=== PATIENT | female | born 1945 | race Caucasian/White ===

== ENCOUNTER → 2018-06-30 12:06 | Outpatient (CLI) | payer MEDICARE, SELFPAY ==
--- NOTE | 2018-06-30 | DI.RAD.S_ITS ---
PROCEDURE: XR ANKLE LT MIN 3V INDICATIONS: PAIN IN LEFT ANKLE AND JOINTS OF LEFT FOOT TECHNIQUE: 3 views of the ankle were acquired. COMPARISON: [facility], , ANKLE 3 VIEWS LEFT, 09/16/2016, 9:32. FINDINGS: Bones: No fractures or dislocations. Ankle mortise is normally aligned. No suspicious bony lesions. Minimal tibiotalar spurring. Soft tissues: No tibiotalar joint effusion. Achilles tendon appears normal. IMPRESSION: No fracture. Mild degenerative spurring. Dictated by: Bryan العلي M.D. on 06/30/2018 at 13:54 Approved by: Bryan العلي M.D. on 06/30/2018 at 13:56
--- NOTE | 2018-06-30 | DI.RAD.S_ITS ---
PROCEDURE: XR RIBS RT MIN 3V W CXR 1V INDICATIONS: OTHER CHEST PAIN,PAIN IN LT ANKLE JOINTS OF FOOT TECHNIQUE: 2 views of the right ribs were acquired, along with a single view chest. COMPARISON: None. FINDINGS: Surgical changes and devices: None. Bones and chest wall: No fractures or dislocations. No suspicious bony lesions. Overlying soft tissues appear unremarkable. Some 4 mm presumed calcified granulomas projecting in the right upper lobe. Lungs and pleura: No pleural effusions or pneumothorax. Lungs appear clear. Mediastinum: Mediastinal contours appear normal. Heart size is normal. IMPRESSION: No acute disease. No fracture. Dictated by: Bryan العلي M.D. on 06/30/2018 at 13:46 Approved by: Bryan العلي M.D. on 06/30/2018 at 13:48
== END ==
PROVIDERS: Family Provider Internal Medicine; PCP Internal Medicine; Visit Provider Internal Medicine
DX: M25.572 Pain in left ankle and joints of left foot (principal); R07.89 Other chest pain
CPT/HCPCS: 71101; 73610

== ENCOUNTER → 2018-09-11 10:44 | Outpatient (CLI) | payer MEDICARE, SELFPAY ==
--- NOTE | 2018-09-11 | DI.CT.S_ITS ---
PROCEDURE: CT SINUS SCREEN WO CON INDICATIONS: CHRONIC SINITIS TECHNIQUE: Noncontrast 3.0 mm axial images acquired from the frontal sinuses to the mid-sella, with coronal and sagittal reformats. For radiation dose reduction, the following was used: automated exposure control, adjustment of mA and/or kV according to patient size. COMPARISON: [facility], CT, SINUS SCREEN WO CONTRAST, 01/07/2017, 14:35. FINDINGS: Image quality: Excellent. Maxillary Sinuses: There has been partial removal of the medial wall of the right maxillary sinus. Mild mucosal thickening can be seen within the left maxillary sinus. Ethmoid Air Cells: No bony remodeling or destruction. Mild to moderate mucosal thickening in the seen on the left side. Sphenoid Sinuses: No bony remodeling or destruction. Sinuses are clear. Frontal Sinuses: No bony remodeling or destruction. Sinuses are clear. Ostiomeatal Complexes: Ostiomeatal complexes are patent, yet they are constitutionally narrowed. Miscellaneous: Visualized intra-orbital contents are normal. There is a left-sided yolanda bullosa seen. Moderate rightward nasal septal deviation is seen. IMPRESSION: Left-sided paranasal sinus disease. Prior postoperative change of the medial wall of the right maxillary sinus. Moderate rightward nasal septal deviation. Dictated by: Lewis Yang M.D. on 09/11/2018 at 11:12 Approved by: Lewis Yang M.D. on 09/11/2018 at 11:14
[2018-09-11 13:01] LABS: BUN Creatinine Ratio 24.4 (6-22); Blood Urea Nitrogen 22 mg/dL (7-17); Calcium 9.6 mg/dL (8.4-10.2); Carbon Dioxide 32 mmol/L (22-32); Chloride 104 mmol/L (98-107); Estimated Glomerular Filt Rate > 60.0 mL/min (>60); Glucose 79 mg/dL (80-110); HEMOLYSIS < 15 (0-50); Potassium 4.2 mmol/L (3.4-5.1); Sodium 143 mmol/L (137-145)
== END ==
PROVIDERS: PCP Internal Medicine; Visit Provider Physician Assistant Medical
DX: J32.9 Chronic sinusitis, unspecified (principal); J34.2 Deviated nasal septum; I10 Essential (primary) hypertension
CPT/HCPCS: 36415; 70486; 80048

== ENCOUNTER → 2018-09-12 13:21 | Outpatient (CLI) | payer MEDICARE, SELFPAY ==
--- NOTE | 2018-09-12 | DI.NM.S_ITS ---
PROCEDURE: NM ETHAN PERF SPECT REST & STR Rest and exercise myocardial perfusion SPECT with gated imaging and ejection fraction RADIOPHARMACEUTICAL: 24.5 mCi Tc-99m sestamibi IV at rest and 25.4 mCi Tc-99m sestamibi IV at peak exercise. A two day-protocol was performed. INDICATIONS: ABNORMAL EKG TECHNIQUE: Radiopharmaceutical was injected at peak stress test, and also at rest. SPECT images were obtained. SPECT myocardial perfusion images were displayed in short axis, horizontal long axis, and vertical long axis views. Gated images were reviewed using [employer] software. COMPARISON: None. CARDIAC STRESS: A standard Alexei treadmill exercise tolerance test was performed by the patient under the supervision of an attending staff. The patient exercised for 6 minutes and 10 seconds reaching 7.0 METs; functional aerobic impairment (TODD) is -5%. Hemodynamic data: There is normal blood pressure and heart rate response to exercise stress. Patient achieved 97% of maximum predicted heart rate at peak exercise. Symptoms: Patient denied chest pain during exercise. EKG: No diagnostic EKG changes of ischemia; no ectopy. FINDINGS: Raw data: There is good myocardial labeling by radiotracer. No significant motion artifacts. Hznm-hk-[id number] ratio is 0.31 (normal is less than 0.38 for sestamibi tracer, and less than 0.50 for thallium tracer). Left ventricle function: Gated images demonstrate normal left ventricle wall thickening. No segmental wall motion abnormality. No transient ischemic dilation. The left ventricle resting end-diastolic volume is 97 mL. Left ventricle stress ejection fraction is 74%; normal values are above 45%. Myocardial perfusion: There is normal distribution of activity in the left and right ventricular myocardium. No fixed or reversible perfusion defects. IMPRESSION: Low risk, normal treadmill nuclear stress test. Hypertension at rest. 1) No perfusion evidence of ischemia or infarction. 2) Normal left ventricular size, wall motion, and systolic function (post stress EF 74%). 3) No ECG evidence of ischemia. 4) No angina during the stress test. 5) Above average exercise tolerance ( 7.0 METs, TODD -5%). Target heart rate reached. Hypertensive at rest (BP 150/92mmHg). Normal blood pressure response to exercise. 6) No prior nuclear stress test available for comparison. Dictated by: Michael Conklin MD on 09/14/2018 at 18:52 Approved by: Michael Conklin MD on 09/14/2018 at 18:56
--- NOTE | 2018-09-12 15:07 | P.PCN_ITS ---
Cardiac Stress Test Report Referral & Results Date Patient Seen: 09/12/18 Time Patient Seen: 15:04 Requesting provider: Emily Peralta Indication: Subtle EKG changes, T-wave flattening in far lateral leads Rest ECG: Unremarkable Procedure Note: Today following both written and verbal informed consent the patient was exercised according to a standard Alexei protocol patient went for a total of 6 min 10 sec achieving a maximum heart rate of 140 for maximum systolic blood pressure of 190 to. This is approximately 7.0 METS. Exercise was terminated at this point because of targets having been met and inability the patient to go any faster. Patient was also given Cardiolite through a previously started Hep-Lock IV by the nuclear medicine pet ct technologist approximately 1 minute prior to the cessation of exercise. Patient was minimally hypertensive to start but overall her blood pressure response was not excessive. Normal heart rate response to exercise No ST-T segment changes identified No dysrhythmias Functional aerobic impairment rated-5% on the active scale or-20% on the sedentary scale, better than average in either case Impression: Better than average exercise capacity No evidence of ischemia Mild hypertension Perfusion imaging will be reported separately This appears to be a normal test and depending on clinical situation consideration for echocardiogram could be made. This was discussed briefly with the patient. Patient also tells me she is planning to take the 3 or 4 week trip in the very near future I suggested to her that if her perfusion imaging is indeed normal that her risk in doing so would be really quite small although she might require additional cardiac evaluation such as echocardiography her biggest risk relates to coronary artery disease which would appear to not be present based on today's study. However I suggested patient contact her primary care physician for final decision making, as her PCP clearly knows her history and story far better than I. Please note: Actual ECG tracings can be found in the PACS system.
== END ==
PROVIDERS: Family Provider Internal Medicine Cardiovascular Disease; PCP Internal Medicine; Visit Provider Internal Medicine
DX: R94.31 Abnormal electrocardiogram [ECG] [EKG] (principal); I10 Essential (primary) hypertension
CPT/HCPCS: 78452; 93016; 93017; 93018; A9502

== ENCOUNTER → 2018-10-25 12:01 | Outpatient (CLI) | payer MEDICARE, SELFPAY ==
--- NOTE | 2018-10-25 | DI.CT.S_ITS ---
PROCEDURE: CT SINUS SCREEN WO CON INDICATIONS: CHRONIC SINUSITIS, HEARING LOSS TECHNIQUE: Noncontrast 3.0 mm axial images acquired from the frontal sinuses to the mid-sella, with coronal and sagittal reformats. For radiation dose reduction, the following was used: automated exposure control, adjustment of mA and/or kV according to patient size. COMPARISON: [facility], CT, CT SINUS SCREEN WO CON, 09/11/2018, 10:54. FINDINGS: Image quality: Excellent. Maxillary Sinuses: No bony remodeling or destruction. Mild left maxillary sinus mucosal thickening is present. Bilateral maxillary sinus windows are present. Ethmoid Air Cells: No bony remodeling or destruction. Sinuses are clear. Sphenoid Sinuses: No bony remodeling or destruction. Sinuses are clear. Frontal Sinuses: No bony remodeling or destruction. Sinuses are clear. Ostiomeatal Complexes: Ostiomeatal complexes are patent. No Nabil cells. Miscellaneous: Visualized intra-orbital contents are normal. Left middle turbinate yolanda bullosa. Moderate rightward nasal septal deviation. IMPRESSION: 1. Mild left maxillary sinus mucosal thickening. 2. Rightward nasal septum deviation. Dictated by: Denise Bedolla M.D. on 10/25/2018 at 13:49 Approved by: Denise Bedolla M.D. on 10/25/2018 at 13:50
--- NOTE | 2018-10-25 | DI.CT.S_ITS ---
PROCEDURE: CT HEAD/BRAIN WO CON INDICATIONS: CHRONIC SINUSITIS, HEADACHES TECHNIQUE: Noncontrast 4.5 mm thick angled axial sections acquired from the foramen magnum to the vertex, with coronal and sagittal reformats. For radiation dose reduction, the following was used: automated exposure control, adjustment of mA and/or kV according to patient size. COMPARISON: None. FINDINGS: Image quality: Excellent. CSF spaces: Basal cisterns are patent. No extra-axial fluid collections. The ventricles are symmetric in size and shape. Brain: No intracranial bleeds or masses. There is mild cerebral volume loss for age, with resultant ventricular and sulcal prominence. There are mild periventricular and deep white matter chronic small vessel ischemic changes. There is intracranial internal carotid artery atherosclerosis. Skull and face: Calvarium and visualized facial bones appear intact, without suspicious lesions. Sinuses: Visualized sinuses and mastoids are clear. IMPRESSION: No acute intracranial disease process. Dictated by: Daniela Barr MD, PhD on 10/25/2018 at 16:41 Approved by: Daniela Barr MD, PhD on 10/25/2018 at 16:43
== END ==
PROVIDERS: Family Provider Internal Medicine Cardiovascular Disease; PCP Internal Medicine; Visit Provider Allergy & Immunology
DX: J32.0 Chronic maxillary sinusitis (principal); I65.29 Occlusion and stenosis of unspecified carotid artery; H91.90 Unspecified hearing loss, unspecified ear; J34.2 Deviated nasal septum; R51 Headache
CPT/HCPCS: 70450; 70486

== ENCOUNTER → 2019-01-18 11:07 | Outpatient (CLI) | payer MEDICARE, SELFPAY | PROVIDERS: PCP Internal Medicine; Visit Provider Internal Medicine | DX: Z01.83 Encounter for blood typing (principal) | CPT/HCPCS: 36415; 86850; 86900; 86901 ==

== ENCOUNTER → 2019-01-18 14:09 | Outpatient (CLI) | payer MEDICARE, SELFPAY ==
[2019-01-18 15:19] LABS: Erythrocyte Sedimentation Rate 9 MM/HR (0-20)
== END ==
PROVIDERS: PCP Internal Medicine; Visit Provider Family Medicine
DX: R51 Headache (principal); Z01.83 Encounter for blood typing
CPT/HCPCS: 36415; 85651; 86850; 86900; 86901

== ENCOUNTER → 2019-05-16 14:04 | Outpatient (CLI) | payer MEDICARE, SELFPAY ==
--- NOTE | 2019-05-16 | DI.MRI.S_ITS ---
PROCEDURE: MR HEAD/BRAIN WO/W CON INDICATIONS: Other abnormalities of gait and mobility TECHNIQUE: Noncontrast axial T1 spin echo, axial T2 fast spin echo, sagittal and axial FLAIR, coronal T2 fast spin echo, axial gradient echo, axial diffusion and ADC through the brain. After the administration of contrast, axial and coronal T1 spin echo with fat saturation through the brain. COMPARISON: [facility], CT, CT HEAD/BRAIN WO CON, 10/25/2018, 12:55. FINDINGS: Image quality: Excellent. CSF spaces: Basal cisterns are patent. No extra-axial fluid collections. Ventricles are normal in size and shape. Brain: No midline shift. No intracranial bleeds or masses. No abnormal intracranial enhancement. There is cerebral volume loss for age. There is periventricular white matter chronic small vessel ischemic change. The brainstem appears normal. Diffusion-weighted images demonstrate no acute ischemic insults. No chronic ischemic insults. Normal intravascular flow voids are present. Skull and face: Calvarial marrow is normal in signal. Orbits appear normal. Sinuses: Sinuses and mastoids appear clear. IMPRESSION: Diffuse small white matter signal changes, probably represent chronic microvascular ischemic disease, versus statistically less likely demyelination or other infectious, inflammatory, neurodegenerative etiology, technically nonspecific. No abnormal enhancement. No evidence of acute ischemia. Dictated by: Bryan العلي M.D. on 05/16/2019 at 16:03 Approved by: Bryan العلي M.D. on 05/16/2019 at 16:07
== END ==
PROVIDERS: PCP Internal Medicine; Visit Provider Internal Medicine
DX: R26.89 Other abnormalities of gait and mobility (principal); R42 Dizziness and giddiness
CPT/HCPCS: 70553; A9579

== ENCOUNTER → 2019-05-22 08:25 | Outpatient (CLI) | payer MEDICARE, SELFPAY ==
[2019-05-22 09:46] LABS: Alanine Aminotransferase 24 IU/L (9-52); Aspartate Aminotransferase 25 IU/L (14-36); BUN Creatinine Ratio 25.7 (6-22); Blood Urea Nitrogen 18 mg/dL (7-17); Calcium 9.4 mg/dL (8.4-10.2); Carbon Dioxide 26 mmol/L (22-32); Chloride 108 mmol/L (98-107); Cholesterol 164 mg/dL (140-199); Estimated Glomerular Filt Rate > 60.0 mL/min (>60); Glucose 90 mg/dL (80-110); HDL Cholesterol 54 mg/dL (40-60); HEMOLYSIS < 15 (0-50); LDL Cholesterol Calculated 88 mg/dL (<100); Potassium 3.9 mmol/L (3.4-5.1); Sodium 143 mmol/L (137-145); Triglycerides 109 mg/dL (35-150)
== END ==
PROVIDERS: PCP Internal Medicine; Visit Provider Internal Medicine
DX: I10 Essential (primary) hypertension (principal); E78.5 Hyperlipidemia, unspecified
CPT/HCPCS: 36415; 80048; 80061; 84450; 84460

== ENCOUNTER → 2019-08-29 17:58 | Outpatient (CLI) | payer MEDICARE, SELFPAY ==
--- NOTE | 2019-08-29 | DI.MRI.S_ITS ---
PROCEDURE: MR KNEE RT WO CON INDICATIONS: Pain in right knee TECHNIQUE: Noncontrast sagittal PD fast spin echo and T2 fast spin echo with fat saturation, sagittal 3-D FLASH with fat saturation; coronal T1 spin echo and PD fast spin echo with fat saturation, and axial PD fast spin echo with fat saturation through the knee. COMPARISON: None. FINDINGS: Image quality: Excellent. Menisci: Amorphous high signal intensity within the free edge of the medial meniscal body is present, demonstrating superior and inferior articular surface extension, indicating degenerative tearing. Lateral meniscus is intact. Cruciate ligaments: The anterior and posterior cruciate ligaments appear intact. Medial structures: The medial collateral ligament appears intact. Visualized portions of the pes anserinus tendons appear normal. Small amount of medial bursal fluid. Lateral structures: The lateral collateral ligament, long and short heads of the biceps femoris tendon appear intact. The popliteus tendon appears normal. Iliotibial band appears normal. Anterior structures: The quadriceps and patellar tendons appear intact. Patellar alignment is normal. No femoral trochlear dysplasia or ventral trochlear prominence. No edema in the infrapatellar fat pad. Bones and cartilage: No bone marrow contusions or fractures. There is mild tricompartmental periarticular osteophyte formation. There is moderate diffuse circular cartilage loss overlying the weightbearing aspects of the medial femoral condyle and medial tibial plateau. Superimposed high grade articular cartilage loss overlies the posterior weightbearing aspect of the medial femoral condyle. There is mild underlying degenerative marrow edema within the medial femoral condyle posteriorly. Severe articular cartilage loss overlies the medial patellar facet superiorly. Mild degenerative marrow edema within the patellar apex. Joint space: There is a small knee joint effusion. No Sharma's cyst. Normal appearing synovial plicae are incidentally noted. IMPRESSION: 1. Tricompartmental osteoarthritis with associated articular cartilage loss. 2. Medial meniscal tear. 3. Small knee joint effusion. 4. Mild medial bursitis. Dictated by: Denise Bedolla M.D. on 08/30/2019 at 10:35 Approved by: Denise Bedolla M.D. on 08/30/2019 at 10:38
== END ==
PROVIDERS: Family Provider Internal Medicine; PCP Internal Medicine; Visit Provider Student in an Organized Health Care Education/Training Program
DX: M25.561 Pain in right knee (principal); M17.11 Unilateral primary osteoarthritis, right knee; S83.241A Other tear of medial meniscus, current injury, right knee, initial encounter; M25.461 Effusion, right knee; M71.561 Other bursitis, not elsewhere classified, right knee
CPT/HCPCS: 73721

== ENCOUNTER → 2019-10-25 14:56 | Outpatient (CLI) | payer MEDICARE, SELFPAY | PROVIDERS: PCP Internal Medicine; Visit Provider Internal Medicine | DX: M85.852 Other specified disorders of bone density and structure, left thigh (principal); Z78.0 Asymptomatic menopausal state; Z82.62 Family history of osteoporosis | CPT/HCPCS: 77080; 77081 ==

== ENCOUNTER → 2019-10-26 11:42 | Outpatient (CLI) | payer MEDICARE, SELFPAY ==
--- NOTE | 2019-10-26 | DI.MG.S_ITS ---
BILATERAL DIGITAL SCREENING MAMMOGRAM 3D/2D WITH CAD: 10/26/2019 CLINICAL: Routine screening. Comparison is made to exams dated: 03/11/2017 mammogram - [facility], 12/12/2014 mammogram, and 11/08/2013 mammogram - [facility]. The tissue of both breasts is heterogeneously dense. This may lower the sensitivity of mammography. Current study was also evaluated with a Computer Aided Detection (CAD) system. No significant masses, calcifications, or other findings are seen in either breast. There has been no significant interval change. IMPRESSION: NEGATIVE There is no mammographic evidence of malignancy. A 1 year screening mammogram is recommended. This exam was interpreted at Station ID: [id number]. NOTE: For mammograms, a report in lay terms will be sent to the patient. Approximately 15% of breast malignancies will not be visualized mammographically. In the management of a palpable breast mass, a negative mammogram must not discourage biopsy of a clinically suspicious lesion. Electronically Signed By: Julio Cesar montanez/lisbeth:10/26/2019 14:49:20 letter sent: Normal Exam ACR BI-RADS Category 1: Negative [id number]
== END ==
PROVIDERS: PCP Internal Medicine; Visit Provider Internal Medicine
DX: Z12.31 Encounter for screening mammogram for malignant neoplasm of breast (principal)
CPT/HCPCS: 77063; 77067

== ENCOUNTER 2019-10-31 11:15 | Outpatient (RCR) | payer MEDICARE, SELFPAY ==
--- NOTE | 2019-09-05 16:45 | PT.OPPOC ---
Current Diagnoses Pain in right knee (09/05/19) Stiffness of right knee, not elsewhere classified (09/05/19) Other abnormalities of gait and mobility (09/05/19) Weakness (09/05/19) Other tear of medial meniscus, current injury, right knee, initial encounter (09/05/19) Visit Care Team Role Provider Type Emily Peralta MD Family Provider Physician Primary Care Provider Specialty: Internal Medicine Address: [address] [place] [address], [facility] Email: [email or web address] Cuca Fontenot PA-C Attending Provider Physician Specialty: Internal Medicine Address: [address] [place] [address], [id number] Email: [email or web address] Plan Of Care PT-OP-T Assessment and Plan Start: 09/06/19 09:34 Freq: Status: Active Protocol: Document 09/05/19 16:00 DCW (Rec: 09/06/19 10:20 DCW [id number]) Physical Therapy Assessment Rehab Potential Rehabilitation Potential Good Evaluation Complexity Number of Personal Factors/Comorbidities 1-2 Number of Body Systems Impaired 1-2 Clinical Presentation at Evaluation Stable Impairments Impairments Activity Tolerance,Functional Mobility,Gait,Pain,ROM, Strength Goals Four Impairment Pt descends stairs by side- stepping Long-Term Goal (LTG) Pt to ascend and descend stairs [id number] with no increased pain to increased level of safety LTG Duration 11/05/19 Three Impairment Pt only able to walk <1 mile per day Music Copyist Goal (LTG) Pt to ambulate 5 miles daily without increased knee pain to return to [facility] for her springtime motor-home road trips LTG Duration 11/05/19 Two Impairment Pt pain wakes her up at night Short Term Goal (STG) Pt to report pain at night at worst /10 to improve sleep STG Duration 10/06/19 One Impairment Pt does not have an appropriate home exercise program Short Term Goal (STG) Pt to be independent and compliant with an appropriate HEP STG Duration 10/06/19 Assessment Summary Assessment Pt is a 74 year old female presenting with a right medial meniscus tear. Pt displays right-sided weakness, pain with pivoting on her right knee, decreased tolerance to walking, VMO atrophy, limited right knee flexion, decreased quality of gait, and increased tone and tenderness of her right calf. Patient should benefit from skilled therapy focusing on LE strengthening, gait training, pain-control, ROM/flexibility training. Physical Therapy Plan Frequency and Duration Frequency of Treatment 2x/Week Duration of Treatment 12 weeks Plan of Care Start Date 09/05/19 Plan of Care End Date 11/28/19 Therapeutic Interventions Therapeutic Interventions Gait Training,Joint Mobilizations,Manual Therapy, Patient/Caregiver Education, Self-Care/Home Management,Soft Tissue Mobilization, Therapeutic Activities, Therapeutic Exercises Modalities Cold Pack/Ice Massage,Electric Stimulation,Hot Packs, Ultrasound Next Visit Focus/Plan Next Note Type Treatment Note Next Visit Plan LE strengthening, gait training, edema control, ROM exercises, pain-control Plan of Care Dates Plan of Care Start Date 09/05/19 Plan of Care End Date 11/28/19
--- NOTE | 2019-09-05 16:45 | PT.OIE ---
Current Diagnoses Pain in right knee (09/05/19) Stiffness of right knee, not elsewhere classified (09/05/19) Other abnormalities of gait and mobility (09/05/19) Weakness (09/05/19) Other tear of medial meniscus, current injury, right knee, initial encounter (09/05/19) Visit Care Team Role Provider Type Emily Peralta MD Family Provider Physician Primary Care Provider Specialty: Internal Medicine Address: [address] [place] [address], [facility] Email: [email or web address]-C Attending Provider Physician Specialty: Internal Medicine Address: [address] [place] [address], [id number] Email: [email or web address] Physical Therapy Initial Evaluation PT-OP-A Visit Information Start: 09/06/19 09:34 Freq: Status: Active Protocol: Document 09/05/19 16:00 DCW (Rec: 09/06/19 10:20 [facility] [id number]) Out-Patient Physical Therapy Visit Information Visit Information Visit Type Initial Evaluation Visit Start Time 16:00 Visit Stop Time 16:45 Total Visit Minutes 45 Visit Number 1 Number of DIRECTOR HEMATOLOGY Visits 0 Evaluation Information Evaluation Date 09/05/19 PT-OP-B Current Condition Start: 09/06/19 09:34 Freq: Status: Active Protocol: Document 09/05/19 16:00 DCW (Rec: 09/06/19 10:20 [facility] [id number]) Current Condition History of Current Condition Onset Date 6 week history Current Complaints Right medial meniscus tear History of Current Condition Pt is a 74 year old female presenting with a six week history of right knee pain. Pt reports that she and her were driving [place], and two months into their trip, they were doing a lot of walking, and she woke up one day with substantial pain and edema in her right knee. Pt reports that for the remainder of the trip, she continued to walk, but just did less, cutting back from seven miles a day to about two. Pt reports she tried to keep her knee elevated when not walking, and it took ten days for her swelling to go down a a bit, but then the pain worsened. 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 Pt was told to try Physical Therapy, and then they'll go from there. Pt notes that she will frequently feel like the knee is going to collapse, although it hasn't yet, so pt has been wearing a neoprene brace for support and compression. Pain has been interfering with her life, waking her up at night, and limiting her to walking less than one mile a day. Prior Treatments and Tests Right knee MRI: 1. Tricompartmental osteoarthritis with associated articular cartilage loss. 2. Medial meniscal tear. 3. Small knee joint effusion. 4. Mild medial bursitis. Per Denise Bedolla M.D. on 08/2019 Treatment Goals Patient/Caregiver Goals Pt wants to decrease pain so she can sleep through the night, and improve her walking back to 5+ miles a day, as she has more upcoming road trips, during which she likes to hike and explore with her . PT-OP-C Subjective Start: 09/06/19 09:34 Freq: Status: Active Protocol: Document 09/05/19 16:00 DCW (Rec: 09/06/19 10:20 [facility] [id number]) OP-PT Subjective Patient Comments Patient Comments Everything I go aggravates it . Patient Reported Progress Same Patient Questionnaires Lower Extremity Functional Scale LEFS Score 46/80 = 57.5% LEFS Impairment 40 to 59% Impaired (Score 32- 47) OP-PT Pain Assessment Pain Assessment Grid Paper Pain Assessment Grid Completed Yes Location Right Medial Knee Intensity 6 Scale Used Numeric (1 - 10) Description Aching,Chronic,Pressure Frequency Frequent PT-OP-F Manual Assessment Start: 09/06/19 10:22 Freq: Status: Active Protocol: Document 09/05/19 16:00 DCW (Rec: 09/06/19 10:23 [facility] [id number]) Manual Assessments Soft Tissue Assessment Soft Tissue Mobility Assessment Noticeable right VMO atrophy during quad sets vs left VMO PT-OP-G Mobility & Gait Start: 09/06/19 09:34 Freq: Status: Active Protocol: Document 09/05/19 16:00 DCW (Rec: 09/06/19 10:20 [facility] [id number]) OP Gait Assessment Gait Gait Assistance Required: Independent Able to Maintain Weight Bearing Status Yes During Gait Assistive Devices Assistive Device None Gait Deviations General Gait Pattern Antalgic,Decreased Stride Length,Lateral Trunk Lean Factors Limiting Gait Function Factors Limiting Gait Function Decreased Activity Tolerance, Decreased Strength,Limited Range of Motion,Pain Comments Gait Comments Pt ambulates with antalgic gait, a lateral weight shift over right leg during R stance , exhibits a decreased stance time on her right. Stair Climbing Evaluation Evaluation Level of Assist On Stairs Independent Devices Stair Climbing Assistive Devices Left Railing,Right Railing Technique/Endurance Stair Climbing Direction Ascend and Descend Stair Climbing Technique Step to Step Comments Stair Climbing Comments prefers step-to, but is able to use step-through on stairs with mild increased pain PT-OP-K Range of Motion Start: 09/06/19 09:34 Freq: Status: Active Protocol: Document 09/05/19 16:00 DCW (Rec: 09/06/19 10:20 [facility] [id number]) Knee Goniometric Range of Motion Knee Right Knee ROM WFL No Patient Position Sitting Flexion Active (degrees) 92 Extension Active (degrees) 0 Left Knee ROM WFL Yes Knee ROM Limitations Knee ROM Limitations Pain,Swelling PT-OP-L Special Tests Start: 09/06/19 09:34 Freq: Status: Active Protocol: Document 09/05/19 16:00 DCW (Rec: 09/06/19 10:20 [facility] [id number]) Special Tests Knee Special Tests Varus- 25 Degrees Test Results Negative Valgus- 25 Degrees Test Results Negative Posterior Draw Test Results Negative Anthony's Test Results Negative Anterior Draw Test Results Negative PT-OP-M Strength Start: 09/06/19 09:34 Freq: Status: Active Protocol: Document 09/05/19 16:00 DCW (Rec: 09/06/19 10:20 [facility] [id number]) Hip Strength Hip Manual Muscle Testing Right Flexion (L2) 4- Good- Abduction 4- Good- Adduction 4- Good- Left Flexion (L2) 4+ Good+ Abduction 4+ Good+ Adduction 4+ Good+ Knee Strength Knee Manual Muscle Testing Right Flexion (S2) 3 Fair Extension (L3) 4 Good Left Flexion (S2) 4+ Good+ Extension (L3) 4+ Good+ PT-OP-Q Treatments Start: 09/06/19 09:34 Freq: Status: Active Protocol: Document 09/05/19 16:00 DCW (Rec: 09/06/19 10:20 [facility] [id number]) Therapeutic Exercises Supine Exercises Bridging Supine Exercise Name Bridging /c Add Ball Squeeze SLR /c ER Supine Exercise Name SLR /c ER Side right Sitting Exercises Quad Sets Sitting Exercise Name Seated QS Side right PT-OP-T Assessment and Plan Start: 09/06/19 09:34 Freq: Status: Active Protocol: Document 09/05/19 16:00 DCW (Rec: 09/06/19 10:20 [facility] [id number]) Physical Therapy Assessment Rehab Potential Rehabilitation Potential Good Evaluation Complexity Number of Personal Factors/Comorbidities 1-2 Number of Body Systems Impaired 1-2 Clinical Presentation at Evaluation Stable Impairments Impairments Activity Tolerance,Functional Mobility,Gait,Pain,ROM, Strength Goals Four Impairment Pt descends stairs by side- stepping Senior Care Goal (LTG) Pt to ascend and descend stairs [id number] with no increased pain to increased level of safety LTG Duration 11/05/19 Three Impairment Pt only able to walk <1 mile per day [employer]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 Goal (LTG) Pt to ambulate 5 miles daily without increased knee pain to return to [facility] for her springtime motor-home road trips LTG Duration 11/05/19 Two Impairment Pt pain wakes her up at night Short Term Goal (STG) Pt to report pain at night at worst /10 to improve sleep STG Duration 10/06/19 One Impairment Pt does not have an appropriate home exercise program Short Term Goal (STG) Pt to be independent and compliant with an appropriate HEP STG Duration 10/06/19 Assessment Summary Assessment Pt is a 74 year old female presenting with a right medial meniscus tear. Pt displays right-sided weakness, pain with pivoting on her right knee, decreased tolerance to walking, VMO atrophy, limited right knee flexion, decreased quality of gait, and increased tone and tenderness of her right calf. Patient should benefit from skilled therapy focusing on LE strengthening, gait training, pain-control, ROM/flexibility training. Physical Therapy Plan Frequency and Duration Frequency of Treatment 2x/Week Duration of Treatment 12 weeks Plan of Care Start Date 09/05/19 Plan of Care End Date 11/28/19 Therapeutic Interventions Therapeutic Interventions Gait Training,Joint Mobilizations,Manual Therapy, Patient/Caregiver Education, Self-Care/Home Management,Soft Tissue Mobilization, Therapeutic Activities, Therapeutic Exercises Modalities Cold Pack/Ice Massage,Electric Stimulation,Hot Packs, Ultrasound Next Visit Focus/Plan Next Note Type Treatment Note Next Visit Plan LE strengthening, gait training, edema control, ROM exercises, pain-control
--- NOTE | 2019-09-06 10:23 | PT.OIE ---
Current Diagnoses Pain in right knee (09/05/19) Stiffness of right knee, not elsewhere classified (09/05/19) Other abnormalities of gait and mobility (09/05/19) Weakness (09/05/19) Other tear of medial meniscus, current injury, right knee, initial encounter (09/05/19) Visit Care Team Role Provider Type Emily Peralta MD Family Provider Physician Primary Care Provider Specialty: Internal Medicine Address: [address] [place] [address], [facility] Email: [email or web address] Attending Provider Physician Specialty: Internal Medicine Address: [address] [place] [address], [id number] Email: [email or web address] Physical Therapy Initial Evaluation PT-OP-A Visit Information Start: 09/06/19 09:34 Freq: Status: Active Protocol: Document 09/05/19 16:00 DCW (Rec: 09/06/19 10:20 [facility] [id number]) Out-Patient Physical Therapy Visit Information Visit Information Visit Type Initial Evaluation Visit Start Time 16:00 Visit Stop Time 16:45 Total Visit Minutes 45 Visit Number 1 Number of UNIVERSAL BANKER Visits 0 Evaluation Information Evaluation Date 09/05/19 PT-OP-B Current Condition Start: 09/06/19 09:34 Freq: Status: Active Protocol: Document 09/05/19 16:00 DCW (Rec: 09/06/19 10:20 [facility] [id number]) Current Condition History of Current Condition Onset Date 6 week history Current Complaints Right medial meniscus tear History of Current Condition Pt is a 74 year old female presenting with a six week history of right knee pain. Pt reports that she and her were driving their motor-home [place] the continent [place], and two months into their trip, they were doing a lot of walking, and she woke up one day with substantial pain and edema in her right knee. Pt reports that for the remainder of the trip, she continued to walk, but just did less, cutting back from seven miles a day to about two. Pt reports she tried to keep her knee elevated when not walking, and it took ten days for her swelling to go down a a bit, but then the pain worsened. 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 Pt was told to try Physical Therapy, and then they'll go from there. Pt notes that she will frequently feel like the knee is going to collapse, although it hasn't yet, so pt has been wearing a neoprene brace for support and compression. Pain has been interfering with her life, waking her up at night, and limiting her to walking less than one mile a day. Prior Treatments and Tests Right knee MRI: 1. Tricompartmental osteoarthritis with associated articular cartilage loss. 2. Medial meniscal tear. 3. Small knee joint effusion. 4. Mild medial bursitis. Per Denise Bedolla M.D. on 08/2019 Treatment Goals Patient/Caregiver Goals Pt wants to decrease pain so she can sleep through the night, and improve her walking back to 5+ miles a day, as she has more upcoming road trips, during which she likes to hike and explore with her . PT-OP-C Subjective Start: 09/06/19 09:34 Freq: Status: Active Protocol: Document 09/05/19 16:00 DCW (Rec: 09/06/19 10:20 [facility] [id number]) OP-PT Subjective Patient Comments Patient Comments Everything I go aggravates it . Patient Reported Progress Same Patient Questionnaires Lower Extremity Functional Scale LEFS Score 46/80 = 57.5% LEFS Impairment 40 to 59% Impaired (Score 32- 47) OP-PT Pain Assessment Pain Assessment Grid Paper Pain Assessment Grid Completed Yes Location Right Medial Knee Intensity 6 Scale Used Numeric (1 - 10) Description Aching,Chronic,Pressure Frequency Frequent PT-OP-F Manual Assessment Start: 09/06/19 10:22 Freq: Status: Active Protocol: Document 09/05/19 16:00 DCW (Rec: 09/06/19 10:23 [facility] [id number]) Manual Assessments Soft Tissue Assessment Soft Tissue Mobility Assessment Noticeable right VMO atrophy during quad sets vs left VMO PT-OP-G Mobility & Gait Start: 09/06/19 09:34 Freq: Status: Active Protocol: Document 09/05/19 16:00 DCW (Rec: 09/06/19 10:20 [facility] [id number]) OP Gait Assessment Gait Gait Assistance Required: Independent Able to Maintain Weight Bearing Status Yes During Gait Assistive Devices Assistive Device None Gait Deviations General Gait Pattern Antalgic,Decreased Stride Length,Lateral Trunk Lean Factors Limiting Gait Function Factors Limiting Gait Function Decreased Activity Tolerance, Decreased Strength,Limited Range of Motion,Pain Comments Gait Comments Pt ambulates with antalgic gait, a lateral weight shift over right leg during R stance , exhibits a decreased stance time on her right. Stair Climbing Evaluation Evaluation Level of Assist On Stairs Independent Devices Stair Climbing Assistive Devices Left Railing,Right Railing Technique/Endurance Stair Climbing Direction Ascend and Descend Stair Climbing Technique Step to Step Comments Stair Climbing Comments prefers step-to, but is able to use step-through on stairs with mild increased pain PT-OP-K Range of Motion Start: 09/06/19 09:34 Freq: Status: Active Protocol: Document 09/05/19 16:00 DCW (Rec: 09/06/19 10:20 [facility] [id number]) Knee Goniometric Range of Motion Knee Right Knee ROM WFL No Patient Position Sitting Flexion Active (degrees) 92 Extension Active (degrees) 0 Left Knee ROM WFL Yes Knee ROM Limitations Knee ROM Limitations Pain,Swelling PT-OP-L Special Tests Start: 09/06/19 09:34 Freq: Status: Active Protocol: Document 09/05/19 16:00 DCW (Rec: 09/06/19 10:20 [facility] [id number]) Special Tests Knee Special Tests Varus- 25 Degrees Test Results Negative Valgus- 25 Degrees Test Results Negative Posterior Draw Test Results Negative Anthony's Test Results Negative Anterior Draw Test Results Negative PT-OP-M Strength Start: 09/06/19 09:34 Freq: Status: Active Protocol: Document 09/05/19 16:00 DCW (Rec: 09/06/19 10:20 [facility] [id number]) Hip Strength Hip Manual Muscle Testing Right Flexion (L2) 4- Good- Abduction 4- Good- Adduction 4- Good- Left Flexion (L2) 4+ Good+ Abduction 4+ Good+ Adduction 4+ Good+ Knee Strength Knee Manual Muscle Testing Right Flexion (S2) 3 Fair Extension (L3) 4 Good Left Flexion (S2) 4+ Good+ Extension (L3) 4+ Good+ PT-OP-Q Treatments Start: 09/06/19 09:34 Freq: Status: Active Protocol: Document 09/05/19 16:00 DCW (Rec: 09/06/19 10:20 [facility] [id number]) Therapeutic Exercises Supine Exercises Bridging Supine Exercise Name Bridging /c Add Ball Squeeze SLR /c ER Supine Exercise Name SLR /c ER Side right Sitting Exercises Quad Sets Sitting Exercise Name Seated QS Side right PT-OP-T Assessment and Plan Start: 09/06/19 09:34 Freq: Status: Active Protocol: Document 09/05/19 16:00 DCW (Rec: 09/06/19 10:20 [facility] [id number]) Physical Therapy Assessment Rehab Potential Rehabilitation Potential Good Evaluation Complexity Number of Personal Factors/Comorbidities 1-2 Number of Body Systems Impaired 1-2 Clinical Presentation at Evaluation Stable Impairments Impairments Activity Tolerance,Functional Mobility,Gait,Pain,ROM, Strength Goals Four Impairment Pt descends stairs by side- stepping Skilled Nursing Goal (LTG) Pt to ascend and descend stairs [id number] with no increased pain to increased level of safety LTG Duration 11/05/19 Three Impairment Pt only able to walk <1 mile per day Corporate Executive Goal (LTG) Pt to ambulate 5 miles daily without increased knee pain to return to [facility] for her springtime motor home road trips LTG Duration 11/05/19 Two Impairment Pt pain wakes her up at night Short Term Goal (STG) Pt to report pain at night at worst /10 to improve sleep STG Duration 10/06/19 One Impairment Pt does not have an appropriate home exercise program Short Term Goal (STG) Pt to be independent and compliant with an appropriate HEP STG Duration 10/06/19 Assessment Summary Assessment Pt is a 74 year old female presenting with a right medial meniscus tear. Pt displays right-sided weakness, pain with pivoting on her right knee, decreased tolerance to walking, VMO atrophy, limited right knee flexion, decreased quality of gait, and increased tone and tenderness of her right calf. Patient should benefit from skilled therapy focusing on LE strengthening, gait training, pain-control, ROM/flexibility training. Physical Therapy Plan Frequency and Duration Frequency of Treatment 2x/Week Duration of Treatment 12 weeks Plan of Care Start Date 09/05/19 Plan of Care End Date 11/28/19 Therapeutic Interventions Therapeutic Interventions Gait Training,Joint Mobilizations,Manual Therapy, Patient/Caregiver Education, Self-Care/Home Management,Soft Tissue Mobilization, Therapeutic Activities, Therapeutic Exercises Modalities Cold Pack/Ice Massage,Electric Stimulation,Hot Packs, Ultrasound Next Visit Focus/Plan Next Note Type Treatment Note Next Visit Plan LE strengthening, gait training, edema control, ROM exercises, pain-control
--- NOTE | 2019-09-07 14:35 | PT.OTN ---
Current Diagnoses Pain in right knee (09/07/19) Stiffness of right knee, not elsewhere classified (09/07/19) Other abnormalities of gait and mobility (09/07/19) Weakness (09/07/19) Other tear of medial meniscus, current injury, right knee, initial encounter (09/07/19) Physical Therapy Treatment Note PT-OP-A Visit Information Start: 09/06/19 09:34 Freq: Status: Active Protocol: Document 09/07/19 13:45 DCW (Rec: 09/07/19 14:35 DCW [id number]) Out-Patient Physical Therapy Visit Information Visit Information Visit Type Treatment Note Visit Start Time 13:45 Visit Stop Time 14:30 Total Visit Minutes 45 Visit Number 2 Number of OFFAL SEPARATOR Visits 0 Evaluation Information Evaluation Date 09/05/19 PT-OP-B Current Condition Start: 09/06/19 09:34 Freq: Status: Active Protocol: Document 09/05/19 16:00 DCW (Rec: 09/06/19 10:20 DCW [id number]) Current Condition History of Current Condition Onset Date 6 week history Current Complaints Right medial meniscus tear History of Current Condition Pt is a 74 year old female presenting with a six week history of right knee pain. Pt reports that she and her were driving [place], and two months into their trip, they were doing a lot of walking, and she woke up one day with substantial pain and edema in her right knee. Pt reports that for the remainder of the trip, she continued to walk, but just did less, cutting back from seven miles a day to about two. Pt reports she tried to keep her knee elevated when not walking, and it took ten days for her swelling to go down a a bit, but then the pain worsened. 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 Pt was told to try Physical Therapy, and then they'll go from there. Pt notes that she will frequently feel like the knee is going to collapse, although it hasn't yet, so pt has been wearing a neoprene brace for support and compression. Pain has been interferring with her life, waking her up at night, and limiting her to walking less than one mile a day. Prior Treatments and Tests Right knee MRI: 1. Tricompartmental osteoarthritis with associated articular cartilage loss. 2. Medial meniscal tear. 3. Small knee joint effusion. 4. Mild medial bursitis. Per Denise Bedolla M.D. on 08/2019 Treatment Goals Patient/Caregiver Goals Pt wants to decrease pain so she can sleep through the night, and improve her walking back to 5+ miles a day, as she has more upcoming road trips, during which she likes to hike and explore with her . PT-OP-C Subjective Start: 09/06/19 09:34 Freq: Status: Active Protocol: Document 09/07/19 13:45 DCW (Rec: 09/07/19 14:35 DCW [id number]) OP-PT Subjective Patient Comments Patient Comments Pt arrived today with multiple questions about how much she should be working vs how much she should try to rest her leg . PT-OP-F Manual Assessment Start: 09/06/19 10:22 Freq: Status: Active Protocol: Document 09/05/19 16:00 DCW (Rec: 09/06/19 10:23 DCW [id number]) Manual Assessments Soft Tissue Assessment Soft Tissue Mobility Assessment Noticeable right VMO atrophy during quad sets vs left VMO PT-OP-G Mobility & Gait Start: 09/06/19 09:34 Freq: Status: Active Protocol: Document 09/05/19 16:00 DCW (Rec: 09/06/19 10:20 DCW [id number]) OP Gait Assessment Gait Gait Assistance Required: Independent Able to Maintain Weight Bearing Status Yes During Gait Assistive Devices Assistive Device None Gait Deviations General Gait Pattern Antalgic,Decreased Stride Length,Lateral Trunk Lean Factors Limiting Gait Function Factors Limiting Gait Function Decreased Activity Tolerance, Decreased Strength,Limited Range of Motion,Pain Comments Gait Comments Pt ambulates with antalgic gait, a lateral weight shift over right leg during R stance , exhibits a decreased stance time on her right. Stair Climbing Evaluation Evaluation Level of Assist On Stairs Independent Devices Stair Climbing Assistive Devices Left Railing,Right Railing Technique/Endurance Stair Climbing Direction Ascend and Descend Stair Climbing Technique Step to Step Comments Stair Climbing Comments prefers step-to, but is able to use step-through on stairs with mild increased pain PT-OP-K Range of Motion Start: 09/06/19 09:34 Freq: Status: Active Protocol: Document 09/05/19 16:00 DCW (Rec: 09/06/19 10:20 DCW [id number]) Knee Goniometric Range of Motion Knee Right Knee ROM WFL No Patient Position Sitting Flexion Active (degrees) 92 Extension Active (degrees) 0 Left Knee ROM WFL Yes Knee ROM Limitations Knee ROM Limitations Pain,Swelling PT-OP-L Special Tests Start: 09/06/19 09:34 Freq: Status: Active Protocol: Document 09/05/19 16:00 DCW (Rec: 09/06/19 10:20 DCW [id number]) Special Tests Knee Special Tests Varus- 25 Degrees Test Results Negative Valgus- 25 Degrees Test Results Negative Posterior Draw Test Results Negative Anthony's Test Results Negative Anterior Draw Test Results Negative PT-OP-M Strength Start: 09/06/19 09:34 Freq: Status: Active Protocol: Document 09/05/19 16:00 DCW (Rec: 09/06/19 10:20 DCW [id number]) Hip Strength Hip Manual Muscle Testing Right Flexion (L2) 4- Good- Abduction 4- Good- Adduction 4- Good- Left Flexion (L2) 4+ Good+ Abduction 4+ Good+ Adduction 4+ Good+ Knee Strength Knee Manual Muscle Testing Right Flexion (S2) 3 Fair Extension (L3) 4 Good Left Flexion (S2) 4+ Good+ Extension (L3) 4+ Good+ PT-OP-Q Treatments Start: 09/06/19 09:34 Freq: Status: Active Protocol: Document 09/07/19 13:45 DCW (Rec: 09/07/19 14:35 DCW [id number]) Cardio Equipment Recumbent Bicycle Duration (Minutes) 5 Resistance 0 Seat Position 6 Gym Equipment Shuttle Recovery Unilateral Squats Details Right Resistance 25# Shuttle Recovery Platform Stable Bilateral Squats Resistance 50# Shuttle Recovery Platform Stable Therapeutic Exercises Sitting Exercises LAQ Sitting Exercise Name LAQ Side right Resistance 2# Standing Exercises Hip Extension Standing Exercise Name Extension Side bilateral Resistance Yellow Equipment Used T-band TKE Standing Exercise Name TKE Side right Resistance Lv 1 Equipment Used T-band Other Exercises Resisted Ambulation Other Exercise Name Side-stepping Resistance Yellow Equipment Used T-band Self-Care/Home Management Treatment Education Patient Education Body Mechanics,Joint Protection,Pain Management, Safety PT-OP-T Assessment and Plan Start: 09/06/19 09:34 Freq: Status: Active Protocol: Document 09/07/19 13:45 DCW (Rec: 09/07/19 14:35 DCW [id number]) Physical Therapy Assessment Impairments Impairments Activity Tolerance,Functional Mobility,Gait,Pain,ROM, Strength Goals Four Impairment Pt descends stairs by side- stepping Longterm Goal (LTG) Pt to ascend and descend stairs [id number] with no increased pain to increased level of safety LTG Duration 11/05/19 Three Impairment Pt only able to walk <1 mile per day Fitting Room Operator Goal (LTG) Pt to ambulate 5 miles daily without increased knee pain to return to [facility] for her springtime [employer] road trips LTG Duration 11/05/19 Two Impairment Pt pain wakes her up at night Short Term Goal (STG) Pt to report pain at night at worst 12/31 to improve sleep STG Duration 10/06/19 One Impairment Pt does not have an appropriate home exercise program Short Term Goal (STG) Pt to be independent and compliant with an appropriate HEP STG Duration 10/06/19 Assessment Summary Assessment A fair amount of time today was spent answering questions and reviewing anatomy and recommending activities pt can perform at home. When performing TherEx, pt did well pacing herself, able to work past some generalized soreness without causing any actual pain in her joint. Physical Therapy Plan Frequency and Duration Frequency of Treatment 2x/Week Duration of Treatment 12 weeks Plan of Care Start Date 09/05/19 Plan of Care End Date 11/28/19 Therapeutic Interventions Therapeutic Interventions Gait Training,Joint Mobilizations,Manual Therapy, Patient/Caregiver Education, Self-Care/Home Management,Soft Tissue Mobilization, Therapeutic Activities, Therapeutic Exercises Modalities Cold Pack/Ice Massage,Electric Stimulation,Hot Packs, Ultrasound Next Visit Focus/Plan Next Note Type Treatment Note Next Visit Plan LE strengthening, gait training, edema control, ROM exercises, pain-control
--- NOTE | 2019-09-11 15:01 | PT.OTN ---
Current Diagnoses Pain in right knee (09/11/19) Stiffness of right knee, not elsewhere classified (09/11/19) Other abnormalities of gait and mobility (09/11/19) Weakness (09/11/19) Other tear of medial meniscus, current injury, right knee, initial encounter (09/11/19) Physical Therapy Treatment Note PT-OP-A Visit Information Start: 09/06/19 09:34 Freq: Status: Active Protocol: Document 09/11/19 12:40 GGD (Rec: 09/11/19 15:00 GGD [id number]) Out-Patient Physical Therapy Visit Information Visit Information Visit Type Treatment Note Visit Start Time 12:00 Visit Stop Time 12:50 Total Visit Minutes 50 Visit Number 3 Number of SKIP TENDER Visits 1 Evaluation Information Evaluation Date 09/05/19 PT-OP-B Current Condition Start: 09/06/19 09:34 Freq: Status: Active Protocol: Document 09/05/19 16:00 DCW (Rec: 09/06/19 10:20 DCW [id number]) Current Condition History of Current Condition Onset Date 6 week history Current Complaints Right medial meniscus tear History of Current Condition Pt is a 74 year old female presenting with a six week history of right knee pain. Pt reports that she and her were driving their motorhome [place] the [place], and two months into their trip, they were doing a lot of walking, and she woke up one day with substantial pain and edema in her right knee. Pt reports that for the remainder of the trip, she continued to walk, but just did less, cutting back from seven miles a day to about two. Pt reports she tried to keep her knee elevated when not walking, and it took ten days for her swelling to go down a a bit, but then the pain worsened. 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 Pt was told to try Physical Therapy, and then they'll go from there. Pt notes that she will frequently feel like the knee is going to collapse, although it hasn't yet, so pt has been wearing a neoprene brace for support and compression. Pain has been interferring with her life, waking her up at night, and limiting her to walking less than one mile a day. Prior Treatments and Tests Right knee MRI: 1. Tricompartmental osteoarthritis with associated articular cartilage loss. 2. Medial meniscal tear. 3. Small knee joint effusion. 4. Mild medial bursitis. Per Denise Bedolla M.D. on 08/2019 Treatment Goals Patient/Caregiver Goals Pt wants to decrease pain so she can sleep through the night, and improve her walking back to 5+ miles a day, as she has more upcoming road trips, during which she likes to hike and explore with her . PT-OP-C Subjective Start: 09/06/19 09:34 Freq: Status: Active Protocol: Document 09/11/19 12:40 GGD (Rec: 09/11/19 15:00 GGD [id number]) OP-PT Subjective Patient Comments Patient Comments Pt states she doing her HEP 2x day. Pt feels improve in knee motion and walking better. PT-OP-F Manual Assessment Start: 09/06/19 10:22 Freq: Status: Active Protocol: Document 09/05/19 16:00 DCW (Rec: 09/06/19 10:23 DCW [id number]) Manual Assessments Soft Tissue Assessment Soft Tissue Mobility Assessment Noticeable right VMO atrophy during quad sets vs left VMO PT-OP-G Mobility & Gait Start: 09/06/19 09:34 Freq: Status: Active Protocol: Document 09/05/19 16:00 DCW (Rec: 09/06/19 10:20 DCW [id number]) OP Gait Assessment Gait Gait Assistance Required: Independent Able to Maintain Weight Bearing Status Yes During Gait Assistive Devices Assistive Device None Gait Deviations General Gait Pattern Antalgic,Decreased Stride Length,Lateral Trunk Lean Factors Limiting Gait Function Factors Limiting Gait Function Decreased Activity Tolerance, Decreased Strength,Limited Range of Motion,Pain Comments Gait Comments Pt ambulates with antalgic gait, a lateral weight shift over right leg during R stance , exhibits a decreased stance time on her right. Stair Climbing Evaluation Evaluation Level of Assist On Stairs Independent Devices Stair Climbing Assistive Devices Left Railing,Right Railing Technique/Endurance Stair Climbing Direction Ascend and Descend Stair Climbing Technique Step to Step Comments Stair Climbing Comments prefers step-to, but is able to use step-through on stairs with mild increased pain PT-OP-K Range of Motion Start: 10/17/19 09:34 Freq: Status: Active Protocol: Document 09/05/19 16:00 DCW (Rec: 09/06/19 10:20 DCW [id number]) Knee Goniometric Range of Motion Knee Right Knee ROM WFL No Patient Position Sitting Flexion Active (degrees) 92 Extension Active (degrees) 0 Left Knee ROM WFL Yes Knee ROM Limitations Knee ROM Limitations Pain,Swelling PT-OP-L Special Tests Start: 09/06/19 09:34 Freq: Status: Active Protocol: Document 09/05/19 16:00 DCW (Rec: 09/06/19 10:20 DCW [id number]) Special Tests Knee Special Tests Varus- 25 Degrees Test Results Negative Valgus- 25 Degrees Test Results Negative Posterior Draw Test Results Negative Anthony's Test Results Negative Anterior Draw Test Results Negative PT-OP-M Strength Start: 09/06/19 09:34 Freq: Status: Active Protocol: Document 09/05/19 16:00 DCW (Rec: 09/06/19 10:20 DCW [id number]) Hip Strength Hip Manual Muscle Testing Right Flexion (L2) 4- Good- Abduction 4- Good- Adduction 4- Good- Left Flexion (L2) 4+ Good+ Abduction 4+ Good+ Adduction 4+ Good+ Knee Strength Knee Manual Muscle Testing Right Flexion (S2) 3 Fair Extension (L3) 4 Good Left Flexion (S2) 4+ Good+ Extension (L3) 4+ Good+ PT-OP-Q Treatments Start: 09/06/19 09:34 Freq: Status: Active Protocol: Document 09/11/19 12:40 GGD (Rec: 09/11/19 15:00 GGD [id number]) Cardio Equipment Recumbent Bicycle Duration (Minutes) 7 Resistance 0 Seat Position 6 Gym Equipment Shuttle Recovery Unilateral Squats Details Right Resistance 25# Shuttle Recovery Platform Stable Bilateral Squats Resistance 67# Shuttle Recovery Platform Stable Therapeutic Exercises Supine Exercises heel slides Supine Exercise Name heel slides Side right Reps/Minutes 10 Bridging Supine Exercise Name Bridging /c Add Ball Squeeze SLR /c ER Supine Exercise Name SLR /c ER Side right Manual Therapy Treatment Soft Tissue Mobilization hamstring Body Location medial hamstring Mobilization Type Myofascial Release,Other Intensity/Depth Moderate Body Position Supine Joint Mobilizations PF joint Joint PF Grade III Body Position Supine PT-OP-R Modalities Start: 09/06/19 09:34 Freq: Status: Active Protocol: Document 09/11/19 12:40 GGD (Rec: 09/11/19 15:01 GGD [id number]) Hot Pack/Cold Pack Treatment Cold Pack Location right knee Patient Position Hooklying Patient Tolerance Good PT-OP-T Assessment and Plan Start: 09/06/19 09:34 Freq: Status: Active Protocol: Document 09/11/19 12:40 GGD (Rec: 09/11/19 15:00 GGD [id number]) Physical Therapy Assessment Goals Four Impairment Pt descends stairs by side- stepping Civil Litigation Attorney Goal (LTG) Pt to ascend and descend stairs [id number] with no increased pain to increased level of safety LTG Duration 11/05/19 Three Impairment Pt only able to walk <1 mile per day Skilled Nursing Goal (LTG) Pt to ambulate 5 miles daily without increased knee pain to return to [facility] for her springtime [employer] road trips LTG Duration 11/05/19 Two Impairment Pt pain wakes her up at night Short Term Goal (STG) Pt to report pain at night at worst 12/31 to improve sleep STG Duration 10/06/19 One Impairment Pt does not have an appropriate home exercise program Short Term Goal (STG) Pt to be independent and compliant with an appropriate HEP STG Duration 10/06/19 Assessment Summary Assessment Pt improving with ROM. Reviewed HEp and advancing walking distance. Pt tender to medial hamstring. Physical Therapy Plan Frequency and Duration Frequency of Treatment 2x/Week Duration of Treatment 12 weeks Plan of Care Start Date 09/05/19 Plan of Care End Date 11/28/19 Next Visit Focus/Plan Next Note Type Treatment Note Next Visit Plan LE strengthening, gait training, edema control, ROM exercises, pain-control
--- NOTE | 2019-09-13 16:02 | PT.OTN ---
Current Diagnoses Pain in right knee (09/13/19) Stiffness of right knee, not elsewhere classified (09/13/19) Other abnormalities of gait and mobility (09/13/19) Weakness (09/13/19) Other tear of medial meniscus, current injury, right knee, initial encounter (09/13/19) Physical Therapy Treatment Note PT-OP-A Visit Information Start: 09/06/19 09:34 Freq: Status: Active Protocol: Document 09/13/19 15:20 DCW (Rec: 09/13/19 16:02 DCW [id number]) Out-Patient Physical Therapy Visit Information Visit Information Visit Type Treatment Note Visit Start Time 15:20 Visit Stop Time 16:00 Total Visit Minutes 40 Visit Number 4 Number of CONE WINDER Visits 0 Evaluation Information Evaluation Date 09/05/19 PT-OP-B Current Condition Start: 09/06/19 09:34 Freq: Status: Active Protocol: Document 09/05/19 16:00 DCW (Rec: 09/06/19 10:20 DCW [id number]) Current Condition History of Current Condition Onset Date 6 week history Current Complaints Right medial meniscus tear History of Current Condition Pt is a 74 year old female presenting with a six week history of right knee pain. Pt reports that she and her were driving their [place], and two months into their trip, they were doing a lot of walking, and she woke up one day with substantial pain and edema in her right knee. Pt reports that for the remainder of the trip, she continued to walk, but just did less, cutting back from seven miles a day to about two. Pt reports she tried to keep her knee elevated when not walking, and it took ten days for her swelling to go down a a bit, but then the pain worsened. 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 Pt was told to try Physical Therapy, and then they'll go from there. Pt notes that she will frequently feel like the knee is going to collapse, although it hasn't yet, so pt has been wearing a neoprene brace for support and compression. Pain has been interferring with her life, waking her up at night, and limiting her to walking less than one mile a day. Prior Treatments and Tests Right knee MRI: 1. Tricompartmental osteoarthritis with associated articular cartilage loss. 2. Medial meniscal tear. 3. Small knee joint effusion. 4. Mild medial bursitis. Per Denise Bedolla M.D. on 08/2019 Treatment Goals Patient/Caregiver Goals Pt wants to decrease pain so she can sleep through the night, and improve her walking back to 5+ miles a day, as she has more upcoming road trips, during which she likes to hike and explore with her . PT-OP-C Subjective Start: 09/06/19 09:34 Freq: Status: Active Protocol: Document 09/13/19 15:20 DCW (Rec: 09/13/19 16:02 DCW [id number]) OP-PT Subjective Patient Comments Patient Comments Pt has been very faithful to her HEP. Pt notes that she had some increased posterior knee pain following her last session. Pt is very concerned that her recovery is not moving quickly enough, and that if she needs to have surgery eventually, she would rather do it now to get on with her recovery. PT-OP-F Manual Assessment Start: 09/06/19 10:22 Freq: Status: Active Protocol: Document 09/05/19 16:00 DCW (Rec: 09/06/19 10:23 DCW [id number]) Manual Assessments Soft Tissue Assessment Soft Tissue Mobility Assessment Noticeable right VMO atrophy during quad sets vs left VMO PT-OP-G Mobility & Gait Start: 09/06/19 09:34 Freq: Status: Active Protocol: Document 09/05/19 16:00 DCW (Rec: 09/06/19 10:20 DCW [id number]) OP Gait Assessment Gait Gait Assistance Required: Independent Able to Maintain Weight Bearing Status Yes During Gait Assistive Devices Assistive Device None Gait Deviations General Gait Pattern Antalgic,Decreased Stride Length,Lateral Trunk Lean Factors Limiting Gait Function Factors Limiting Gait Function Decreased Activity Tolerance, Decreased Strength,Limited Range of Motion,Pain Comments Gait Comments Pt ambulates with antalgic gait, a lateral weight shift over right leg during R stance , exhibits a decreased stance time on her right. Stair Climbing Evaluation Evaluation Level of Assist On Stairs Independent Devices Stair Climbing Assistive Devices Left Railing,Right Railing Technique/Endurance Stair Climbing Direction Ascend and Descend Stair Climbing Technique Step to Step Comments Stair Climbing Comments prefers step-to, but is able to use step-through on stairs with mild increased pain PT-OP-K Range of Motion Start: 09/06/19 09:34 Freq: Status: Active Protocol: Document 09/05/19 16:00 DCW (Rec: 09/06/19 10:20 DCW [id number]) Knee Goniometric Range of Motion Knee Right Knee ROM WFL No Patient Position Sitting Flexion Active (degrees) 92 Extension Active (degrees) 0 Left Knee ROM WFL Yes Knee ROM Limitations Knee ROM Limitations Pain,Swelling PT-OP-L Special Tests Start: 09/06/19 09:34 Freq: Status: Active Protocol: Document 09/05/19 16:00 DCW (Rec: 09/06/19 10:20 DCW [id number]) Special Tests Knee Special Tests Varus- 25 Degrees Test Results Negative Valgus- 25 Degrees Test Results Negative Posterior Draw Test Results Negative Anthony's Test Results Negative Anterior Draw Test Results Negative PT-OP-M Strength Start: 09/06/19 09:34 Freq: Status: Active Protocol: Document 09/05/19 16:00 DCW (Rec: 09/06/19 10:20 DCW [id number]) Hip Strength Hip Manual Muscle Testing Right Flexion (L2) 4- Good- Abduction 4- Good- Adduction 4- Good- Left Flexion (L2) 4+ Good+ Abduction 4+ Good+ Adduction 4+ Good+ Knee Strength Knee Manual Muscle Testing Right Flexion (S2) 3 Fair Extension (L3) 4 Good Left Flexion (S2) 4+ Good+ Extension (L3) 4+ Good+ PT-OP-Q Treatments Start: 09/06/19 09:34 Freq: Status: Active Protocol: Document 09/13/19 15:20 DCW (Rec: 09/13/19 16:02 DCW [id number]) Cardio Equipment Recumbent Bicycle Duration (Minutes) 5 Resistance 3 Seat Position 6 Gym Equipment Shuttle Recovery Unilateral Squats Details Right Resistance 25# Shuttle Recovery Platform Stable Bilateral Squats Details Adductor ball squeeze Resistance 50# Shuttle Recovery Platform Stable Therapeutic Exercises Sitting Exercises Hamstring Curl Sitting Exercise Name HS Curl Side bilateral Resistance Lv 2 Equipment Used T-band Manual Therapy Treatment Joint Mobilizations PF joint Joint PF Grade III Body Position Supine Self-Care/Home Management Treatment Education Patient Education Body Mechanics,Joint Protection,Pain Management, Safety PT-OP-R Modalities Start: 09/06/19 09:34 Freq: Status: Active Protocol: Document 09/11/19 12:40 GGD (Rec: 09/11/19 15:01 GGD [id number]) Hot Pack/Cold Pack Treatment Cold Pack Location right knee Patient Position Hooklying Patient Tolerance Good PT-OP-T Assessment and Plan Start: 09/06/19 09:34 Freq: Status: Active Protocol: Document 09/13/19 15:20 DCW (Rec: 09/13/19 16:02 DCW [id number]) Physical Therapy Assessment Impairments Impairments Activity Tolerance,Functional Mobility,Gait,Pain,ROM, Strength Goals Four Impairment Pt descends stairs by side- stepping Senior Audit Manager Goal (LTG) Pt to ascend and descend stairs [id number] with no increased pain to increased level of safety LTG Duration 11/05/19 Three Impairment Pt only able to walk <1 mile per day Longterm Goal (LTG) Pt to ambulate 5 miles daily without increased knee pain to return to [facility] [address] for her springtime [employer] road trips LTG Duration 11/05/19 Two Impairment Pt pain wakes her up at night Short Term Goal (STG) Pt to report pain at night at worst 2/10 to improve sleep STG Duration 10/06/19 One Impairment Pt does not have an appropriate home exercise program Short Term Goal (STG) Pt to be independent and compliant with an appropriate HEP STG Duration 10/06/19 Assessment Summary Assessment Once again, pt questions took up an extended period of her treatment session. Pt more understanding now about taking time to heal and she is hopeful it will make her a little less impatient. Physical Therapy Plan Frequency and Duration Frequency of Treatment 2x/Week Duration of Treatment 12 weeks Plan of Care Start Date 09/05/19 Plan of Care End Date 11/28/19 Therapeutic Interventions Therapeutic Interventions Gait Training,Joint Mobilizations,Manual Therapy, Patient/Caregiver Education, Self-Care/Home Management,Soft Tissue Mobilization, Therapeutic Activities, Therapeutic Exercises Modalities Cold Pack/Ice Massage,Electric Stimulation,Hot Packs, Ultrasound Next Visit Focus/Plan Next Note Type Treatment Note Next Visit Plan LE strengthening, gait training, edema control, ROM exercises, pain-control
--- NOTE | 2019-09-18 15:17 | PT.OTN ---
Current Diagnoses Pain in right knee (09/18/19) Stiffness of right knee, not elsewhere classified (09/18/19) Other abnormalities of gait and mobility (09/18/19) Weakness (09/18/19) Other tear of medial meniscus, current injury, right knee, initial encounter (09/18/19) Physical Therapy Treatment Note PT-OP-A Visit Information Start: 09/06/19 09:34 Freq: Status: Active Protocol: Document 09/18/19 15:10 GGD (Rec: 09/18/19 15:16 GGD [id number]) Out-Patient Physical Therapy Visit Information Visit Information Visit Type Treatment Note Visit Start Time 12:00 Visit Stop Time 12:40 Total Visit Minutes 40 Visit Number 5 Number of LOAD TEST MECHANIC Visits 1 Evaluation Information Evaluation Date 09/05/19 PT-OP-B Current Condition Start: 09/06/19 09:34 Freq: Status: Active Protocol: Document 09/05/19 16:00 DCW (Rec: 09/06/19 10:20 DCW [id number]) Current Condition History of Current Condition Onset Date 6 week history Current Complaints Right medial meniscus tear History of Current Condition Pt is a 74 year old female presenting with a six week history of right knee pain. Pt reports that she and her were driving their motorhome [place] the [place], and two months into their trip, they were doing a lot of walking, and she woke up one day with substantial pain and edema in her right knee. Pt reports that for the remainder of the trip, she continued to walk, but just did less, cutting back from seven miles a day to about two. Pt reports she tried to keep her knee elevated when not walking, and it took ten days for her swelling to go down a a bit, but then the pain worsened. 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 Pt was told to try Physical Therapy, and then they'll go from there. Pt notes that she will frequently feel like the knee is going to collapse, although it hasn't yet, so pt has been wearing a neoprene brace for support and compression. Pain has been interferring with her life, waking her up at night, and limiting her to walking less than one mile a day. Prior Treatments and Tests Right knee MRI: 1. Tricompartmental osteoarthritis with associated articular cartilage loss. 2. Medial meniscal tear. 3. Small knee joint effusion. 4. Mild medial bursitis. Per Denise Bedolla M.D. on 08/2019 Treatment Goals Patient/Caregiver Goals Pt wants to decrease pain so she can sleep through the night, and improve her walking back to 5+ miles a day, as she has more upcoming road trips, during which she likes to hike and explore with her . PT-OP-C Subjective Start: 09/06/19 09:34 Freq: Status: Active Protocol: Document 09/18/19 15:10 GGD (Rec: 09/18/19 15:16 GGD [id number]) OP-PT Subjective Patient Comments Patient Comments Pt states she been walking 2.5 miles a day. She increase her HEP to 2 sets of each. She been ok without brace for one day. PT-OP-F Manual Assessment Start: 09/06/19 10:22 Freq: Status: Active Protocol: Document 09/05/19 16:00 DCW (Rec: 09/06/19 10:23 DCW [id number]) Manual Assessments Soft Tissue Assessment Soft Tissue Mobility Assessment Noticeable right VMO atrophy during quad sets vs left VMO PT-OP-G Mobility & Gait Start: 09/06/19 09:34 Freq: Status: Active Protocol: Document 09/05/19 16:00 DCW (Rec: 09/06/19 10:20 DCW [id number]) OP Gait Assessment Gait Gait Assistance Required: Independent Able to Maintain Weight Bearing Status Yes During Gait Assistive Devices Assistive Device None Gait Deviations General Gait Pattern Antalgic,Decreased Stride Length,Lateral Trunk Lean Factors Limiting Gait Function Factors Limiting Gait Function Decreased Activity Tolerance, Decreased Strength,Limited Range of Motion,Pain Comments Gait Comments Pt ambulates with antalgic gait, a lateral weight shift over right leg during R stance , exhibits a decreased stance time on her right. Stair Climbing Evaluation Evaluation Level of Assist On Stairs Independent Devices Stair Climbing Assistive Devices Left Railing,Right Railing Technique/Endurance Stair Climbing Direction Ascend and Descend Stair Climbing Technique Step to Step Comments Stair Climbing Comments prefers step-to, but is able to use step-through on stairs with mild increased pain PT-OP-K Range of Motion Start: 09/06/19 09:34 Freq: Status: Active Protocol: Document 09/05/19 16:00 DCW (Rec: 09/06/19 10:20 DCW [id number]) Knee Goniometric Range of Motion Knee Right Knee ROM WFL No Patient Position Sitting Flexion Active (degrees) 92 Extension Active (degrees) 0 Left Knee ROM WFL Yes Knee ROM Limitations Knee ROM Limitations Pain,Swelling PT-OP-L Special Tests Start: 09/06/19 09:34 Freq: Status: Active Protocol: Document 09/05/19 16:00 DCW (Rec: 09/06/19 10:20 DCW [id number]) Special Tests Knee Special Tests Varus- 25 Degrees Test Results Negative Valgus- 25 Degrees Test Results Negative Posterior Draw Test Results Negative Anthony's Test Results Negative Anterior Draw Test Results Negative PT-OP-M Strength Start: 09/06/19 09:34 Freq: Status: Active Protocol: Document 09/05/19 16:00 DCW (Rec: 09/06/19 10:20 DCW [id number]) Hip Strength Hip Manual Muscle Testing Right Flexion (L2) 4- Good- Abduction 4- Good- Adduction 4- Good- Left Flexion (L2) 4+ Good+ Abduction 4+ Good+ Adduction 4+ Good+ Knee Strength Knee Manual Muscle Testing Right Flexion (S2) 3 Fair Extension (L3) 4 Good Left Flexion (S2) 4+ Good+ Extension (L3) 4+ Good+ PT-OP-Q Treatments Start: 09/06/19 09:34 Freq: Status: Active Protocol: Document 09/18/19 15:10 GGD (Rec: 09/18/19 15:16 GGD [id number]) Cardio Equipment Recumbent Bicycle Duration (Minutes) 5 Resistance 3 Seat Position 6 Gym Equipment Shuttle Recovery Unilateral Squats Details Right Resistance 25# Shuttle Recovery Platform Stable Bilateral Squats Details Adductor ball squeeze Resistance 62# Shuttle Recovery Platform Stable Therapeutic Exercises Sidelying Exercises clamshell Sidelying Exercise Name clamshell Side right Resistance 20 Sitting Exercises Hamstring Curl Sitting Exercise Name HS Curl Side bilateral Resistance Lv 2 Equipment Used T-band Manual Therapy Treatment Joint Mobilizations PF joint Joint PF Grade III Body Position Supine PT-OP-R Modalities Start: 09/06/19 09:34 Freq: Status: Active Protocol: Document 09/11/19 12:40 GGD (Rec: 09/11/19 15:01 GGD [id number]) Hot Pack/Cold Pack Treatment Cold Pack Location right knee Patient Position Hooklying Patient Tolerance Good PT-OP-T Assessment and Plan Start: 09/06/19 09:34 Freq: Status: Active Protocol: Document 09/18/19 15:10 GGD (Rec: 09/18/19 15:16 GGD [id number]) Physical Therapy Assessment Goals Four Impairment Pt descends stairs by side- stepping Director Manufacturing Engineering Goal (LTG) Pt to ascend and descend stairs [id number] with no increased pain to increased level of safety LTG Duration 11/05/19 Three Impairment Pt only able to walk <1 mile per day Director Manufacturing Engineering Goal (LTG) Pt to ambulate 5 miles daily without increased knee pain to return to [facility] for her springtime [employer] road trips LTG Duration 11/05/19 Two Impairment Pt pain wakes her up at night Short Term Goal (STG) Pt to report pain at night at worst 2/10 to improve sleep STG Duration 10/06/19 One Impairment Pt does not have an appropriate home exercise program Short Term Goal (STG) Pt to be independent and compliant with an appropriate HEP STG Duration 10/06/19 Assessment Summary Assessment Pt improving in ROM. Pt tender with palpation to ITB. Pt restricted in PF joint. Physical Therapy Plan Frequency and Duration Frequency of Treatment 2x/Week Duration of Treatment 12 weeks Plan of Care Start Date 09/05/19 Plan of Care End Date 11/28/19 Next Visit Focus/Plan Next Note Type Treatment Note Next Visit Plan LE strengthening, gait training, edema control, ROM exercises, pain-control
--- NOTE | 2019-09-20 14:37 | PT.OTN ---
Current Diagnoses Pain in right knee (09/20/19) Stiffness of right knee, not elsewhere classified (09/20/19) Other abnormalities of gait and mobility (09/20/19) Weakness (09/20/19) Other tear of medial meniscus, current injury, right knee, initial encounter (09/20/19) Physical Therapy Treatment Note PT-OP-A Visit Information Start: 09/06/19 09:34 Freq: Status: Active Protocol: Document 09/20/19 13:45 DCW (Rec: 09/20/19 14:37 DCW [id number]) Out-Patient Physical Therapy Visit Information Visit Information Visit Type Treatment Note Visit Start Time 13:45 Visit Stop Time 14:30 Total Visit Minutes 45 Visit Number 6 Number of CUSTOMER TRAINING SPECIALIST Visits 0 Evaluation Information Evaluation Date 09/05/19 PT-OP-B Current Condition Start: 09/06/19 09:34 Freq: Status: Active Protocol: Document 09/05/19 16:00 DCW (Rec: 09/06/19 10:20 DCW [id number]) Current Condition History of Current Condition Onset Date 6 week history Current Complaints Right medial meniscus tear History of Current Condition Pt is a 74 year old female presenting with a six week history of right knee pain. Pt reports that she and her were driving [place], and two months into their trip, they were doing a lot of walking, and she woke up one day with substantial pain and edema in her right knee. Pt reports that for the remainder of the trip, she continued to walk, but just did less, cutting back from seven miles a day to about two. Pt reports she tried to keep her knee elevated when not walking, and it took ten days for her swelling to go down a a bit, but then the pain worsened. 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 Pt was told to try Physical Therapy, and then they'll go from there. Pt notes that she will frequently feel like the knee is going to collapse, although it hasn't yet, so pt has been wearing a neoprene brace for support and compression. Pain has been interferring with her life, waking her up at night, and limiting her to walking less than one mile a day. Prior Treatments and Tests Right knee MRI: 1. Tricompartmental osteoarthritis with associated articular cartilage loss. 2. Medial meniscal tear. 3. Small knee joint effusion. 4. Mild medial bursitis. Per Denise Bedolla M.D. on 08/2019 Treatment Goals Patient/Caregiver Goals Pt wants to decrease pain so she can sleep through the night, and improve her walking back to 5+ miles a day, as she has more upcoming road trips, during which she likes to hike and explore with her . PT-OP-C Subjective Start: 09/06/19 09:34 Freq: Status: Active Protocol: Document 09/20/19 13:45 DCW (Rec: 09/20/19 14:37 DCW [id number]) OP-PT Subjective Patient Comments Patient Comments Pt notes she has continued to walk 2.5 miles on her treatmill, able to tolerate increased speed up to 3 mph for the last half mile. Pt admits she overdid it yesterday, because she skipped her HEP in the morning, did her walk, and then felt guilty about missing her morning exercse, and did all her reps at once. PT-OP-F Manual Assessment Start: 09/06/19 10:22 Freq: Status: Active Protocol: Document 09/05/19 16:00 DCW (Rec: 09/06/19 10:23 DCW [id number]) Manual Assessments Soft Tissue Assessment Soft Tissue Mobility Assessment Noticeable right VMO atrophy during quad sets vs left VMO PT-OP-G Mobility & Gait Start: 09/06/19 09:34 Freq: Status: Active Protocol: Document 09/05/19 16:00 DCW (Rec: 09/06/19 10:20 DCW [id number]) OP Gait Assessment Gait Gait Assistance Required: Independent Able to Maintain Weight Bearing Status Yes During Gait Assistive Devices Assistive Device None Gait Deviations General Gait Pattern Antalgic,Decreased Stride Length,Lateral Trunk Lean Factors Limiting Gait Function Factors Limiting Gait Function Decreased Activity Tolerance, Decreased Strength,Limited Range of Motion,Pain Comments Gait Comments Pt ambulates with antalgic gait, a lateral weight shift over right leg during R stance , exhibits a decreased stance time on her right. Stair Climbing Evaluation Evaluation Level of Assist On Stairs Independent Devices Stair Climbing Assistive Devices Left Railing,Right Railing Technique/Endurance Stair Climbing Direction Ascend and Descend Stair Climbing Technique Step to Step Comments Stair Climbing Comments prefers step-to, but is able to use step-through on stairs with mild increased pain PT-OP-K Range of Motion Start: 09/06/19 09:34 Freq: Status: Active Protocol: Document 09/05/19 16:00 DCW (Rec: 09/06/19 10:20 DCW [id number]) Knee Goniometric Range of Motion Knee Right Knee ROM WFL No Patient Position Sitting Flexion Active (degrees) 92 Extension Active (degrees) 0 Left Knee ROM WFL Yes Knee ROM Limitations Knee ROM Limitations Pain,Swelling PT-OP-L Special Tests Start: 09/06/19 09:34 Freq: Status: Active Protocol: Document 09/05/19 16:00 DCW (Rec: 09/06/19 10:20 DCW [id number]) Special Tests Knee Special Tests Varus- 25 Degrees Test Results Negative Valgus- 25 Degrees Test Results Negative Posterior Draw Test Results Negative Anthony's Test Results Negative Anterior Draw Test Results Negative PT-OP-M Strength Start: 09/06/19 09:34 Freq: Status: Active Protocol: Document 09/05/19 16:00 DCW (Rec: 09/06/19 10:20 DCW [id number]) Hip Strength Hip Manual Muscle Testing Right Flexion (L2) 4- Good- Abduction 4- Good- Adduction 4- Good- Left Flexion (L2) 4+ Good+ Abduction 4+ Good+ Adduction 4+ Good+ Knee Strength Knee Manual Muscle Testing Right Flexion (S2) 3 Fair Extension (L3) 4 Good Left Flexion (S2) 4+ Good+ Extension (L3) 4+ Good+ PT-OP-Q Treatments Start: 09/06/19 09:34 Freq: Status: Active Protocol: Document 09/20/19 13:45 DCW (Rec: 09/20/19 14:37 DCW [id number]) Cardio Equipment Recumbent Bicycle Duration (Minutes) 5 Resistance 3 Seat Position 6 Gym Equipment Shuttle Recovery Unilateral Squats Details Right Resistance 37# Shuttle Recovery Platform Stable Bilateral Squats Details Adductor ball squeeze Resistance 62# Shuttle Recovery Platform Stable Shuttle Balance Red Details Lateral weight shift Comments UE support Therapeutic Exercises Other Exercises Step-down Other Exercise Name Step-downs Side right Equipment Used 4 step Manual Therapy Treatment Joint Mobilizations PF joint Joint PF Grade III Body Position Supine PT-OP-R Modalities Start: 09/06/19 09:34 Freq: Status: Active Protocol: Document 09/20/19 13:45 DCW (Rec: 09/20/19 14:37 DCW [id number]) Electric Stimulation Electric Stimulation Interferential Current (IFC) Body Location R knee Duration (Minutes) 15 Patient Position Hooklying PT-OP-T Assessment and Plan Start: 09/06/19 09:34 Freq: Status: Active Protocol: Document 09/20/19 13:45 DCW (Rec: 09/20/19 14:37 DCW [id number]) Physical Therapy Assessment Impairments Impairments Activity Tolerance,Functional Mobility,Gait,Pain,ROM, Strength Goals Four Impairment Pt descends stairs by side- stepping Plc Engineer Goal (LTG) Pt to ascend and descend stairs [id number] with no increased pain to increased level of safety LTG Duration 11/05/19 Three Impairment Pt only able to walk <1 mile per day Plc Engineer Goal (LTG) Pt to ambulate 5 miles daily without increased knee pain to return to [facility] for her springtime [employer] road trips LTG Duration 11/05/19 Two Impairment Pt pain wakes her up at night Short Term Goal (STG) Pt to report pain at night at worst 2/10 to improve sleep STG Duration 10/06/19 One Impairment Pt does not have an appropriate home exercise program Short Term Goal (STG) Pt to be independent and compliant with an appropriate HEP STG Duration 10/06/19 Assessment Summary Assessment Trial of e-stim to help with post-treatment pain. Pt overall doing better, however still anxious about her recovery time and how it will affect her travel plans. Physical Therapy Plan Frequency and Duration Frequency of Treatment 2x/Week Duration of Treatment 12 weeks Plan of Care Start Date 09/05/19 Plan of Care End Date 11/28/19 Therapeutic Interventions Therapeutic Interventions Gait Training,Joint Mobilizations,Manual Therapy, Patient/Caregiver Education, Self-Care/Home Management,Soft Tissue Mobilization, Therapeutic Activities, Therapeutic Exercises Modalities Cold Pack/Ice Massage,Electric Stimulation,Hot Packs, Ultrasound Next Visit Focus/Plan Next Note Type Treatment Note Next Visit Plan LE strengthening, gait training, edema control, ROM exercises, pain-control
--- NOTE | 2019-09-25 15:07 | PT.OTN ---
Current Diagnoses Pain in right knee (09/25/19) Stiffness of right knee, not elsewhere classified (09/25/19) Other abnormalities of gait and mobility (09/25/19) Weakness (09/25/19) Other tear of medial meniscus, current injury, right knee, initial encounter (09/25/19) Physical Therapy Treatment Note PT-OP-A Visit Information Start: 09/06/19 09:34 Freq: Status: Active Protocol: Document 09/25/19 14:54 GGD (Rec: 09/25/19 15:07 GGD [id number]) Out-Patient Physical Therapy Visit Information Visit Information Visit Type Treatment Note Visit Start Time 09:45 Visit Stop Time 10:40 Total Visit Minutes 55 Visit Number 7 Number of COAL CAGER Visits 1 PT-OP-B Current Condition Start: 09/06/19 09:34 Freq: Status: Active Protocol: Document 09/05/19 16:00 DCW (Rec: 09/06/19 10:20 DCW [id number]) Current Condition History of Current Condition Onset Date 6 week history Current Complaints Right medial meniscus tear History of Current Condition Pt is a 74 year old female presenting with a six week history of right knee pain. Pt reports that she and her were driving their motorhome [place] the [place], and two months into their trip, they were doing a lot of walking, and she woke up one day with substantial pain and edema in her right knee. Pt reports that for the remainder of the trip, she continued to walk, but just did less, cutting back from seven miles a day to about two. Pt reports she tried to keep her knee elevated when not walking, and it took ten days for her swelling to go down a a bit, but then the pain worsened. 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 Pt was told to try Physical Therapy, and then they'll go from there. Pt notes that she will frequently feel like the knee is going to collapse, although it hasn't yet, so pt has been wearing a neoprene brace for support and compression. Pain has been interferring with her life, waking her up at night, and limiting her to walking less than one mile a day. Prior Treatments and Tests Right knee MRI: 1. Tricompartmental osteoarthritis with associated articular cartilage loss. 2. Medial meniscal tear. 3. Small knee joint effusion. 4. Mild medial bursitis. Per Denise Bedolla M.D. on 08/2019 Treatment Goals Patient/Caregiver Goals Pt wants to decrease pain so she can sleep through the night, and improve her walking back to 5+ miles a day, as she has more upcoming road trips, during which she likes to hike and explore with her . PT-OP-C Subjective Start: 09/06/19 09:34 Freq: Status: Active Protocol: Document 09/25/19 14:54 GGD (Rec: 09/25/19 15:07 GGD [id number]) OP-PT Subjective Patient Comments Patient Comments Pt states that the estim was helpful. She would like to do bike and leg press at the gym. PT-OP-F Manual Assessment Start: 09/06/19 10:22 Freq: Status: Active Protocol: Document 09/05/19 16:00 DCW (Rec: 09/06/19 10:23 DCW [id number]) Manual Assessments Soft Tissue Assessment Soft Tissue Mobility Assessment Noticeable right VMO atrophy during quad sets vs left VMO PT-OP-G Mobility & Gait Start: 09/06/19 09:34 Freq: Status: Active Protocol: Document 09/05/19 16:00 DCW (Rec: 09/06/19 10:20 DCW [id number]) OP Gait Assessment Gait Gait Assistance Required: Independent Able to Maintain Weight Bearing Status Yes During Gait Assistive Devices Assistive Device None Gait Deviations General Gait Pattern Antalgic,Decreased Stride Length,Lateral Trunk Lean Factors Limiting Gait Function Factors Limiting Gait Function Decreased Activity Tolerance, Decreased Strength,Limited Range of Motion,Pain Comments Gait Comments Pt ambulates with antalgic gait, a lateral weight shift over right leg during R stance , exhibits a decreased stance time on her right. Stair Climbing Evaluation Evaluation Level of Assist On Stairs Independent Devices Stair Climbing Assistive Devices Left Railing,Right Railing Technique/Endurance Stair Climbing Direction Ascend and Descend Stair Climbing Technique Step to Step Comments Stair Climbing Comments prefers step-to, but is able to use step-through on stairs with mild increased pain PT-OP-K Range of Motion Start: 09/06/19 09:34 Freq: Status: Active Protocol: Document 09/05/19 16:00 DCW (Rec: 09/06/19 10:20 DCW [id number]) Knee Goniometric Range of Motion Knee Right Knee ROM WFL No Patient Position Sitting Flexion Active (degrees) 92 Extension Active (degrees) 0 Left Knee ROM WFL Yes Knee ROM Limitations Knee ROM Limitations Pain,Swelling PT-OP-L Special Tests Start: 09/06/19 09:34 Freq: Status: Active Protocol: Document 09/05/19 16:00 DCW (Rec: 09/06/19 10:20 DCW [id number]) Special Tests Knee Special Tests Varus- 25 Degrees Test Results Negative Valgus- 25 Degrees Test Results Negative Posterior Draw Test Results Negative Anthony's Test Results Negative Anterior Draw Test Results Negative PT-OP-M Strength Start: 09/06/19 09:34 Freq: Status: Active Protocol: Document 09/05/19 16:00 DCW (Rec: 09/06/19 10:20 DCW [id number]) Hip Strength Hip Manual Muscle Testing Right Flexion (L2) 4- Good- Abduction 4- Good- Adduction 4- Good- Left Flexion (L2) 4+ Good+ Abduction 4+ Good+ Adduction 4+ Good+ Knee Strength Knee Manual Muscle Testing Right Flexion (S2) 3 Fair Extension (L3) 4 Good Left Flexion (S2) 4+ Good+ Extension (L3) 4+ Good+ PT-OP-Q Treatments Start: 09/06/19 09:34 Freq: Status: Active Protocol: Document 09/25/19 14:54 GGD (Rec: 09/25/19 15:07 GGD [id number]) Cardio Equipment Recumbent Bicycle Duration (Minutes) 5 Resistance 3 Seat Position 6 Gym Equipment Shuttle Recovery Unilateral Squats Details Right Resistance 37# Shuttle Recovery Platform Stable Bilateral Squats Details Adductor ball squeeze Resistance 75# Shuttle Recovery Platform Stable Shuttle Balance Red Details Lateral weight shift Comments UE support Therapeutic Exercises Other Exercises Step-down Other Exercise Name Step-downs Side right Equipment Used 4 step Comments pain with 6 step Manual Therapy Treatment Joint Mobilizations PF joint Joint PF Grade III Body Position Supine PT-OP-R Modalities Start: 09/06/19 09:34 Freq: Status: Active Protocol: Document 09/25/19 14:54 GGD (Rec: 09/25/19 15:07 GGD [id number]) Electric Stimulation Electric Stimulation Interferential Current (IFC) Body Location R knee Duration (Minutes) 15 Patient Position Hooklying Combined With Heat/Cold Cold Pack PT-OP-T Assessment and Plan Start: 09/06/19 09:34 Freq: Status: Active Protocol: Document 09/25/19 14:54 GGD (Rec: 09/25/19 15:07 GGD [id number]) Physical Therapy Assessment Goals Four Impairment Pt descends stairs by side- stepping Halfway Goal (LTG) Pt to ascend and descend stairs [id number] with no increased pain to increased level of safety LTG Duration 11/05/19 Three Impairment Pt only able to walk <1 mile per day Military Pay Technician Goal (LTG) Pt to ambulate 5 miles daily without increased knee pain to return to [facility] for her springtime [place] road trips LTG Duration 11/05/19 Two Impairment Pt pain wakes her up at night Short Term Goal (STG) Pt to report pain at night at worst /10 to improve sleep STG Duration 10/06/19 One Impairment Pt does not have an appropriate home exercise program Short Term Goal (STG) Pt to be independent and compliant with an appropriate HEP STG Duration 10/06/19 Assessment Summary Assessment Pt able to progress strengthening with increase in resistance in shuttle. Pt had no C.O pain with increase in shuttle. Pt did have increase in pain with 6 step down. Physical Therapy Plan Frequency and Duration Frequency of Treatment 2x/Week Duration of Treatment 12 weeks Plan of Care Start Date 09/05/19 Plan of Care End Date 11/28/19 Next Visit Focus/Plan Next Note Type Treatment Note Next Visit Plan LE strengthening, gait training, edema control, ROM exercises, pain-control
--- NOTE | 2019-09-27 16:02 | PT.OTN ---
Current Diagnoses Pain in right knee (09/27/19) Stiffness of right knee, not elsewhere classified (09/27/19) Other abnormalities of gait and mobility (09/27/19) Weakness (09/27/19) Other tear of medial meniscus, current injury, right knee, initial encounter (09/27/19) Physical Therapy Treatment Note PT-OP-A Visit Information Start: 09/06/19 09:34 Freq: Status: Active Protocol: Document 09/27/19 15:53 GGD (Rec: 09/27/19 16:02 GGD [id number]) Out-Patient Physical Therapy Visit Information Visit Information Visit Type Treatment Note Visit Start Time 12:00 Visit Stop Time 12:55 Total Visit Minutes 55 Visit Number 8 Number of IAP DISPLAYS ANALYST Visits 2 PT-OP-B Current Condition Start: 09/06/19 09:34 Freq: Status: Active Protocol: Document 09/05/19 16:00 DCW (Rec: 09/06/19 10:20 DCW [id number]) Current Condition History of Current Condition Onset Date 6 week history Current Complaints Right medial meniscus tear History of Current Condition Pt is a 74 year old female presenting with a six week history of right knee pain. Pt reports that she and her were driving [place], and two months into their trip, they were doing a lot of walking, and she woke up one day with substantial pain and edema in her right knee. Pt reports that for the remainder of the trip, she continued to walk, but just did less, cutting back from seven miles a day to about two. Pt reports she tried to keep her knee elevated when not walking, and it took ten days for her swelling to go down a a bit, but then the pain worsened. 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 Pt was told to try Physical Therapy, and then they'll go from there. Pt notes that she will frequently feel like the knee is going to collapse, although it hasn't yet, so pt has been wearing a neoprene brace for support and compression. Pain has been interferring with her life, waking her up at night, and limiting her to walking less than one mile a day. Prior Treatments and Tests Right knee MRI: 1. Tricompartmental osteoarthritis with associated articular cartilage loss. 2. Medial meniscal tear. 3. Small knee joint effusion. 4. Mild medial bursitis. Per Denise Bedolla M.D. on 08/2019 Treatment Goals Patient/Caregiver Goals Pt wants to decrease pain so she can sleep through the night, and improve her walking back to 5+ miles a day, as she has more upcoming road trips, during which she likes to hike and explore with her . PT-OP-C Subjective Start: 09/06/19 09:34 Freq: Status: Active Protocol: Document 09/27/19 15:53 GGD (Rec: 09/27/19 16:02 GGD [email or web address]) OP-PT Subjective Patient Comments Patient Comments Pt states her MD is sending her to ortho MD. PT-OP-F Manual Assessment Start: 09/06/19 10:22 Freq: Status: Active Protocol: Document 09/05/19 16:00 DCW (Rec: 09/06/19 10:23 DCW [id number]) Manual Assessments Soft Tissue Assessment Soft Tissue Mobility Assessment Noticeable right VMO atrophy during quad sets vs left VMO PT-OP-G Mobility & Gait Start: 09/06/19 09:34 Freq: Status: Active Protocol: Document 09/05/19 16:00 DCW (Rec: 09/06/19 10:20 DCW [id number]) OP Gait Assessment Gait Gait Assistance Required: Independent Able to Maintain Weight Bearing Status Yes During Gait Assistive Devices Assistive Device None Gait Deviations General Gait Pattern Antalgic,Decreased Stride Length,Lateral Trunk Lean Factors Limiting Gait Function Factors Limiting Gait Function Decreased Activity Tolerance, Decreased Strength,Limited Range of Motion,Pain Comments Gait Comments Pt ambulates with antalgic gait, a lateral weight shift over right leg during R stance , exhibits a decreased stance time on her right. Stair Climbing Evaluation Evaluation Level of Assist On Stairs Independent Devices Stair Climbing Assistive Devices Left Railing,Right Railing Technique/Endurance Stair Climbing Direction Ascend and Descend Stair Climbing Technique Step to Step Comments Stair Climbing Comments prefers step-to, but is able to use step-through on stairs with mild increased pain PT-OP-K Range of Motion Start: 09/06/19 09:34 Freq: Status: Active Protocol: Document 09/05/19 16:00 DCW (Rec: 09/06/19 10:20 DCW [id number]) Knee Goniometric Range of Motion Knee Right Knee ROM WFL No Patient Position Sitting Flexion Active (degrees) 92 Extension Active (degrees) 0 Left Knee ROM WFL Yes Knee ROM Limitations Knee ROM Limitations Pain,Swelling PT-OP-L Special Tests Start: 09/06/19 09:34 Freq: Status: Active Protocol: Document 09/05/19 16:00 DCW (Rec: 09/06/19 10:20 DCW [id number]) Special Tests Knee Special Tests Varus- 25 Degrees Test Results Negative Valgus- 25 Degrees Test Results Negative Posterior Draw Test Results Negative Anthony's Test Results Negative Anterior Draw Test Results Negative PT-OP-M Strength Start: 09/06/19 09:34 Freq: Status: Active Protocol: Document 09/05/19 16:00 DCW (Rec: 09/06/19 10:20 DCW [id number]) Hip Strength Hip Manual Muscle Testing Right Flexion (L2) 4- Good- Abduction 4- Good- Adduction 4- Good- Left Flexion (L2) 4+ Good+ Abduction 4+ Good+ Adduction 4+ Good+ Knee Strength Knee Manual Muscle Testing Right Flexion (S2) 3 Fair Extension (L3) 4 Good Left Flexion (S2) 4+ Good+ Extension (L3) 4+ Good+ PT-OP-Q Treatments Start: 09/06/19 09:34 Freq: Status: Active Protocol: Document 09/27/19 15:53 GGD (Rec: 09/27/19 16:02 GGD [email or web address]) Cardio Equipment Recumbent Bicycle Duration (Minutes) 5 Resistance 3 Seat Position 6 Gym Equipment Shuttle Recovery Unilateral Squats Details Right Resistance 37# Shuttle Recovery Platform Stable Bilateral Squats Details Adductor ball squeeze Resistance 75# Shuttle Recovery Platform Stable Shuttle Balance Red Details Lateral weight shift Comments UE support Gait Training Gait Activity 1 Description gait training with mirror Level of Assistance cues Surface level Distance/Duration 10' Manual Therapy Treatment Joint Mobilizations PF joint Joint PF Grade III Body Position Supine PT-OP-R Modalities Start: 09/06/19 09:34 Freq: Status: Active Protocol: Document 09/27/19 15:53 GGD (Rec: 09/27/19 16:02 GGD [email or web address]) Electric Stimulation Electric Stimulation Interferential Current (IFC) Body Location R knee Duration (Minutes) 15 Patient Position Hooklying Combined With Heat/Cold Cold Pack PT-OP-T Assessment and Plan Start: 09/06/19 09:34 Freq: Status: Active Protocol: Document 09/27/19 15:53 GGD (Rec: 09/27/19 16:02 GGD [email or web address]) Physical Therapy Assessment Goals Four Impairment Pt descends stairs by side- stepping Retirement Goal (LTG) Pt to ascend and descend stairs [id number] with no increased pain to increased level of safety LTG Duration 11/05/19 Three Impairment Pt only able to walk <1 mile per day Carpet Installation Specialist Goal (LTG) Pt to ambulate 5 miles daily without increased knee pain to return to [facility] for her springtime [place] road trips LTG Duration 11/05/19 Two Impairment Pt pain wakes her up at night Short Term Goal (STG) Pt to report pain at night at worst 2/10 to improve sleep STG Duration 10/06/19 One Impairment Pt does not have an appropriate home exercise program Short Term Goal (STG) Pt to be independent and compliant with an appropriate HEP STG Duration 10/06/19 Assessment Summary Assessment Pt improved with gait with decrease limp after cues and use of mirror. Pt tender with PF joint mobs. Physical Therapy Plan Next Visit Focus/Plan Next Note Type Treatment Note Next Visit Plan LE strengthening, gait training, edema control, ROM exercises, pain-control
--- NOTE | 2019-10-10 15:03 | PT.OTN ---
Current Diagnoses Pain in right knee (10/10/19) Stiffness of right knee, not elsewhere classified (10/10/19) Other abnormalities of gait and mobility (10/10/19) Weakness (10/10/19) Other tear of medial meniscus, current injury, right knee, initial encounter (10/10/19) Physical Therapy Treatment Note PT-OP-A Visit Information Start: 09/06/19 09:34 Freq: Status: Active Protocol: Document 10/10/19 13:50 HH (Rec: 10/10/19 15:02 HH [id number]) Out-Patient Physical Therapy Visit Information Visit Information Visit Type Progress Note Visit Start Time 13:50 Visit Stop Time 14:33 Total Visit Minutes 43 Visit Number 9 Number of ENVIRONMENTAL PROGRAMS MANAGER Visits 0 PT-OP-B Current Condition Start: 09/06/19 09:34 Freq: Status: Active Protocol: Document 09/05/19 16:00 DCW (Rec: 09/06/19 10:20 DCW [id number]) Current Condition History of Current Condition Onset Date 6 week history Current Complaints Right medial meniscus tear History of Current Condition Pt is a 74 year old female presenting with a six week history of right knee pain. Pt reports that she and her were driving their motorhome [place] the [place], and two months into their trip, they were doing a lot of walking, and she woke up one day with substantial pain and edema in her right knee. Pt reports that for the remainder of the trip, she continued to walk, but just did less, cutting back from seven miles a day to about two. Pt reports she tried to keep her knee elevated when not walking, and it took ten days for her swelling to go down a a bit, but then the pain worsened. 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 Pt was told to try Physical Therapy, and then they'll go from there. Pt notes that she will frequently feel like the knee is going to collapse, although it hasn't yet, so pt has been wearing a neoprene brace for support and compression. Pain has been interferring with her life, waking her up at night, and limiting her to walking less than one mile a day. Prior Treatments and Tests Right knee MRI: 1. Tricompartmental osteoarthritis with associated articular cartilage loss. 2. Medial meniscal tear. 3. Small knee joint effusion. 4. Mild medial bursitis. Per Denise Bedolla M.D. on 08/2019 Treatment Goals Patient/Caregiver Goals Pt wants to decrease pain so she can sleep through the night, and improve her walking back to 5+ miles a day, as she has more upcoming road trips, during which she likes to hike and explore with her . PT-OP-C Subjective Start: 09/06/19 09:34 Freq: Status: Active Protocol: Document 10/10/19 13:50 HH (Rec: 10/10/19 15:02 HH [id number]) OP-PT Subjective Patient Comments Patient Comments Pt reports stable knee pain and function since last visit. Notes she has been doing 2 sets of exercises per day in addition to walking 3 miles a day since last visit. Pt received a cortisone shot last week but has not felt much relief from that. Patient Reported Progress Stable PT-OP-F Manual Assessment Start: 09/06/19 10:22 Freq: Status: Active Protocol: Document 09/05/19 16:00 DCW (Rec: 09/06/19 10:23 DCW [id number]) Manual Assessments Soft Tissue Assessment Soft Tissue Mobility Assessment Noticeable right VMO atrophy during quad sets vs left VMO PT-OP-G Mobility & Gait Start: 09/06/19 09:34 Freq: Status: Active Protocol: Document 09/05/19 16:00 DCW (Rec: 09/06/19 10:20 DCW [id number]) OP Gait Assessment Gait Gait Assistance Required: Independent Able to Maintain Weight Bearing Status Yes During Gait Assistive Devices Assistive Device None Gait Deviations General Gait Pattern Antalgic,Decreased Stride Length,Lateral Trunk Lean Factors Limiting Gait Function Factors Limiting Gait Function Decreased Activity Tolerance, Decreased Strength,Limited Range of Motion,Pain Comments Gait Comments Pt ambulates with antalgic gait, a lateral weight shift over right leg during R stance , exhibits a decreased stance time on her right. Stair Climbing Evaluation Evaluation Level of Assist On Stairs Independent Devices Stair Climbing Assistive Devices Left Railing,Right Railing Technique/Endurance Stair Climbing Direction Ascend and Descend Stair Climbing Technique Step to Step Comments Stair Climbing Comments prefers step-to, but is able to use step-through on stairs with mild increased pain PT-OP-K Range of Motion Start: 09/06/19 09:34 Freq: Status: Active Protocol: Document 09/05/19 16:00 DCW (Rec: 09/06/19 10:20 DCW [id number]) Knee Goniometric Range of Motion Knee Right Knee ROM WFL No Patient Position Sitting Flexion Active (degrees) 92 Extension Active (degrees) 0 Left Knee ROM WFL Yes Knee ROM Limitations Knee ROM Limitations Pain,Swelling PT-OP-L Special Tests Start: 09/06/19 09:34 Freq: Status: Active Protocol: Document 09/05/19 16:00 DCW (Rec: 09/06/19 10:20 DCW [id number]) Special Tests Knee Special Tests Varus- 25 Degrees Test Results Negative Valgus- 25 Degrees Test Results Negative Posterior Draw Test Results Negative Anthony's Test Results Negative Anterior Draw Test Results Negative PT-OP-M Strength Start: 09/06/19 09:34 Freq: Status: Active Protocol: Document 09/05/19 16:00 DCW (Rec: 09/06/19 10:20 DCW [id number]) Hip Strength Hip Manual Muscle Testing Right Flexion (L2) 4- Good- Abduction 4- Good- Adduction 4- Good- Left Flexion (L2) 4+ Good+ Abduction 4+ Good+ Adduction 4+ Good+ Knee Strength Knee Manual Muscle Testing Right Flexion (S2) 3 Fair Extension (L3) 4 Good Left Flexion (S2) 4+ Good+ Extension (L3) 4+ Good+ PT-OP-Q Treatments Start: 09/06/19 09:34 Freq: Status: Active Protocol: Document 10/10/19 13:50 HH (Rec: 10/10/19 15:02 HH [id number]) Therapeutic Exercises Supine Exercises heel slides Side right Reps/Minutes x10 Comments after manual therapy Standing Exercises Mini squats Side bilateral Equipment Used use grab bar for support Reps/Minutes 6 x 2 Single leg balance Side bilateral Comments R side 7-9 sec, L side 15 sec TKE Side right Equipment Used level 2 band Comments heel on the ground Manual Therapy Treatment Soft Tissue Mobilization hamstring Mobilization Type Cross-Friction,Rolling, Sustained Pressure Intensity/Depth Superficial Body Position Supine Manual Techniques Swelling management Body Location R posteromedial knee Body Position Supine Comments MT with milking toward heart to manage swelling PT-OP-R Modalities Start: 09/06/19 09:34 Freq: Status: Active Protocol: Document 09/27/19 15:53 GGD (Rec: 09/27/19 16:02 GGD [email or web address]) Electric Stimulation Electric Stimulation Interferential Current (IFC) Body Location R knee Duration (Minutes) 15 Patient Position Hooklying Combined With Heat/Cold Cold Pack PT-OP-T Assessment and Plan Start: 09/06/19 09:34 Freq: Status: Active Protocol: Document 10/10/19 13:50 HH (Rec: 10/10/19 15:02 HH [id number]) Physical Therapy Assessment Goals Four Impairment Pt descends stairs by side- stepping Prison Goal (LTG) Pt to ascend and descend stairs [id number] with no increased pain to increased level of safety LTG Duration 11/05/19 Three Impairment Pt only able to walk <1 mile per day Acupressure Therapist Goal (LTG) Pt to ambulate 5 miles daily without increased knee pain to return to [facility] for her springtime [employer] trips LTG Duration 11/05/19 Two Impairment Pt pain wakes her up at night Short Term Goal (STG) Progressing-pt notes she still has to change position mult times during night d/t disomfort: Pt to report pain at night at worst 2/10 to improve sleep STG Duration 10/06/19 One Impairment Pt does not have an appropriate home exercise program Short Term Goal (STG) Progressing-met for supportive HEP, pt still does not have independent management HEP: Pt to be independent and compliant with an appropriate HEP STG Duration 10/06/19 Assessment Summary Assessment Knee extension R 0dg, L 2dg hyperextension; flexion R 125dg P/AROM, L 140 dg. Knee girth measurements R16 L15.5 suprapatellar, R15 L14.5 mid patellar, R 13.5 L13.5 tib tuberosity. After MT pt achieved 130 dg flexion with less discomfort. Pt has questions about her activity progression. Educated her pain and soreness symptoms should recover within 2 days as her ex guideline. Added mini squat and R TKE for HEP. Physical Therapy Plan Next Visit Focus/Plan Next Note Type Treatment Note Next Visit Plan LE strengthening, gait training, edema control, ROM exercises, pain-control close chained LE strengthening / balance training as lorenzo
--- NOTE | 2019-10-12 16:09 | PT.OTN ---
Current Diagnoses Pain in right knee (10/12/19) Stiffness of right knee, not elsewhere classified (10/12/19) Other abnormalities of gait and mobility (10/12/19) Weakness (10/12/19) Other tear of medial meniscus, current injury, right knee, initial encounter (10/12/19) Physical Therapy Treatment Note PT-OP-A Visit Information Start: 09/06/19 09:34 Freq: Status: Active Protocol: Document 10/12/19 13:00 HH (Rec: 10/12/19 16:09 HH [email or web address]) Out-Patient Physical Therapy Visit Information Visit Information Visit Type Treatment Note Visit Start Time 13:00 Visit Stop Time 13:44 Total Visit Minutes 44 Visit Number 10 Number of HI LO DRIVER Visits 0 PT-OP-B Current Condition Start: 09/06/19 09:34 Freq: Status: Active Protocol: Document 09/05/19 16:00 DCW (Rec: 09/06/19 10:20 DCW [id number]) Current Condition History of Current Condition Onset Date 6 week history Current Complaints Right medial meniscus tear History of Current Condition Pt is a 74 year old female presenting with a six week history of right knee pain. Pt reports that she and her were driving [place], and two months into their trip, they were doing a lot of walking, and she woke up one day with substantial pain and edema in her right knee. Pt reports that for the remainder of the trip, she continued to walk, but just did less, cutting back from seven miles a day to about two. Pt reports she tried to keep her knee elevated when not walking, and it took ten days for her swelling to go down a a bit, but then the pain worsened. 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 Pt was told to try Physical Therapy, and then they'll go from there. Pt notes that she will frequently feel like the knee is going to collapse, although it hasn't yet, so pt has been wearing a neoprene brace for support and compression. Pain has been interferring with her life, waking her up at night, and limiting her to walking less than one mile a day. Prior Treatments and Tests Right knee MRI: 1. Tricompartmental osteoarthritis with associated articular cartilage loss. 2. Medial meniscal tear. 3. Small knee joint effusion. 4. Mild medial bursitis. Per Denise Bedolla M.D. on 08/2019 Treatment Goals Patient/Caregiver Goals Pt wants to decrease pain so she can sleep through the night, and improve her walking back to 5+ miles a day, as she has more upcoming road trips, during which she likes to hike and explore with her . PT-OP-C Subjective Start: 09/06/19 09:34 Freq: Status: Active Protocol: Document 10/12/19 13:00 HH (Rec: 10/12/19 16:09 HH [email or web address]) OP-PT Subjective Patient Comments Patient Comments my legs feel painful after manual therapy, especially yesterday. But i feel better today. Patient Reported Progress Stable PT-OP-F Manual Assessment Start: 09/06/19 10:22 Freq: Status: Active Protocol: Document 09/05/19 16:00 DCW (Rec: 09/06/19 10:23 DCW [id number]) Manual Assessments Soft Tissue Assessment Soft Tissue Mobility Assessment Noticeable right VMO atrophy during quad sets vs left VMO PT-OP-G Mobility & Gait Start: 09/06/19 09:34 Freq: Status: Active Protocol: Document 09/05/19 16:00 DCW (Rec: 09/06/19 10:20 DCW [id number]) OP Gait Assessment Gait Gait Assistance Required: Independent Able to Maintain Weight Bearing Status Yes During Gait Assistive Devices Assistive Device None Gait Deviations General Gait Pattern Antalgic,Decreased Stride Length,Lateral Trunk Lean Factors Limiting Gait Function Factors Limiting Gait Function Decreased Activity Tolerance, Decreased Strength,Limited Range of Motion,Pain Comments Gait Comments Pt ambulates with antalgic gait, a lateral weight shift over right leg during R stance , exhibits a decreased stance time on her right. Stair Climbing Evaluation Evaluation Level of Assist On Stairs Independent Devices Stair Climbing Assistive Devices Left Railing,Right Railing Technique/Endurance Stair Climbing Direction Ascend and Descend Stair Climbing Technique Step to Step Comments Stair Climbing Comments prefers step-to, but is able to use step-through on stairs with mild increased pain PT-OP-K Range of Motion Start: 09/06/19 09:34 Freq: Status: Active Protocol: Document 09/05/19 16:00 DCW (Rec: 09/06/19 10:20 DCW [id number]) Knee Goniometric Range of Motion Knee Right Knee ROM WFL No Patient Position Sitting Flexion Active (degrees) 92 Extension Active (degrees) 0 Left Knee ROM WFL Yes Knee ROM Limitations Knee ROM Limitations Pain,Swelling PT-OP-L Special Tests Start: 09/06/19 09:34 Freq: Status: Active Protocol: Document 09/05/19 16:00 DCW (Rec: 09/06/19 10:20 DCW [id number]) Special Tests Knee Special Tests Varus- 25 Degrees Test Results Negative Valgus- 25 Degrees Test Results Negative Posterior Draw Test Results Negative Anthony's Test Results Negative Anterior Draw Test Results Negative PT-OP-M Strength Start: 09/06/19 09:34 Freq: Status: Active Protocol: Document 09/05/19 16:00 DCW (Rec: 09/06/19 10:20 DCW [id number]) Hip Strength Hip Manual Muscle Testing Right Flexion (L2) 4- Good- Abduction 4- Good- Adduction 4- Good- Left Flexion (L2) 4+ Good+ Abduction 4+ Good+ Adduction 4+ Good+ Knee Strength Knee Manual Muscle Testing Right Flexion (S2) 3 Fair Extension (L3) 4 Good Left Flexion (S2) 4+ Good+ Extension (L3) 4+ Good+ PT-OP-Q Treatments Start: 09/06/19 09:34 Freq: Status: Active Protocol: Document 10/12/19 13:00 HH (Rec: 10/12/19 16:09 HH [email or web address]) Cardio Equipment Bicycle (Upright) Duration (Minutes) 6 Resistance 5 Gym Equipment Shuttle Recovery Unilateral Squats Details Right Resistance 62 Shuttle Recovery Platform Stable Reps/Time 12 x3 Bilateral Squats Resistance 87 Shuttle Recovery Platform Stable Reps/Time 12 x3 Shuttle Balance blue Details WBOS & staggered stance. Reps/Duration 12 mins Comments PT provided perturbation Therapeutic Exercises Standing Exercises Mini squats Standing Exercise Name chair touch Side bilateral Equipment Used use grab bar for support Reps/Minutes 10 x2 Neuro Re-Education Treatment Balance Activities single leg stance 2 Surface green foam Equipment next to grab bar Reps/Duration 15sec x 4 on each single leg stance Surface ground surface Equipment next to grab bar Reps/Duration 15 sec x 4 on each PT-OP-R Modalities Start: 09/06/19 09:34 Freq: Status: Active Protocol: Document 09/27/19 15:53 GGD (Rec: 09/27/19 16:02 GGD [id number]) Electric Stimulation Electric Stimulation Interferential Current (IFC) Body Location R knee Duration (Minutes) 15 Patient Position Hooklying Combined With Heat/Cold Cold Pack PT-OP-T Assessment and Plan Start: 09/06/19 09:34 Freq: Status: Active Protocol: Document 10/12/19 13:00 HH (Rec: 10/12/19 16:09 HH [email or web address]) Physical Therapy Assessment Goals Four Impairment Pt descends stairs by side- stepping Custodial Goal (LTG) Pt to ascend and descend stairs [id number] with no increased pain to increased level of safety LTG Duration 11/05/19 Three Impairment Pt only able to walk <1 mile per day Custodial Goal (LTG) Pt to ambulate 5 miles daily without increased knee pain to return to [facility] for her springtime [employer] trips LTG Duration 11/05/19 Two Impairment Pt pain wakes her up at night Short Term Goal (STG) Progressing-pt notes she still has to change position mult times during night d/t disomfort: Pt to report pain at night at worst 2/10 to improve sleep STG Duration 10/06/19 One Impairment Pt does not have an appropriate home exercise program Short Term Goal (STG) Progressing-met for supportive HEP, pt still does not have independent management HEP: Pt to be independent and compliant with an appropriate HEP STG Duration 10/06/19 Assessment Summary Assessment Educated pain science to pt regarding her sensitivity to touch at R knee. Focused on single leg balance and strengthening today. Pt stated she is always very concerned about her progress and symptoms. Reassured her current progress meeting our expectation. pt lorenzo tx very well today without increase pain. Physical Therapy Plan Next Visit Focus/Plan Next Note Type Treatment Note Next Visit Plan LE strengthening, gait training, edema control, ROM exercises, pain-control close chained LE strengthening / balance training as lorenzo
--- NOTE | 2019-10-23 12:03 | PT.OTN ---
Current Diagnoses Pain in right knee (10/23/19) Stiffness of right knee, not elsewhere classified (10/23/19) Other abnormalities of gait and mobility (10/23/19) Weakness (10/23/19) Other tear of medial meniscus, current injury, right knee, initial encounter (10/23/19) Physical Therapy Treatment Note PT-OP-A Visit Information Start: 09/06/19 09:34 Freq: Status: Active Protocol: Document 10/23/19 11:15 DCW (Rec: 10/23/19 12:02 DCW [id number]) Out-Patient Physical Therapy Visit Information Visit Information Visit Type Treatment Note Visit Start Time 11:15 Visit Stop Time 12:00 Total Visit Minutes 45 Visit Number 11 Number of FUNNEL SETTER Visits 0 PT-OP-B Current Condition Start: 09/06/19 09:34 Freq: Status: Active Protocol: Document 09/05/19 16:00 DCW (Rec: 09/06/19 10:20 DCW [id number]) Current Condition History of Current Condition Onset Date 6 week history Current Complaints Right medial meniscus tear History of Current Condition Pt is a 74 year old female presenting with a six week history of right knee pain. Pt reports that she and her were driving their motorhome [place] the [place], and two months into their trip, they were doing a lot of walking, and she woke up one day with substantial pain and edema in her right knee. Pt reports that for the remainder of the trip, she continued to walk, but just did less, cutting back from seven miles a day to about two. Pt reports she tried to keep her knee elevated when not walking, and it took ten days for her swelling to go down a a bit, but then the pain worsened. 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 Pt was told to try Physical Therapy, and then they'll go from there. Pt notes that she will frequently feel like the knee is going to collapse, although it hasn't yet, so pt has been wearing a neoprene brace for support and compression. Pain has been interferring with her life, waking her up at night, and limiting her to walking less than one mile a day. Prior Treatments and Tests Right knee MRI: 1. Tricompartmental osteoarthritis with associated articular cartilage loss. 2. Medial meniscal tear. 3. Small knee joint effusion. 4. Mild medial bursitis. Per Denise Bedolla M.D. on 08/2019 Treatment Goals Patient/Caregiver Goals Pt wants to decrease pain so she can sleep through the night, and improve her walking back to 5+ miles a day, as she has more upcoming road trips, during which she likes to hike and explore with her . PT-OP-C Subjective Start: 09/06/19 09:34 Freq: Status: Active Protocol: Document 10/23/19 11:15 DCW (Rec: 10/23/19 12:02 DCW [id number]) OP-PT Subjective Patient Comments Patient Comments Pt notes that since she began therapy, her knee is a thousand percent better. Pt reports that she had been doing her HEP regularly, but admits that she has fallen off the exercise wagon with the holidays. PT-OP-F Manual Assessment Start: 09/06/19 10:22 Freq: Status: Active Protocol: Document 09/05/19 16:00 DCW (Rec: 09/06/19 10:23 DCW [id number]) Manual Assessments Soft Tissue Assessment Soft Tissue Mobility Assessment Noticeable right VMO atrophy during quad sets vs left VMO PT-OP-G Mobility & Gait Start: 09/06/19 09:34 Freq: Status: Active Protocol: Document 09/05/19 16:00 DCW (Rec: 09/06/19 10:20 DCW [id number]) OP Gait Assessment Gait Gait Assistance Required: Independent Able to Maintain Weight Bearing Status Yes During Gait Assistive Devices Assistive Device None Gait Deviations General Gait Pattern Antalgic,Decreased Stride Length,Lateral Trunk Lean Factors Limiting Gait Function Factors Limiting Gait Function Decreased Activity Tolerance, Decreased Strength,Limited Range of Motion,Pain Comments Gait Comments Pt ambulates with antalgic gait, a lateral weight shift over right leg during R stance , exhibits a decreased stance time on her right. Stair Climbing Evaluation Evaluation Level of Assist On Stairs Independent Devices Stair Climbing Assistive Devices Left Railing,Right Railing Technique/Endurance Stair Climbing Direction Ascend and Descend Stair Climbing Technique Step to Step Comments Stair Climbing Comments prefers step-to, but is able to use step-through on stairs with mild increased pain PT-OP-K Range of Motion Start: 09/06/19 09:34 Freq: Status: Active Protocol: Document 09/05/19 16:00 DCW (Rec: 09/06/19 10:20 DCW [id number]) Knee Goniometric Range of Motion Knee Right Knee ROM WFL No Patient Position Sitting Flexion Active (degrees) 92 Extension Active (degrees) 0 Left Knee ROM WFL Yes Knee ROM Limitations Knee ROM Limitations Pain,Swelling PT-OP-L Special Tests Start: 09/06/19 09:34 Freq: Status: Active Protocol: Document 09/05/19 16:00 DCW (Rec: 09/06/19 10:20 DCW [id number]) Special Tests Knee Special Tests Varus- 25 Degrees Test Results Negative Valgus- 25 Degrees Test Results Negative Posterior Draw Test Results Negative Anthony's Test Results Negative Anterior Draw Test Results Negative PT-OP-M Strength Start: 09/06/19 09:34 Freq: Status: Active Protocol: Document 09/05/19 16:00 DCW (Rec: 09/06/19 10:20 DCW [id number]) Hip Strength Hip Manual Muscle Testing Right Flexion (L2) 4- Good- Abduction 4- Good- Adduction 4- Good- Left Flexion (L2) 4+ Good+ Abduction 4+ Good+ Adduction 4+ Good+ Knee Strength Knee Manual Muscle Testing Right Flexion (S2) 3 Fair Extension (L3) 4 Good Left Flexion (S2) 4+ Good+ Extension (L3) 4+ Good+ PT-OP-Q Treatments Start: 09/06/19 09:34 Freq: Status: Active Protocol: Document 10/23/19 11:15 DCW (Rec: 10/23/19 12:02 DCW [id number]) Cardio Equipment Bicycle (Upright) Duration (Minutes) 6 Resistance 5 Gym Equipment Shuttle Recovery Unilateral Squats Details Right Resistance 62# Shuttle Recovery Platform Stable Reps/Time 12 x3 Bilateral Squats Resistance 100# Shuttle Recovery Platform Stable Reps/Time 12 x3 Shuttle Balance blue Details WBOS & staggered stance. Comments PT provided perturbation Manual Therapy Treatment Soft Tissue Mobilization hamstring Mobilization Type Cross-Friction,Rolling, Sustained Pressure Intensity/Depth Superficial Body Position Supine Joint Mobilizations Tibiofemoral Joint R knee Direction Anterior Grade III Body Position Hooklying Comments Tenderness along PT asl interpreter area PF joint Joint PF Grade III Body Position Supine PT-OP-R Modalities Start: 09/06/19 09:34 Freq: Status: Active Protocol: Document 09/27/19 15:53 GGD (Rec: 09/27/19 16:02 GGD [id number]) Electric Stimulation Electric Stimulation Interferential Current (IFC) Body Location R knee Duration (Minutes) 15 Patient Position Hooklying Combined With Heat/Cold Cold Pack PT-OP-T Assessment and Plan Start: 09/06/19 09:34 Freq: Status: Active Protocol: Document 10/23/19 11:15 DCW (Rec: 10/23/19 12:02 DCW [id number]) Physical Therapy Assessment Goals Four Impairment Pt descends stairs by side- stepping Agency Trainer Goal (LTG) Pt to ascend and descend stairs [id number] with no increased pain to increased level of safety LTG Duration 11/05/19 Three Impairment Pt only able to walk <1 mile per day Agency Trainer Goal (LTG) Pt to ambulate 5 miles daily without increased knee pain to return to [facility] for her springtime [employer] road trips LTG Duration 11/05/19 Two Impairment Pt pain wakes her up at night Short Term Goal (STG) Progressing-pt notes she still has to change position mult times during night d/t disomfort: Pt to report pain at night at worst 2/10 to improve sleep STG Duration 10/06/19 One Impairment Pt does not have an appropriate home exercise program Short Term Goal (STG) Progressing-met for supportive HEP, pt still does not have independent management HEP: Pt to be independent and compliant with an appropriate HEP STG Duration 10/06/19 Assessment Summary Assessment Pt making excellent progress. Discussed ways of reducing the amount of time she spends on her HEP, which she reports is ~2 hours, plus one hour of walking. Recommended halving # of reps and splitting up exercises so she only does half each day. Physical Therapy Plan Frequency and Duration Frequency of Treatment 2x/Week Duration of Treatment 12 weeks Plan of Care Start Date 09/05/19 Plan of Care End Date 11/28/19 Therapeutic Interventions Therapeutic Interventions Gait Training,Joint Mobilizations,Manual Therapy, Patient/Caregiver Education, Self-Care/Home Management,Soft Tissue Mobilization, Therapeutic Activities, Therapeutic Exercises Modalities Cold Pack/Ice Massage,Electric Stimulation,Hot Packs, Ultrasound Next Visit Focus/Plan Next Note Type Treatment Note Next Visit Plan LE strengthening, gait training, edema control, ROM exercises, pain-control close chained LE strengthening / balance training as lorenzo
--- NOTE | 2019-10-25 12:01 | PT.OTN ---
Current Diagnoses Pain in right knee (10/25/19) Stiffness of right knee, not elsewhere classified (10/25/19) Other abnormalities of gait and mobility (10/25/19) Weakness (10/25/19) Other tear of medial meniscus, current injury, right knee, initial encounter (10/25/19) Physical Therapy Treatment Note PT-OP-A Visit Information Start: 09/06/19 09:34 Freq: Status: Active Protocol: Document 10/25/19 11:15 DCW (Rec: 10/25/19 12:01 DCW [id number]) Out-Patient Physical Therapy Visit Information Visit Information Visit Type Treatment Note Visit Start Time 11:15 Visit Stop Time 12:00 Total Visit Minutes 45 Visit Number 12 Number of TEST ENGINEER NUCLEAR EQUIPMENT Visits 0 Evaluation Information Evaluation Date 09/05/19 PT-OP-B Current Condition Start: 09/06/19 09:34 Freq: Status: Active Protocol: Document 09/05/19 16:00 DCW (Rec: 09/06/19 10:20 DCW [id number]) Current Condition History of Current Condition Onset Date 6 week history Current Complaints Right medial meniscus tear History of Current Condition Pt is a 74 year old female presenting with a six week history of right knee pain. Pt reports that she and her were driving their [place]home [place], and two months into their trip, they were doing a lot of walking, and she woke up one day with substantial pain and edema in her right knee. Pt reports that for the remainder of the trip, she continued to walk, but just did less, cutting back from seven miles a day to about two. Pt reports she tried to keep her knee elevated when not walking, and it took ten days for her swelling to go down a a bit, but then the pain worsened. 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 Pt was told to try Physical Therapy, and then they'll go from there. Pt notes that she will frequently feel like the knee is going to collapse, although it hasn't yet, so pt has been wearing a neoprene brace for support and compression. Pain has been interferring with her life, waking her up at night, and limiting her to walking less than one mile a day. Prior Treatments and Tests Right knee MRI: 1. Tricompartmental osteoarthritis with associated articular cartilage loss. 2. Medial meniscal tear. 3. Small knee joint effusion. 4. Mild medial bursitis. Per Denise Bedolla M.D. on 08/2019 Treatment Goals Patient/Caregiver Goals Pt wants to decrease pain so she can sleep through the night, and improve her walking back to 5+ miles a day, as she has more upcoming road trips, during which she likes to hike and explore with her . PT-OP-C Subjective Start: 09/06/19 09:34 Freq: Status: Active Protocol: Document 10/25/19 11:15 DCW (Rec: 10/25/19 12:01 DCW [id number]) OP-PT Subjective Patient Comments Patient Comments Pt reports she performed her HEP plus stairs x4, and walked 2.5 miles on her treadmill on a 2 degree incline. Pt notes that her knee felt a little sore afterward, but more of a fatigued muscle soreness than a meniscus pain. PT-OP-F Manual Assessment Start: 09/06/19 10:22 Freq: Status: Active Protocol: Document 09/05/19 16:00 DCW (Rec: 09/06/19 10:23 DCW [id number]) Manual Assessments Soft Tissue Assessment Soft Tissue Mobility Assessment Noticeable right VMO atrophy during quad sets vs left VMO PT-OP-G Mobility & Gait Start: 09/06/19 09:34 Freq: Status: Active Protocol: Document 09/05/19 16:00 DCW (Rec: 09/06/19 10:20 DCW [id number]) OP Gait Assessment Gait Gait Assistance Required: Independent Able to Maintain Weight Bearing Status Yes During Gait Assistive Devices Assistive Device None Gait Deviations General Gait Pattern Antalgic,Decreased Stride Length,Lateral Trunk Lean Factors Limiting Gait Function Factors Limiting Gait Function Decreased Activity Tolerance, Decreased Strength,Limited Range of Motion,Pain Comments Gait Comments Pt ambulates with antalgic gait, a lateral weight shift over right leg during R stance , exhibits a decreased stance time on her right. Stair Climbing Evaluation Evaluation Level of Assist On Stairs Independent Devices Stair Climbing Assistive Devices Left Railing,Right Railing Technique/Endurance Stair Climbing Direction Ascend and Descend Stair Climbing Technique Step to Step Comments Stair Climbing Comments prefers step-to, but is able to use step-through on stairs with mild increased pain PT-OP-K Range of Motion Start: 09/06/19 09:34 Freq: Status: Active Protocol: Document 09/05/19 16:00 DCW (Rec: 09/06/19 10:20 DCW [id number]) Knee Goniometric Range of Motion Knee Right Knee ROM WFL No Patient Position Sitting Flexion Active (degrees) 92 Extension Active (degrees) 0 Left Knee ROM WFL Yes Knee ROM Limitations Knee ROM Limitations Pain,Swelling PT-OP-L Special Tests Start: 09/06/19 09:34 Freq: Status: Active Protocol: Document 09/05/19 16:00 DCW (Rec: 09/06/19 10:20 DCW [id number]) Special Tests Knee Special Tests Varus- 25 Degrees Test Results Negative Valgus- 25 Degrees Test Results Negative Posterior Draw Test Results Negative Anthony's Test Results Negative Anterior Draw Test Results Negative PT-OP-M Strength Start: 09/06/19 09:34 Freq: Status: Active Protocol: Document 09/05/19 16:00 DCW (Rec: 09/06/19 10:20 DCW [id number]) Hip Strength Hip Manual Muscle Testing Right Flexion (L2) 4- Good- Abduction 4- Good- Adduction 4- Good- Left Flexion (L2) 4+ Good+ Abduction 4+ Good+ Adduction 4+ Good+ Knee Strength Knee Manual Muscle Testing Right Flexion (S2) 3 Fair Extension (L3) 4 Good Left Flexion (S2) 4+ Good+ Extension (L3) 4+ Good+ PT-OP-Q Treatments Start: 09/06/19 09:34 Freq: Status: Active Protocol: Document 10/25/19 11:15 DCW (Rec: 10/25/19 12:01 DCW [id number]) Cardio Equipment Bicycle (Upright) Duration (Minutes) 6 Resistance 5 Seat Position 5 Gym Equipment Shuttle Balance blue Details WBOS & staggered stance. Comments EO/EC, Head Turns Neuro Re-Education Treatment Balance Activities Tandem Ambulation Details Tandem Ambulation Narrow CAMI Details Narrow CAMI Comments Horizontal/Vertical Head Turns Tandem Stance Details Tandem Stance Surface Firm single leg stance 2 Surface green foam Equipment next to grab bar Reps/Duration 15sec x 4 on each single leg stance Surface ground surface Equipment next to grab bar Reps/Duration 15 sec x 4 on each PT-OP-R Modalities Start: 09/06/19 09:34 Freq: Status: Active Protocol: Document 09/27/19 15:53 GGD (Rec: 09/27/19 16:02 GGD [id number]) Electric Stimulation Electric Stimulation Interferential Current (IFC) Body Location R knee Duration (Minutes) 15 Patient Position Hooklying Combined With Heat/Cold Cold Pack PT-OP-T Assessment and Plan Start: 09/06/19 09:34 Freq: Status: Active Protocol: Document 10/25/19 11:15 DCW (Rec: 10/25/19 12:01 DCW [id number]) Physical Therapy Assessment Goals Four Impairment Pt descends stairs by side- stepping Correction Goal (LTG) Pt to ascend and descend stairs [id number] with no increased pain to increased level of safety LTG Duration 11/05/19 Three Impairment Pt only able to walk <1 mile per day Correction Goal (LTG) Pt to ambulate 5 miles daily without increased knee pain to return to [facility] for her springtime [employer] road trips LTG Duration 11/05/19 Two Impairment Pt pain wakes her up at night Short Term Goal (STG) Progressing-pt notes she still has to change position mult times during night d/t disomfort: Pt to report pain at night at worst 2/10 to improve sleep STG Duration 10/06/19 One Impairment Pt does not have an appropriate home exercise program Short Term Goal (STG) Progressing-met for supportive HEP, pt still does not have independent management HEP: Pt to be independent and compliant with an appropriate HEP STG Duration 10/06/19 Assessment Summary Assessment Pt's biggest remaining concern is that her knee has affected her balance, and would like to focus on balance training. Physical Therapy Plan Frequency and Duration Frequency of Treatment 2x/Week Duration of Treatment 12 weeks Plan of Care Start Date 09/05/19 Plan of Care End Date 11/28/19 Therapeutic Interventions Therapeutic Interventions Gait Training,Joint Mobilizations,Manual Therapy, Patient/Caregiver Education, Self-Care/Home Management,Soft Tissue Mobilization, Therapeutic Activities, Therapeutic Exercises Modalities Cold Pack/Ice Massage,Electric Stimulation,Hot Packs, Ultrasound Next Visit Focus/Plan Next Note Type Treatment Note Next Visit Plan LE strengthening, gait training, edema control, ROM exercises, pain-control close chained LE strengthening / balance training as lorenzo
--- NOTE | 2019-10-31 11:54 | PT.OTN ---
Current Diagnoses Pain in right knee (10/31/19) Stiffness of right knee, not elsewhere classified (10/31/19) Other abnormalities of gait and mobility (10/31/19) Weakness (10/31/19) Other tear of medial meniscus, current injury, right knee, initial encounter (10/31/19) Physical Therapy Treatment Note PT-OP-A Visit Information Start: 09/06/19 09:34 Freq: Status: Active Protocol: Document 10/31/19 11:15 DCW (Rec: 10/31/19 11:53 DCW [id number]) Out-Patient Physical Therapy Visit Information Visit Information Visit Type Treatment Note Visit Start Time 11:15 Visit Stop Time 12:00 Total Visit Minutes 45 Visit Number 13 Number of MAIL PROCESSOR Visits 0 Evaluation Information Evaluation Date 09/05/19 PT-OP-B Current Condition Start: 09/06/19 09:34 Freq: Status: Active Protocol: Document 09/05/19 16:00 DCW (Rec: 09/06/19 10:20 DCW [id number]) Current Condition History of Current Condition Onset Date 6 week history Current Complaints Right medial meniscus tear History of Current Condition Pt is a 74 year old female presenting with a six week history of right knee pain. Pt reports that she and her were driving their motorhome [place] the [place], and two months into their trip, they were doing a lot of walking, and she woke up one day with substantial pain and edema in her right knee. Pt reports that for the remainder of the trip, she continued to walk, but just did less, cutting back from seven miles a day to about two. Pt reports she tried to keep her knee elevated when not walking, and it took ten days for her swelling to go down a a bit, but then the pain worsened. 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 Pt was told to try Physical Therapy, and then they'll go from there. Pt notes that she will frequently feel like the knee is going to collapse, although it hasn't yet, so pt has been wearing a neoprene brace for support and compression. Pain has been interferring with her life, waking her up at night, and limiting her to walking less than one mile a day. Prior Treatments and Tests Right knee MRI: 1. Tricompartmental osteoarthritis with associated articular cartilage loss. 2. Medial meniscal tear. 3. Small knee joint effusion. 4. Mild medial bursitis. Per Denise Bedolla M.D. on 08/2019 Treatment Goals Patient/Caregiver Goals Pt wants to decrease pain so she can sleep through the night, and improve her walking back to 5+ miles a day, as she has more upcoming road trips, during which she likes to hike and explore with her . PT-OP-C Subjective Start: 09/06/19 09:34 Freq: Status: Active Protocol: Document 10/31/19 11:15 DCW (Rec: 10/31/19 11:53 DCW [id number]) OP-PT Subjective Patient Comments Patient Comments I'm not at my perkiest, I think I'm fighting with a cold . PT-OP-F Manual Assessment Start: 09/06/19 10:22 Freq: Status: Active Protocol: Document 09/05/19 16:00 DCW (Rec: 09/06/19 10:23 DCW [id number]) Manual Assessments Soft Tissue Assessment Soft Tissue Mobility Assessment Noticeable right VMO atrophy during quad sets vs left VMO PT-OP-G Mobility & Gait Start: 09/06/19 09:34 Freq: Status: Active Protocol: Document 09/05/19 16:00 DCW (Rec: 09/06/19 10:20 DCW [id number]) OP Gait Assessment Gait Gait Assistance Required: Independent Able to Maintain Weight Bearing Status Yes During Gait Assistive Devices Assistive Device None Gait Deviations General Gait Pattern Antalgic,Decreased Stride Length,Lateral Trunk Lean Factors Limiting Gait Function Factors Limiting Gait Function Decreased Activity Tolerance, Decreased Strength,Limited Range of Motion,Pain Comments Gait Comments Pt ambulates with antalgic gait, a lateral weight shift over right leg during R stance , exhibits a decreased stance time on her right. Stair Climbing Evaluation Evaluation Level of Assist On Stairs Independent Devices Stair Climbing Assistive Devices Left Railing,Right Railing Technique/Endurance Stair Climbing Direction Ascend and Descend Stair Climbing Technique Step to Step Comments Stair Climbing Comments prefers step-to, but is able to use step-through on stairs with mild increased pain PT-OP-K Range of Motion Start: 09/06/19 09:34 Freq: Status: Active Protocol: Document 09/05/19 16:00 DCW (Rec: 09/06/19 10:20 DCW [id number]) Knee Goniometric Range of Motion Knee Right Knee ROM WFL No Patient Position Sitting Flexion Active (degrees) 92 Extension Active (degrees) 0 Left Knee ROM WFL Yes Knee ROM Limitations Knee ROM Limitations Pain,Swelling PT-OP-L Special Tests Start: 09/06/19 09:34 Freq: Status: Active Protocol: Document 09/05/19 16:00 DCW (Rec: 09/06/19 10:20 DCW [id number]) Special Tests Knee Special Tests Varus- 25 Degrees Test Results Negative Valgus- 25 Degrees Test Results Negative Posterior Draw Test Results Negative Anthony's Test Results Negative Anterior Draw Test Results Negative PT-OP-M Strength Start: 09/06/19 09:34 Freq: Status: Active Protocol: Document 09/05/19 16:00 DCW (Rec: 09/06/19 10:20 DCW [id number]) Hip Strength Hip Manual Muscle Testing Right Flexion (L2) 4- Good- Abduction 4- Good- Adduction 4- Good- Left Flexion (L2) 4+ Good+ Abduction 4+ Good+ Adduction 4+ Good+ Knee Strength Knee Manual Muscle Testing Right Flexion (S2) 3 Fair Extension (L3) 4 Good Left Flexion (S2) 4+ Good+ Extension (L3) 4+ Good+ PT-OP-Q Treatments Start: 09/06/19 09:34 Freq: Status: Active Protocol: Document 10/31/19 11:15 DCW (Rec: 10/31/19 11:53 DCW [id number]) Cardio Equipment Bicycle (Upright) Duration (Minutes) 6 Resistance 6 Seat Position 5 Gym Equipment Shuttle Recovery Unilateral Squats Details Right Resistance 62# Shuttle Recovery Platform Stable Reps/Time 12 x3 Bilateral Squats Resistance 100# Shuttle Recovery Platform Stable Reps/Time 12 x3 Shuttle Balance blue Details WBOS & staggered stance. Comments EO/EC, Head Turns PT-OP-R Modalities Start: 09/06/19 09:34 Freq: Status: Active Protocol: Document 09/27/19 15:53 GGD (Rec: 09/27/19 16:02 GGD [id number]) Electric Stimulation Electric Stimulation Interferential Current (IFC) Body Location R knee Duration (Minutes) 15 Patient Position Hooklying Combined With Heat/Cold Cold Pack PT-OP-T Assessment and Plan Start: 09/06/19 09:34 Freq: Status: Active Protocol: Document 10/31/19 11:15 DCW (Rec: 10/31/19 11:53 DCW [id number]) Physical Therapy Assessment Goals Four Impairment Pt descends stairs by side- stepping Residential Goal (LTG) Pt to ascend and descend stairs [id number] with no increased pain to increased level of safety LTG Duration Met Three Impairment Pt only able to walk <1 mile per day [employer] Goal (LTG) Pt to ambulate 5 miles daily without increased knee pain to return to [facility] for her springtime [employer] road trips LTG Duration 11/05/19 - Improvin.5 miles Two Impairment Pt pain wakes her up at night Short Term Goal (STG) Progressing-pt notes she still has to change position mult times during night d/t disomfort: Pt to report pain at night at worst 2/10 to improve sleep STG Duration 10/06/19 - Improving One Impairment Pt does not have an appropriate home exercise program Short Term Goal (STG) Progressing-met for supportive HEP, pt still does not have independent management HEP: Pt to be independent and compliant with an appropriate HEP STG Duration Met Assessment Summary Assessment Pt left early due to her advancing cold, and chose to cancel her last remaining appointment, due to her assumption that she will still be sick, making today her final appointment. Pt making great progress, nearing completion of all goals. Pt feels comfortable performing her HEP independently, and believes she will be doing well enough in the spring to enjoy her upcoming road trips. Physical Therapy Plan Frequency and Duration Frequency of Treatment 2x/Week Duration of Treatment 12 weeks Plan of Care Start Date 09/05/19 Plan of Care End Date 11/28/19 Therapeutic Interventions Therapeutic Interventions Gait Training,Joint Mobilizations,Manual Therapy, Patient/Caregiver Education, Self-Care/Home Management,Soft Tissue Mobilization, Therapeutic Activities, Therapeutic Exercises Modalities Cold Pack/Ice Massage,Electric Stimulation,Hot Packs, Ultrasound Next Visit Focus/Plan Next Note Type Treatment Note Next Visit Plan LE strengthening, gait training, edema control, ROM exercises, pain-control close chained LE strengthening / balance training as lorenzo
== END 2019-11-16 11:55 | disposition home or self-care (01) ==
LOC: PHYS 11:15
PROVIDERS: Family Provider Internal Medicine; PCP Internal Medicine; Visit Provider Student in an Organized Health Care Education/Training Program
DX: S83.241A Other tear of medial meniscus, current injury, right knee, initial encounter (principal); M25.661 Stiffness of right knee, not elsewhere classified; R26.89 Other abnormalities of gait and mobility; M25.561 Pain in right knee; R53.1 Weakness
CPT/HCPCS: 97014; 97110; 97112; 97140; 97161; 97535; G0283

== ENCOUNTER → 2019-12-03 16:45 | Outpatient (CLI) | payer MEDICARE, SELFPAY ==
--- NOTE | 2019-12-03 | DI.RAD.S_ITS ---
PROCEDURE: XR CHEST 2V INDICATIONS: COUGH CONGESTION TECHNIQUE: 2 views of the chest were acquired. COMPARISON: None. FINDINGS: Surgical changes and devices: None. Lungs and pleura: Lungs are clear. No pleural effusions or pneumothorax. Mediastinum: Mediastinal contours are normal. Heart size is normal. Bones and chest wall: No suspicious bony abnormalities. Soft tissues appear unremarkable. IMPRESSION: Normal for age, source of current cough symptoms is not seen. Dictated by: Stephen Garcia M.D. on 12/04/2019 at 9:25 Approved by: Stephen Garcia M.D. on 12/04/2019 at 9:25
--- NOTE | 2019-12-03 | DI.RAD.S_ITS ---
PROCEDURE: XR SINUS <3V INDICATIONS: COUGH CONGESTION TECHNIQUE: 3 views of the sinuses were acquired. COMPARISON: None. FINDINGS: Sinuses: The visualized sinuses demonstrate no air-fluid levels or mucosal thickening. The visualized mastoids also appear clear. Bones: No suspicious bony lesions. Nasal septum is midline. Dental implants are noted. IMPRESSION: Clear paranasal sinuses. Dictated by: Bakari Zambrano M.D. on 12/04/2019 at 10:26 Approved by: Bakari Zambrano M.D. on 12/04/2019 at 10:26
== END ==
PROVIDERS: PCP Internal Medicine; Visit Provider Internal Medicine
DX: R05 Cough (principal); J32.9 Chronic sinusitis, unspecified
CPT/HCPCS: 70210; 71046

== ENCOUNTER → 2020-08-28 15:27 | Outpatient (ROUT) | payer MEDICARE, SELFPAY ==
[2020-08-28 16:22] LABS: Alanine Aminotransferase 20 IU/L (<35); Albumin 4.3 g/dL (3.5-5.0); Albumin Globulin Ratio 1.8 (1.0-2.8); Alkaline Phosphatase 70 U/L (38-126); Aspartate Aminotransferase 26 IU/L (14-36); BUN Creatinine Ratio 22.7 (6-22); Bilirubin Total 1.1 mg/dL (0.2-1.3); Blood Urea Nitrogen 17 mg/dL (7-17); Calcium 9.3 mg/dL (8.4-10.2); Carbon Dioxide 29 mmol/L (22-32); Chloride 106 mmol/L (98-107); Cholesterol 163 mg/dL (140-199); Estimated Glomerular Filt Rate > 60.0 mL/min (>60); Globulin 2.4 g/dL (1.7-4.1); Glucose 87 mg/dL (80-110); HDL Cholesterol 67 mg/dL (40-60); HEMOLYSIS < 15 (0-50); LDL Cholesterol Calculated 81 mg/dL (<100); Potassium 4.1 mmol/L (3.4-5.1); Sodium 141 mmol/L (137-145); Total Protein 6.7 g/dL (6.3-8.2); Triglycerides 76 mg/dL (35-150)
== END ==
PROVIDERS: PCP Internal Medicine; Visit Provider Internal Medicine
DX: I10 Essential (primary) hypertension (principal); E78.5 Hyperlipidemia, unspecified; R68.89 Other general symptoms and signs
CPT/HCPCS: 80053; 80061; 84443

== ENCOUNTER → 2020-12-16 07:53 | Outpatient (CLI) | payer MEDICARE, SELFPAY ==
[2020-12-16] MEDS: COVID-19 VACC #1, MRNA(MOD) 100 MCG/0.5 ML VIAL IM (07:57)
== END ==
PROVIDERS: PCP Internal Medicine; Visit Provider Internal Medicine
DX: Z23 Encounter for immunization (principal)
CPT/HCPCS: 0011A; 91301

== ENCOUNTER → 2021-01-13 07:47 | Outpatient (CLI) | payer MEDICARE, SELFPAY ==
[2021-01-13] MEDS: COVID-19 VACC #2, MRNA(MOD) 100 MCG/0.5 ML VIAL IM (08:04)
== END ==
PROVIDERS: PCP Internal Medicine; Visit Provider Internal Medicine
DX: Z23 Encounter for immunization (principal)
CPT/HCPCS: 0012A; 91301

== ENCOUNTER 2021-05-10 15:36 | Emergency (ER) | payer MEDICARE, SELFPAY ==
--- NOTE | 2021-05-10 15:43 | DI.RAD.S_ITS ---
PROCEDURE: XR FOOT RT MIN 3V INDICATIONS: fall TECHNIQUE: 3 views of the foot were acquired. COMPARISON: None FINDINGS: Bones: No fractures or dislocations. No suspicious bony lesions. Hallux valgus, bunion, 1st MTP degenerative change. Soft tissues: No tibiotalar joint effusion. Achilles tendon appears normal. IMPRESSION: Hallux valgus, bunion, 1st MTP degenerative change. No evidence acute bony abnormality of the right foot. If clinical suspicion and/or symptoms persist, further assessment with repeat plain films, or advanced imaging (e.g., CT, MRI, or bone scan) may be helpful for further assessment. Dictated by: Ezekiel Bridges M.D. on 05/10/2021 at 15:41 Approved by: Ezekiel Bridges M.D. on 05/10/2021 at 15:42
--- NOTE | 2021-05-10 15:44 | DI.RAD.S_ITS ---
PROCEDURE: XR ANKLE RT MIN 3V INDICATIONS: fall TECHNIQUE: 3 views of the ankle were acquired. COMPARISON: None FINDINGS: Bones: No fractures or dislocations. Ankle mortise is normally aligned. No suspicious bony lesions. Soft tissues: No tibiotalar joint effusion. Achilles tendon appears normal. IMPRESSION: No evidence acute bony abnormality of the right ankle. If clinical suspicion and/or symptoms persist, further assessment with repeat plain films, or advanced imaging (e.g., CT, MRI, or bone scan) may be helpful for further assessment. Dictated by: Ezekiel Bridges M.D. on 05/10/2021 at 15:42 Approved by: Ezekiel Bridges M.D. on 05/10/2021 at 15:43
[2021-05-10 15:45] VITALS: BP 169/82; PULSE 85; RESP 19; TEMP 36.9; O2SAT 97; BMI 27.4
--- NOTE | 2021-05-10 15:45 | DI.RAD.S_ITS ---
PROCEDURE: XR KNEE RT 3V INDICATIONS: fall TECHNIQUE: 3 views of the knee were acquired. COMPARISON: None. FINDINGS: Bones: No fractures or dislocations. No suspicious bony lesions. Soft tissues: No joint effusion. No suspicious soft tissue calcifications. IMPRESSION: No evidence acute bony abnormality of the right knee. If clinical suspicion and/or symptoms persist, further assessment with repeat plain films, or advanced imaging (e.g., CT, MRI, or bone scan) may be helpful for further assessment. Dictated by: Ezekiel Bridges M.D. on 05/10/2021 at 15:39 Approved by: Ezekiel Bridges M.D. on 05/10/2021 at 15:40
--- NOTE | 2021-05-10 18:18 | ED.LOWEXIN ---
HPI - Extremity Injury (Lower) General Chief Complaint: Extremity Injury, Lower Stated Complaint: Poss Broken Rt Foot Time Seen by Provider: 05/10/21 17:51 Source: patient and family Mode of arrival: Family Vehicle Limitations: no limitations History of Present Illness HPI Narrative: Patient is a 76-year-old female who presents with right foot pain started today. This afternoon she stood up and her foot fell in word she heard cracking and popping and was unable to stand. She took ibuprofen iced and was still unable to bear weight. She has a contusion on the lateral side of her mid foot. She says ankle hurts as well but denies any pain. She thought that her foot was asleep when she tried to stand up. MD complaint: foot injury Related Data Home Medications Medication Instructions Recorded Confirmed [LANTANOPROST] #0 12/21/17 02/20/19 alendronate 70 mg PO QWEEK #0 12/21/17 02/23/21 azelastine #0 12/21/17 02/23/21 budesonide [Uceris] 9 mg #0 12/21/17 02/23/21 budesonide-formoterol [Symbicort] 1 inh INH BID #0 12/21/17 02/23/21 cetirizine 10 mg PO QDAY #0 12/21/17 02/23/21 fluticasone propionate [Flovent 50 mcg INH BID #0 12/21/17 02/23/21 Diskus] levalbuterol HCl [Xopenex] 0.31 mg INH Q6HP PRN #0 12/21/17 02/23/21 oxymetazoline [Afrin 1 spray INTRANASAL Q12HP PRN #0 12/21/17 02/20/19 (oxymetazoline)] valacyclovir 500 mg PO #0 12/21/17 02/23/21 atorvastatin 10 mg tablet 25 mg PO HS #0 tab 02/23/21 02/23/21 calcium carbonate 600 mg calcium 1,200 mg PO DAILY 02/23/21 02/23/21 (1,500 mg) tablet losartan 25 mg tablet 25 mg PO DAILY 02/23/21 02/23/21 montelukast 10 mg tablet 10 mg PO DAILY 02/23/21 02/23/21 prednisone 20 mg tablet 20 mg PO BID 02/23/21 02/23/21 Allergies Allergy/AdvReac Type Severity Reaction Status Date / Time umeclidinium Allergy Severe THROAT Verified 05/10/21 15:49 [From INCRUSE ELLIPTA] SWELLING Penicillins [PENICILLINS] Allergy Intermediate RASH Verified 05/10/21 15:49 Review of Systems Review of Systems Narrative: GENERAL: Denies chills,fever HEENT: Denies throat pain RESPIRATORY: Denies dyspnea, cough, wheezing CARDIOVASCULAR: Denies chest pain, palpitations GASTROINTESTINAL: Denies nausea, vomiting MUSCULOSKELETAL: See HPI SKIN: No rash, no laceration, no pruritus NEUROLOGIC: Denies weakness, dizziness, headache, numbness 8 point review of systems is negative except for those stated above and HPI Patient History Medical History Asthma Family History Family/Other Loud snoring Heart disease Father Loud snoring Family/Other Sleep apnea Social History Smoking Status: Never smoker Smoking Status: Never smoker alcohol intake frequency: 0-2 drinks per day Alcohol type: beer and wine Substance Use Type: does not use Exam Initial Vital Signs Initial Vital Signs: Vital Signs Temperature 98.4 F 05/10/21 15:45 Pulse Rate 85 05/10/21 15:45 Respiratory Rate 19 05/10/21 15:45 Blood Pressure 169/82 H 05/10/21 15:45 Pulse Oximetry 97 05/10/21 15:45 GENERAL: Alert 76-year-old female appears well CARDIOVASCULAR: peripheral pulses in tact, cap refill <2 sec RESPIRATORY: No respiratory distress, speaks in full sentences without difficulty EXTREMITIES: Normal range of motion, no clubbing or edema. Neurovascularly intact Right foot, pain and swelling contusion on her lateral foot distal pedal pulse intact, Achilles tendon intact, ankle minimal swelling no is stable and within normal limits NEUROLOGICAL: Cranial nerves II through XII grossly intact. Normal gait and speech. SKIN: Warm, dry, no petechiae, no rashes or lesions. Course Orders Ordered: Discontinued Medications Hydrocodone Bitart/Acetaminophen (Hydrocodone/Acet 5/325 Prepack) 1 bottle MISC SEEINSTR ONE Stop: 05/10/21 18:32 Last Admin: 05/10/21 19:01 Dose: 1 bottle Documented by: [email or web address] Vital Signs Vital signs: Vital Signs - 8 hr 05/10/21 19:02 Pulse Rate 82 Respiratory Rate 18 Blood Pressure 178/78 H Pulse Oximetry 98 MDM - Extremity Injury (Lower) Imaging Data Extremity x-ray #1: Radiologist's Impression: PROCEDURE: XR FOOT RT MIN 3V INDICATIONS: fall TECHNIQUE: 3 views of the foot were acquired. COMPARISON: None FINDINGS: Bones: No fractures or dislocations. No suspicious bony lesions. Hallux valgus, bunion, 1st MTP degenerative change. Soft tissues: No tibiotalar joint effusion. Achilles tendon appears normal. IMPRESSION: Hallux valgus, bunion, 1st MTP degenerative change. No evidence acute bony abnormality of the right foot. If clinical suspicion and/or symptoms persist, further assessment with repeat plain films, or advanced imaging (e.g., CT, MRI, or bone scan) may be helpful for further assessment. Dictated by: Ezekiel Bridges M.D. on 05/10/2021 at 15:41 Extremity x-ray #2: Radiologist's Impression: PROCEDURE: XR ANKLE RT MIN 3V INDICATIONS: fall TECHNIQUE: 3 views of the ankle were acquired. COMPARISON: None FINDINGS: Bones: No fractures or dislocations. Ankle mortise is normally aligned. No suspicious bony lesions. Soft tissues: No tibiotalar joint effusion. Achilles tendon appears normal. IMPRESSION: No evidence acute bony abnormality of the right ankle. If clinical suspicion and/or symptoms persist, further assessment with repeat plain films, or advanced imaging (e.g., CT, MRI, or bone scan) may be helpful for further assessment. Dictated by: Ezekiel Bridges M.D. on 05/10/2021 at 15:42 Extremity x-ray #3: Radiologist's Impression: PROCEDURE: XR KNEE RT 3V INDICATIONS: fall TECHNIQUE: 3 views of the knee were acquired. COMPARISON: None. FINDINGS: Bones: No fractures or dislocations. No suspicious bony lesions. Soft tissues: No joint effusion. No suspicious soft tissue calcifications. IMPRESSION: No evidence acute bony abnormality of the right knee. If clinical suspicion and/or symptoms persist, further assessment with repeat plain films, or advanced imaging (e.g., CT, MRI, or bone scan) may be helpful for further assessment. Dictated by: Ezekiel Bridges M.D. on 05/10/2021 at 15:39 Approved by: Ezekiel Bridges M.D. on 05/10/2021 at 15:40 Discharge Plan Departure Patient Disposition: Home Clinical Impression: Right foot sprain Instructions: DI for Foot Sprain Activity Restrictions/Additional Instructions: *You have been diagnosed with right foot sprain *What to do: At this time for actually do not have any broken bones or fractures. You have swelling which is likely from bruising and a sprain. Use crutches as needed and increase weight-bearing as tolerated *Continue to take medications as directed Ibuprofen 600 mg every 6 hours if for [id number] pain Tylenol 650 mg every 4-6 hours if needed for [id number] pain Hydrocodone 0.5-1 full tablet every 6 hours if needed for severe pain *Follow up with your primary care provider in 2-3 days *Return to ER if you should have increasing pain swelling redness or any new, worsening or concerning symptoms CONTROLLED SUBSTANCE DISCHARGE (Narcotoic/benzodiazepine/Flexeril/Phenergan) 1. You have been prescribed narcotic medications, it does have acetaminophen/Tylenol/paracetamol in it, DO NOT TAKE MORE THAN 4,00mg in 24 hours of Tylenol. TRAMADOL DOES NOT CONTAIN TYLENOL 2. Please understand that we cannot provide further refills of narcotics, benzodiazepines or controlled substances through the ED and her pain management will need to be through your provider. 3. While on these medications you cannot drive or operate heavy machinery. 4. You cannot sign legal documents or perform any duties such as this. 5. As long as you're taking opiate pain medications he should also be taking a stool softener such as Colace, Dulcolax, MiraLAX or prune juice, to help avoid constipation. Prescriptions: No Action budesonide-formoterol [Symbicort] 160 MCG/4.5 MCG HFA aerosol inhaler 1 inh INH BID Qty: 0 RF: 0 fluticasone propionate [Flovent Diskus] 50 MCG blister with device 50 mcg INH BID Qty: 0 RF: 0 valacyclovir 500 MG tablet 500 mg PO Qty: 0 RF: 0 alendronate 70 MG tablet 70 mg PO QWEEK Qty: 0 RF: 0 [LANTANOPROST] Qty: 0 RF: 0 azelastine 137 MCG/0.137 ML aerosol,spray Qty: 0 RF: 0 cetirizine 10 MG tablet,chewable 10 mg PO QDAY Qty: 0 RF: 0 levalbuterol HCl [Xopenex] 0.31 MG/3 ML solution for nebulization 0.31 mg INH Q6HP PRNQty: 0 RF: 0 oxymetazoline [Afrin (oxymetazoline)] 0.05 % spray,non-aerosol 1 spray Intranasal Q12HP PRNQty: 0 RF: 0 budesonide [Uceris] 9 MG tablet,delayed and ext.release 9 mg Qty: 0 RF: 0 atorvastatin [Lipitor] 10 mg tablet 25 mg PO HS Qty: 0 RF: 0 montelukast 10 mg tablet 10 mg PO DAILY RF: 0 calcium carbonate [Calcium 600] 600 mg calcium (1,500 mg) tablet 1,200 mg PO DAILY RF: 0 losartan 25 mg tablet 25 mg PO DAILY RF: 0 prednisone 20 mg tablet 20 mg PO BID RF: 0 Referrals: Emily Peralta MD [Primary Care Provider] -
[2021-05-10] MEDS: HYDROCODONE/ACET 5/325 PREPACK 1 BOTTLE MISC (19:01)
[2021-05-10 19:02] VITALS: BP 178/78; PULSE 82; RESP 18; O2SAT 98
== END 2021-05-10 19:03 | disposition home or self-care (01) ==
PROVIDERS: Emergency Provider Emergency Medicine; PCP Internal Medicine
DX: S93.601A Unspecified sprain of right foot, initial encounter (principal); W19.XXXA Unspecified fall, initial encounter
CPT/HCPCS: 73562; 73610; 73630; 99282; 99283

== ENCOUNTER → 2021-06-11 18:56 | Outpatient (CLI) | payer MEDICARE, SELFPAY ==
--- NOTE | 2021-06-11 | DI.MRI.S_ITS ---
PROCEDURE: MR ANKLE RT WO CON INDICATIONS: sprain of unspecified ligament of rt ankle TECHNIQUE: Noncontrast sagittal T1 spin echo and T2 fast spin echo with fat saturation, axial proton density fast spin echo and T2 fast spin echo with fat saturation, coronal T1 spin echo and T2 fast spin echo with fat saturation through the ankle/hindfoot. COMPARISON: [facility], CR, XR ANKLE RT MIN 3V, 05/10/2021, 16:00. FINDINGS: Image quality: Excellent. Bones and joints: There is mild marrow edema involving tip of lateral malleolus without discrete fracture line. Marrow edema involving inferior aspect of anterior talus adjacent to anterior subtalar joint and proximal cuboid adjacent to calcaneocuboid joint are seen. No discrete fracture line is noted. Moderate osteoarthritic changes are noted throughout midfoot joints more prominent in 2nd and 3rd TMT joints and talonavicular joint. No hindfoot coalitions. No osteochondral injuries of the talar dome. No pathologic joint effusions. Medial structures: The posterior tibialis is mildly thickened with small to moderate amount of fluid distending tendon sheath suggestive of low-grade tenosynovitis. The flexor digitorum longus, and flexor hallucis longus tendons are intact. The posterior tibial neurovascular bundle appears normal within the tarsal tunnel, without extrinsic mass effect. The deep layer (anterior and posterior tibiotalar ligaments) and superficial layer (tibionavicular, tibiospring, and tibiocalcaneal ligaments) of the deltoid ligament appear normal. The spring ligament components (superomedial calcaneonavicular, medioplantar oblique calcaneonavicular, and inferoplantar longitudinal ligaments) are intact. Lateral structures: The anterior talofibular, calcaneofibular, and posterior talofibular ligaments appear mildly thickened suggestive of low-grade sprain/partial-thickness tear. More superiorly, the anterior and posterior tibiofibular ligaments appear intact, as is the intermalleolar ligament. The tibiofibular syndesmosis is normal in width at 2 mm or less. The peroneus longus and brevis tendons demonstrate normal location and morphology. Adjacent bony peroneal tubercle and retrotrochlear prominence are normal in size. The sinus tarsi demonstrates normal fatty signal, without edema, fibrosis, or cyst formation. Visualized sinus tarsi components (cervical ligament, interosseous talocalcaneal ligament, roots of the inferior extensor retinaculum) appear normal. The calcaneonavicular and calcaneocuboid components of the bifurcate ligament appear intact. The dorsal calcaneocuboid ligament appears intact. Anterior structures: The tibialis anterior, extensor hallucis longus, and extensor digitorum longus tendons appear intact. The dorsal talonavicular ligament appears intact. Posterior and plantar structures: Achilles tendon is intact. Slightly thickened medial band of plantar fascia is seen at its plantar calcaneal insertion suggestive of very low-grade plantar fasciitis. No abductor digiti quinti muscle atrophy to suggest Beckwith neuropathy. IMPRESSION: 1. Bony contusion involving tip of lateral malleolus, distal portion of talus and proximal portion of cuboid as described above. No discrete fracture line is seen. No osteochondral injury of talar dome. No significant joint effusion. Osteoarthritic changes are noted throughout midfoot joints more prominent at 2nd and 3rd TMT joints. 2. Low-grade tenosynovitis involving posterior tibialis tendon. 3. Low-grade sprain/partial-thickness tear involving anterior and posterior talofibular ligaments and calcaneofibular ligament. Medial ankle ligaments are intact. 4. Mildly thickened plantar fascia at its plantar calcaneal insertion concerning for low-grade plantar fasciitis. Dictated by: Gómez Harden M.D. on 06/12/2021 at 9:37 Approved by: Gómez Harden M.D. on 06/12/2021 at 9:54
== END ==
PROVIDERS: PCP Internal Medicine; Referring Provider Internal Medicine; Visit Provider Internal Medicine
DX: S93.411A Sprain of calcaneofibular ligament of right ankle, initial encounter (principal); S93.491A Sprain of other ligament of right ankle, initial encounter; S90.01XA Contusion of right ankle, initial encounter; M65.871 Other synovitis and tenosynovitis, right ankle and foot; X58.XXXA Exposure to other specified factors, initial encounter
CPT/HCPCS: 73721

== ENCOUNTER → 2021-08-28 14:53 | Outpatient (CLI) | payer MEDICARE, SELFPAY ==
--- NOTE | 2021-08-28 14:55 | DI.RAD.S_ITS ---
PROCEDURE: XR DEXA AXIAL SKELETON INDICATIONS: SCREENING COMPARISON: [facility], CR, XR DEXA AXIAL SKELETON, 10/25/2019, 15:29. FINDINGS: This blank DEXA report has been sent in error by the PACS system. The correct and complete report will be forthcoming in 1-2 days. Thank you for your patience and understanding. Dictated by: Daniela Barr MD, PhD on 08/29/2021 at 8:09 Approved by: Daniela Barr MD, PhD on 08/29/2021 at 8:09
--- NOTE | 2021-08-28 14:55 | DI.MG.S_ITS ---
BILATERAL DIGITAL SCREENING MAMMOGRAM 3D/2D WITH CAD: 08/28/2021 CLINICAL: Routine screening. Family history of breast cancer. Comparison is made to exams dated: 10/26/2019 mammogram and 03/11/2017 mammogram - [facility]. The tissue of both breasts is heterogeneously dense. This may lower the sensitivity of mammography. Current study was also evaluated with a Computer Aided Detection (CAD) system. No significant masses, calcifications, or other findings are seen in either breast. There has been no significant interval change. IMPRESSION: NEGATIVE There is no mammographic evidence of malignancy. A 1 year screening mammogram is recommended. This exam was interpreted at Station ID: [id number]. NOTE: For mammograms, a report in lay terms will be sent to the patient. Approximately 15% of breast malignancies will not be visualized mammographically. In the management of a palpable breast mass, a negative mammogram must not discourage biopsy of a clinically suspicious lesion. Electronically Signed By: Roly stern/lisbeth:08/28/2021 15:49:40 letter sent: Normal Exam ACR BI-RADS Category 1: Negative [id number]
== END ==
PROVIDERS: Family Provider Internal Medicine; PCP Internal Medicine; Referring Provider Internal Medicine; Visit Provider Internal Medicine
DX: Z80.3 Family history of malignant neoplasm of breast (principal); Z12.31 Encounter for screening mammogram for malignant neoplasm of breast; Z13.820 Encounter for screening for osteoporosis; M85.852 Other specified disorders of bone density and structure, left thigh; Z78.0 Asymptomatic menopausal state
CPT/HCPCS: 77063; 77067; 77080

== ENCOUNTER 2021-10-08 09:00 | Outpatient (RCR) | payer MEDICARE, SELFPAY ==
--- NOTE | 2021-08-10 11:09 | PT.OIE ---
Current Diagnoses Sprain of unspecified ligament of right ankle, subsequent encounter (08/10/21) Past Medical History (Last Reviewed 05/10/21 @ 18:25 by Jossie Paniagua DO) Asthma Visit Care Team Role Provider Type Emily Peralta MD Attending Provider Physician Family Provider Primary Care Provider Referring Provider Specialty: Internal Medicine Address: [address] [place] [address], [id number] Email: [email or web address] Physical Therapy Initial Evaluation PT-OP-A Visit Information Start: 08/07/21 15:37 Freq: Status: Active Protocol: Document 08/10/21 08:55 MB (Rec: 08/10/21 09:21 MB [id number]) Out-Patient Physical Therapy Visit Information Visit Information Visit Type Initial Evaluation Visit Note [employer] 12/09 before KX Visit Start Time 08:55 Visit Stop Time 09:40 Total Visit Minutes 45 Visit Number 1 Evaluation Information Evaluation Date 08/10/21 PT-OP-B Current Condition Start: 08/07/21 15:37 Freq: Status: Active Protocol: Document 08/10/21 08:55 MB (Rec: 08/10/21 09:21 MB [id number]) Current Condition History of Current Condition Onset Date 05/10/21 Current Complaints Pain and can't walk like she would like History of Current Condition Pt states that on 05/10/21, she stood up with her right foot asleep and she heard a crunching sound and had intense pain. She went to the ED and was told she did not have a fracture. She was given crutches and wore an old air brace. She did not use the crutches as she felt like a disaster ready to happen. She did not want to get a walker. She has hiking poles she uses sometimes. She went on a camper trip and didn't go on uneven trails. The pain got bad if she went too far or went up and down inclines. She saw an orthopedist in late May and she put pt in a boot . It was a great relief. She wore it about three weeks. She took the stiffer air brace and smaller ankle brace with her on her trip. Pt does not know how long she was supposed to wear the ankle boot. Pt reports a lump on the inside of her right rubio since all this started. Three years ago, she banged up her right rubio on a bike ride. She had another injury two years ago when she hurt her right knee an meniscus. The inside of the leg is aggravated again. Pt rates pain up to 4/10. PMH includes OP, suprventribular tachycardia. 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 Treatment Goals Patient/Caregiver Goals To get back to trail walking and dancing PT-OP-C Subjective Start: 08/07/21 15:37 Freq: Status: Active Protocol: Document 08/10/21 08:55 MB (Rec: 08/10/21 09:21 MB [id number]) OP-PT Subjective Patient Comments Patient Comments See history of current condition PT-OP-G Mobility & Gait Start: 08/07/21 15:37 Freq: Status: Active Protocol: Document 08/10/21 08:55 MB (Rec: 08/10/21 10:58 MB [id number]) OP Gait Assessment Comments Gait Comments I gait with shoes and socks off: pt favors the right foot and decreases WB on the right leg. Lateral shift of pelvis to the left with elevated left hip and curve up the spine with right shoulder higher with gait. Increased IR left LE and increased valgus left knee. Tends to WB through lateral feet and not push off through the toes. PT-OP-J Posture/Palpation/Skin Start: 08/07/21 15:37 Freq: Status: Active Protocol: Document 08/10/21 08:55 MB (Rec: 08/10/21 10:58 MB [id number]) Posture Evaluation Comments Posture Comments Standing posture bare feet. Hip and spinal position different with static standing with right iliac crest 3/4 higher than the left, rounded shoulders, Dowager's hump, increased lumbar lordosis, IR left hip and overpronation left foot. PT-OP-K Range of Motion Start: 08/07/21 15:37 Freq: Status: Active Protocol: Document 08/10/21 08:55 MB (Rec: 08/10/21 10:58 MB [id number]) Ankle and Foot Goniometric Range of Motion Ankle and Foot ROM Limitations Comments With legs straight: left DF to neutral and right lacks 2 deg . 5 deg less active inversion right ankle compared to left 2nd right toe rests lightly on great toe No heel raises today in standing d/t pain Bunions greater left foot PT-OP-M Strength Start: 08/07/21 15:37 Freq: Status: Active Protocol: Document 08/10/21 08:55 MB (Rec: 08/10/21 10:58 MB [id number]) Hip Strength Hip Manual Muscle Testing Left Flexion (L2) 3+ Fair+ Abduction 3+ Fair+ Adduction 5 Normal Right Flexion (L2) 4 Good Abduction 4 Good Adduction 5 Normal Knee Strength Knee Manual Muscle Testing Left Flexion (S2) 4 Good Extension (L3) 5 Normal Right Flexion (S2) 4 Good Extension (L3) 5 Normal Ankle/Foot Strength Ankle and Foot Manual Muscle Testing Left Dorsiflexion (L4) 4 Good Inversion 5 Normal Eversion (S1) 5 Normal Right Dorsiflexion (L4) 3+ Fair+ Inversion 4 Good Eversion (S1) 3+ Fair+ Comments Standing PF strengthening deferred d/t pain. All MMT in available range. Some discomfort dorsal ankle and lateral right foot with MMT Toe Strength Toe Manual Muscle Testing Left Great Toe Extension 4 Good Right Great Toe Extension 3+ Fair+ PT-OP-Q Treatments Start: 08/07/21 15:37 Freq: Status: Active Protocol: Document 08/10/21 08:55 MB (Rec: 08/10/21 10:51 MB [id number]) Therapeutic Exercises Supine Exercises Hamstring stretch and AP Side bilateral Comments Hands behind thigh, AP 20-30x Self-Care/Home Management Treatment Education Patient Education Home Exercise Program,Joint Protection,Pain Management, Safety Other Education Benefits and wear of thigh high compression hose, 15-20 mmHg, PT measures pt and provides handout, ed pt that she can try her foot cycle at home, to work on eversion ( foot out) with heel strike with gait, stair training with injured leg ascend second and descend first PT-OP-T Assessment and Plan Start: 08/07/21 15:37 Freq: Status: Active Protocol: Document 08/10/21 08:55 MB (Rec: 08/10/21 11:09 MB [id number]) Physical Therapy Assessment Rehab Potential Rehabilitation Potential Good Evaluation Complexity Number of Personal Factors/Comorbidities 1-2 Number of Body Systems Impaired 1-2 Clinical Presentation at Evaluation Evolving Impairments Impairments Activity Tolerance,Balance, Edema,Gait,Pain,Posture,ROM, Soft Tissue Mobility,Strength Other Impairments Personal factors include pt wearing air cast for hiking and stretchy brace otherwise. She has been guarding her ankle a lot and not using AD. Body systems affected include musculoskeletal and neuromuscular. Her clinical presentation is evolving in setting of OP. Other Concerns Fall Risk Yes Goals 4 Accounts Administrator Goal (LTG) Pt will perform progressive HEP with I including ROM, flexiblity, strengthening, balance and gait exercises to prepare for return to hiking by 10/10/21. LTG Duration 8 weeks 3 Accounts Administrator Goal (LTG) Pt will ascend and descend 4 steps with 1 rail and reciprocal gait with no pain to allow safe home ambulation by 10/10/21. LTG Duration 8 weeks 2 Accounts Administrator Goal (LTG) Pt will perform WNLs on a standardized balance test to decrease fall risk by 10/10/21 . LTG Duration 8 weeks 1 Accounts Administrator Goal (LTG) Pt will gait train at least 1400 feet in 6 minutes without AD to prepare for return to hiking by 10/10/21. LTG Duration 8 weeks Assessment Summary Assessment Pt is a 77 y/o female presenting 3 months out from a severe right ankle injury. PT reviewed MRI from May and recorded results in initial assessment today. She presents with decreased ROM, strength, balance, impaired gait and pain. She his mild edema in her right LE. She will benefit from PT to improve range, strength, balance, and gait. Ed pt on benefits of thigh high compression today and initiated exercise education. She will benefit from manual therapy as well during PT course. Her goal is to get back to hiking and to be able to dance at her daughter's wedding next year. Physical Therapy Plan Frequency and Duration Frequency of Treatment 2x/Week Duration of Treatment 8 weeks Plan of Care Start Date 08/10/21 Plan of Care End Date 10/12/21 Therapeutic Interventions Therapeutic Interventions Aquatic Therapy,Balance Training,Canalithic Repositioning,Gait Training, Home Exercise Program,Joint Mobilizations,Manual Therapy, Neuromuscular Re-education, Patient/Caregiver Education, Self-Care/Home Management,Soft Tissue Mobilization,Taping, Therapeutic Activities, Therapeutic Exercises Modalities Cold Pack/Ice Massage,Hot Packs Next Visit Focus/Plan Next Note Type Treatment Note Next Visit Plan Initiate recumbent stepper, ankle hammock exercise, calf and hip flexor stretches, consider tandem standing
--- NOTE | 2021-08-10 11:09 | PT.OPPOC ---
Physical, Occupational & Speech Therapy At [facility] Current Diagnoses Sprain of unspecified ligament of right ankle, subsequent encounter (08/10/21) Visit Care Team Role Provider Type Emily Peralta MD Attending Provider Physician Family Provider Primary Care Provider Referring Provider Specialty: Internal Medicine Address: [address] [place] [address], [facility] Email: [email or web address] Plan Of Care PT-OP-T Assessment and Plan Start: 08/07/21 15:37 Freq: Status: Active Protocol: Document 08/10/21 08:55 MB (Rec: 08/10/21 11:09 MB [id number]) Physical Therapy Assessment Rehab Potential Rehabilitation Potential Good Evaluation Complexity Number of Personal Factors/Comorbidities 1-2 Number of Body Systems Impaired 1-2 Clinical Presentation at Evaluation Evolving Impairments Impairments Activity Tolerance,Balance, Edema,Gait,Pain,Posture,ROM, Soft Tissue Mobility,Strength Other Impairments Personal factors include pt wearing air cast for hiking and stretchy brace otherwise. She has been guarding her ankle a lot and not using AD. Body systems affected include musculoskeletal and neuromuscular. Her clinical presentation is evolving in setting of OP. Other Concerns Fall Risk Yes Goals 4 Delivery Architect Goal (LTG) Pt will perform progressive HEP with I including ROM, flexiblity, strengthening, balance and gait exercises to prepare for return to hiking by 10/10/21. LTG Duration 8 weeks 3 Delivery Architect Goal (LTG) Pt will ascend and descend 4 steps with 1 rail and reciprocal gait with no pain to allow safe home ambulation by 10/10/21. LTG Duration 8 weeks 2 Prison Goal (LTG) Pt will perform WNLs on a standardized balance test to decrease fall risk by 10/10/21 . LTG Duration 8 weeks 1 Prison Goal (LTG) Pt will gait train at least 1400 feet in 6 minutes without AD to prepare for return to hiking by 10/10/21. LTG Duration 8 weeks Assessment Summary Assessment Pt is a 77 y/o female presenting 3 months out from a severe right ankle injury. PT reviewed MRI from May and recorded results in initial assessment today. She presents with decreased ROM, strength, balance, impaired gait and pain. She his mild edema in her right LE. She will benefit from PT to improve range, strength, balance, and gait. Ed pt on benefits of thigh high compression today and initiated exercise education. She will benefit from manual therapy as well during PT course. Her goal is to get back to hiking and to be able to dance at her daughter's wedding next year. Physical Therapy Plan Frequency and Duration Frequency of Treatment 2x/Week Duration of Treatment 8 weeks Plan of Care Start Date 08/10/21 Plan of Care End Date 10/12/21 Therapeutic Interventions Therapeutic Interventions Aquatic Therapy,Balance Training,Canalithic Repositioning,Gait Training, Home Exercise Program,Joint Mobilizations,Manual Therapy, Neuromuscular Re-education, Patient/Caregiver Education, Self-Care/Home Management,Soft Tissue Mobilization,Taping, Therapeutic Activities, Therapeutic Exercises Modalities Cold Pack/Ice Massage,Hot Packs Next Visit Focus/Plan Next Note Type Treatment Note Next Visit Plan Initiate recumbent stepper, ankle hammock exercise, calf and hip flexor stretches, consider tandem standing Plan of Care Dates Plan of Care Start Date 08/10/21 Plan of Care End Date 10/12/21 Electronically Signed by: Tami John, PT 08/10/21 [id number] Please Sign and Return: I have reviewed this Plan of Care and certify that the skilled therapy services above are required to meet the patient?s needs. Physician Signature Date Printed Name and Credentials Clinical Instructor Signature Printed Name and Credentials
--- NOTE | 2021-08-12 08:57 | PT.OTN ---
Current Diagnoses Sprain of unspecified ligament of right ankle, subsequent encounter (08/12/21) Physical Therapy Treatment Note PT-OP-A Visit Information Start: 08/07/21 15:37 Freq: Status: Active Protocol: Document 08/12/21 08:15 MB (Rec: 08/12/21 08:46 MB [id number]) Out-Patient Physical Therapy Visit Information Visit Information Visit Type Treatment Note Visit Note [employer] Medicare 01/09 before KX Visit Start Time 08:15 Visit Stop Time 08:55 Total Visit Minutes 40 Visit Number 2 Evaluation Information Evaluation Date 08/10/21 PT-OP-B Current Condition Start: 08/07/21 15:37 Freq: Status: Active Protocol: Document 08/10/21 08:55 MB (Rec: 08/10/21 09:21 MB [id number]) Current Condition History of Current Condition Onset Date 05/10/21 Current Complaints Pain and can't walk like she would like History of Current Condition Pt states that on 05/10/21, she stood up with her right foot asleep and she heard a crunching sound and had intense pain. She went to the ED and was told she did not have a fracture. She was given crutches and wore an old air brace. She did not use the crutches as she felt like a disaster ready to happen. She did not want to get a walker. She has hiking poles she uses sometimes. She went on a camper trip and didn't go on uneven trails. The pain got bad if she went too far or went up and down inclines. She saw an orthopedist in late May and she put pt in a boot . It was a great relief. She wore it about three weeks. She took the stiffer air brace and smaller ankle brace with her on her trip. Pt does not know how long she was supposed to wear the ankle boot. Pt reports a lump on the inside of her right rubio since all this started. Three years ago, she banged up her right rubio on a bike ride. She had another injury two years ago when she hurt her right knee an meniscus. The inside of the leg is aggravated again. Pt rates pain up to 4/10. PMH includes OP, suprventribular tachycardia. 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 Treatment Goals Patient/Caregiver Goals To get back to trail walking and dancing PT-OP-C Subjective Start: 08/07/21 15:37 Freq: Status: Active Protocol: Document 08/12/21 08:15 MB (Rec: 08/12/21 08:46 MB [id number]) OP-PT Subjective Patient Comments Patient Comments Pt reports that she hurt inside the right ankle after PT evaluation. She did try her small foot bike at home and that was okay and did cause her some discomfort. PT-OP-G Mobility & Gait Start: 08/07/21 15:37 Freq: Status: Active Protocol: Document 08/10/21 08:55 MB (Rec: 08/10/21 10:58 MB [id number]) OP Gait Assessment Comments Gait Comments I gait with shoes and socks off: pt favors the right foot and decreases WB on the right leg. Lateral shift of pelvis to the left with elevated left hip and curve up the spine with right shoulder higher with gait. Increased IR left LE and increased valgus left knee. Tends to WB through lateral feet and not push off through the toes. PT-OP-J Posture/Palpation/Skin Start: 08/07/21 15:37 Freq: Status: Active Protocol: Document 08/10/21 08:55 MB (Rec: 08/10/21 10:58 MB [id number]) Posture Evaluation Comments Posture Comments Standing posture bare feet. Hip and spinal position different with static standing with right iliac crest 3/4 higher than the left, rounded shoulders, Dowager's hump, increased lumbar lordosis, IR left hip and overpronation left foot. PT-OP-K Range of Motion Start: 08/07/21 15:37 Freq: Status: Active Protocol: Document 08/10/21 08:55 MB (Rec: 08/10/21 10:58 MB [id number]) Ankle and Foot Goniometric Range of Motion Ankle and Foot ROM Limitations Comments With legs straight: left DF to neutral and right lacks 2 deg . 5 deg less active inversion right ankle compared to left 2nd right toe rests lightly on great toe No heel raises today in standing d/t pain Bunions greater left foot PT-OP-M Strength Start: 08/07/21 15:37 Freq: Status: Active Protocol: Document 08/10/21 08:55 MB (Rec: 08/10/21 10:58 MB [id number]) Hip Strength Hip Manual Muscle Testing Left Flexion (L2) 3+ Fair+ Abduction 3+ Fair+ Adduction 5 Normal Right Flexion (L2) 4 Good Abduction 4 Good Adduction 5 Normal Knee Strength Knee Manual Muscle Testing Left Flexion (S2) 4 Good Extension (L3) 5 Normal Right Flexion (S2) 4 Good Extension (L3) 5 Normal Ankle/Foot Strength Ankle and Foot Manual Muscle Testing Left Dorsiflexion (L4) 4 Good Inversion 5 Normal Eversion (S1) 5 Normal Right Dorsiflexion (L4) 3+ Fair+ Inversion 4 Good Eversion (S1) 3+ Fair+ Comments Standing PF strengthening deferred d/t pain. All MMT in available range. Some discomfort dorsal ankle and lateral right foot with MMT Toe Strength Toe Manual Muscle Testing Left Great Toe Extension 4 Good Right Great Toe Extension 3+ Fair+ PT-OP-Q Treatments Start: 08/07/21 15:37 Freq: Status: Active Protocol: Document 08/12/21 08:15 MB (Rec: 08/12/21 08:46 MB [id number]) Cardio Equipment Recumbent Elliptical (BiodTictail) Duration (Minutes) 15 Resistance 1 Seat Position 10 Other Legs only Gait Training Gait Activity Gait training Comments In clinic without AD without KT: pt is very cautious and gait is slow, favoring the right foot and decreased push off and step through In clinic without AD with KT: improvements in right knee pain and pt con't with slow and cautious gait With B walking sticks outside on side walk: pt reports she feels silly, dropped to left walking stick and she likes this better, johnson is better with AD outside Ed to start 10 min walking with left walking stick at home on flat surface and then ice after Manual Therapy Treatment Taping KT Comments R knee: c strip under patella and B I strips for support medial and lateral knee I strip medial right heel up over lateral malleolus and figure 8 around ankle and one strip to cover open end PT-OP-T Assessment and Plan Start: 08/07/21 15:37 Freq: Status: Active Protocol: Document 08/12/21 08:15 MB (Rec: 08/12/21 08:46 MB [id number]) Physical Therapy Assessment Rehab Potential Rehabilitation Potential Good Evaluation Complexity Number of Personal Factors/Comorbidities 1-2 Number of Body Systems Impaired 1-2 Clinical Presentation at Evaluation Evolving Impairments Impairments Activity Tolerance,Balance, Edema,Gait,Pain,Posture,ROM, Soft Tissue Mobility,Strength Other Impairments Personal factors include pt wearing air cast for hiking and stretchy brace otherwise. She has been guarding her ankle a lot and not using AD. Body systems affected include musculoskeletal and neuromuscular. Her clinical presentation is evolving in setting of OP. Other Concerns Fall Risk Yes Goals 4 Mcfp Goal (LTG) Pt will perform progressive HEP with I including ROM, flexiblity, strengthening, balance and gait exercises to prepare for return to hiking by 10/10/21. LTG Duration 8 weeks 3 Case Worker Goal (LTG) Pt will ascend and descend 4 steps with 1 rail and reciprocal gait with no pain to allow safe home ambulation by 10/10/21. LTG Duration 8 weeks 2 Mcfp Goal (LTG) Pt will perform WNLs on a standardized balance test to decrease fall risk by 10/10/21 . LTG Duration 8 weeks 1 Mcfp Goal (LTG) Pt will gait train at least 1400 feet in 6 minutes without AD to prepare for return to hiking by 10/10/21. LTG Duration 8 weeks Assessment Summary Assessment Initiated recumbent stepper today, gait training and taping. Pt con't to be cautious and report right ankle joint pain. She will start compression today when she gets her hose. Physical Therapy Plan Frequency and Duration Frequency of Treatment 2x/Week Duration of Treatment 8 weeks Plan of Care Start Date 08/10/21 Plan of Care End Date 10/12/21 Therapeutic Interventions Therapeutic Interventions Aquatic Therapy,Balance Training,Canalithic Repositioning,Gait Training, Home Exercise Program,Joint Mobilizations,Manual Therapy, Neuromuscular Re-education, Patient/Caregiver Education, Self-Care/Home Management,Soft Tissue Mobilization,Taping, Therapeutic Activities, Therapeutic Exercises Modalities Cold Pack/Ice Massage,Hot Packs Next Visit Focus/Plan Next Note Type Treatment Note Next Visit Plan Con't recumbent stepper, ankle hammock exercise, calf and hip flexor stretches, consider tandem standing
--- NOTE | 2021-08-17 09:43 | PT.OTN ---
Current Diagnoses Sprain of unspecified ligament of right ankle, subsequent encounter (08/17/21) Physical Therapy Treatment Note PT-OP-A Visit Information Start: 08/07/21 15:37 Freq: Status: Active Protocol: Document 08/17/21 08:56 MB (Rec: 08/17/21 09:43 MB [id number]) Out-Patient Physical Therapy Visit Information Visit Information Visit Type Treatment Note Visit Note [employer] 02/06 before KX Visit Start Time 08:56 Visit Stop Time 09:41 Total Visit Minutes 45 Visit Number 3 Evaluation Information Evaluation Date 08/10/21 PT-OP-B Current Condition Start: 08/07/21 15:37 Freq: Status: Active Protocol: Document 08/10/21 08:55 MB (Rec: 08/10/21 09:21 MB [id number]) Current Condition History of Current Condition Onset Date 05/10/21 Current Complaints Pain and can't walk like she would like History of Current Condition Pt states that on 05/10/21, she stood up with her right foot asleep and she heard a crunching sound and had intense pain. She went to the ED and was told she did not have a fracture. She was given crutches and wore an old air brace. She did not use the crutches as she felt like a disaster ready to happen. She did not want to get a walker. She has hiking poles she uses sometimes. She went on a camper trip and didn't go on uneven trails. The pain got bad if she went too far or went up and down inclines. She saw an orthopedist in late May and she put pt in a boot . It was a great relief. She wore it about three weeks. She took the stiffer air brace and smaller ankle brace with her on her trip. Pt does not know how long she was supposed to wear the ankle boot. Pt reports a lump on the inside of her right rubio since all this started. Three years ago, she banged up her right rubio on a bike ride. She had another injury two years ago when she hurt her right knee an meniscus. The inside of the leg is aggravated again. Pt rates pain up to 4/10. PMH includes OP, suprventribular tachycardia. 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 Treatment Goals Patient/Caregiver Goals To get back to trail walking and dancing PT-OP-C Subjective Start: 08/07/21 15:37 Freq: Status: Active Protocol: Document 08/17/21 08:56 MB (Rec: 08/17/21 09:43 MB [id number]) OP-PT Subjective Patient Comments Patient Comments Pt has been doing her 10 minute walking everyday, using her small pedal bike, performing the hamstring stretch with ankle pump and wearing compression hose. She had some right great toe redness and irritation and took a break from the compression yesterday. She is wearing her orthotic with keen shoes today. PT-OP-G Mobility & Gait Start: 08/07/21 15:37 Freq: Status: Active Protocol: Document 08/10/21 08:55 MB (Rec: 08/10/21 10:58 MB [id number]) OP Gait Assessment Comments Gait Comments I gait with shoes and socks off: pt favors the right foot and decreases WB on the right leg. Lateral shift of pelvis to the left with elevated left hip and curve up the spine with right shoulder higher with gait. Increased IR left LE and increased valgus left knee. Tends to WB through lateral feet and not push off through the toes. PT-OP-J Posture/Palpation/Skin Start: 08/07/21 15:37 Freq: Status: Active Protocol: Document 08/10/21 08:55 MB (Rec: 08/10/21 10:58 MB [id number]) Posture Evaluation Comments Posture Comments Standing posture bare feet. Hip and spinal position different with static standing with right iliac crest 3/4 higher than the left, rounded shoulders, Dowager's hump, increased lumbar lordosis, IR left hip and overpronation left foot. PT-OP-K Range of Motion Start: 08/07/21 15:37 Freq: Status: Active Protocol: Document 08/10/21 08:55 MB (Rec: 08/10/21 10:58 MB [id number]) Ankle and Foot Goniometric Range of Motion Ankle and Foot ROM Limitations Comments With legs straight: left DF to neutral and right lacks 2 deg . 5 deg less active inversion right ankle compared to left 2nd right toe rests lightly on great toe No heel raises today in standing d/t pain Bunions greater left foot PT-OP-M Strength Start: 08/07/21 15:37 Freq: Status: Active Protocol: Document 08/10/21 08:55 MB (Rec: 08/10/21 10:58 MB [id number]) Hip Strength Hip Manual Muscle Testing Left Flexion (L2) 3+ Fair+ Abduction 3+ Fair+ Adduction 5 Normal Right Flexion (L2) 4 Good Abduction 4 Good Adduction 5 Normal Knee Strength Knee Manual Muscle Testing Left Flexion (S2) 4 Good Extension (L3) 5 Normal Right Flexion (S2) 4 Good Extension (L3) 5 Normal Ankle/Foot Strength Ankle and Foot Manual Muscle Testing Left Dorsiflexion (L4) 4 Good Inversion 5 Normal Eversion (S1) 5 Normal Right Dorsiflexion (L4) 3+ Fair+ Inversion 4 Good Eversion (S1) 3+ Fair+ Comments Standing PF strengthening deferred d/t pain. All MMT in available range. Some discomfort dorsal ankle and lateral right foot with MMT Toe Strength Toe Manual Muscle Testing Left Great Toe Extension 4 Good Right Great Toe Extension 3+ Fair+ PT-OP-Q Treatments Start: 08/07/21 15:37 Freq: Status: Active Protocol: Document 08/17/21 08:56 MB (Rec: 08/17/21 09:43 MB [id number]) Cardio Equipment Recumbent Elliptical (Tomorrowish) Duration (Minutes) 11 Resistance 3 Seat Position 10 Other Legs only Therapeutic Exercises Supine Exercises Ankle hammock Side bilateral Comments 20 reps with level 2 band, foot in band Manual Therapy Treatment Taping KT Comments R foot: mobs with pt supine, side lying and prone for tarsals, 2-4th phalanges, talocrural join--AP, PA, grade II-III, STM right plantar fascia attachment medial calcaneus, gastroc and soleus with pt in right side lying Self-Care/Home Management Treatment Education Other Education Reducing right great toe nail tension and pain by collapsing the Konrad Arch, vertically in the middle of the nail, rubbing with nail file PT-OP-T Assessment and Plan Start: 08/07/21 15:37 Freq: Status: Active Protocol: Document 08/17/21 08:56 MB (Rec: 08/17/21 09:43 MB [id number]) Physical Therapy Assessment Rehab Potential Rehabilitation Potential Good Evaluation Complexity Number of Personal Factors/Comorbidities 1-2 Number of Body Systems Impaired 1-2 Clinical Presentation at Evaluation Evolving Impairments Impairments Activity Tolerance,Balance, Edema,Gait,Pain,Posture,ROM, Soft Tissue Mobility,Strength Other Impairments Personal factors include pt wearing air cast for hiking and stretchy brace otherwise. She has been guarding her ankle a lot and not using AD. Body systems affected include musculoskeletal and neuromuscular. Her clinical presentation is evolving in setting of OP. Other Concerns Fall Risk Yes Goals 4 House Wirer Goal (LTG) Pt will perform progressive HEP with I including ROM, flexiblity, strengthening, balance and gait exercises to prepare for return to hiking by 10/10/21. LTG Duration 8 weeks 3 Detention Goal (LTG) Pt will ascend and descend 4 steps with 1 rail and reciprocal gait with no pain to allow safe home ambulation by 10/10/21. LTG Duration 8 weeks 2 Detention Goal (LTG) Pt will perform WNLs on a standardized balance test to decrease fall risk by 10/10/21 . LTG Duration 8 weeks 1 Detention Goal (LTG) Pt will gait train at least 1400 feet in 6 minutes without AD to prepare for return to hiking by 10/10/21. LTG Duration 8 weeks Assessment Summary Assessment Initiated gentle manual work on right ankle and calf today and overall, pt is very tender , even with gentle STM and grade II mobilizations. She is tight in forefoot at metatarsals and has discomfort at her right bunion. Will benefit from Counterstrain and progressive exercises. Physical Therapy Plan Frequency and Duration Frequency of Treatment 2x/Week Duration of Treatment 8 weeks Plan of Care Start Date 08/10/21 Plan of Care End Date 10/12/21 Therapeutic Interventions Therapeutic Interventions Aquatic Therapy,Balance Training,Canalithic Repositioning,Gait Training, Home Exercise Program,Joint Mobilizations,Manual Therapy, Neuromuscular Re-education, Patient/Caregiver Education, Self-Care/Home Management,Soft Tissue Mobilization,Taping, Therapeutic Activities, Therapeutic Exercises Modalities Cold Pack/Ice Massage,Hot Packs Next Visit Focus/Plan Next Note Type Treatment Note Next Visit Plan Con't recumbent stepper, calf and hip flexor stretches, tandem standing, Counterstrain to assess and treat fascial contributions to presentation including LV and periosteal
--- NOTE | 2021-08-21 09:47 | PT.OTN ---
Current Diagnoses Sprain of unspecified ligament of right ankle, subsequent encounter (08/21/21) Physical Therapy Treatment Note PT-OP-A Visit Information Start: 08/07/21 15:37 Freq: Status: Active Protocol: Document 08/21/21 09:01 MB (Rec: 08/21/21 09:45 MB [id number]) Out-Patient Physical Therapy Visit Information Visit Information Visit Type Treatment Note Visit Note [employer] 03/09 before KX Visit Start Time 09:01 Visit Stop Time 09:45 Total Visit Minutes 44 Visit Number 4 Evaluation Information Evaluation Date 08/10/21 PT-OP-B Current Condition Start: 08/07/21 15:37 Freq: Status: Active Protocol: Document 08/10/21 08:55 MB (Rec: 08/10/21 09:21 MB [id number]) Current Condition History of Current Condition Onset Date 05/10/21 Current Complaints Pain and can't walk like she would like History of Current Condition Pt states that on 05/10/21, she stood up with her right foot asleep and she heard a crunching sound and had intense pain. She went to the ED and was told she did not have a fracture. She was given crutches and wore an old air brace. She did not use the crutches as she felt like a disaster ready to happen. She did not want to get a walker. She has hiking poles she uses sometimes. She went on a camper trip and didn't go on uneven trails. The pain got bad if she went too far or went up and down inclines. She saw an orthopedist in late May and she put pt in a boot . It was a great relief. She wore it about three weeks. She took the stiffer air brace and smaller ankle brace with her on her trip. Pt does not know how long she was supposed to wear the ankle boot. Pt reports a lump on the inside of her right rubio since all this started. Three years ago, she banged up her right rubio on a bike ride. She had another injury two years ago when she hurt her right knee an meniscus. The inside of the leg is aggravated again. Pt rates pain up to 4/10. PMH includes OP, suprventribular tachycardia. 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 Treatment Goals Patient/Caregiver Goals To get back to trail walking and dancing PT-OP-C Subjective Start: 08/07/21 15:37 Freq: Status: Active Protocol: Document 08/21/21 09:01 MB (Rec: 08/21/21 09:45 MB [id number]) OP-PT Subjective Patient Comments Patient Comments Pt went on the [place] [employer] [place] trail without walking stick and she did about 15 minutes and it went well. PT-OP-G Mobility & Gait Start: 08/07/21 15:37 Freq: Status: Active Protocol: Document 08/10/21 08:55 MB (Rec: 08/10/21 10:58 MB [id number]) OP Gait Assessment Comments Gait Comments I gait with shoes and socks off: pt favors the right foot and decreases WB on the right leg. Lateral shift of pelvis to the left with elevated left hip and curve up the spine with right shoulder higher with gait. Increased IR left LE and increased valgus left knee. Tends to WB through lateral feet and not push off through the toes. PT-OP-J Posture/Palpation/Skin Start: 08/07/21 15:37 Freq: Status: Active Protocol: Document 08/10/21 08:55 MB (Rec: 08/10/21 10:58 MB [id number]) Posture Evaluation Comments Posture Comments Standing posture bare feet. Hip and spinal position different with static standing with right iliac crest 3/4 higher than the left, rounded shoulders, Dowager's hump, increased lumbar lordosis, IR left hip and overpronation left foot. PT-OP-K Range of Motion Start: 08/07/21 15:37 Freq: Status: Active Protocol: Document 08/10/21 08:55 MB (Rec: 08/10/21 10:58 MB [id number]) Ankle and Foot Goniometric Range of Motion Ankle and Foot ROM Limitations Comments With legs straight: left DF to neutral and right lacks 2 deg . 5 deg less active inversion right ankle compared to left 2nd right toe rests lightly on great toe No heel raises today in standing d/t pain Bunions greater left foot PT-OP-M Strength Start: 08/07/21 15:37 Freq: Status: Active Protocol: Document 08/10/21 08:55 MB (Rec: 08/10/21 10:58 MB [id number]) Hip Strength Hip Manual Muscle Testing Left Flexion (L2) 3+ Fair+ Abduction 3+ Fair+ Adduction 5 Normal Right Flexion (L2) 4 Good Abduction 4 Good Adduction 5 Normal Knee Strength Knee Manual Muscle Testing Left Flexion (S2) 4 Good Extension (L3) 5 Normal Right Flexion (S2) 4 Good Extension (L3) 5 Normal Ankle/Foot Strength Ankle and Foot Manual Muscle Testing Left Dorsiflexion (L4) 4 Good Inversion 5 Normal Eversion (S1) 5 Normal Right Dorsiflexion (L4) 3+ Fair+ Inversion 4 Good Eversion (S1) 3+ Fair+ Comments Standing PF strengthening deferred d/t pain. All MMT in available range. Some discomfort dorsal ankle and lateral right foot with MMT Toe Strength Toe Manual Muscle Testing Left Great Toe Extension 4 Good Right Great Toe Extension 3+ Fair+ PT-OP-Q Treatments Start: 08/07/21 15:37 Freq: Status: Active Protocol: Document 08/21/21 09:01 MB (Rec: 08/21/21 09:45 MB [id number]) Cardio Equipment Recumbent Elliptical ([employer]) Duration (Minutes) 11 Resistance 3 Seat Position 10 Other Legs only Therapeutic Exercises Supine Exercises Shaun stretch Side bilateral Comments Abdominal drawing in first, opposite leg bent, dangling leg Standing Exercises Calf stretches Side bilateral Comments Knee straight and bent to work gastroc and soleus Neuro Re-Education Treatment Balance Activities Corner balance Comments Shoes on, Romberg EO and EC no trouble Partial tandem fine, progressive tandem is difficult and more so with left foot behind Self-Care/Home Management Treatment Education Other Education Initial education about orthostasis, cardiac, vestibular, cervical dizziness . Orthostatics are negative today. See assessment comments today. PT con't to rule in cardiac, BP and cervical components to dizziness and this relates to imbalance issues. PT-OP-T Assessment and Plan Start: 08/07/21 15:37 Freq: Status: Active Protocol: Document 08/21/21 09:01 MB (Rec: 08/21/21 09:45 MB [id number]) Physical Therapy Assessment Rehab Potential Rehabilitation Potential Good Evaluation Complexity Number of Personal Factors/Comorbidities 1-2 Number of Body Systems Impaired 1-2 Clinical Presentation at Evaluation Evolving Impairments Impairments Activity Tolerance,Balance, Edema,Gait,Pain,Posture,ROM, Soft Tissue Mobility,Strength Other Impairments Personal factors include pt wearing air cast for hiking and stretchy brace otherwise. She has been guarding her ankle a lot and not using AD. Body systems affected include musculoskeletal and neuromuscular. Her clinical presentation is evolving in setting of OP. Other Concerns Fall Risk Yes Goals 4 Custodial Goal (LTG) Pt will perform progressive HEP with I including ROM, flexiblity, strengthening, balance and gait exercises to prepare for return to hiking by 10/10/21. LTG Duration 8 weeks 3 Custodial Goal (LTG) Pt will ascend and descend 4 steps with 1 rail and reciprocal gait with no pain to allow safe home ambulation by 10/10/21. LTG Duration 8 weeks 2 Custodial Goal (LTG) Pt will perform WNLs on a standardized balance test to decrease fall risk by 10/10/21 . LTG Duration 8 weeks 1 Custodial Goal (LTG) Pt will gait train at least 1400 feet in 6 minutes without AD to prepare for return to hiking by 10/10/21. LTG Duration 8 weeks Assessment Summary Assessment During balance testing and exercise today, pt reports dizziness that she thinks is worse in the morning. Given this, PT checks BP. Orthostatic assessment with BP and HR in LUE: supine 136/83, 79; standing 138/85, 92; standing 1': 152/87, 88; standing 2' 143/93, 92. She had mild dizziness upon standing up the first time. Pt reports dizziness when getting out of the shower. This alerts PT to possible cardiac condition. She does have some dizziness in the shower when turning and so will check FGA with head turns with balance testing in future PT sessions. She does state that resting head between knees helps. Physical Therapy Plan Frequency and Duration Frequency of Treatment 2x/Week Duration of Treatment 8 weeks Plan of Care Start Date 08/10/21 Plan of Care End Date 10/12/21 Therapeutic Interventions Therapeutic Interventions Aquatic Therapy,Balance Training,Canalithic Repositioning,Gait Training, Home Exercise Program,Joint Mobilizations,Manual Therapy, Neuromuscular Re-education, Patient/Caregiver Education, Self-Care/Home Management,Soft Tissue Mobilization,Taping, Therapeutic Activities, Therapeutic Exercises Modalities Cold Pack/Ice Massage,Hot Packs Next Visit Focus/Plan Next Note Type Treatment Note Next Visit Plan Con't recumbent stepper, Counterstrain to assess and treat fascial contributions to presentation including LV and periosteal. FGA.
--- NOTE | 2021-08-24 11:13 | PT.OTN ---
Current Diagnoses Sprain of unspecified ligament of right ankle, subsequent encounter (08/24/21) Physical Therapy Treatment Note PT-OP-A Visit Information Start: 08/07/21 15:37 Freq: Status: Active Protocol: Document 08/24/21 10:26 MB (Rec: 08/24/21 11:12 MB [id number]) Out-Patient Physical Therapy Visit Information Visit Information Visit Type Treatment Note Visit Note [employer] 04/08 before KX Visit Start Time 10:26 Visit Stop Time 11:08 Total Visit Minutes 42 Visit Number 5 Evaluation Information Evaluation Date 08/10/21 PT-OP-B Current Condition Start: 08/07/21 15:37 Freq: Status: Active Protocol: Document 08/10/21 08:55 MB (Rec: 08/10/21 09:21 MB [id number]) Current Condition History of Current Condition Onset Date 05/10/21 Current Complaints Pain and can't walk like she would like History of Current Condition Pt states that on 05/10/21, she stood up with her right foot asleep and she heard a crunching sound and had intense pain. She went to the ED and was told she did not have a fracture. She was given crutches and wore an old air brace. She did not use the crutches as she felt like a disaster ready to happen. She did not want to get a walker. She has hiking poles she uses sometimes. She went on a camper trip and didn't go on uneven trails. The pain got bad if she went too far or went up and down inclines. She saw an orthopedist in late May and she put pt in a boot . It was a great relief. She wore it about three weeks. She took the stiffer air brace and smaller ankle brace with her on her trip. Pt does not know how long she was supposed to wear the ankle boot. Pt reports a lump on the inside of her right rubio since all this started. Three years ago, she banged up her right rubio on a bike ride. She had another injury two years ago when she hurt her right knee an meniscus. The inside of the leg is aggravated again. Pt rates pain up to 4/10. PMH includes OP, suprventribular tachycardia. 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 Treatment Goals Patient/Caregiver Goals To get back to trail walking and dancing PT-OP-C Subjective Start: 08/07/21 15:37 Freq: Status: Active Protocol: Document 08/24/21 10:26 MB (Rec: 08/24/21 11:12 MB [id number]) OP-PT Subjective Patient Comments Patient Comments Pt is tired from the weekend. She went to get her visitors from the airport and had to go up and down the steps often to prepare for the visitors. She did a lot of walking outside. Her right knee got cranky with all the car riding . PT-OP-G Mobility & Gait Start: 08/07/21 15:37 Freq: Status: Active Protocol: Document 08/10/21 08:55 MB (Rec: 08/10/21 10:58 MB [id number]) OP Gait Assessment Comments Gait Comments I gait with shoes and socks off: pt favors the right foot and decreases WB on the right leg. Lateral shift of pelvis to the left with elevated left hip and curve up the spine with right shoulder higher with gait. Increased IR left LE and increased valgus left knee. Tends to WB through lateral feet and not push off through the toes. PT-OP-J Posture/Palpation/Skin Start: 08/07/21 15:37 Freq: Status: Active Protocol: Document 08/10/21 08:55 MB (Rec: 08/10/21 10:58 MB [id number]) Posture Evaluation Comments Posture Comments Standing posture bare feet. Hip and spinal position different with static standing with right iliac crest 3/4 higher than the left, rounded shoulders, Dowager's hump, increased lumbar lordosis, IR left hip and overpronation left foot. PT-OP-K Range of Motion Start: 08/07/21 15:37 Freq: Status: Active Protocol: Document 08/10/21 08:55 MB (Rec: 08/10/21 10:58 MB [id number]) Ankle and Foot Goniometric Range of Motion Ankle and Foot ROM Limitations Comments With legs straight: left DF to neutral and right lacks 2 deg . 5 deg less active inversion right ankle compared to left 2nd right toe rests lightly on great toe No heel raises today in standing d/t pain Bunions greater left foot PT-OP-M Strength Start: 08/07/21 15:37 Freq: Status: Active Protocol: Document 08/10/21 08:55 MB (Rec: 08/10/21 10:58 MB [id number]) Hip Strength Hip Manual Muscle Testing Left Flexion (L2) 3+ Fair+ Abduction 3+ Fair+ Adduction 5 Normal Right Flexion (L2) 4 Good Abduction 4 Good Adduction 5 Normal Knee Strength Knee Manual Muscle Testing Left Flexion (S2) 4 Good Extension (L3) 5 Normal Right Flexion (S2) 4 Good Extension (L3) 5 Normal Ankle/Foot Strength Ankle and Foot Manual Muscle Testing Left Dorsiflexion (L4) 4 Good Inversion 5 Normal Eversion (S1) 5 Normal Right Dorsiflexion (L4) 3+ Fair+ Inversion 4 Good Eversion (S1) 3+ Fair+ Comments Standing PF strengthening deferred d/t pain. All MMT in available range. Some discomfort dorsal ankle and lateral right foot with MMT Toe Strength Toe Manual Muscle Testing Left Great Toe Extension 4 Good Right Great Toe Extension 3+ Fair+ PT-OP-Q Treatments Start: 08/07/21 15:37 Freq: Status: Active Protocol: Document 08/24/21 10:26 MB (Rec: 08/24/21 11:12 MB [id number]) Cardio Equipment Recumbent Elliptical ([employer]) Duration (Minutes) 14 Resistance 3 Seat Position 9 Other Legs only Manual Therapy Treatment Other Other Manual Treatments Pt agrees to Counterstrain to assess and treat fascial tension. She presents with tension in the following fascial systems: ALL and LF. PT treats stacks in LF system and both scans clear. PT-OP-T Assessment and Plan Start: 08/07/21 15:37 Freq: Status: Active Protocol: Document 08/24/21 10:26 MB (Rec: 08/24/21 11:12 MB [id number]) Physical Therapy Assessment Rehab Potential Rehabilitation Potential Good Evaluation Complexity Number of Personal Factors/Comorbidities 1-2 Number of Body Systems Impaired 1-2 Clinical Presentation at Evaluation Evolving Impairments Impairments Activity Tolerance,Balance, Edema,Gait,Pain,Posture,ROM, Soft Tissue Mobility,Strength Other Impairments Personal factors include pt wearing air cast for hiking and stretchy brace otherwise. She has been guarding her ankle a lot and not using AD. Body systems affected include musculoskeletal and neuromuscular. Her clinical presentation is evolving in setting of OP. Other Concerns Fall Risk Yes Goals 4 En[employer]ment Services Dean Goal (LTG) Pt will perform progressive HEP with I including ROM, flexiblity, strengthening, balance and gait exercises to prepare for return to hiking by 10/10/21. LTG Duration 8 weeks 3 Longterm Goal (LTG) Pt will ascend and descend 4 steps with 1 rail and reciprocal gait with no pain to allow safe home ambulation by 10/10/21. LTG Duration 8 weeks 2 En[employer]ment Services Dean Goal (LTG) Pt will perform WNLs on a standardized balance test to decrease fall risk by 10/10/21 . LTG Duration 8 weeks 1 En[employer]ment Services Dean Goal (LTG) Pt will gait train at least 1400 feet in 6 minutes without AD to prepare for return to hiking by 10/10/21. LTG Duration 8 weeks Assessment Summary Assessment Counterstrain today to assess and treat fascial tension contributors to pain. Her cranial and LE scans are much better after treatment. Physical Therapy Plan Frequency and Duration Frequency of Treatment 2x/Week Duration of Treatment 8 weeks Plan of Care Start Date 08/10/21 Plan of Care End Date 10/12/21 Therapeutic Interventions Therapeutic Interventions Aquatic Therapy,Balance Training,Canalithic Repositioning,Gait Training, Home Exercise Program,Joint Mobilizations,Manual Therapy, Neuromuscular Re-education, Patient/Caregiver Education, Self-Care/Home Management,Soft Tissue Mobilization,Taping, Therapeutic Activities, Therapeutic Exercises Modalities Cold Pack/Ice Massage,Hot Packs Next Visit Focus/Plan Next Note Type Treatment Note Next Visit Plan If Counterstain was helpful, con't. FGA, progress exercises , manual work
--- NOTE | 2021-08-27 11:15 | PT.OTN ---
Current Diagnoses Sprain of unspecified ligament of right ankle, subsequent encounter (08/27/21) Physical Therapy Treatment Note PT-OP-A Visit Information Start: 08/07/21 15:37 Freq: Status: Active Protocol: Document 08/27/21 10:32 MB (Rec: 08/27/21 11:15 MB [id number]) Out-Patient Physical Therapy Visit Information Visit Information Visit Type Treatment Note Visit Note [employer] 05/09 before KX Visit Start Time 10:32 Visit Stop Time 11:15 Total Visit Minutes 43 Visit Number 6 Evaluation Information Evaluation Date 08/10/21 PT-OP-B Current Condition Start: 08/07/21 15:37 Freq: Status: Active Protocol: Document 08/10/21 08:55 MB (Rec: 08/10/21 09:21 MB [id number]) Current Condition History of Current Condition Onset Date 05/10/21 Current Complaints Pain and can't walk like she would like History of Current Condition Pt states that on 05/10/21, she stood up with her right foot asleep and she heard a crunching sound and had intense pain. She went to the ED and was told she did not have a fracture. She was given crutches and wore an old air brace. She did not use the crutches as she felt like a disaster ready to happen. She did not want to get a walker. She has hiking poles she uses sometimes. She went on a camper trip and didn't go on uneven trails. The pain got bad if she went too far or went up and down inclines. She saw an orthopedist in late May and she put pt in a boot . It was a great relief. She wore it about three weeks. She took the stiffer air brace and smaller ankle brace with her on her trip. Pt does not know how long she was supposed to wear the ankle boot. Pt reports a lump on the inside of her right rubio since all this started. Three years ago, she banged up her right rubio on a bike ride. She had another injury two years ago when she hurt her right knee an meniscus. The inside of the leg is aggravated again. Pt rates pain up to 4/10. PMH includes OP, suprventribular tachycardia. 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 Treatment Goals Patient/Caregiver Goals To get back to trail walking and dancing PT-OP-C Subjective Start: 08/07/21 15:37 Freq: Status: Active Protocol: Document 08/27/21 10:32 MB (Rec: 08/27/21 11:15 MB [id number]) OP-PT Subjective Patient Comments Patient Comments She felt a lot looser after last treatment's Counterstrain . She has been doing the exercises. She had a fight with her CPAP last night and it didn't stay on and so she took it off in her sleep and then woke up with a headache and is jittery. PT-OP-G Mobility & Gait Start: 08/07/21 15:37 Freq: Status: Active Protocol: Document 08/10/21 08:55 MB (Rec: 08/10/21 10:58 MB [id number]) OP Gait Assessment Comments Gait Comments I gait with shoes and socks off: pt favors the right foot and decreases WB on the right leg. Lateral shift of pelvis to the left with elevated left hip and curve up the spine with right shoulder higher with gait. Increased IR left LE and increased valgus left knee. Tends to WB through lateral feet and not push off through the toes. PT-OP-J Posture/Palpation/Skin Start: 08/07/21 15:37 Freq: Status: Active Protocol: Document 08/10/21 08:55 MB (Rec: 08/10/21 10:58 MB [id number]) Posture Evaluation Comments Posture Comments Standing posture bare feet. Hip and spinal position different with static standing with right iliac crest 3/4 higher than the left, rounded shoulders, Dowager's hump, increased lumbar lordosis, IR left hip and overpronation left foot. PT-OP-K Range of Motion Start: 08/07/21 15:37 Freq: Status: Active Protocol: Document 08/10/21 08:55 MB (Rec: 08/10/21 10:58 MB [id number]) Ankle and Foot Goniometric Range of Motion Ankle and Foot ROM Limitations Comments With legs straight: left DF to neutral and right lacks 2 deg . 5 deg less active inversion right ankle compared to left 2nd right toe rests lightly on great toe No heel raises today in standing d/t pain Bunions greater left foot PT-OP-M Strength Start: 08/07/21 15:37 Freq: Status: Active Protocol: Document 08/10/21 08:55 MB (Rec: 08/10/21 10:58 MB [id number]) Hip Strength Hip Manual Muscle Testing Left Flexion (L2) 3+ Fair+ Abduction 3+ Fair+ Adduction 5 Normal Right Flexion (L2) 4 Good Abduction 4 Good Adduction 5 Normal Knee Strength Knee Manual Muscle Testing Left Flexion (S2) 4 Good Extension (L3) 5 Normal Right Flexion (S2) 4 Good Extension (L3) 5 Normal Ankle/Foot Strength Ankle and Foot Manual Muscle Testing Left Dorsiflexion (L4) 4 Good Inversion 5 Normal Eversion (S1) 5 Normal Right Dorsiflexion (L4) 3+ Fair+ Inversion 4 Good Eversion (S1) 3+ Fair+ Comments Standing PF strengthening deferred d/t pain. All MMT in available range. Some discomfort dorsal ankle and lateral right foot with MMT Toe Strength Toe Manual Muscle Testing Left Great Toe Extension 4 Good Right Great Toe Extension 3+ Fair+ PT-OP-Q Treatments Start: 08/07/21 15:37 Freq: Status: Active Protocol: Document 08/27/21 10:32 MB (Rec: 08/27/21 11:15 MB [id number]) Cardio Equipment Bicycle (Upright) Duration (Minutes) 10 Resistance 9 Seat Position 5 Manual Therapy Treatment Other Other Manual Treatments Positional release right tarsal bones today, STM and MWM using therapy cream right plantar fascia, plantar fascia , medial hamstring. PT-OP-T Assessment and Plan Start: 08/07/21 15:37 Freq: Status: Active Protocol: Document 08/27/21 10:32 MB (Rec: 08/27/21 11:15 MB [id number]) Physical Therapy Assessment Rehab Potential Rehabilitation Potential Good Evaluation Complexity Number of Personal Factors/Comorbidities 1-2 Number of Body Systems Impaired 1-2 Clinical Presentation at Evaluation Evolving Impairments Impairments Activity Tolerance,Balance, Edema,Gait,Pain,Posture,ROM, Soft Tissue Mobility,Strength Other Impairments Personal factors include pt wearing air cast for hiking and stretchy brace otherwise. She has been guarding her ankle a lot and not using AD. Body systems affected include musculoskeletal and neuromuscular. Her clinical presentation is evolving in setting of OP. Other Concerns Fall Risk Yes Goals 4 Fishing Tackle Repairer Goal (LTG) Pt will perform progressive HEP with I including ROM, flexiblity, strengthening, balance and gait exercises to prepare for return to hiking by 10/10/21. LTG Duration 8 weeks 3 Fishing Tackle Repairer Goal (LTG) Pt will ascend and descend 4 steps with 1 rail and reciprocal gait with no pain to allow safe home ambulation by 10/10/21. LTG Duration 8 weeks 2 Residential Goal (LTG) Pt will perform WNLs on a standardized balance test to decrease fall risk by 10/10/21 . LTG Duration 8 weeks 1 Residential Goal (LTG) Pt will gait train at least 1400 feet in 6 minutes without AD to prepare for return to hiking by 10/10/21. LTG Duration 8 weeks Assessment Summary Assessment FGA deferred today d/t pt feels poorly after sleeping without her CPAP on last night . Manual work today and pt presents with a lot of tension in medial right hamstring and plantar fascia and she is sensitive to manual work and does ask PT to con't. Physical Therapy Plan Frequency and Duration Frequency of Treatment 2x/Week Duration of Treatment 8 weeks Plan of Care Start Date 08/10/21 Plan of Care End Date 10/12/21 Therapeutic Interventions Therapeutic Interventions Aquatic Therapy,Balance Training,Canalithic Repositioning,Gait Training, Home Exercise Program,Joint Mobilizations,Manual Therapy, Neuromuscular Re-education, Patient/Caregiver Education, Self-Care/Home Management,Soft Tissue Mobilization,Taping, Therapeutic Activities, Therapeutic Exercises Modalities Cold Pack/Ice Massage,Hot Packs Next Visit Focus/Plan Next Note Type Treatment Note Next Visit Plan Progress exercises, manual work and con't Counterstrain, FGA
--- NOTE | 2021-08-31 09:14 | PT-OP ANOTE ---
Pt no showed appointment. PT calls her and she thought that appointment was tomorrow. Reminded pt of her next appointment on at 9. Pt is very apologetic and is performing HEP.
--- NOTE | 2021-09-03 09:45 | PT.OTN ---
Current Diagnoses Sprain of unspecified ligament of right ankle, subsequent encounter (09/03/21) Physical Therapy Treatment Note PT-OP-A Visit Information Start: 08/07/21 15:37 Freq: Status: Active Protocol: Document 09/03/21 08:56 MB (Rec: 09/03/21 09:40 MB [id number]) Out-Patient Physical Therapy Visit Information Visit Information Visit Type Treatment Note Visit Note [employer] 05/09 before KX Visit Start Time 08:56 Visit Stop Time 09:41 Total Visit Minutes 45 Visit Number 7 Evaluation Information Evaluation Date 08/10/21 PT-OP-B Current Condition Start: 08/07/21 15:37 Freq: Status: Active Protocol: Document 08/10/21 08:55 MB (Rec: 08/10/21 09:21 MB [id number]) Current Condition History of Current Condition Onset Date 05/10/21 Current Complaints Pain and can't walk like she would like History of Current Condition Pt states that on 05/10/21, she stood up with her right foot asleep and she heard a crunching sound and had intense pain. She went to the ED and was told she did not have a fracture. She was given crutches and wore an old air brace. She did not use the crutches as she felt like a disaster ready to happen. She did not want to get a walker. She has hiking poles she uses sometimes. She went on a camper trip and didn't go on uneven trails. The pain got bad if she went too far or went up and down inclines. She saw an orthopedist in late May and she put pt in a boot . It was a great relief. She wore it about three weeks. She took the stiffer air brace and smaller ankle brace with her on her trip. Pt does not know how long she was supposed to wear the ankle boot. Pt reports a lump on the inside of her right rubio since all this started. Three years ago, she banged up her right rubio on a bike ride. She had another injury two years ago when she hurt her right knee an meniscus. The inside of the leg is aggravated again. Pt rates pain up to 4/10. PMH includes OP, suprventribular tachycardia. 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 Treatment Goals Patient/Caregiver Goals To get back to trail walking and dancing PT-OP-C Subjective Start: 08/07/21 15:37 Freq: Status: Active Protocol: Document 09/03/21 08:56 MB (Rec: 09/03/21 09:40 MB [id number]) OP-PT Subjective Patient Comments Patient Comments Pt is very apologetic about missing appointment on Tuesday. Pt states that she did a mile on [place] yesterday and it was better. Pt states that she got the results of her bone density test and was told that she has some spurs on her spine. She states that the Shaun stretch bothered her back. PT-OP-G Mobility & Gait Start: 08/07/21 15:37 Freq: Status: Active Protocol: Document 08/10/21 08:55 MB (Rec: 08/10/21 10:58 MB [id number]) OP Gait Assessment Comments Gait Comments I gait with shoes and socks off: pt favors the right foot and decreases WB on the right leg. Lateral shift of pelvis to the left with elevated left hip and curve up the spine with right shoulder higher with gait. Increased IR left LE and increased valgus left knee. Tends to WB through lateral feet and not push off through the toes. PT-OP-J Posture/Palpation/Skin Start: 08/07/21 15:37 Freq: Status: Active Protocol: Document 08/10/21 08:55 MB (Rec: 08/10/21 10:58 MB [id number]) Posture Evaluation Comments Posture Comments Standing posture bare feet. Hip and spinal position different with static standing with right iliac crest 3/4 higher than the left, rounded shoulders, Dowager's hump, increased lumbar lordosis, IR left hip and overpronation left foot. PT-OP-K Range of Motion Start: 08/07/21 15:37 Freq: Status: Active Protocol: Document 08/10/21 08:55 MB (Rec: 08/10/21 10:58 MB [id number]) Ankle and Foot Goniometric Range of Motion Ankle and Foot ROM Limitations Comments With legs straight: left DF to neutral and right lacks 2 deg . 5 deg less active inversion right ankle compared to left 2nd right toe rests lightly on great toe No heel raises today in standing d/t pain Bunions greater left foot PT-OP-M Strength Start: 08/07/21 15:37 Freq: Status: Active Protocol: Document 08/10/21 08:55 MB (Rec: 08/10/21 10:58 MB [id number]) Hip Strength Hip Manual Muscle Testing Left Flexion (L2) 3+ Fair+ Abduction 3+ Fair+ Adduction 5 Normal Right Flexion (L2) 4 Good Abduction 4 Good Adduction 5 Normal Knee Strength Knee Manual Muscle Testing Left Flexion (S2) 4 Good Extension (L3) 5 Normal Right Flexion (S2) 4 Good Extension (L3) 5 Normal Ankle/Foot Strength Ankle and Foot Manual Muscle Testing Left Dorsiflexion (L4) 4 Good Inversion 5 Normal Eversion (S1) 5 Normal Right Dorsiflexion (L4) 3+ Fair+ Inversion 4 Good Eversion (S1) 3+ Fair+ Comments Standing PF strengthening deferred d/t pain. All MMT in available range. Some discomfort dorsal ankle and lateral right foot with MMT Toe Strength Toe Manual Muscle Testing Left Great Toe Extension 4 Good Right Great Toe Extension 3+ Fair+ PT-OP-Q Treatments Start: 08/07/21 15:37 Freq: Status: Active Protocol: Document 09/03/21 08:56 MB (Rec: 09/03/21 09:40 MB [id number]) Cardio Equipment Recumbent Elliptical (Biodex) Duration (Minutes) 11 Resistance 4 Seat Position 10 Other Legs only Therapeutic Exercises Supine Exercises Shaun stretch Side bilateral Comments Re-ed today, pelvic tilt and knees bent, core tight, 20 sec hold Sitting Exercises Clam in sitting Side bilateral Resistance Level 1 band today around knees Comments 10 reps slowly, glute squeeze first LAQ with AP Side bilateral Resistance Level 1 band around ankles Comments 5 reps, LAQ and then AP x5 reps, alternating Ankle DF and eversion Side bilateral Resistance Level 1 band around feet Comments 10 reps, DF first, then eversion PT-OP-T Assessment and Plan Start: 08/07/21 15:37 Freq: Status: Active Protocol: Document 09/03/21 08:56 MB (Rec: 09/03/21 09:40 MB [id number]) Physical Therapy Assessment Rehab Potential Rehabilitation Potential Good Evaluation Complexity Number of Personal Factors/Comorbidities 1-2 Number of Body Systems Impaired 1-2 Clinical Presentation at Evaluation Evolving Impairments Impairments Activity Tolerance,Balance, Edema,Gait,Pain,Posture,ROM, Soft Tissue Mobility,Strength Other Impairments Personal factors include pt wearing air cast for hiking and stretchy brace otherwise. She has been guarding her ankle a lot and not using AD. Body systems affected include musculoskeletal and neuromuscular. Her clinical presentation is evolving in setting of OP. Other Concerns Fall Risk Yes Goals 4 Half-Way Goal (LTG) Pt will perform progressive HEP with I including ROM, flexiblity, strengthening, balance and gait exercises to prepare for return to hiking by 10/10/21. LTG Duration 8 weeks 3 Half-Way Goal (LTG) Pt will ascend and descend 4 steps with 1 rail and reciprocal gait with no pain to allow safe home ambulation by 10/10/21. LTG Duration 8 weeks 2 Half-Way Goal (LTG) Pt will perform WNLs on a standardized balance test to decrease fall risk by 10/10/21 . LTG Duration 8 weeks 1 Half-Way Goal (LTG) Pt will gait train at least 1400 feet in 6 minutes without AD to prepare for return to hiking by 10/10/21. LTG Duration 8 weeks Assessment Summary Assessment Pt reports that her back has been bothering her for a long while and reviewed her Shaun stretch with other exercises today. Physical Therapy Plan Frequency and Duration Frequency of Treatment 2x/Week Duration of Treatment 8 weeks Plan of Care Start Date 08/10/21 Plan of Care End Date 10/12/21 Therapeutic Interventions Therapeutic Interventions Aquatic Therapy,Balance Training,Canalithic Repositioning,Gait Training, Home Exercise Program,Joint Mobilizations,Manual Therapy, Neuromuscular Re-education, Patient/Caregiver Education, Self-Care/Home Management,Soft Tissue Mobilization,Taping, Therapeutic Activities, Therapeutic Exercises Modalities Cold Pack/Ice Massage,Hot Packs Next Visit Focus/Plan Next Note Type Treatment Note Next Visit Plan Progress exercises, manual work and con't Counterstrain, FGA
--- NOTE | 2021-09-07 09:44 | PT.OTN ---
Current Diagnoses Sprain of unspecified ligament of right ankle, subsequent encounter (09/07/21) Physical Therapy Treatment Note PT-OP-A Visit Information Start: 08/07/21 15:37 Freq: Status: Active Protocol: Document 09/07/21 09:00 MB (Rec: 09/07/21 09:44 MB [id number]) Out-Patient Physical Therapy Visit Information Visit Information Visit Type Treatment Note Visit Note [employer] 07/09 before KX Visit Start Time 09:00 Visit Stop Time 09:40 Total Visit Minutes 40 Visit Number 8 Evaluation Information Evaluation Date 08/10/21 PT-OP-B Current Condition Start: 08/07/21 15:37 Freq: Status: Active Protocol: Document 08/10/21 08:55 MB (Rec: 08/10/21 09:21 MB [id number]) Current Condition History of Current Condition Onset Date 05/10/21 Current Complaints Pain and can't walk like she would like History of Current Condition Pt states that on 05/10/21, she stood up with her right foot asleep and she heard a crunching sound and had intense pain. She went to the ED and was told she did not have a fracture. She was given crutches and wore an old air brace. She did not use the crutches as she felt like a disaster ready to happen. She did not want to get a walker. She has hiking poles she uses sometimes. She went on a camper trip and didn't go on uneven trails. The pain got bad if she went too far or went up and down inclines. She saw an orthopedist in late May and she put pt in a boot . It was a great relief. She wore it about three weeks. She took the stiffer air brace and smaller ankle brace with her on her trip. Pt does not know how long she was supposed to wear the ankle boot. Pt reports a lump on the inside of her right rubio since all this started. Three years ago, she banged up her right rubio on a bike ride. She had another injury two years ago when she hurt her right knee an meniscus. The inside of the leg is aggravated again. Pt rates pain up to 4/10. PMH includes OP, suprventribular tachycardia. 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 Treatment Goals Patient/Caregiver Goals To get back to trail walking and dancing PT-OP-C Subjective Start: 08/07/21 15:37 Freq: Status: Active Protocol: Document 09/07/21 09:00 MB (Rec: 09/07/21 09:44 MB [id number]) OP-PT Subjective Patient Comments Patient Comments Pt stopped wearing the new CPAP mask and went back to her nasal pillow and so she is sleeping better. Last night, her right foot started cramping up when watching TV. Pt reports she went for a walk for a mile and she started limping d/t pain. She did not use a walking stick. PT-OP-G Mobility & Gait Start: 08/07/21 15:37 Freq: Status: Active Protocol: Document 08/10/21 08:55 MB (Rec: 08/10/21 10:58 MB [id number]) OP Gait Assessment Comments Gait Comments I gait with shoes and socks off: pt favors the right foot and decreases WB on the right leg. Lateral shift of pelvis to the left with elevated left hip and curve up the spine with right shoulder higher with gait. Increased IR left LE and increased valgus left knee. Tends to WB through lateral feet and not push off through the toes. PT-OP-J Posture/Palpation/Skin Start: 08/07/21 15:37 Freq: Status: Active Protocol: Document 08/10/21 08:55 MB (Rec: 08/10/21 10:58 MB [id number]) Posture Evaluation Comments Posture Comments Standing posture bare feet. Hip and spinal position different with static standing with right iliac crest 3/4 higher than the left, rounded shoulders, Dowager's hump, increased lumbar lordosis, IR left hip and overpronation left foot. PT-OP-K Range of Motion Start: 08/07/21 15:37 Freq: Status: Active Protocol: Document 08/10/21 08:55 MB (Rec: 08/10/21 10:58 MB [id number]) Ankle and Foot Goniometric Range of Motion Ankle and Foot ROM Limitations Comments With legs straight: left DF to neutral and right lacks 2 deg . 5 deg less active inversion right ankle compared to left 2nd right toe rests lightly on great toe No heel raises today in standing d/t pain Bunions greater left foot PT-OP-M Strength Start: 08/07/21 15:37 Freq: Status: Active Protocol: Document 08/10/21 08:55 MB (Rec: 08/10/21 10:58 MB [id number]) Hip Strength Hip Manual Muscle Testing Left Flexion (L2) 3+ Fair+ Abduction 3+ Fair+ Adduction 5 Normal Right Flexion (L2) 4 Good Abduction 4 Good Adduction 5 Normal Knee Strength Knee Manual Muscle Testing Left Flexion (S2) 4 Good Extension (L3) 5 Normal Right Flexion (S2) 4 Good Extension (L3) 5 Normal Ankle/Foot Strength Ankle and Foot Manual Muscle Testing Left Dorsiflexion (L4) 4 Good Inversion 5 Normal Eversion (S1) 5 Normal Right Dorsiflexion (L4) 3+ Fair+ Inversion 4 Good Eversion (S1) 3+ Fair+ Comments Standing PF strengthening deferred d/t pain. All MMT in available range. Some discomfort dorsal ankle and lateral right foot with MMT Toe Strength Toe Manual Muscle Testing Left Great Toe Extension 4 Good Right Great Toe Extension 3+ Fair+ PT-OP-Q Treatments Start: 08/07/21 15:37 Freq: Status: Active Protocol: Document 09/07/21 09:00 MB (Rec: 09/07/21 09:44 MB [id number]) Cardio Equipment Recumbent Elliptical ([place]) Duration (Minutes) 10 Resistance 4 Seat Position 4 Other Legs only Therapeutic Exercises Supine Exercises Shaun stretch Side bilateral Comments Reviewed today and pt tries pulling opposite leg up to chest Manual Therapy Treatment Other Other Manual Treatments Gentle mobilizations grade II right tarsals, metatarsals and phalanges, STM right plantar fascia, MWM right plantar flexors with PT performing TrP pressure and pt performing AP , STM right medial hamstring Self-Care/Home Management Treatment Education Other Education Ed pt in benefits of staying up on her electrolytes d/t leg cramping Ed pt in benefits of [place] sock for plantar fascia pain and tightness in both feet PT-OP-T Assessment and Plan Start: 08/07/21 15:37 Freq: Status: Active Protocol: Document 09/07/21 09:00 MB (Rec: 09/07/21 09:44 MB [id number]) Physical Therapy Assessment Rehab Potential Rehabilitation Potential Good Evaluation Complexity Number of Personal Factors/Comorbidities 1-2 Number of Body Systems Impaired 1-2 Clinical Presentation at Evaluation Evolving Impairments Impairments Activity Tolerance,Balance, Edema,Gait,Pain,Posture,ROM, Soft Tissue Mobility,Strength Other Impairments Personal factors include pt wearing air cast for hiking and stretchy brace otherwise. She has been guarding her ankle a lot and not using AD. Body systems affected include musculoskeletal and neuromuscular. Her clinical presentation is evolving in setting of OP. Other Concerns Fall Risk Yes Goals 4 Air Box Tester Goal (LTG) Pt will perform progressive HEP with I including ROM, flexiblity, strengthening, balance and gait exercises to prepare for return to hiking by 10/10/21. LTG Duration 8 weeks 3 Mcc Goal (LTG) Pt will ascend and descend 4 steps with 1 rail and reciprocal gait with no pain to allow safe home ambulation by 10/10/21. LTG Duration 8 weeks 2 Air Box Tester Goal (LTG) Pt will perform WNLs on a standardized balance test to decrease fall risk by 10/10/21 . LTG Duration 8 weeks 1 Air Box Tester Goal (LTG) Pt will gait train at least 1400 feet in 6 minutes without AD to prepare for return to hiking by 10/10/21. LTG Duration 8 weeks Assessment Summary Assessment Ed pt in benefits of [place] sock for passive stretch of plantar fascia and pt to consider getting. Re-ed pt in benefits of electrolytes and using walking stick to help unweight the right foot with gait. Con't per plan. Physical Therapy Plan Frequency and Duration Frequency of Treatment 2x/Week Duration of Treatment 8 weeks Plan of Care Start Date 08/10/21 Plan of Care End Date 10/12/21 Therapeutic Interventions Therapeutic Interventions Aquatic Therapy,Balance Training,Canalithic Repositioning,Gait Training, Home Exercise Program,Joint Mobilizations,Manual Therapy, Neuromuscular Re-education, Patient/Caregiver Education, Self-Care/Home Management,Soft Tissue Mobilization,Taping, Therapeutic Activities, Therapeutic Exercises Modalities Cold Pack/Ice Massage,Hot Packs Next Visit Focus/Plan Next Note Type Treatment Note Next Visit Plan Similar: Progress exercises, manual work and con't Counterstrain, FGA
--- NOTE | 2021-09-10 09:52 | PT.OTN ---
Current Diagnoses Sprain of unspecified ligament of right ankle, subsequent encounter (09/10/21) Physical Therapy Treatment Note PT-OP-A Visit Information Start: 08/07/21 15:37 Freq: Status: Active Protocol: Document 09/10/21 09:00 MB (Rec: 09/10/21 09:52 MB [id number]) Out-Patient Physical Therapy Visit Information Visit Information Visit Type Treatment Note Visit Note [employer] 08/09 before KX Visit Start Time 09:00 Visit Stop Time 09:45 Total Visit Minutes 45 Visit Number 9 Evaluation Information Evaluation Date 08/10/21 PT-OP-B Current Condition Start: 08/07/21 15:37 Freq: Status: Active Protocol: Document 08/10/21 08:55 MB (Rec: 08/10/21 09:21 MB [id number]) Current Condition History of Current Condition Onset Date 05/10/21 Current Complaints Pain and can't walk like she would like History of Current Condition Pt states that on 05/10/21, she stood up with her right foot asleep and she heard a crunching sound and had intense pain. She went to the ED and was told she did not have a fracture. She was given crutches and wore an old air brace. She did not use the crutches as she felt like a disaster ready to happen. She did not want to get a walker. She has hiking poles she uses sometimes. She went on a camper trip and didn't go on uneven trails. The pain got bad if she went too far or went up and down inclines. She saw an orthopedist in late May and she put pt in a boot . It was a great relief. She wore it about three weeks. She took the stiffer air brace and smaller ankle brace with her on her trip. Pt does not know how long she was supposed to wear the ankle boot. Pt reports a lump on the inside of her right rubio since all this started. Three years ago, she banged up her right rubio on a bike ride. She had another injury two years ago when she hurt her right knee an meniscus. The inside of the leg is aggravated again. Pt rates pain up to 4/10. PMH includes OP, suprventribular tachycardia. 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 Treatment Goals Patient/Caregiver Goals To get back to trail walking and dancing PT-OP-C Subjective Start: 08/07/21 15:37 Freq: Status: Active Protocol: Document 09/10/21 09:00 MB (Rec: 09/10/21 09:52 MB [id number]) OP-PT Subjective Patient Comments Patient Comments Pt was sore after last treatment and requests break from manual work. PT-OP-G Mobility & Gait Start: 08/07/21 15:37 Freq: Status: Active Protocol: Document 08/10/21 08:55 MB (Rec: 08/10/21 10:58 MB [id number]) OP Gait Assessment Comments Gait Comments I gait with shoes and socks off: pt favors the right foot and decreases WB on the right leg. Lateral shift of pelvis to the left with elevated left hip and curve up the spine with right shoulder higher with gait. Increased IR left LE and increased valgus left knee. Tends to WB through lateral feet and not push off through the toes. PT-OP-J Posture/Palpation/Skin Start: 08/07/21 15:37 Freq: Status: Active Protocol: Document 08/10/21 08:55 MB (Rec: 08/10/21 10:58 MB [id number]) Posture Evaluation Comments Posture Comments Standing posture bare feet. Hip and spinal position different with static standing with right iliac crest 3/4 higher than the left, rounded shoulders, Dowager's hump, increased lumbar lordosis, IR left hip and overpronation left foot. PT-OP-K Range of Motion Start: 08/07/21 15:37 Freq: Status: Active Protocol: Document 08/10/21 08:55 MB (Rec: 08/10/21 10:58 MB [id number]) Ankle and Foot Goniometric Range of Motion Ankle and Foot ROM Limitations Comments With legs straight: left DF to neutral and right lacks 2 deg . 5 deg less active inversion right ankle compared to left 2nd right toe rests lightly on great toe No heel raises today in standing d/t pain Bunions greater left foot PT-OP-M Strength Start: 08/07/21 15:37 Freq: Status: Active Protocol: Document 08/10/21 08:55 MB (Rec: 08/10/21 10:58 MB [id number]) Hip Strength Hip Manual Muscle Testing Left Flexion (L2) 3+ Fair+ Abduction 3+ Fair+ Adduction 5 Normal Right Flexion (L2) 4 Good Abduction 4 Good Adduction 5 Normal Knee Strength Knee Manual Muscle Testing Left Flexion (S2) 4 Good Extension (L3) 5 Normal Right Flexion (S2) 4 Good Extension (L3) 5 Normal Ankle/Foot Strength Ankle and Foot Manual Muscle Testing Left Dorsiflexion (L4) 4 Good Inversion 5 Normal Eversion (S1) 5 Normal Right Dorsiflexion (L4) 3+ Fair+ Inversion 4 Good Eversion (S1) 3+ Fair+ Comments Standing PF strengthening deferred d/t pain. All MMT in available range. Some discomfort dorsal ankle and lateral right foot with MMT Toe Strength Toe Manual Muscle Testing Left Great Toe Extension 4 Good Right Great Toe Extension 3+ Fair+ PT-OP-Q Treatments Start: 08/07/21 15:37 Freq: Status: Active Protocol: Document 09/10/21 09:00 MB (Rec: 09/10/21 09:52 MB [id number]) Cardio Equipment Bicycle (Upright) Duration (Minutes) 10 Resistance 11 Seat Position 5 Neuro Re-Education Treatment Balance Activities Mini tramp exercises Comments Feet beside each other, feet staggered, weight shifting forward and back and side to side, pressing toes down and relaxed. Closer feet together, full Romberg. Pt requires SBA for exercises and is able to perform 28' with one rest break off the mini tramp. Good ankle strategy, intrinsic recruitment PT-OP-T Assessment and Plan Start: 08/07/21 15:37 Freq: Status: Active Protocol: Document 09/10/21 09:00 MB (Rec: 09/10/21 09:52 MB [id number]) Physical Therapy Assessment Rehab Potential Rehabilitation Potential Good Evaluation Complexity Number of Personal Factors/Comorbidities 1-2 Number of Body Systems Impaired 1-2 Clinical Presentation at Evaluation Evolving Impairments Impairments Activity Tolerance,Balance, Edema,Gait,Pain,Posture,ROM, Soft Tissue Mobility,Strength Other Impairments Personal factors include pt wearing air cast for hiking and stretchy brace otherwise. She has been guarding her ankle a lot and not using AD. Body systems affected include musculoskeletal and neuromuscular. Her clinical presentation is evolving in setting of OP. Other Concerns Fall Risk Yes Goals 4 [employer] Obiee Developer Goal (LTG) Pt will perform progressive HEP with I including ROM, flexiblity, strengthening, balance and gait exercises to prepare for return to hiking by 10/10/21. LTG Duration 8 weeks 3 [employer] Ob[employer]e Developer Goal (LTG) Pt will ascend and descend 4 steps with 1 rail and reciprocal gait with no pain to allow safe home ambulation by 10/10/21. LTG Duration 8 weeks 2 Custodial Goal (LTG) Pt will perform WNLs on a standardized balance test to decrease fall risk by 10/10/21 . LTG Duration 8 weeks 1 Custodial Goal (LTG) Pt will gait train at least 1400 feet in 6 minutes without AD to prepare for return to hiking by 10/10/21. LTG Duration 8 weeks Assessment Summary Assessment Initiated ankle, foot and toe work and balance on mini tramp today and pt performs fairly well. She has less confidence but is able to perform without UE support once positioned. Con't progressing balance exercises on unstable surface, trying to find one she might like to perform at home. Physical Therapy Plan Frequency and Duration Frequency of Treatment 2x/Week Duration of Treatment 8 weeks Plan of Care Start Date 08/10/21 Plan of Care End Date 10/12/21 Therapeutic Interventions Therapeutic Interventions Aquatic Therapy,Balance Training,Canalithic Repositioning,Gait Training, Home Exercise Program,Joint Mobilizations,Manual Therapy, Neuromuscular Re-education, Patient/Caregiver Education, Self-Care/Home Management,Soft Tissue Mobilization,Taping, Therapeutic Activities, Therapeutic Exercises Modalities Cold Pack/Ice Massage,Hot Packs Next Visit Focus/Plan Next Note Type Treatment Note Next Visit Plan Similar: Progress exercises, manual work and con't Counterstrain, FGA
--- NOTE | 2021-09-14 11:04 | PT.OTN ---
Current Diagnoses Sprain of unspecified ligament of right ankle, subsequent encounter (09/14/21) Physical Therapy Treatment Note PT-OP-A Visit Information Start: 08/07/21 15:37 Freq: Status: Active Protocol: Document 09/14/21 09:01 MB (Rec: 09/14/21 09:42 MB [id number]) Out-Patient Physical Therapy Visit Information Visit Information Visit Type Progress Note Visit Note [employer] 09/08 before KX Visit Start Time 09:01 Visit Stop Time 09:41 Total Visit Minutes 40 Visit Number 10 Evaluation Information Evaluation Date 08/10/21 PT-OP-B Current Condition Start: 08/07/21 15:37 Freq: Status: Active Protocol: Document 08/10/21 08:55 MB (Rec: 08/10/21 09:21 MB [id number]) Current Condition History of Current Condition Onset Date 05/10/21 Current Complaints Pain and can't walk like she would like History of Current Condition Pt states that on 05/10/21, she stood up with her right foot asleep and she heard a crunching sound and had intense pain. She went to the ED and was told she did not have a fracture. She was given crutches and wore an old air brace. She did not use the crutches as she felt like a disaster ready to happen. She did not want to get a walker. She has hiking poles she uses sometimes. She went on a camper trip and didn't go on uneven trails. The pain got bad if she went too far or went up and down inclines. She saw an orthopedist in late May and she put pt in a boot . It was a great relief. She wore it about three weeks. She took the stiffer air brace and smaller ankle brace with her on her trip. Pt does not know how long she was supposed to wear the ankle boot. Pt reports a lump on the inside of her right rubio since all this started. Three years ago, she banged up her right rubio on a bike ride. She had another injury two years ago when she hurt her right knee an meniscus. The inside of the leg is aggravated again. Pt rates pain up to 4/10. PMH includes OP, suprventribular tachycardia. 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 Treatment Goals Patient/Caregiver Goals To get back to trail walking and dancing PT-OP-C Subjective Start: 08/07/21 15:37 Freq: Status: Active Protocol: Document 09/14/21 09:01 MB (Rec: 09/14/21 09:42 MB [id number]) OP-PT Subjective Patient Comments Patient Comments Pt states that she is better than when she started therapy a month ago. The pain is better and the sense of instability is better. The flexibility is better. She ordered her [place] sock. PT-OP-G Mobility & Gait Start: 08/07/21 15:37 Freq: Status: Active Protocol: Document 08/10/21 08:55 MB (Rec: 08/10/21 10:58 MB [id number]) OP Gait Assessment Comments Gait Comments I gait with shoes and socks off: pt favors the right foot and decreases WB on the right leg. Lateral shift of pelvis to the left with elevated left hip and curve up the spine with right shoulder higher with gait. Increased IR left LE and increased valgus left knee. Tends to WB through lateral feet and not push off through the toes. PT-OP-J Posture/Palpation/Skin Start: 08/07/21 15:37 Freq: Status: Active Protocol: Document 08/10/21 08:55 MB (Rec: 08/10/21 10:58 MB [id number]) Posture Evaluation Comments Posture Comments Standing posture bare feet. Hip and spinal position different with static standing with right iliac crest 3/4 higher than the left, rounded shoulders, Dowager's hump, increased lumbar lordosis, IR left hip and overpronation left foot. PT-OP-K Range of Motion Start: 08/07/21 15:37 Freq: Status: Active Protocol: Document 08/10/21 08:55 MB (Rec: 08/10/21 10:58 MB [id number]) Ankle and Foot Goniometric Range of Motion Ankle and Foot ROM Limitations Comments With legs straight: left DF to neutral and right lacks 2 deg . 5 deg less active inversion right ankle compared to left 2nd right toe rests lightly on great toe No heel raises today in standing d/t pain Bunions greater left foot PT-OP-M Strength Start: 08/07/21 15:37 Freq: Status: Active Protocol: Document 08/10/21 08:55 MB (Rec: 08/10/21 10:58 MB [id number]) Hip Strength Hip Manual Muscle Testing Left Flexion (L2) 3+ Fair+ Abduction 3+ Fair+ Adduction 5 Normal Right Flexion (L2) 4 Good Abduction 4 Good Adduction 5 Normal Knee Strength Knee Manual Muscle Testing Left Flexion (S2) 4 Good Extension (L3) 5 Normal Right Flexion (S2) 4 Good Extension (L3) 5 Normal Ankle/Foot Strength Ankle and Foot Manual Muscle Testing Left Dorsiflexion (L4) 4 Good Inversion 5 Normal Eversion (S1) 5 Normal Right Dorsiflexion (L4) 3+ Fair+ Inversion 4 Good Eversion (S1) 3+ Fair+ Comments Standing PF strengthening deferred d/t pain. All MMT in available range. Some discomfort dorsal ankle and lateral right foot with MMT Toe Strength Toe Manual Muscle Testing Left Great Toe Extension 4 Good Right Great Toe Extension 3+ Fair+ PT-OP-Q Treatments Start: 08/07/21 15:37 Freq: Status: Active Protocol: Document 09/14/21 09:01 MB (Rec: 09/14/21 09:42 MB [id number]) Cardio Equipment Recumbent Elliptical (BiodCarlypso) Duration (Minutes) 16 Resistance 4 Seat Position 9 Other Legs only Gait Training Gait Activity Stair training Comments Mod I for reciprocal gait 4 steps x4 with one rail (used on both sides) and pt reports some soreness 6MWT Comments 09/14/21: Pt gait trains 1255 feet in 6 minutes without AD or pain today. She presents with spinal curvature changes with higher right hip and lower left shoulder Neuro Re-Education Treatment Balance Activities Corner balance Comments Pt hits left elbow into wall with starting left foot back tandem and then can hold for 15 sec before LOB to the right . Slight partial tandem with right foot behind and UE support to get into position and then she can hold at least 30 sec PT-OP-T Assessment and Plan Start: 08/07/21 15:37 Freq: Status: Active Protocol: Document 09/14/21 09:01 MB (Rec: 09/14/21 09:42 MB [id number]) Physical Therapy Assessment Rehab Potential Rehabilitation Potential Good Evaluation Complexity Number of Personal Factors/Comorbidities 1-2 Number of Body Systems Impaired 1-2 Clinical Presentation at Evaluation Evolving Impairments Impairments Activity Tolerance,Balance, Edema,Gait,Pain,Posture,ROM, Soft Tissue Mobility,Strength Other Impairments Personal factors include pt wearing air cast for hiking and stretchy brace otherwise. She has been guarding her ankle a lot and not using AD. Body systems affected include musculoskeletal and neuromuscular. Her clinical presentation is evolving in setting of OP. Other Concerns Fall Risk Yes Goals 4 Mcfp Goal (LTG) Pt will perform progressive HEP with I including ROM, flexiblity, strengthening, balance and gait exercises to prepare for return to hiking by 11/13/21. 09/14/21: Pt is performing progressive HEP well LTG Duration 8 weeks 3 Healthcare Administrator Goal (LTG) Pt will ascend and descend 4 steps with 1 rail and reciprocal gait with no pain to allow safe home ambulation by 10/10/21. 09/14/21: Pt gait trains reciprocal gait x4 reps, 4 steps with one rail and pt reports mild soreness inside right ankle LTG Duration Met 2 Healthcare Administrator Goal (LTG) Pt will perform WNLs on a standardized balance test to decrease fall risk by 11/13/21 . 09/14/21: Pt has progressed with tandem balance LTG Duration 8 weeks 1 Healthcare Administrator Goal (LTG) Pt will gait train at least 1400 feet in 6 minutes without AD to prepare for return to hiking by 11/13/21. 09/14/21: Pt gait trains 1255 feet in 6 minutes without AD or pain today. She presents with spinal curvature changes with higher right hip and lower left shoulder LTG Duration 8 weeks Assessment Summary Assessment Pt has progressed towards all PT goals since starting PT. Pt will be leaving for [place] the week before . She is unsure if she will then drive down to [place], which would shorten PT course. Will set PT through October currently to maximize gait, strengthening, balance and pool therapy. Physical Therapy Plan Frequency and Duration Frequency of Treatment 2x/Week Duration of Treatment 8 weeks Plan of Care Start Date 09/14/21 Plan of Care End Date 11/13/21 Therapeutic Interventions Therapeutic Interventions Aquatic Therapy,Balance Training,Canalithic Repositioning,Gait Training, Home Exercise Program,Joint Mobilizations,Manual Therapy, Neuromuscular Re-education, Patient/Caregiver Education, Self-Care/Home Management,Soft Tissue Mobilization,Taping, Therapeutic Activities, Therapeutic Exercises Modalities Cold Pack/Ice Massage,Hot Packs Next Visit Focus/Plan Next Note Type Treatment Note Next Visit Plan Similar: Progress exercises, manual work and con't Counterstrain, FGA
--- NOTE | 2021-09-14 11:04 | PT.OPPOC ---
Physical, Occupational & Speech Therapy At [facility] Current Diagnoses Sprain of unspecified ligament of right ankle, subsequent encounter (09/14/21) Visit Care Team Role Provider Type Emily Peralta MD Attending Provider Physician Family Provider Primary Care Provider Referring Provider Specialty: Internal Medicine Address: [address] [place] [address], [id number] Email: [email or web address] Plan Of Care PT-OP-T Assessment and Plan Start: 08/07/21 15:37 Freq: Status: Active Protocol: Document 09/14/21 09:01 MB (Rec: 09/14/21 09:42 MB [id number]) Physical Therapy Assessment Rehab Potential Rehabilitation Potential Good Evaluation Complexity Number of Personal Factors/Comorbidities 1-2 Number of Body Systems Impaired 1-2 Clinical Presentation at Evaluation Evolving Impairments Impairments Activity Tolerance,Balance, Edema,Gait,Pain,Posture,ROM, Soft Tissue Mobility,Strength Other Impairments Personal factors include pt wearing air cast for hiking and stretchy brace otherwise. She has been guarding her ankle a lot and not using AD. Body systems affected include musculoskeletal and neuromuscular. Her clinical presentation is evolving in setting of OP. Other Concerns Fall Risk Yes Goals 4 Custodial Goal (LTG) Pt will perform progressive HEP with I including ROM, flexiblity, strengthening, balance and gait exercises to prepare for return to hiking by 11/13/21. 09/14/21: Pt is performing progressive HEP well LTG Duration 8 weeks 3 Custodial Goal (LTG) Pt will ascend and descend 4 steps with 1 rail and reciprocal gait with no pain to allow safe home ambulation by 10/10/21. 09/14/21: Pt gait trains reciprocal gait x4 reps, 4 steps with one rail and pt reports mild soreness inside right ankle LTG Duration Met 2 Preliminary School Psychologist Goal (LTG) Pt will perform WNLs on a standardized balance test to decrease fall risk by 11/13/21 . 09/14/21: Pt has progressed with tandem balance LTG Duration 8 weeks 1 Custodial Goal (LTG) Pt will gait train at least 1400 feet in 6 minutes without AD to prepare for return to hiking by 11/13/21. 09/14/21: Pt gait trains 1255 feet in 6 minutes without AD or pain today. She presents with spinal curvature changes with higher right hip and lower left shoulder LTG Duration 8 weeks Assessment Summary Assessment Pt has progressed towards all PT goals since starting PT. Pt will be leaving for [place] the week before . She is unsure if she will then drive down to [place], which would shorten PT course. Will set PT through October currently to maximize gait, strengthening, balance and pool therapy. Physical Therapy Plan Frequency and Duration Frequency of Treatment 2x/Week Duration of Treatment 8 weeks Plan of Care Start Date 09/14/21 Plan of Care End Date 11/13/21 Therapeutic Interventions Therapeutic Interventions Aquatic Therapy,Balance Training,Canalithic Repositioning,Gait Training, Home Exercise Program,Joint Mobilizations,Manual Therapy, Neuromuscular Re-education, Patient/Caregiver Education, Self-Care/Home Management,Soft Tissue Mobilization,Taping, Therapeutic Activities, Therapeutic Exercises Modalities Cold Pack/Ice Massage,Hot Packs Next Visit Focus/Plan Next Note Type Treatment Note Next Visit Plan Similar: Progress exercises, manual work and con't Counterstrain, FGA Plan of Care Dates Plan of Care Start Date 09/14/21 Plan of Care End Date 11/13/21 Electronically Signed by: Tami John, PT 09/14/21 1104 Please Sign and Return: I have reviewed this Plan of Care and certify that the skilled therapy services above are required to meet the patient?s needs. Physician Signature Date Printed Name and Credentials Clinical Instructor Signature Printed Name and Credentials
--- NOTE | 2021-09-28 15:16 | PT.OTN ---
Current Diagnoses Sprain of unspecified ligament of right ankle, subsequent encounter (09/28/21) Physical Therapy Treatment Note PT-OP-A Visit Information Start: 08/07/21 15:37 Freq: Status: Active Protocol: Document 09/28/21 15:00 LJ (Rec: 09/28/21 15:16 LJ [id number]) Out-Patient Physical Therapy Visit Information Visit Information Visit Type Aquatic Treatment Note Visit Start Time 11:45 Visit Stop Time 12:30 Total Visit Minutes 45 Visit Number 11 Number of DRAW HAND Visits 1 Evaluation Information Evaluation Date 08/10/21 PT-OP-B Current Condition Start: 08/07/21 15:37 Freq: Status: Active Protocol: Document 08/10/21 08:55 MB (Rec: 08/10/21 09:21 MB [id number]) Current Condition History of Current Condition Onset Date 05/10/21 Current Complaints Pain and can't walk like she would like History of Current Condition Pt states that on 05/10/21, she stood up with her right foot asleep and she heard a crunching sound and had intense pain. She went to the ED and was told she did not have a fracture. She was given crutches and wore an old air brace. She did not use the crutches as she felt like a disaster ready to happen. She did not want to get a walker. She has hiking poles she uses sometimes. She went on a camper trip and didn't go on uneven trails. The pain got bad if she went too far or went up and down inclines. She saw an orthopedist in late May and she put pt in a boot . It was a great relief. She wore it about three weeks. She took the stiffer air brace and smaller ankle brace with her on her trip. Pt does not know how long she was supposed to wear the ankle boot. Pt reports a lump on the inside of her right rubio since all this started. Three years ago, she banged up her right rubio on a bike ride. She had another injury two years ago when she hurt her right knee an meniscus. The inside of the leg is aggravated again. Pt rates pain up to 4/10. PMH includes OP, suprventribular tachycardia. 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 Treatment Goals Patient/Caregiver Goals To get back to trail walking and dancing PT-OP-C Subjective Start: 08/07/21 15:37 Freq: Status: Active Protocol: Document 09/28/21 15:00 LJ (Rec: 09/28/21 15:16 LJ [id number]) OP-PT Subjective Patient Comments Patient Comments Pt states she was unable to do exercises last week bc got sick from booster shot. States her ankle is improving. PT-OP-G Mobility & Gait Start: 08/07/21 15:37 Freq: Status: Active Protocol: Document 08/10/21 08:55 MB (Rec: 08/10/21 10:58 MB [id number]) OP Gait Assessment Comments Gait Comments I gait with shoes and socks off: pt favors the right foot and decreases WB on the right leg. Lateral shift of pelvis to the left with elevated left hip and curve up the spine with right shoulder higher with gait. Increased IR left LE and increased valgus left knee. Tends to WB through lateral feet and not push off through the toes. PT-OP-J Posture/Palpation/Skin Start: 08/07/21 15:37 Freq: Status: Active Protocol: Document 08/10/21 08:55 MB (Rec: 08/10/21 10:58 MB [id number]) Posture Evaluation Comments Posture Comments Standing posture bare feet. Hip and spinal position different with static standing with right iliac crest 3/4 higher than the left, rounded shoulders, Dowager's hump, increased lumbar lordosis, IR left hip and overpronation left foot. PT-OP-K Range of Motion Start: 08/07/21 15:37 Freq: Status: Active Protocol: Document 08/10/21 08:55 MB (Rec: 08/10/21 10:58 MB [id number]) Ankle and Foot Goniometric Range of Motion Ankle and Foot ROM Limitations Comments With legs straight: left DF to neutral and right lacks 2 deg . 5 deg less active inversion right ankle compared to left 2nd right toe rests lightly on great toe No heel raises today in standing d/t pain Bunions greater left foot PT-OP-M Strength Start: 08/07/21 15:37 Freq: Status: Active Protocol: Document 08/10/21 08:55 MB (Rec: 08/10/21 10:58 MB [id number]) Hip Strength Hip Manual Muscle Testing Left Flexion (L2) 3+ Fair+ Abduction 3+ Fair+ Adduction 5 Normal Right Flexion (L2) 4 Good Abduction 4 Good Adduction 5 Normal Knee Strength Knee Manual Muscle Testing Left Flexion (S2) 4 Good Extension (L3) 5 Normal Right Flexion (S2) 4 Good Extension (L3) 5 Normal Ankle/Foot Strength Ankle and Foot Manual Muscle Testing Left Dorsiflexion (L4) 4 Good Inversion 5 Normal Eversion (S1) 5 Normal Right Dorsiflexion (L4) 3+ Fair+ Inversion 4 Good Eversion (S1) 3+ Fair+ Comments Standing PF strengthening deferred d/t pain. All MMT in available range. Some discomfort dorsal ankle and lateral right foot with MMT Toe Strength Toe Manual Muscle Testing Left Great Toe Extension 4 Good Right Great Toe Extension 3+ Fair+ PT-OP-Q Treatments Start: 08/07/21 15:37 Freq: Status: Active Protocol: Document 09/14/21 09:01 MB (Rec: 09/14/21 09:42 MB [id number]) Cardio Equipment Recumbent Elliptical (BiodVolo Broadband) Duration (Minutes) 16 Resistance 4 Seat Position 9 Other Legs only Gait Training Gait Activity Stair training Comments Mod I for reciprocal gait 4 steps x4 with one rail (used on both sides) and pt reports some soreness 6MWT Comments 09/14/21: Pt gait trains 1255 feet in 6 minutes without AD or pain today. She presents with spinal curvature changes with higher right hip and lower left shoulder Neuro Re-Education Treatment Balance Activities Corner balance Comments Pt hits left elbow into wall with starting left foot back tandem and then can hold for 15 sec before LOB to the right . Slight partial tandem with right foot behind and UE support to get into position and then she can hold at least 30 sec PT-OP-S Aquatic Treatment Start: 09/28/21 14:59 Freq: Status: Active Protocol: Document 09/28/21 15:00 LJ (Rec: 09/28/21 15:16 ALIE [email or web address]) Aquatics Treatment Pool Entry/Exit Pool Entry/Exit Method Stairs Assistance Standby Assistance Water Walking [place] Water Level Chest Level Level of Assistance Standby Assistance,Verbal Cues Tandem Gait Water Level Chest Level Level of Assistance Standby Assistance,Verbal Cues Comments fwd/ bkw Marching Water Level Chest Level Level of Assistance Standby Assistance,Verbal Cues Comments reaching hands to opp knee Lunge Walk Water Level Chest Level Level of Assistance Standby Assistance,Verbal Cues Comments holding onto wall occasionally Sideways Water Level Chest Level Level of Assistance Standby Assistance,Verbal Cues Comments HABD/ADD UEs Backwards Water Level Chest Level Level of Assistance Standby Assistance,Verbal Cues Forwards Water Level Chest Level Level of Assistance Standby Assistance,Verbal Cues Lower Extremity Exercises SLS knee extension Details hand hold at wall Body Position Standing Water Level Waist Level Reps/Duration 10 x2 B step up on/off box Body Position Standing Water Level Chest Level Equipment Large Noodle Reps/Duration 10 forward Comments therapist holding on noodle mini squats Details hand hold at wall Body Position Standing Reps/Duration 15 heel toe march Details hand hold at wall Body Position Standing Water Level Waist Level Reps/Duration 1 min each Lower Extremity Stretches ankle mobility Details ankle circles B each direction Body Position Standing Comments hand hold on wall HS, Gastroc Details at wall Body Position Standing Water Level Chest Level Reps/Duration 30 sec x2 B PT-OP-T Assessment and Plan Start: 08/07/21 15:37 Freq: Status: Active Protocol: Document 09/28/21 15:00 ALIE (Rec: 09/28/21 15:16 ALIE [email or web address]) Physical Therapy Assessment Rehab Potential Rehabilitation Potential Good Evaluation Complexity Number of Personal Factors/Comorbidities 1-2 Number of Body Systems Impaired 1-2 Clinical Presentation at Evaluation Evolving Impairments Impairments Activity Tolerance,Balance, Edema,Gait,Pain,Posture,ROM, Soft Tissue Mobility,Strength Other Impairments Personal factors include pt wearing air cast for hiking and stretchy brace otherwise. She has been guarding her ankle a lot and not using AD. Body systems affected include musculoskeletal and neuromuscular. Her clinical presentation is evolving in setting of OP. Other Concerns Fall Risk Yes Goals 4 Chcf Goal (LTG) Pt will perform progressive HEP with I including ROM, flexiblity, strengthening, balance and gait exercises to prepare for return to hiking by 11/13/21. 09/14/21: Pt is performing progressive HEP well LTG Duration 8 weeks 2 Buffer Nickel Goal (LTG) Pt will perform WNLs on a standardized balance test to decrease fall risk by 11/13/21 . 09/14/21: Pt has progressed with tandem balance LTG Duration 8 weeks 1 Buffer Nickel Goal (LTG) Pt will gait train at least 1400 feet in 6 minutes without AD to prepare for return to hiking by 11/13/21. 09/14/21: Pt gait trains 1255 feet in 6 minutes without AD or pain today. She presents with spinal curvature changes with higher right hip and lower left shoulder LTG Duration 8 weeks Assessment Summary Assessment Pt tolerated shallow water walking and LE exercises and stretches well. Pt was nervous but did well with balance. Gait was slow with UE support during standing activities. Step up on boxes was challenging but she did well after the first couple of steps. Will see PT through October currently to maximize gait, strengthening, balance and pool therapy. Physical Therapy Plan Frequency and Duration Frequency of Treatment 2x/Week Duration of Treatment 8 weeks Plan of Care Start Date 09/14/21 Plan of Care End Date 11/13/21 Therapeutic Interventions Therapeutic Interventions Aquatic Therapy,Balance Training,Canalithic Repositioning,Gait Training, Home Exercise Program,Joint Mobilizations,Manual Therapy, Neuromuscular Re-education, Patient/Caregiver Education, Self-Care/Home Management,Soft Tissue Mobilization,Taping, Therapeutic Activities, Therapeutic Exercises Modalities Cold Pack/Ice Massage,Hot Packs Next Visit Focus/Plan Next Note Type Treatment Note Next Visit Plan Similar: Progress exercises, manual work and con't Counterstrain, FGA
--- NOTE | 2021-10-01 09:49 | PT.OTN ---
Current Diagnoses Sprain of unspecified ligament of right ankle, subsequent encounter (10/01/21) Physical Therapy Treatment Note PT-OP-A Visit Information Start: 08/07/21 15:37 Freq: Status: Active Protocol: Document 10/01/21 09:01 MB (Rec: 10/01/21 09:09 MB [id number]) Out-Patient Physical Therapy Visit Information Visit Information Visit Type Treatment Note Visit Start Time 09:01 Visit Stop Time 09:45 Total Visit Minutes 44 Visit Number 12 Number of FOREST NURSERY SUPERVISOR Visits 0 Evaluation Information Evaluation Date 08/10/21 PT-OP-B Current Condition Start: 08/07/21 15:37 Freq: Status: Active Protocol: Document 08/10/21 08:55 MB (Rec: 08/10/21 09:21 MB [id number]) Current Condition History of Current Condition Onset Date 05/10/21 Current Complaints Pain and can't walk like she would like History of Current Condition Pt states that on 05/10/21, she stood up with her right foot asleep and she heard a crunching sound and had intense pain. She went to the ED and was told she did not have a fracture. She was given crutches and wore an old air brace. She did not use the crutches as she felt like a disaster ready to happen. She did not want to get a walker. She has hiking poles she uses sometimes. She went on a camper trip and didn't go on uneven trails. The pain got bad if she went too far or went up and down inclines. She saw an orthopedist in late May and she put pt in a boot . It was a great relief. She wore it about three weeks. She took the stiffer air brace and smaller ankle brace with her on her trip. Pt does not know how long she was supposed to wear the ankle boot. Pt reports a lump on the inside of her right rubio since all this started. Three years ago, she banged up her right rubio on a bike ride. She had another injury two years ago when she hurt her right knee an meniscus. The inside of the leg is aggravated again. Pt rates pain up to 4/10. PMH includes OP, suprventribular tachycardia. 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 Treatment Goals Patient/Caregiver Goals To get back to trail walking and dancing PT-OP-C Subjective Start: 08/07/21 15:37 Freq: Status: Active Protocol: Document 10/01/21 09:01 MB (Rec: 10/01/21 09:09 MB [id number]) OP-PT Subjective Patient Comments Patient Comments Pt states that the pool was interesting. She hadn't been in a pool in years. She had the good kind of aching after aqua therapy. She is walking about a mile and a half at a time now. PT-OP-G Mobility & Gait Start: 08/07/21 15:37 Freq: Status: Active Protocol: Document 08/10/21 08:55 MB (Rec: 08/10/21 10:58 MB [id number]) OP Gait Assessment Comments Gait Comments I gait with shoes and socks off: pt favors the right foot and decreases WB on the right leg. Lateral shift of pelvis to the left with elevated left hip and curve up the spine with right shoulder higher with gait. Increased IR left LE and increased valgus left knee. Tends to WB through lateral feet and not push off through the toes. PT-OP-J Posture/Palpation/Skin Start: 08/07/21 15:37 Freq: Status: Active Protocol: Document 08/10/21 08:55 MB (Rec: 08/10/21 10:58 MB [id number]) Posture Evaluation Comments Posture Comments Standing posture bare feet. Hip and spinal position different with static standing with right iliac crest 3/4 higher than the left, rounded shoulders, Dowager's hump, increased lumbar lordosis, IR left hip and overpronation left foot. PT-OP-K Range of Motion Start: 08/07/21 15:37 Freq: Status: Active Protocol: Document 08/10/21 08:55 MB (Rec: 08/10/21 10:58 MB [id number]) Ankle and Foot Goniometric Range of Motion Ankle and Foot ROM Limitations Comments With legs straight: left DF to neutral and right lacks 2 deg . 5 deg less active inversion right ankle compared to left 2nd right toe rests lightly on great toe No heel raises today in standing d/t pain Bunions greater left foot PT-OP-M Strength Start: 08/07/21 15:37 Freq: Status: Active Protocol: Document 08/10/21 08:55 MB (Rec: 08/10/21 10:58 MB [id number]) Hip Strength Hip Manual Muscle Testing Left Flexion (L2) 3+ Fair+ Abduction 3+ Fair+ Adduction 5 Normal Right Flexion (L2) 4 Good Abduction 4 Good Adduction 5 Normal Knee Strength Knee Manual Muscle Testing Left Flexion (S2) 4 Good Extension (L3) 5 Normal Right Flexion (S2) 4 Good Extension (L3) 5 Normal Ankle/Foot Strength Ankle and Foot Manual Muscle Testing Left Dorsiflexion (L4) 4 Good Inversion 5 Normal Eversion (S1) 5 Normal Right Dorsiflexion (L4) 3+ Fair+ Inversion 4 Good Eversion (S1) 3+ Fair+ Comments Standing PF strengthening deferred d/t pain. All MMT in available range. Some discomfort dorsal ankle and lateral right foot with MMT Toe Strength Toe Manual Muscle Testing Left Great Toe Extension 4 Good Right Great Toe Extension 3+ Fair+ PT-OP-Q Treatments Start: 08/07/21 15:37 Freq: Status: Active Protocol: Document 10/01/21 09:01 MB (Rec: 10/01/21 09:10 MB [id number]) Cardio Equipment Recumbent Elliptical (Biodex) Duration (Minutes) 10 Resistance 4 Other LEs only Manual Therapy Treatment Other Other Manual Treatments STM and MWM right gastroc soleus, fibularis longus, proximal gastroc and medial hamstring, grade II mobs right phalanges and metatarsals Neuro Re-Education Treatment Other Activities FGA Comments FGA score is 19/30 and pt has most trouble with tandem, backwards walking, gait with eyes closed, steps without rail and gait with head turns PT-OP-S Aquatic Treatment Start: 09/28/21 14:59 Freq: Status: Active Protocol: Document 09/28/21 15:00 LJ (Rec: 09/28/21 15:16 LJ [id number]) Aquatics Treatment Pool Entry/Exit Pool Entry/Exit Method Stairs Assistance Standby Assistance Water Walking [place] Water Level Chest Level Level of Assistance Standby Assistance,Verbal Cues Tandem Gait Water Level Chest Level Level of Assistance Standby Assistance,Verbal Cues Comments fwd/ bkw Marching Water Level Chest Level Level of Assistance Standby Assistance,Verbal Cues Comments reaching hands to opp knee Lunge Walk Water Level Chest Level Level of Assistance Standby Assistance,Verbal Cues Comments holding onto wall occasionally Sideways Water Level Chest Level Level of Assistance Standby Assistance,Verbal Cues Comments HABD/ADD UEs Backwards Water Level Chest Level Level of Assistance Standby Assistance,Verbal Cues Forwards Water Level Chest Level Level of Assistance Standby Assistance,Verbal Cues Lower Extremity Exercises SLS knee extension Details hand hold at wall Body Position Standing Water Level Waist Level Reps/Duration 10 x2 B step up on/off box Body Position Standing Water Level Chest Level Equipment Large Noodle Reps/Duration 10 forward Comments therapist holding on noodle mini squats Details hand hold at wall Body Position Standing Reps/Duration 15 heel toe march Details hand hold at wall Body Position Standing Water Level Waist Level Reps/Duration 1 min each Lower Extremity Stretches ankle mobility Details ankle circles B each direction Body Position Standing Comments hand hold on wall HS, Gastroc Details at wall Body Position Standing Water Level Chest Level Reps/Duration 30 sec x2 B PT-OP-T Assessment and Plan Start: 08/07/21 15:37 Freq: Status: Active Protocol: Document 10/01/21 09:01 (Rec: 10/01/21 09:09 [id number]) Physical Therapy Assessment Rehab Potential Rehabilitation Potential Good Evaluation Complexity Number of Personal Factors/Comorbidities 1-2 Number of Body Systems Impaired 1-2 Clinical Presentation at Evaluation Evolving Impairments Impairments Activity Tolerance,Balance, Edema,Gait,Pain,Posture,ROM, Soft Tissue Mobility,Strength Other Impairments Personal factors include pt wearing air cast for hiking and stretchy brace otherwise. She has been guarding her ankle a lot and not using AD. Body systems affected include musculoskeletal and neuromuscular. Her clinical presentation is evolving in setting of OP. Other Concerns Fall Risk Yes Goals 4 Prison Goal (LTG) Pt will perform progressive HEP with I including ROM, flexiblity, strengthening, balance and gait exercises to prepare for return to hiking by 11/13/21. 09/14/21: Pt is performing progressive HEP well LTG Duration 8 weeks 2 Prison Goal (LTG) Pt will perform WNLs on a standardized balance test to decrease fall risk by 11/13/21 . 09/14/21: Pt has progressed with tandem balance LTG Duration 8 weeks 1 Infertility Medical Assistant Goal (LTG) Pt will gait train at least 1400 feet in 6 minutes without AD to prepare for return to hiking by 11/13/21. 09/14/21: Pt gait trains 1255 feet in 6 minutes without AD or pain today. She presents with spinal curvature changes with higher right hip and lower left shoulder LTG Duration 8 weeks Assessment Summary Assessment Pt had a good experience with aquatic therapy and states that she felt that she worked her ankle and was sore in a good way. She reports less feelings of right ankle giving way. FGA today reveals imbalance and difficulty with several balance tasks. Will progress HEP for dynamic balance in future PT treatments. Physical Therapy Plan Frequency and Duration Frequency of Treatment 2x/Week Duration of Treatment 8 weeks Plan of Care Start Date 09/14/21 Plan of Care End Date 11/13/21 Therapeutic Interventions Therapeutic Interventions Aquatic Therapy,Balance Training,Canalithic Repositioning,Gait Training, Home Exercise Program,Joint Mobilizations,Manual Therapy, Neuromuscular Re-education, Patient/Caregiver Education, Self-Care/Home Management,Soft Tissue Mobilization,Taping, Therapeutic Activities, Therapeutic Exercises Modalities Cold Pack/Ice Massage,Hot Packs Next Visit Focus/Plan Next Note Type Treatment Note Next Visit Plan Progress exercises, hallway exercises to include tandem, head turns, eyes closed, backwards walking, manual work and con't Counterstrain, progress balance exercises on mini tramp
--- NOTE | 2021-10-08 09:41 | PT.OTN ---
Current Diagnoses Sprain of unspecified ligament of right ankle, subsequent encounter (10/08/21) Physical Therapy Treatment Note PT-OP-A Visit Information Start: 08/07/21 15:37 Freq: Status: Active Protocol: Document 10/08/21 09:00 MB (Rec: 10/08/21 09:41 MB [id number]) Out-Patient Physical Therapy Visit Information Visit Information Visit Type Treatment Note Visit Start Time 09:00 Visit Stop Time 09:38 Total Visit Minutes 38 Visit Number 13 Number of PRINTING ROLLER POLISHER Visits 0 Evaluation Information Evaluation Date 08/10/21 PT-OP-B Current Condition Start: 08/07/21 15:37 Freq: Status: Active Protocol: Document 08/10/21 08:55 MB (Rec: 08/10/21 09:21 MB [id number]) Current Condition History of Current Condition Onset Date 05/10/21 Current Complaints Pain and can't walk like she would like History of Current Condition Pt states that on 05/10/21, she stood up with her right foot asleep and she heard a crunching sound and had intense pain. She went to the ED and was told she did not have a fracture. She was given crutches and wore an old air brace. She did not use the crutches as she felt like a disaster ready to happen. She did not want to get a walker. She has hiking poles she uses sometimes. She went on a camper trip and didn't go on uneven trails. The pain got bad if she went too far or went up and down inclines. She saw an orthopedist in late May and she put pt in a boot . It was a great relief. She wore it about three weeks. She took the stiffer air brace and smaller ankle brace with her on her trip. Pt does not know how long she was supposed to wear the ankle boot. Pt reports a lump on the inside of her right rubio since all this started. Three years ago, she banged up her right rubio on a bike ride. She had another injury two years ago when she hurt her right knee an meniscus. The inside of the leg is aggravated again. Pt rates pain up to 4/10. PMH includes OP, suprventribular tachycardia. 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 Treatment Goals Patient/Caregiver Goals To get back to trail walking and dancing PT-OP-C Subjective Start: 08/07/21 15:37 Freq: Status: Active Protocol: Document 10/08/21 09:00 MB (Rec: 10/08/21 09:41 MB [id number]) OP-PT Subjective Patient Comments Patient Comments Pt states that they have decided to leave earlier for their holiday vacation. She will need to cancel the rest of her appointments. PT-OP-G Mobility & Gait Start: 08/07/21 15:37 Freq: Status: Active Protocol: Document 08/10/21 08:55 MB (Rec: 08/10/21 10:58 MB [id number]) OP Gait Assessment Comments Gait Comments I gait with shoes and socks off: pt favors the right foot and decreases WB on the right leg. Lateral shift of pelvis to the left with elevated left hip and curve up the spine with right shoulder higher with gait. Increased IR left LE and increased valgus left knee. Tends to WB through lateral feet and not push off through the toes. PT-OP-J Posture/Palpation/Skin Start: 08/07/21 15:37 Freq: Status: Active Protocol: Document 08/10/21 08:55 MB (Rec: 08/10/21 10:58 MB [id number]) Posture Evaluation Comments Posture Comments Standing posture bare feet. Hip and spinal position different with static standing with right iliac crest 3/4 higher than the left, rounded shoulders, Dowager's hump, increased lumbar lordosis, IR left hip and overpronation left foot. PT-OP-K Range of Motion Start: 08/07/21 15:37 Freq: Status: Active Protocol: Document 08/10/21 08:55 MB (Rec: 08/10/21 10:58 MB [id number]) Ankle and Foot Goniometric Range of Motion Ankle and Foot ROM Limitations Comments With legs straight: left DF to neutral and right lacks 2 deg . 5 deg less active inversion right ankle compared to left 2nd right toe rests lightly on great toe No heel raises today in standing d/t pain Bunions greater left foot PT-OP-M Strength Start: 08/07/21 15:37 Freq: Status: Active Protocol: Document 08/10/21 08:55 MB (Rec: 08/10/21 10:58 MB [id number]) Hip Strength Hip Manual Muscle Testing Left Flexion (L2) 3+ Fair+ Abduction 3+ Fair+ Adduction 5 Normal Right Flexion (L2) 4 Good Abduction 4 Good Adduction 5 Normal Knee Strength Knee Manual Muscle Testing Left Flexion (S2) 4 Good Extension (L3) 5 Normal Right Flexion (S2) 4 Good Extension (L3) 5 Normal Ankle/Foot Strength Ankle and Foot Manual Muscle Testing Left Dorsiflexion (L4) 4 Good Inversion 5 Normal Eversion (S1) 5 Normal Right Dorsiflexion (L4) 3+ Fair+ Inversion 4 Good Eversion (S1) 3+ Fair+ Comments Standing PF strengthening deferred d/t pain. All MMT in available range. Some discomfort dorsal ankle and lateral right foot with MMT Toe Strength Toe Manual Muscle Testing Left Great Toe Extension 4 Good Right Great Toe Extension 3+ Fair+ PT-OP-Q Treatments Start: 08/07/21 15:37 Freq: Status: Active Protocol: Document 10/08/21 09:00 MB (Rec: 10/08/21 09:41 MB [id number]) Therapeutic Exercises Supine Exercises Shaun stretch Comments Verbally reviewed today Ankle hammock Comments Verbally reviewed today Hamstring stretch and AP Comments Verbally reviewed today Sitting Exercises Clam in sitting Comments Verbally reviewed today LAQ with AP Comments Verbally reviewed today Ankle DF and eversion Comments Verbally reviewed today Standing Exercises Calf stretches Comments Verbally reviewed today Gait Training Gait Activity [id number] Comments 10/08/21: Pt gait trains 1449 feet in 6 minutes today and reports she feels a little tired in the top of her right foot Neuro Re-Education Treatment Balance Activities Tandem Stance Comments 10/08/21: Pt performs B tandem up to 1 minute with good ankle and foot work with exercise PT-OP-S Aquatic Treatment Start: 09/28/21 14:59 Freq: Status: Active Protocol: Document 09/28/21 15:00 LJ (Rec: 09/28/21 15:16 LJ [id number]) Aquatics Treatment Pool Entry/Exit Pool Entry/Exit Method Stairs Assistance Standby Assistance Water Walking [place] Water Level Chest Level Level of Assistance Standby Assistance,Verbal Cues Tandem Gait Water Level Chest Level Level of Assistance Standby Assistance,Verbal Cues Comments fwd/ bkw Marching Water Level Chest Level Level of Assistance Standby Assistance,Verbal Cues Comments reaching hands to opp knee Lunge Walk Water Level Chest Level Level of Assistance Standby Assistance,Verbal Cues Comments holding onto wall occasionally Sideways Water Level Chest Level Level of Assistance Standby Assistance,Verbal Cues Comments HABD/ADD UEs Backwards Water Level Chest Level Level of Assistance Standby Assistance,Verbal Cues Forwards Water Level Chest Level Level of Assistance Standby Assistance,Verbal Cues Lower Extremity Exercises SLS knee extension Details hand hold at wall Body Position Standing Water Level Waist Level Reps/Duration 10 x2 B step up on/off box Body Position Standing Water Level Chest Level Equipment Large Noodle Reps/Duration 10 forward Comments therapist holding on noodle mini squats Details hand hold at wall Body Position Standing Reps/Duration 15 heel toe march Details hand hold at wall Body Position Standing Water Level Waist Level Reps/Duration 1 min each Lower Extremity Stretches ankle mobility Details ankle circles B each direction Body Position Standing Comments hand hold on wall HS, Gastroc Details at wall Body Position Standing Water Level Chest Level Reps/Duration 30 sec x2 B PT-OP-T Assessment and Plan Start: 08/07/21 15:37 Freq: Status: Active Protocol: Document 10/08/21 09:00 MB (Rec: 10/08/21 09:41 MB [id number]) Physical Therapy Assessment Rehab Potential Rehabilitation Potential Good Evaluation Complexity Number of Personal Factors/Comorbidities 1-2 Number of Body Systems Impaired 1-2 Clinical Presentation at Evaluation Evolving Impairments Impairments Activity Tolerance,Balance, Edema,Gait,Pain,Posture,ROM, Soft Tissue Mobility,Strength Other Impairments Personal factors include pt wearing air cast for hiking and stretchy brace otherwise. She has been guarding her ankle a lot and not using AD. Body systems affected include musculoskeletal and neuromuscular. Her clinical presentation is evolving in setting of OP. Other Concerns Fall Risk Yes Goals 4 Webbing Weaver Goal (LTG) Pt will perform progressive HEP with I including ROM, flexiblity, strengthening, balance and gait exercises to prepare for return to hiking by 11/13/21. 10/08/21: Pt is performing stretching, balance, and strengthening exercises. She is walking up to 1 1/2 miles for exercise and her foot feels good afterwards. LTG Duration Met 2 Webbing Weaver Goal (LTG) Pt will perform WNLs on a standardized balance test to decrease fall risk by 11/13/21 . 10/08/21: Pt performs B tandem up to 1 minute with good ankle and foot work with exercise LTG Duration Met 1 Nursing Home Goal (LTG) Pt will gait train at least 1400 feet in 6 minutes without AD to prepare for return to [place] by 11/13/21. 10/08/21: Pt gait trains 1449 feet in 6 minutes today and reports she feels a little tired in the top of her right foot LTG Duration Surpassed goal Assessment Summary Assessment Pt is leaving sooner than she thought she would for the season and would like to cancel the rest of her therapy appointments. She has met all current PT goals and will d/c PT. Pt may benefit from further PT for progressive strengthening, balance and aquatic therapy in the future and she will follow-up with her doctor as needed in the new year. Physical Therapy Plan Frequency and Duration Frequency of Treatment 2x/Week Duration of Treatment 8 weeks Plan of Care Start Date 09/14/21 Plan of Care End Date 11/13/21 Therapeutic Interventions Therapeutic Interventions Aquatic Therapy,Balance Training,Canalithic Repositioning,Gait Training, Home Exercise Program,Joint Mobilizations,Manual Therapy, Neuromuscular Re-education, Patient/Caregiver Education, Self-Care/Home Management,Soft Tissue Mobilization,Taping, Therapeutic Activities, Therapeutic Exercises Modalities Cold Pack/Ice Massage,Hot Packs
== END 2021-12-22 09:43 ==
LOC: PHYS 09:00
PROVIDERS: Family Provider Internal Medicine; PCP Internal Medicine; Referring Provider Internal Medicine; Visit Provider Internal Medicine
DX: S93.401D Sprain of unspecified ligament of right ankle, subsequent encounter (principal)
CPT/HCPCS: 97110; 97112; 97113; 97116; 97140; 97161; 97535

== ENCOUNTER → 2021-11-10 09:14 | Outpatient (CLI) | payer MEDICARE, SELFPAY ==
--- NOTE | 2021-11-10 09:15 | DI.RAD.S_ITS ---
PROCEDURE: XR CHEST 2V INDICATIONS: COUGH TECHNIQUE: 2 views of the chest were acquired. COMPARISON: [facility], CR, XR CHEST 2V, 12/03/2019, 16:49. FINDINGS: Surgical changes and devices: None. Lungs and pleura: Minimal bibasilar atelectasis. No consolidation, pleural effusions or pneumothorax. Mediastinum: Mediastinal contours are normal. Heart size is normal. Bones and chest wall: No suspicious bony abnormalities. Soft tissues appear unremarkable. IMPRESSION: No acute cardiopulmonary abnormality. Dictated by: Ludwig Ta M.D. on 11/10/2021 at 9:56 Approved by: Ludwig Ta M.D. on 11/10/2021 at 9:57
== END ==
PROVIDERS: Family Provider Internal Medicine; PCP Internal Medicine; Referring Provider Internal Medicine; Visit Provider Internal Medicine
DX: R05.9 Cough, unspecified (principal)
CPT/HCPCS: 71046

== ENCOUNTER 2022-04-09 10:55 | Emergency (ER) | payer MEDICARE, SELFPAY ==
[2022-04-09] VITALS (25 sets, daily range): BP systolic 118–190; BP diastolic 59–90; PULSE 70–90; RESP 11–24; TEMP 36.9; O2SAT 94–99; BMI 28.3
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
--- NOTE | 2022-04-09 11:27 | DI.RAD.S_ITS ---
PROCEDURE: XR CHEST 1V INDICATIONS: chest pain TECHNIQUE: One view of the chest was acquired. COMPARISON: [facility], CR, XR CHEST 2V, 11/10/2021, 9:14. FINDINGS: Surgical changes and devices: None. Lungs and pleura: Lungs are clear. No pleural effusions or pneumothorax. Mediastinum: Mediastinal contours appear normal. Heart size is normal. Bones and chest wall: No suspicious bony lesions. Overlying soft tissues appear unremarkable. Rightward curvature of the thoracic spine. IMPRESSION: No acute cardiopulmonary abnormality. Dictated by: Armin Luna M.D. on 04/09/2022 at 11:38 Approved by: Armin Luna M.D. on 04/09/2022 at 11:38
[2022-04-09 11:31] LABS: Add Manual Diff / Slide Review NO; Basophils Absolute Auto 100 /uL (0-100); Basophils Percent Auto 1.2 % (0-2); Eosinophils Absolute Auto 200 /uL (0-450); Eosinophils Percent Auto 2.8 % (2-4); Hemoglobin 14.5 g/dL (12.0-16.0); Lymphocytes Absolute Auto 1000 /uL (1100-4500); Lymphocytes Percent Auto 12.6 % (25-40); Mean Corpuscular HGB Conc 34.6 % (30-36); Mean Corpuscular Hemoglobin 33.2 PG (26-34); Monocytes Absolute Auto 800 /uL (0-900); Monocytes Percent Auto 9.3 % (3-14); Neutrophils Absolute Auto 6000 /uL (1500-7000); Neutrophils Percent Auto 74.1 % (50-75); Platelet Count 185 X10^3/uL (150-400); Red Blood Cell Count 4.38 X10^6/uL (4.0-5.2); White Blood Cell Count 8.1 X10^3/uL (4.5-11.0)
[2022-04-09 11:39] LABS: Alanine Aminotransferase 19 IU/L (<35); Albumin 4.4 g/dL (3.5-5.0); Albumin Globulin Ratio 1.7 (1.0-2.8); Alkaline Phosphatase 72 U/L (38-126); Aspartate Aminotransferase 31 IU/L (14-36); BUN Creatinine Ratio 19.7 (6-22); Bilirubin Total 1.5 mg/dL (0.2-1.3); Blood Urea Nitrogen 14 mg/dL (7-17); Carbon Dioxide 22 mmol/L (22-32); Chloride 112 mmol/L (98-107); Creatine Kinase 61 U/L (30-135); Estimated Glomerular Filt Rate > 60 mL/min (>60); Globulin 2.6 g/dL (1.7-4.1); Glucose 94 mg/dL (80-110); HEMOLYSIS 49 (0-50); Lipase 58 U/L (23-300); Magnesium 2.3 mg/dL (1.6-2.3); Potassium 4.2 mmol/L (3.4-5.1); Sodium 140 mmol/L (137-145)
[2022-04-09 11:49] LABS: Troponin I 0.029 ng/mL (0.01-0.034)
[2022-04-09] MEDS: ASPIRIN 81 MG CHEW TAB 324 MG PO (11:55)
[2022-04-09] MEDS: NITROGLYCERIN 0.4 MG SL TAB SL ×4 (11:57→16:11)
[2022-04-09 11:59] LABS: D Dimer < 200 ng/mL (<230)
[2022-04-09 13:19] LABS: Troponin I 0.024 ng/mL (0.01-0.034)
[2022-04-09 16:46] LABS: Troponin I 0.023 ng/mL (0.01-0.034)
== END 2022-04-09 17:19 | disposition home or self-care (01) ==
PROVIDERS: Emergency Provider Emergency Medicine; Family Provider Internal Medicine; PCP Internal Medicine
DX: R07.9 Chest pain, unspecified (principal)
CPT/HCPCS: 36415; 71045; 80053; 82550; 83690; 83735; 84484; 85025; 85379; 93005; 93010; 99284

== ENCOUNTER → 2022-04-23 11:05 | Outpatient (CLI) | payer MEDICARE, SELFPAY ==
--- NOTE | 2022-04-23 | DI.CT.S_ITS ---
PROCEDURE: CT CHEST WO CON INDICATIONS: Chest pain, unspecified TECHNIQUE: Noncontrast 5 mm thick sections acquired from the pulmonary apices to the posterior costophrenic angles. 1 mm lung window, 5 mm thick coronal and sagittal and 7 mm axial MIP reformats were then acquired. For radiation dose reduction, the following was used: automated exposure control, adjustment of mA and/or kV according to patient size. COMPARISON: None. FINDINGS: Image quality: Excellent. Lungs and pleura: Punctate benign calcifications in the right upper lobe. No nodules or masses. No acute air space opacities. No pleural effusions or pneumothorax. Central and peripheral airways are patent and normal in caliber. Mediastinum: Heart size is normal. The coronary arteries have atherosclerotic calcifications. No pericardial effusion. No mediastinal adenopathy by size criteria. Thoracic aorta and central pulmonary arteries are normal in size. Esophagus is normal in caliber. There is a moderate paraesophageal hiatal hernia. Bones and chest wall: No suspicious bony lesions. No vertebral body compression fractures. No axillary or supraclavicular adenopathy by size criteria. Thyroid gland is normal. Abdomen: Limited visualization of the upper abdomen shows no acute abnormality. The left kidney has a 2 cm cyst. IMPRESSION: 1. No acute abnormality of the chest. 2. Moderately large paraesophageal hiatal hernia. 3. Coronary artery disease. Dictated by: Armin Luna M.D. on 04/23/2022 at 12:11 Approved by: Armin Luna M.D. on 04/23/2022 at 12:15
== END ==
PROVIDERS: Family Provider Internal Medicine; PCP Internal Medicine; Referring Provider Internal Medicine; Visit Provider Internal Medicine
DX: R07.9 Chest pain, unspecified (principal); K44.9 Diaphragmatic hernia without obstruction or gangrene; I25.10 Atherosclerotic heart disease of native coronary artery without angina pectoris
CPT/HCPCS: 71250

== ENCOUNTER → 2022-09-16 18:23 | Outpatient (CLI) | payer MEDICARE, SELFPAY ==
[2022-09-16 19:15] LABS: Influenza A - CEPHEID Flu A NEGATIVE (NEGATIVE); Influenza B - CEPHEID Flu B NEGATIVE (NEGATIVE); Respiratory Syncytial Virus Negative (Negative)
[2022-09-16 19:30] LABS: COVID-19 CEPHEID 4-PLEX PCR Negative (Negative)
== END ==
PROVIDERS: Visit Provider Nurse Practitioner Family
DX: R05.9 Cough, unspecified (principal)
CPT/HCPCS: 0241U

== ENCOUNTER → 2022-09-16 18:47 | Outpatient (CLI) | payer MEDICARE, SELFPAY ==
--- NOTE | 2022-09-16 18:49 | DI.RAD.S_ITS ---
PROCEDURE: XR CHEST 2V INDICATIONS: Cough TECHNIQUE: 2 views of the chest were acquired. COMPARISON: [facility], CR, XR CHEST 1V, 04/09/2022, 11:27. [facility], CT, CT CHEST WO CON, 04/23/2022, 11:18. FINDINGS: Surgical changes and devices: None. Lungs and pleura: Lungs are clear. No pleural effusions or pneumothorax. Mediastinum: Mediastinal contours demonstrate retrocardiac lucency consistent with known hiatal hernia. Heart size is normal. Bones and chest wall: No suspicious bony abnormalities. Soft tissues appear unremarkable. IMPRESSION: No acute pulmonary process. Dictated by: Angelica Damon M.D. on 09/17/2022 at 11:41 Approved by: Angelica Damon M.D. on 09/17/2022 at 11:41
== END ==
PROVIDERS: Referring Provider Nurse Practitioner Family; Visit Provider Nurse Practitioner Family
DX: R05.9 Cough, unspecified (principal)
CPT/HCPCS: 0241U; 71046

== ENCOUNTER → 2022-09-23 13:28 | Outpatient (CLI) | payer MEDICARE, SELFPAY ==
--- NOTE | 2022-09-23 | DI.ECHO.S_ITS ---
[facility] +---------+ : : [address] : [address] [place] : : : : [id number] : : : : Phone: [phone] Echocardiogram Report + + :Name: NEREIDA HOLLAND Study Date: 09/23/2022 Height: 64 in : :[facility] ReadingLocation: Weight: 162 lb : : Gender: Female BSA: 1.8 m2 : :: 1945 Age: 77 yrs BP: 154/92 mmHg: :Reason For Study: Dyspnea : :Ordering Physician: DANYELLE : :KRISTEN Performed By: Mario Castrejon : :Referring: KRISTEN BASSETT : + + Interpretation Summary The ejection fraction is estimated to be 60-65%. Diastolic parameters suggest probable normal left ventricular diastolic function and normal filling pressures. The right ventricle is normal in size and function. The right ventricular systolic pressure is estimated to be at least 24 mmHg based on an estimated right atrial pressure of 3 mm Hg. No significant valvular disease. Procedure: A two-dimensional transthoracic echocardiogram with color flow and Doppler was performed. The study quality was technically adequate. There is no prior echocardiogram noted for this patient. The patient was in normal sinus rhythm during the exam. Left Ventricle: The left ventricle is normal in size and wall thickness. Left ventricular systolic function is normal. The ejection fraction is estimated to be 60-65%. There are no focal wall motion abnormalities. Diastolic parameters suggest probable normal left ventricular diastolic function and normal filling pressures. Right Ventricle: The right ventricle is normal in size and function. Atria: Both atria are normal in size. The interatrial septum grossly appears intact with no obvious evidence for an atrial septal defect. Mitral Valve: The mitral valve is normal in structure and function. There is mild mitral regurgitation. Aortic Valve: There is mild aortic valve sclerosis. There is no hemodynamically significant valvular aortic stenosis. No aortic regurgitation is present. Tricuspid Valve: The tricuspid valve is normal in structure and function. There is mild tricuspid regurgitation. The right ventricular systolic pressure is estimated to be at least 24 mmHg based on an estimated right atrial pressure of 3 mm Hg. Pulmonic Valve: The pulmonic valve is normal in structure and function. There is no pulmonic valvular regurgitation. Great Vessels: The aortic root is normal size. The dimensions of the ascending aorta are normal. The IVC is of normal diameter and collapses greater than 50% with a sniff. This suggests a low right atrial pressure of 3 mm Hg. Pericardium/ Pleura There is no pericardial effusion. There is no pleural effusion. MMode/2D Measurements & Calculations LVIDd: 4.6 cm LVOT diam: 2.0 cm LVIDs: 3.0 cm Ao root diam: 2.7 cm FS: 34.8 % IVSd: 0.90 cm LVPWd: 0.80 cm LV rosales. diameter/BSA (cm/m^2): 2.6 LV sys. diameter/BSA (cm/m^2): 1.7 LA dimension: 3.2 cm RA long axis: 4.7 cm LA A2 area: 16.0 cm2 LA A4 area: 16.5 cm2 LA length (vol): 4.6 cm LA vol: 48.4 ml LA vol index: 27.1 ml/m2 TAPSE_phl: 2.4 cm Doppler Measurements & Calculations Ao V2 max: 122.0 cm/sec LVOT Max Lloyd: 101.0 cm/sec Ao V2 mean: 76.2 cm/sec LV V1 max P.1 mmHg Ao max P.0 mmHg LV V1 VTI: 23.5 cm Ao mean P.0 mmHg ROYCE(I,D): 2.9 cm2 Ao V2 VTI: 25.2 cm ROYCE(V,D): 2.6 cm2 sev ratio: 0.93 ROYCE indexed to BSA (cm^2/m^2): 1.6 MV E max lloyd: 84.4 cm/sec TR max lloyd: 229.0 cm/sec MV A max lloyd: 88.7 cm/sec TR max P.0 mmHg MV E/A: 0.95 Med Peak E' Lloyd: 7.5 cm/sec E/E' med: 11.3 Lat Peak E' Lloyd: 8.4 cm/sec E/E' lat: 10.0 E/e' average: 10.7 MV dec time: 0.19 sec SV(LVOT): 73.8 ml AV VR_phl: 0.83 ROYCE(VTI)/BSA_phl: 1.6 MV P1/2t-pr_phl: 56.0 msec Reading Physician:PM
== END ==
PROVIDERS: PCP Internal Medicine; Referring Provider Internal Medicine; Visit Provider Internal Medicine
DX: R06.09 Other forms of dyspnea (principal); I08.1 Rheumatic disorders of both mitral and tricuspid valves
CPT/HCPCS: 93306

== ENCOUNTER → 2023-07-24 10:27 | Outpatient (CLI) | payer MEDICARE, SELFPAY ==
[2023-07-24 11:13] LABS: Influenza A - CEPHEID Flu A NEGATIVE (NEGATIVE); Influenza B - CEPHEID Flu B NEGATIVE (NEGATIVE); Respiratory Syncytial Virus Negative (Negative)
[2023-07-24 11:42] LABS: COVID-19 CEPHEID 4-PLEX PCR POSITIVE (Negative)
== END ==
PROVIDERS: PCP Internal Medicine; Visit Provider Nurse Practitioner Family
DX: R05.9 Cough, unspecified (principal)
CPT/HCPCS: 0241U

== ENCOUNTER → 2023-08-30 10:18 | Outpatient (CLI) | payer MEDICARE, SELFPAY ==
--- NOTE | 2023-08-30 | DI.RAD.S_ITS ---
Bone Density Report Name: NEREIDA HOLLAND Age: 78 Sex: Female Ethnicity: White Date of : 1945 Indication: osteopenia; monitoring treatment; Referring Provider: KRISTEN BASSETT Study: Bone densitometry was performed. Exam Date: August 30, 2023 Accession number: [id number] Bone Density: Region BMD T-score Z-score Classification AP Spine(L1-L4) 1.122 0.7 3.2 Normal Femoral Neck (Left) 0.628 -2.0 0.2 Osteopenia Total Hip (Left) 0.717 -1.8 0.0 Osteopenia Femoral Neck (Right) 0.706 -1.3 0.9 Osteopenia Total Hip (Right) 0.876 -0.5 1.3 Normal Total Hip Mean 0.796 -1.2 0.7 Osteopenia World Health Organization criteria for BMD impression classify patients as: Normal (T-score at or above -1.0), Osteopenia (T-score between -1.0 and -2.5), or Osteoporosis (T-score at or below -2.5). 10-year Fracture Risk: FRAX not reported because: Treated for osteoporosis Previous Exams: -- Region Exam Age BMD T-score BMD Change BMD Change Date g/cm2 vs Baseline vs Previous -- AP Spine (L1-L4) 08/30/2023 78 1.122 0.7 0.109 (10.7%)# 0.099 (9.7%)# 10/25/2019 74 1.023 -0.2 0.010 (1.0%) 0.010 (1.0%) 03/11/2017 71 1.014 -0.3 Total Hip(Left) 08/30/2023 78 0.717 -1.8 0.006 (0.9%)# -0.039 (-5.1%)# 08/28/2021 76 0.755 -1.5 0.045 (6.3%)* -0.003 (-0.4%) 10/25/2019 74 0.758 -1.5 0.048 (6.7%)* 0.048 (6.7%)* 03/11/2017 71 0.710 -1.9 Total Hip(Right) 08/30/2023 78 0.876 -0.5 0.057 (7.0%)# 0.016 (1.8%)# 08/28/2021 76 0.860 -0.7 0.042 (5.1%)* -0.013 (-1.4%) 10/25/2019 74 0.872 -0.6 0.054 (6.6%)* 0.054 (6.6%)* 03/11/2017 71 0.818 -1.0 -- *Denotes significance at 95% confidence level, LSC for AP Spine = 0.022 g/cm2, LSC for Total Hip = 0.027 g/cm2 # Denotes dissimilar scan types or analysis methods Impression: The patient has low bone mass, based on the Left Femoral Neck T-score. No significant bone loss was observed. Discussion: PATIENT UNDER TREATMENT WITH NO SIGNIFICANT BMD LOSS SINCE LAST EXAM. In an untreated patient, BMD typically declines with age. A lack of decline or gain is usually a sign that treatment is efficacious and fracture risk is reduced. It is important to ask patients whether they are taking their medications and to encourage continued and appropriate compliance with their osteoporosis therapies to reduce fracture risk. It is also important to review their risk factors and encourage appropriate calcium and vitamin D intakes, exercise, fall prevention and other lifestyle measures. Follow-Up: Consider a repeat BMD and Vertebral Fracture Assessment (VFA) exam in 2 years or sooner if medically necessary, to reassess this patient's status. Reported by: CARLEY PARKINSON MD on 08/30/2023 10:48:00 AM.
== END ==
PROVIDERS: PCP Internal Medicine; Referring Provider Internal Medicine; Visit Provider Internal Medicine
DX: M81.0 Age-related osteoporosis without current pathological fracture (principal); M85.89 Other specified disorders of bone density and structure, multiple sites
CPT/HCPCS: 77080

== ENCOUNTER 2024-01-25 09:46 | Day surgery (SDC) | payer MEDICARE, SELFPAY ==
[2024-01-25] VITALS (7 sets, daily range): BP systolic 102–143; BP diastolic 56–82; PULSE 60–74; RESP 12–21; TEMP 36.2–37.2; O2SAT 99–100; BMI 28.3
--- NOTE | 2024-01-25 | PATH_ITS ---
[facility] Accession Number: [id number] No. of containers..02 Tissue . 01 Material submitted: . PART A: gastrointestinal site - GASTRIC PART B: colon - ASCENDING POLYP . 01 Diagnosis: A. STOMACH, BIOPSIES: Gastric antral and body mucosa with no diagnostic abnormality. No evidence of Helicobacter organisms on H/E stain. Negative for intestinal metaplasia. Negative for dysplasia or malignancy. . B. ASCENDING COLON POLYP: Colonic mucosa with prominent benign lymphoid aggregate. Negative for dysplasia or malignancy. [facility] 01/31/2024 1136 Local . 01 Electronically signed: . Benjamin Sanchez MD, PhD, Pathologist NPI- [id number] . 01 Gross description: . Part A: GASTRIC: Received in formalin are 3 fragment(s) of fernando, soft tissue measuring 0.1 x 0.1 x 0.1 cm to 0.3 x 0.3 x 0.2 cm submitted entirely in 1 cassette(s) Part B: ASCENDING POLYP: Received in formalin is 1 fragment(s) of fernando, soft tissue measuring 0.2 x 0.2 x 0.1 cm submitted entirely in 1 cassette(s) /[facility] 01/26/2024 2034 Local . 01 Pathologist provided ICD-10: K21.9, K63.5 . 01 CPT . 848673, 751047 Specimen Comment: A courtesy copy of this report has been sent to [phone] Performed at: 01 [facility] [address] [place] [id number] MD Jonny Burks MD Phone: [phone]
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
--- NOTE | 2024-01-25 11:29 | PM.OP.EC ---
Operative Date/Time/Diagnoses Date of procedure: 01/25/24 Pre-op diagnosis: See indication and findings Procedure & Clinicians Study performed: EGD and colonoscopy Indications: Reflux and colon cancer screening Surgeon: Eze Domínguez Procedure Notes Procedure in detail: After informed consent was obtained the patient was placed in left lateral decubitus position. The video upper scope was placed into the oropharynx and with the patient's help swelled into the esophagus. The esophagus stomach and duodenum were carefully examined. On withdrawal, retroflexed view the GE junction was performed. The scope was removed. The patient tolerated procedure well. The patient was then turned and the colonoscope substituted. This was passed through the rectum to the cecum. On slow withdrawal mucosa was carefully examined. The scope was removed. The patient tolerated the procedure well. Blood loss none Complications none Sedation mac Findings EGD 1. Hypo pharyngeal white lesions consistent with candidiasis 2. Normal esophagus to 33 cm 3. 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 All the remaining stomach was above the diaphragm. 4. Patchy gastric erythema in the antrum biopsies taken to rule out Helicobacter 5. Normal duodenal bulb and sweep Colonoscopy 1. Ascending colon polyp 5 mm cold snared and removed. This unfortunately specimen most loss 2. 3 mm sigmoid colon polyp Jumbo biopsied and removed 3. Otherwise negative colonoscopy to cecum This should probably be Nusrat's last colonoscopy. We will be in touch regarding pathology results I will send an a prescription for nystatin to the pharmacy.
[2024-01-25] MEDS: LACTATED RINGERS 1,000 ML 42 ML IV (11:30)
== END 2024-01-25 13:50 | disposition home or self-care (01) ==
PROVIDERS: PCP Internal Medicine; Referring Provider Internal Medicine Gastroenterology; Visit Provider Internal Medicine Gastroenterology
PROC: 0DJ08ZZ Inspection of Upper Intestinal Tract, Via Natural or Artificial Opening Endoscopic (ICD-10-PCS; CPT 43235; principal; 2024-01-25 11:00)
PROC: 0DJD8ZZ Inspection of Lower Intestinal Tract, Via Natural or Artificial Opening Endoscopic (ICD-10-PCS; CPT 45378; 2024-01-25 11:00)
DX: Z12.11 Encounter for screening for malignant neoplasm of colon (principal); K21.9 Gastro-esophageal reflux disease without esophagitis; K44.9 Diaphragmatic hernia without obstruction or gangrene
CPT/HCPCS: 45380; 43239; J2704

== ENCOUNTER → 2024-07-10 13:11 | Outpatient (CLI) | payer MEDICARE, SELFPAY ==
--- NOTE | 2024-07-10 13:12 | DI.MG.S_ITS ---
BILATERAL DIGITAL SCREENING MAMMOGRAM 3D/2D WITH CAD: 07/10/2024 CLINICAL: Routine screening. Family history of breast cancer. Comparison is made to exams dated: 08/28/2021 mammogram, 10/26/2019 mammogram, and 03/11/2017 mammogram - [facility]. Both breasts are heterogeneously dense, which may obscure small masses (category c / 51-75% glandular tissue). Current study was also evaluated with a Computer Aided Detection (CAD) system. No significant masses, calcifications, or other findings are seen in either breast. There has been no significant interval change. IMPRESSION: NEGATIVE There is no mammographic evidence of malignancy. A 1 year screening mammogram is recommended. Based on the Tyrer Cuzick model (a risk assessment model) the patient's lifetime risk is 4.0% and her 10 year risk is 0.0%. According to the ACR, ACS, and NCCN guidelines, an annual breast MRI exam along with mammogram is recommended if the patient's lifetime risk is 20% or greater. This exam was interpreted at Station ID: [id number]. NOTE: For mammograms, a report in lay terms will be sent to the patient. Approximately 15% of breast malignancies will not be visualized mammographically. In the management of a palpable breast mass, a negative mammogram must not discourage biopsy of a clinically suspicious lesion. Electronically Signed By: Gypsy Rollins M.D., Ph.D. gil/lisbeth:07/10/2024 15:27:02 letter sent: Normal Exam ACR BI-RADS Category 1: Negative [id number]
== END ==
PROVIDERS: PCP Internal Medicine; Referring Provider Internal Medicine; Visit Provider Internal Medicine
DX: Z12.31 Encounter for screening mammogram for malignant neoplasm of breast (principal); Z80.3 Family history of malignant neoplasm of breast; R92.333 Mammographic heterogeneous density, bilateral breasts
CPT/HCPCS: 77063; 77067

== ENCOUNTER → 2024-08-23 14:18 | Outpatient (CLI) | payer MEDICARE, SELFPAY ==
--- NOTE | 2024-08-23 14:21 | DI.RAD.S_ITS ---
PROCEDURE: XR KNEE RT 4V INDICATIONS: Pain in right knee TECHNIQUE: 4 views of the knee were acquired. COMPARISON: [facility], , XR KNEE RT 3V, 05/10/2021, 16:00. FINDINGS: Bones: No acute fracture or dislocation. Mild underlying arthrosis. Soft tissues: Minimal joint effusion. IMPRESSION: Mild arthrosis. Minimal joint effusion. No acute radiographic abnormality. If there is high concern for further derangement, consider MRI evaluation. Dictated by: Roemo Ortiz M.D. on 08/23/2024 at 16:56 Approved by: Romeo Ortiz M.D. on 08/23/2024 at 16:57
== END ==
PROVIDERS: PCP Internal Medicine; Referring Provider Internal Medicine; Visit Provider Internal Medicine
DX: M17.11 Unilateral primary osteoarthritis, right knee (principal); M25.561 Pain in right knee
CPT/HCPCS: 73564

== ENCOUNTER → 2024-08-31 10:42 | Outpatient (CLI) | payer MEDICARE, SELFPAY ==
--- NOTE | 2024-08-31 10:43 | DI.MRI.S_ITS ---
PROCEDURE: MR KNEE RT WO CON INDICATIONS: KNEE TRAUMA /INTERNAL DERANGEMENT SUSPECTED TECHNIQUE: Noncontrast sagittal PD fast spin echo and T2 fast spin echo with fat saturation, sagittal 3-D FLASH with fat saturation; coronal T1 spin echo and PD fast spin echo with fat saturation, and axial PD fast spin echo with fat saturation through the knee. COMPARISON: [facility], MR, MR KNEE RT WO CON, 08/29/2019, 18:19. FINDINGS: Image quality: Excellent. Menisci: Radial tear involving posterior horn of medial meniscus extending to both superior and inferior articulating surfaces. The lateral meniscus is intact. The meniscal root ligaments appear intact. Cruciate ligaments: The anterior cruciate ligament appears thickened with intrasubstance T2 hyperintense signal. The posterior cruciate ligament is intact. Medial structures: The medial collateral ligament appears mildly thickened. Visualized portions of the pes anserinus tendons appear normal. No abnormal bursal fluid. Lateral structures: The lateral collateral ligament, long and short heads of the biceps femoris tendon appear thickened. The popliteus tendon appears normal. Iliotibial band appears normal. Anterior structures: The quadriceps and patellar tendons appear intact. Thickened lateral patellofemoral ligament at its patellar insertion is seen with surrounding soft tissue edema and fluid. Patellar alignment is normal. Bones and cartilage: No bone marrow contusions or fractures. Mild tricompartmental osteoarthritis and low-grade chondromalacia is seen more notably in medial femoral tibial compartment. Joint space: There is small knee joint fluid. No Sharma's cyst. Normal appearing synovial plicae are incidentally noted. IMPRESSION: 1. Subtle radial tear involving posterior horn of medial meniscus extending to both superior and inferior articulating surfaces. The lateral meniscus is intact. 2. Sprain/low-grade intrasubstance partial-thickness tear involving anterior cruciate ligament. No ACL rupture. The PCL is intact. 3. Low-grade MCL and LCL sprain. Distal biceps femorals tendinosis. 4. Low-grade sprain involving lateral patellofemoral ligament at its patellar insertion with adjacent soft tissue edema. No ligament rupture. No significant patellar subluxation. 5. Mild tricompartmental osteoarthritis and low-grade chondromalacia more notably in medial femoral tibial compartment. No fracture or dislocation. Small joint effusion, no loose bodies. Dictated by: Gómez Harden M.D. on 08/31/2024 at 12:13 Approved by: Gómez Harden M.D. on 08/31/2024 at 12:32
== END ==
PROVIDERS: PCP Internal Medicine; Referring Provider Internal Medicine; Visit Provider Internal Medicine
DX: S83.241A Other tear of medial meniscus, current injury, right knee, initial encounter (principal); S83.511A Sprain of anterior cruciate ligament of right knee, initial encounter; S83.411A Sprain of medial collateral ligament of right knee, initial encounter; S83.421A Sprain of lateral collateral ligament of right knee, initial encounter; M17.11 Unilateral primary osteoarthritis, right knee; M94.261 Chondromalacia, right knee; M25.461 Effusion, right knee; M25.561 Pain in right knee
CPT/HCPCS: 73721

== ENCOUNTER → 2024-11-17 12:05 | Outpatient (CLI) | payer MEDICARE, SELFPAY ==
--- NOTE | 2024-11-17 12:06 | DI.RAD.S_ITS ---
PROCEDURE: XR HIP W PEL IF DONE RT 2V INDICATIONS: Right hip pain, no injury TECHNIQUE: 2 views of the hip were acquired. COMPARISON: None. FINDINGS: Bones: [id number] bilateral hip arthrosis. Lumbosacral degenerative changes also seen. No acute displaced fracture or dislocation. Soft tissues: No suspicious calcifications. Suspected pelvic phleboliths. IMPRESSION: [id number] bilateral hip arthrosis. No acute radiographic abnormality. If there is high concern for further derangement, consider MRI evaluation. Dictated by: Romeo Ortiz M.D. on 11/17/2024 at 11:26 Approved by: Romeo Ortiz M.D. on 11/17/2024 at 11:27
== END ==
PROVIDERS: Family Provider Internal Medicine; PCP Internal Medicine; Referring Provider Physician Assistant Medical; Visit Provider Physician Assistant Medical
DX: M16.0 Bilateral primary osteoarthritis of hip (principal); M25.551 Pain in right hip
CPT/HCPCS: 73502

== ENCOUNTER → 2024-11-19 16:27 | Outpatient (CLI) | payer MEDICARE, SELFPAY ==
--- NOTE | 2024-11-19 16:30 | DI.RAD.S_ITS ---
PROCEDURE: XR THORACIC SPINE 2V INDICATIONS: BACK PAIN TECHNIQUE: 3 views of the thoracic spine were acquired. COMPARISON: [facility], CT, CT CHEST WO CON, 04/23/2022, 11:18. FINDINGS: Bones: Mild superior endplate compression fracture of L1 is of uncertain chronicity. Mild chronic wedging of T8 and T9. No other possible acute compression fractures identified. No suspicious bony lesions. 12 pairs of ribs are noted, and appear intact where visualized. Soft tissues: No paravertebral stripe thickening. IMPRESSION: A mild superior endplate compression of L1 is of uncertain chronicity. Consider lumbar spine MRI to document presence or absence of edema. Dictated by: Ezekiel Bridges M.D. on 11/20/2024 at 18:55 Approved by: Ezekiel Bridges M.D. on 11/20/2024 at 18:57
[2024-11-19 17:07] LABS: Bilirubin Urine UA NEGATIVE (NEGATIVE); Color Urine UA YELLOW; Glucose Urine UA NEGATIVE (Negative); Ketones Urine UA TRACE (NEGATIVE); Leukocyte Esterase Urine UA 1+ (NEGATIVE); Nitrite Urine UA NEGATIVE (Negative); Occult Blood Urine UA NEGATIVE (Negative); Protein Urine UA 2+ (Negative); Specific Gravity Urine UA >=1.030 (1.000-1.035); Urobilinogen Urine UA 0.2 E.U./dL (0.2)
[2024-11-19 17:23] LABS: Appearance Urine UA SL CLOUDY
[2024-11-19 17:24] LABS: Bacteria Urine None Seen; RBC Urine None Seen (0-5/HPF); Urine Volume 10mL (spun); WBC Urine 10-30/HPF (0-5/HPF)
[2024-11-19 17:25] LABS: Granular Casts Urine 10-30/LPF; Hyaline Casts Urine 5-10/LPF; Squamous Epithelial Cell Urine 0-1 /HPF (0-5/HPF)
[2024-11-19 17:27] LABS: Mucus Urine 1+ (Negative); Transitional Epi Cells Urine 1-5/HPF (0-5/HPF)
[2024-11-19 17:28] LABS: Culture Indicated Urine Specimen Cultured
== END ==
PROVIDERS: Family Provider Internal Medicine; PCP Internal Medicine; Referring Provider Internal Medicine; Visit Provider Internal Medicine
DX: M70.61 Trochanteric bursitis, right hip (principal); R35.0 Frequency of micturition
CPT/HCPCS: 72070; 81001; 87086

== ENCOUNTER 2024-11-20 11:30 | Outpatient (RCR) | payer MEDICARE, SELFPAY ==
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
--- NOTE | 2024-10-09 12:13 | PT.OTN ---
Current Diagnoses Other tear of medial meniscus, current injury, right knee, subsequent encounter (10/09/24) Sprain of medial collateral ligament of right knee, subsequent encounter (10/09/24) Sprain of lateral collateral ligament of right knee, subsequent encounter (10/09/24) Sprain of anterior cruciate ligament of right knee, subsequent encounter (10/09/24) Physical Therapy Treatment Note PT-OP-A Visit Information Start: 09/30/24 08:37 Freq: Status: Active Protocol: Document 10/09/24 11:43 MB (Rec: 10/09/24 12:13 MB [id number]) Out-Patient Physical Therapy Visit Information Visit Information Visit Type Treatment Note Visit Note 16 visits through 11/29/24 Starting 10/11/24, pt states no exercise to get HR up after right arm skin procedure Visit Start Time 11:43 Visit Stop Time 12:13 Visit Number 2 Number of CLINICAL DATA MANAGEMENT DIRECTOR Visits 0 Evaluation Information Evaluation Date 10/03/24 PT-OP-B Current Condition Start: 09/30/24 08:37 Freq: Status: Active Protocol: Document 10/03/24 11:29 MB (Rec: 10/03/24 12:05 MB [id number]) Current Condition History of Current Condition Onset Date 08/16/24 Current Complaints Achiness, fear of falling History of Current Condition 08/16/24, pt was walking in [place] and she tripped over a loose brick and she kept walking for a week durig the trip. Her knee stayed swollen for several weeks and she couldn't bend her knee. The swelling got better and the pain got worse at night. Pt has history of ankle and foot injury and she thinks it was her left side. Daughter had noticed that her gait has been shuffling and narrow. She has not had any other falls since July. Pt is afraid of fall again. She has walking sticks but she does not like using them. She saw Dr. Peralta and orthopedist after MRI. No surgery was recommended. She occ waking up due to pain. Pt is using 8 year old orthotics in shoes and she likes them. Prior Treatments and Tests Right knee MRI 08/31/24: IMPRESSION: 1. Subtle radial tear involving posterior horn of medial meniscus extending to both superior and inferior articulating surfaces. The lateral meniscus is intact. 2. Sprain/low-grade intrasubstance partial- thickness tear involving anterior cruciate ligament. No ACL rupture. The PCL is intact. 3. Low-grade MCL and LCL sprain. Distal biceps femorals tendinosis. 4. Low-grade sprain involving lateral patellofemoral ligament at its patellar insertion with adjacent soft tissue edema. No ligament rupture. No significant patellar subluxation. 5. Mild tricompartmental osteoarthritis and low-grade chondromalacia more notably in medial femoral tibial compartment. No fracture or dislocation. Small joint effusion, no loose bodies. Treatment Goals Patient/Caregiver Goals To know what she should do from here on and to have less right hip and right knee achiness PT-OP-C Subjective Start: 09/30/24 08:37 Freq: Status: Active Protocol: Document 10/09/24 11:43 MB (Rec: 10/09/24 12:13 MB [id number]) OP-PT Subjective Patient Comments Patient Comments Pt has a skin procedure on and is then not supposed to do any exercise that gets her HR up. 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 Pt wore thigh high compression on Tuesday and Tuesday and her knee hurt more. PT-OP-G Mobility & Gait Start: 09/30/24 08:37 Freq: Status: Active Protocol: Document 10/03/24 11:29 MB (Rec: 10/03/24 12:05 MB [id number]) OP Gait Assessment Comments Gait Comments Gait with socks on: slow gait and decreased toe off B, lateral WB right foot and decreased left ankle movement with gait: B stepping looks uncomfortable and pt denies neuropathy and does c/o achy feet, decreased arm swing with gait PT-OP-J Posture/Palpation/Skin Start: 09/30/24 08:37 Freq: Status: Active Protocol: Document 10/03/24 11:29 MB (Rec: 10/03/24 12:10 MB [id number]) Posture Evaluation Comments Posture Comments Left shoulder elevated and forward compared to right, increased thoracic kyphosis, left convexity is mild, increased lumbar lordosis ( sway back), right iliac crest significantly higher than the left, increased WB lateral right foot. PT-OP-K Range of Motion Start: 09/30/24 08:37 Freq: Status: Active Protocol: Document 10/03/24 11:29 MB (Rec: 10/03/24 12:05 MB [id number]) Knee Goniometric Range of Motion Knee Left Knee ROM WFL No Patient Position Supine Comments 0-115 deg Right Knee ROM WFL No Patient Position Supine Comments 0-112 deg PT-OP-M Strength Start: 09/30/24 08:37 Freq: Status: Active Protocol: Document 10/03/24 11:29 MB (Rec: 10/03/24 12:05 MB [id number]) Hip Strength Hip Manual Muscle Testing Left Flexion (L2) 4+ Good+ Abduction 4+ Good+ Right Flexion (L2) 4 Good Abduction 4+ Good+ Knee Strength Knee Manual Muscle Testing Left Flexion (S2) 4+ Good+ Extension (L3) 4+ Good+ Right Flexion (S2) 4 Good Extension (L3) 4+ Good+ Ankle/Foot Strength Ankle and Foot Manual Muscle Testing Left Dorsiflexion (L4) 5 Normal Right Dorsiflexion (L4) 5 Normal Toe Strength Toe Manual Muscle Testing Left Great Toe Extension 4 Good Right Great Toe Extension 4+ Good+ PT-OP-Q Treatments Start: 09/30/24 08:37 Freq: Status: Active Protocol: Document 10/09/24 11:43 MB (Rec: 10/09/24 12:13 MB [id number]) Cardio Equipment Recumbent Stepper (Sci-Fit) Duration (Minutes) 11 Resistance 4 Seat Position 11 Therapeutic Exercises Supine Exercises Hamstring stretch with AP MWM Supine Exercise Name HEP, HO given Side bilateral Equipment Used Towel behind knee Comments 20 reps APs Pelvic realignment exercises Supine Exercise Name HEP, HO given Side bilateral Equipment Used Towel behind knee thigh press ex Reps/Minutes 5 reps, 3 sec hold all exercises Comments Feet together ball squeeze iso , knee opp ankle iso, thigh press down iso PT-OP-T Assessment and Plan Start: 09/30/24 08:37 Freq: Status: Active Protocol: Document 10/09/24 11:43 MB (Rec: 10/09/24 12:13 MB [id number]) Physical Therapy Assessment Rehab Potential Rehabilitation Potential Fair Evaluation Complexity Number of Personal Factors/Comorbidities 1-2 Number of Body Systems Impaired 3 Clinical Presentation at Evaluation Evolving Impairments Impairments Activity Tolerance,Balance, Coordination,Edema,Functional Activities,Functional Mobility ,Gait,Pain,Posture,ROM,Soft Tissue Mobility,Strength Goals 3 Impairment Lack of HEP Correction Goal (LTG) Pt will perform progressive HEP with I including pelvic realignment, flexibility, strength and balance exercises to improve pain, strength and balance. LTG Duration 8 weeks 2 Impairment Decreased LE strength Correction Goal (LTG) Pt will present with improved B hip flexion and abduction and knee flexion and extension strength to at least 4+/5 to improve function. 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 LTG Duration 8 weeks Assessment Summary Assessment Pt has concerns about compression hose and PT ed to start with low time, in the morning when leg less swollen and not with walking to prepare with wearing when on the plane to [facility]. Initiated gentle alignment and stretching exercises today . May cancel Tue appointment d /t arm procedure on . Physical Therapy Plan Frequency and Duration Frequency of Treatment 2x/Week Duration of treatment (weeks) 8 Plan of Care Start Date 10/03/24 Plan of Care End Date 12/03/24 Therapeutic Interventions Therapeutic Interventions Balance Training,Canalithic Repositioning,Coordination Training,Gait Training,Home Exercise Program,Joint Mobilizations,Manual Therapy, Neuromuscular Re-education, Patient/Caregiver Education, Self-Care/Home Management,Soft Tissue Mobilization,Taping, Therapeutic Activities, Therapeutic Exercises Modalities Cold Pack/Ice Massage,Electric Stimulation,Hot Packs, Ultrasound Next Visit Focus/Plan Next Note Type Treatment Note Next Visit Plan Hold upright bike/cardio work for a few treatments per pt. Consider walking stick training next treatment. Initiate manual work and consider TrP treatment, consider KT to support right knee, consider Shaun stretch Consider calf and hip rotator stretches and then progressive strengthening for hips in standing including side stepping and backwards walking and balance exercises
--- NOTE | 2024-10-16 12:02 | PT.OTN ---
Current Diagnoses Other tear of medial meniscus, current injury, right knee, subsequent encounter (10/16/24) Sprain of medial collateral ligament of right knee, subsequent encounter (10/16/24) Sprain of lateral collateral ligament of right knee, subsequent encounter (10/16/24) Sprain of anterior cruciate ligament of right knee, subsequent encounter (10/16/24) Physical Therapy Treatment Note PT-OP-A Visit Information Start: 09/30/24 08:37 Freq: Status: Active Protocol: Document 10/16/24 11:23 MB (Rec: 10/16/24 12:00 MB [id number]) Out-Patient Physical Therapy Visit Information Visit Information Visit Type Treatment Note Visit Note 16 visits through 11/29/24 Visit Start Time 11:23 Visit Stop Time 12:03 Visit Number 3 Number of METER SHOP SUPERVISOR Visits 0 Evaluation Information Evaluation Date 10/03/24 PT-OP-B Current Condition Start: 09/30/24 08:37 Freq: Status: Active Protocol: Document 10/03/24 11:29 MB (Rec: 10/03/24 12:05 MB [id number]) Current Condition History of Current Condition Onset Date 08/16/24 Current Complaints Achiness, fear of falling History of Current Condition 08/16/24, pt was walking in [place] and she tripped over a loose brick and she kept walking for a week durig the trip. Her knee stayed swollen for several weeks and she couldn't bend her knee. The swelling got better and the pain got worse at night. Pt has history of ankle and foot injury and she thinks it was her left side. Daughter had noticed that her gait has been shuffling and narrow. She has not had any other falls since July. Pt is afraid of fall again. She has walking sticks but she does not like using them. She saw Dr. Peralta and orthopedist after MRI. No surgery was recommended. She occ waking up due to pain. Pt is using 8 year old orthotics in shoes and she likes them. Prior Treatments and Tests Right knee MRI 08/31/24: IMPRESSION: 1. Subtle radial tear involving posterior horn of medial meniscus extending to both superior and inferior articulating surfaces. The lateral meniscus is intact. 2. Sprain/low-grade intrasubstance partial- thickness tear involving anterior cruciate ligament. No ACL rupture. The PCL is intact. 3. Low-grade MCL and LCL sprain. Distal biceps femorals tendinosis. 4. Low-grade sprain involving lateral patellofemoral ligament at its patellar insertion with adjacent soft tissue edema. No ligament rupture. No significant patellar subluxation. 5. Mild tricompartmental osteoarthritis and low-grade chondromalacia more notably in medial femoral tibial compartment. No fracture or dislocation. Small joint effusion, no loose bodies. Treatment Goals Patient/Caregiver Goals To know what she should do from here on and to have less right hip and right knee achiness PT-OP-C Subjective Start: 09/30/24 08:37 Freq: Status: Active Protocol: Document 10/16/24 11:23 MB (Rec: 10/16/24 12:00 MB [id number]) OP-PT Subjective Patient Comments Patient Comments Pt underwent procedure for right arm skin CA and she is not using her right hand much. So, she is not using her compression hose as a result and is watching not getting her HR up. PT-OP-G Mobility & Gait Start: 09/30/24 08:37 Freq: Status: Active Protocol: Document 10/03/24 11:29 MB (Rec: 10/03/24 12:05 MB [id number]) OP Gait Assessment Comments Gait Comments Gait with socks on: slow gait and decreased toe off B, lateral WB right foot and decreased left ankle movement with gait: B stepping looks uncomfortable and pt denies neuropathy and does c/o achy feet, decreased arm swing with gait PT-OP-J Posture/Palpation/Skin Start: 09/30/24 08:37 Freq: Status: Active Protocol: Document 10/03/24 11:29 MB (Rec: 10/03/24 12:10 MB [id number]) Posture Evaluation Comments Posture Comments Left shoulder elevated and forward compared to right, increased thoracic kyphosis, left convexity is mild, increased lumbar lordosis ( sway back), right iliac crest significantly higher than the left, increased WB lateral right foot. PT-OP-K Range of Motion Start: 09/30/24 08:37 Freq: Status: Active Protocol: Document 10/03/24 11:29 MB (Rec: 10/03/24 12:05 MB [id number]) Knee Goniometric Range of Motion Knee Left Knee ROM WFL No Patient Position Supine Comments 0-115 deg Right Knee ROM WFL No Patient Position Supine Comments 0-112 deg PT-OP-M Strength Start: 09/30/24 08:37 Freq: Status: Active Protocol: Document 10/03/24 11:29 MB (Rec: 10/03/24 12:05 MB [id number]) Hip Strength Hip Manual Muscle Testing Left Flexion (L2) 4+ Good+ Abduction 4+ Good+ Right Flexion (L2) 4 Good Abduction 4+ Good+ Knee Strength Knee Manual Muscle Testing Left Flexion (S2) 4+ Good+ Extension (L3) 4+ Good+ Right Flexion (S2) 4 Good Extension (L3) 4+ Good+ Ankle/Foot Strength Ankle and Foot Manual Muscle Testing Left Dorsiflexion (L4) 5 Normal Right Dorsiflexion (L4) 5 Normal Toe Strength Toe Manual Muscle Testing Left Great Toe Extension 4 Good Right Great Toe Extension 4+ Good+ PT-OP-Q Treatments Start: 09/30/24 08:37 Freq: Status: Active Protocol: Document 10/16/24 11:23 MB (Rec: 10/16/24 12:00 MB [id number]) Cardio Equipment Recumbent Stepper (Sci-Fit) Duration (Minutes) 10 Resistance 1 Seat Position 9 Manual Therapy Treatment Consent Patient gave verbal consent for manual Yes treatment Other Other Manual Treatments Pt supine with head and legs supported: gentle STM right adductors, hamstrings, vastus lateralis, hip rotators, TFL, PFs, vastus medialis, rectus femoris PT-OP-T Assessment and Plan Start: 09/30/24 08:37 Freq: Status: Active Protocol: Document 10/16/24 11:23 MB (Rec: 10/16/24 12:00 MB [id number]) Physical Therapy Assessment Rehab Potential Rehabilitation Potential Fair Evaluation Complexity Number of Personal Factors/Comorbidities 1-2 Number of Body Systems Impaired 3 Clinical Presentation at Evaluation Evolving Impairments Impairments Activity Tolerance,Balance, Coordination,Edema,Functional Activities,Functional Mobility ,Gait,Pain,Posture,ROM,Soft Tissue Mobility,Strength Goals 3 Impairment Lack of HEP Usp Goal (LTG) Pt will perform progressive HEP with I including pelvic realignment, flexibility, strength and balance exercises to improve pain, strength and balance. LTG Duration 8 weeks 2 Impairment Decreased LE strength Usp Goal (LTG) Pt will present with improved B hip flexion and abduction and knee flexion and extension strength to at least 4+/5 to improve function. LTG Duration 8 weeks 1 Impairment Decreased gait speed Usp Goal (LTG) Pt will gait train at least 1413 feet in 6 minutes with or without walking sticks to improve community ambulation. LTG Duration 8 weeks Assessment Summary Assessment Pt concerned about right arm from skin CA removal and so stepper gently today and manual work. Pt is very sensitive with gentle manual work and so will monitor response. Physical Therapy Plan Frequency and Duration Frequency of Treatment 2x/Week Duration of treatment (weeks) 8 Plan of Care Start Date 10/03/24 Plan of Care End Date 12/03/24 Therapeutic Interventions Therapeutic Interventions Balance Training,Canalithic Repositioning,Coordination Training,Gait Training,Home Exercise Program,Joint Mobilizations,Manual Therapy, Neuromuscular Re-education, Patient/Caregiver Education, Self-Care/Home Management,Soft Tissue Mobilization,Taping, Therapeutic Activities, Therapeutic Exercises Modalities Cold Pack/Ice Massage,Electric Stimulation,Hot Packs, Ultrasound Next Visit Focus/Plan Next Note Type Treatment Note Next Visit Plan Con't gentle recumbent stepper , manual work, consider KT to support right knee, consider Shaun stretch, calf and hip rotator stretches and then gentle core strengthening, progressive strengthening for hips in standing including side stepping and backwards walking and balance exercises, consider mini wall slide for quad strengthening vs LAQ with ankle weight, Hiking stick walking training in the future, progress to upright stationary bike
--- NOTE | 2024-10-23 12:10 | PT.OTN ---
Current Diagnoses Other tear of medial meniscus, current injury, right knee, subsequent encounter (10/23/24) Sprain of medial collateral ligament of right knee, subsequent encounter (10/23/24) Sprain of lateral collateral ligament of right knee, subsequent encounter (10/23/24) Sprain of anterior cruciate ligament of right knee, subsequent encounter (10/23/24) Physical Therapy Treatment Note PT-OP-A Visit Information Start: 09/30/24 08:37 Freq: Status: Active Protocol: Document 10/23/24 11:30 MB (Rec: 10/23/24 12:10 MB [id number]) Out-Patient Physical Therapy Visit Information Visit Information Visit Type Treatment Note Visit Note 16 visits through 11/29/24 Prog note by 11/02 Visit Start Time 11:30 Visit Stop Time 12:10 Visit Number 4 Number of AIR VALVE MECHANIC Visits 0 Evaluation Information Evaluation Date 10/03/24 PT-OP-B Current Condition Start: 09/30/24 08:37 Freq: Status: Active Protocol: Document 10/03/24 11:29 MB (Rec: 10/03/24 12:05 MB [id number]) Current Condition History of Current Condition Onset Date 08/16/24 Current Complaints Achiness, fear of falling History of Current Condition 08/16/24, pt was walking in [place] and she tripped over a loose brick and she kept walking for a week durig the trip. Her knee stayed swollen for several weeks and she couldn't bend her knee. The swelling got better and the pain got worse at night. Pt has history of ankle and foot injury and she thinks it was her left side. Daughter had noticed that her gait has been shuffling and narrow. She has not had any other falls since July. Pt is afraid of fall again. She has walking sticks but she does not like using them. She saw Dr. Peralta and orthopedist after MRI. No surgery was recommended. She occ waking up due to pain. Pt is using 8 year old orthotics in shoes and she likes them. Prior Treatments and Tests Right knee MRI 08/31/24: IMPRESSION: 1. Subtle radial tear involving posterior horn of medial meniscus extending to both superior and inferior articulating surfaces. The lateral meniscus is intact. 2. Sprain/low-grade intrasubstance partial- thickness tear involving anterior cruciate ligament. No ACL rupture. The PCL is intact. 3. Low-grade MCL and LCL sprain. Distal biceps femorals tendinosis. 4. Low-grade sprain involving lateral patellofemoral ligament at its patellar insertion with adjacent soft tissue edema. No ligament rupture. No significant patellar subluxation. 5. Mild tricompartmental osteoarthritis and low-grade chondromalacia more notably in medial femoral tibial compartment. No fracture or dislocation. Small joint effusion, no loose bodies. Treatment Goals Patient/Caregiver Goals To know what she should do from here on and to have less right hip and right knee achiness PT-OP-C Subjective Start: 09/30/24 08:37 Freq: Status: Active Protocol: Document 10/23/24 11:30 MB (Rec: 10/23/24 12:10 MB [id number]) OP-PT Subjective Patient Comments Patient Comments Pt got stitches out of right arm yesterday and she is still not supposed to lift too much weight or get HR too high. She has been delinquent with exercises. PT-OP-G Mobility & Gait Start: 09/30/24 08:37 Freq: Status: Active Protocol: Document 10/03/24 11:29 MB (Rec: 10/03/24 12:05 MB [id number]) OP Gait Assessment Comments Gait Comments Gait with socks on: slow gait and decreased toe off B, lateral WB right foot and decreased left ankle movement with gait: B stepping looks uncomfortable and pt denies neuropathy and does c/o achy feet, decreased arm swing with gait PT-OP-J Posture/Palpation/Skin Start: 09/30/24 08:37 Freq: Status: Active Protocol: Document 10/03/24 11:29 MB (Rec: 10/03/24 12:10 MB [id number]) Posture Evaluation Comments Posture Comments Left shoulder elevated and forward compared to right, increased thoracic kyphosis, left convexity is mild, increased lumbar lordosis ( sway back), right iliac crest significantly higher than the left, increased WB lateral right foot. PT-OP-K Range of Motion Start: 09/30/24 08:37 Freq: Status: Active Protocol: Document 10/03/24 11:29 MB (Rec: 10/03/24 12:05 MB [id number]) Knee Goniometric Range of Motion Knee Left Knee ROM WFL No Patient Position Supine Comments 0-115 deg Right Knee ROM WFL No Patient Position Supine Comments 0-112 deg PT-OP-M Strength Start: 09/30/24 08:37 Freq: Status: Active Protocol: Document 10/03/24 11:29 MB (Rec: 10/03/24 12:05 MB [id number]) Hip Strength Hip Manual Muscle Testing Left Flexion (L2) 4+ Good+ Abduction 4+ Good+ Right Flexion (L2) 4 Good Abduction 4+ Good+ Knee Strength Knee Manual Muscle Testing Left Flexion (S2) 4+ Good+ Extension (L3) 4+ Good+ Right Flexion (S2) 4 Good Extension (L3) 4+ Good+ Ankle/Foot Strength Ankle and Foot Manual Muscle Testing Left Dorsiflexion (L4) 5 Normal Right Dorsiflexion (L4) 5 Normal Toe Strength Toe Manual Muscle Testing Left Great Toe Extension 4 Good Right Great Toe Extension 4+ Good+ PT-OP-Q Treatments Start: 09/30/24 08:37 Freq: Status: Active Protocol: Document 10/23/24 11:30 MB (Rec: 10/23/24 12:10 MB [id number]) Cardio Equipment Recumbent Stepper ([employer]) Duration (Minutes) 10 Resistance 1 Seat Position 9 Other No use of RUE Therapeutic Exercises Supine Exercises Shaun stretch Supine Exercise Name HEP and HO Side bilateral Reps/Minutes 1 rep, 30-45 sec stretch Comments [place] leg bent and foot on mat Standing Exercises Gastroc, soleus stretches and toe raises/DF after Standing Exercise Name HEP and HO Side bilateral Reps/Minutes 1 rep each stretch, both legs and then AROM toe raises, 10 reps Manual Therapy Treatment Consent Patient gave verbal consent for manual Yes treatment Other Other Manual Treatments Pt supine with head and legs supported: gentle STM right adductors, hamstrings, vastus lateralis, hip rotators, TFL, PFs, vastus medialis, rectus femoris, ongoing increased tension adductors PT-OP-T Assessment and Plan Start: 09/30/24 08:37 Freq: Status: Active Protocol: Document 10/23/24 11:30 MB (Rec: 10/23/24 12:10 MB [id number]) Physical Therapy Assessment Rehab Potential Rehabilitation Potential Fair Evaluation Complexity Number of Personal Factors/Comorbidities 1-2 Number of Body Systems Impaired 3 Clinical Presentation at Evaluation Evolving Impairments Impairments Activity Tolerance,Balance, Coordination,Edema,Functional Activities,Functional Mobility ,Gait,Pain,Posture,ROM,Soft Tissue Mobility,Strength Goals 3 Impairment Lack of HEP Usp Goal (LTG) Pt will perform progressive HEP with I including pelvic realignment, flexibility, strength and balance exercises to improve pain, strength and balance. LTG Duration 8 weeks 2 Impairment Decreased LE strength Usp Goal (LTG) Pt will present with improved B hip flexion and abduction and knee flexion and extension strength to at least 4+/5 to improve function. LTG Duration 8 weeks 1 Impairment Decreased gait speed Customer Service Representative Teller Goal (LTG) Pt will gait train at least 1413 feet in 6 minutes with or without walking sticks to improve community ambulation. LTG Duration 8 weeks Assessment Summary Assessment Right arm procedure has really bothered pt as far as pain and has limited her right arm use with leg exercises and feeling like she wants to do her exercises at home. This has been a barrier. Physical Therapy Plan Frequency and Duration Frequency of Treatment 2x/Week Duration of treatment (weeks) 8 Plan of Care Start Date 10/03/24 Plan of Care End Date 12/03/24 Therapeutic Interventions Therapeutic Interventions Balance Training,Canalithic Repositioning,Coordination Training,Gait Training,Home Exercise Program,Joint Mobilizations,Manual Therapy, Neuromuscular Re-education, Patient/Caregiver Education, Self-Care/Home Management,Soft Tissue Mobilization,Taping, Therapeutic Activities, Therapeutic Exercises Modalities Cold Pack/Ice Massage,Electric Stimulation,Hot Packs, Ultrasound Next Visit Focus/Plan Next Note Type Treatment Note Next Visit Plan Con't gentle recumbent stepper , gentle manual work, consider hip rotator stretch and then gentle core strengthening in hook lying, progressive strengthening for hips in standing including side stepping and backwards walking and balance exercises, consider mini wall slide for quad strengthening vs LAQ with ankle weight, consider teaching KT for right knee support Hiking stick walking training in the future, progress to upright stationary bike
--- NOTE | 2024-10-26 16:40 | PT.OTN ---
Current Diagnoses Other tear of medial meniscus, current injury, right knee, subsequent encounter (10/26/24) Sprain of medial collateral ligament of right knee, subsequent encounter (10/26/24) Sprain of lateral collateral ligament of right knee, subsequent encounter (10/26/24) Sprain of anterior cruciate ligament of right knee, subsequent encounter (10/26/24) Physical Therapy Treatment Note PT-OP-A Visit Information Start: 09/30/24 08:37 Freq: Status: Active Protocol: Document 10/26/24 13:32 TS (Rec: 10/26/24 16:40 TS [id number]) Out-Patient Physical Therapy Visit Information Visit Information Visit Type Treatment Note Visit Note 16 visits through 11/29/24 Prog note by 11/02 Visit Start Time 13:45 Visit Stop Time 14:25 Visit Number 5 Number of PATTERNMAKER Visits 1 Evaluation Information Evaluation Date 10/03/24 PT-OP-B Current Condition Start: 09/30/24 08:37 Freq: Status: Active Protocol: Document 10/03/24 11:29 MB (Rec: 10/03/24 12:05 MB [id number]) Current Condition History of Current Condition Onset Date 08/16/24 Current Complaints Achiness, fear of falling History of Current Condition 08/16/24, pt was walking in [place] and she tripped over a loose brick and she kept walking for a week durig the trip. Her knee stayed swollen for several weeks and she couldn't bend her knee. The swelling got better and the pain got worse at night. Pt has history of ankle and foot injury and she thinks it was her left side. Daughter had noticed that her gait has been shuffling and narrow. She has not had any other falls since July. Pt is afraid of fall again. She has walking sticks but she does not like using them. She saw Dr. Peralta and orthopedist after MRI. No surgery was recommended. She occ waking up due to pain. Pt is using 8 year old orthotics in shoes and she likes them. Prior Treatments and Tests Right knee MRI 08/31/24: IMPRESSION: 1. Subtle radial tear involving posterior horn of medial meniscus extending to both superior and inferior articulating surfaces. The lateral meniscus is intact. 2. Sprain/low-grade intrasubstance partial- thickness tear involving anterior cruciate ligament. No ACL rupture. The PCL is intact. 3. Low-grade MCL and LCL sprain. Distal biceps femorals tendinosis. 4. Low-grade sprain involving lateral patellofemoral ligament at its patellar insertion with adjacent soft tissue edema. No ligament rupture. No significant patellar subluxation. 5. Mild tricompartmental osteoarthritis and low-grade chondromalacia more notably in medial femoral tibial compartment. No fracture or dislocation. Small joint effusion, no loose bodies. Treatment Goals Patient/Caregiver Goals To know what she should do from here on and to have less right hip and right knee achiness PT-OP-C Subjective Start: 09/30/24 08:37 Freq: Status: Active Protocol: Document 10/26/24 13:32 TS (Rec: 10/26/24 16:40 TS [id number]) OP-PT Subjective Patient Comments Patient Comments Pt reports she can increase her HR next week. She continues to not use R arm. She has not been doing her HEP much at home. Reports pain is 3/10. She is disappointed in her current functional level. PT-OP-G Mobility & Gait Start: 09/30/24 08:37 Freq: Status: Active Protocol: Document 10/03/24 11:29 MB (Rec: 10/03/24 12:05 MB [id number]) OP Gait Assessment Comments Gait Comments Gait with socks on: slow gait and decreased toe off B, lateral WB right foot and decreased left ankle movement with gait: B stepping looks uncomfortable and pt denies neuropathy and does c/o achy feet, decreased arm swing with gait PT-OP-J Posture/Palpation/Skin Start: 09/30/24 08:37 Freq: Status: Active Protocol: Document 10/03/24 11:29 MB (Rec: 10/03/24 12:10 MB [id number]) Posture Evaluation Comments Posture Comments Left shoulder elevated and forward compared to right, increased thoracic kyphosis, left convexity is mild, increased lumbar lordosis ( sway back), right iliac crest significantly higher than the left, increased WB lateral right foot. PT-OP-K Range of Motion Start: 09/30/24 08:37 Freq: Status: Active Protocol: Document 10/03/24 11:29 MB (Rec: 10/03/24 12:05 MB [id number]) Knee Goniometric Range of Motion Knee Left Knee ROM WFL No Patient Position Supine Comments 0-115 deg Right Knee ROM WFL No Patient Position Supine Comments 0-112 deg PT-OP-M Strength Start: 09/30/24 08:37 Freq: Status: Active Protocol: Document 10/03/24 11:29 MB (Rec: 10/03/24 12:05 MB [id number]) Hip Strength Hip Manual Muscle Testing Left Flexion (L2) 4+ Good+ Abduction 4+ Good+ Right Flexion (L2) 4 Good Abduction 4+ Good+ Knee Strength Knee Manual Muscle Testing Left Flexion (S2) 4+ Good+ Extension (L3) 4+ Good+ Right Flexion (S2) 4 Good Extension (L3) 4+ Good+ Ankle/Foot Strength Ankle and Foot Manual Muscle Testing Left Dorsiflexion (L4) 5 Normal Right Dorsiflexion (L4) 5 Normal Toe Strength Toe Manual Muscle Testing Left Great Toe Extension 4 Good Right Great Toe Extension 4+ Good+ PT-OP-Q Treatments Start: 09/30/24 08:37 Freq: Status: Active Protocol: Document 10/26/24 13:32 TS (Rec: 10/26/24 16:40 TS [id number]) Cardio Equipment Recumbent Elliptical ([employer]) Duration (Minutes) 10 Seat Position 9 Therapeutic Exercises Sitting Exercises LAQ Side bilateral Reps/Minutes x10 Comments 2#'s Standing Exercises BWD Walk Reps/Minutes 2x10' Comments unsteady Sidestepping Resistance lvl 1 Reps/Minutes 4x10' Comments Has discomfort in R hamstring Manual Therapy Treatment Consent Patient gave verbal consent for manual Yes treatment Other Other Manual Treatments R Adductors, hamstring, quads. Pt very tender in R hamstring . PT-OP-T Assessment and Plan Start: 09/30/24 08:37 Freq: Status: Active Protocol: Document 10/26/24 13:32 TS (Rec: 10/26/24 16:40 TS [id number]) Physical Therapy Assessment Goals 3 Impairment Lack of HEP Detention Goal (LTG) Pt will perform progressive HEP with I including pelvic realignment, flexibility, strength and balance exercises to improve pain, strength and balance. LTG Duration 8 weeks 2 Impairment Decreased LE strength Movie Critic Goal (LTG) Pt will present with improved B hip flexion and abduction and knee flexion and extension strength to at least 4+/5 to improve function. LTG Duration 8 weeks 1 Impairment Decreased gait speed Detention Goal (LTG) Pt will gait train at least 1413 feet in 6 minutes with or without walking sticks to improve community ambulation. LTG Duration 8 weeks Assessment Summary Assessment Pt contnues to be bothered by R arm procedure. She reports she can increase her HR to higher levels next week. Introduced LAQ with weight, sidestepping and BWD walk. Pt has a lot of tenderness in R hamstring with light touch. Her activity tolerance is low. Physical Therapy Plan Next Visit Focus/Plan Next Note Type Treatment Note Next Visit Plan Continue manual, progress standing ex and balance.
--- NOTE | 2024-11-20 12:15 | PT.OTN ---
Current Diagnoses Other tear of medial meniscus, current injury, right knee, subsequent encounter (11/20/24) Sprain of medial collateral ligament of right knee, subsequent encounter (11/20/24) Sprain of lateral collateral ligament of right knee, subsequent encounter (11/20/24) Sprain of anterior cruciate ligament of right knee, subsequent encounter (11/20/24) Physical Therapy Treatment Note PT-OP-A Visit Information Start: 09/30/24 08:37 Freq: Status: Active Protocol: Document 11/20/24 11:29 MB (Rec: 11/20/24 12:15 MB [id number]) Out-Patient Physical Therapy Visit Information Visit Information Visit Type Discharge Summary Visit Note 16 visits through 12/21/24 Pt has insurance change as of 11/21/24 Visit Start Time 11:29 Visit Stop Time 12:09 Visit Number 6 Number of TUFTING MACHINE FIXER Visits 0 Evaluation Information Evaluation Date 10/03/24 PT-OP-B Current Condition Start: 09/30/24 08:37 Freq: Status: Active Protocol: Document 10/03/24 11:29 MB (Rec: 10/03/24 12:05 MB [id number]) Current Condition History of Current Condition Onset Date 08/16/24 Current Complaints Achiness, fear of falling History of Current Condition 08/16/24, pt was walking in [place] and she tripped over a loose brick and she kept walking for a week durig the trip. Her knee stayed swollen for several weeks and she couldn't bend her knee. The swelling got better and the pain got worse at night. Pt has history of ankle and foot injury and she thinks it was her left side. Daughter had noticed that her gait has been shuffling and narrow. She has not had any other falls since July. Pt is afraid of fall again. She has walking sticks but she does not like using them. She saw Dr. Peralta and orthopedist after MRI. No surgery was recommended. She occ waking up due to pain. Pt is using 8 year old orthotics in shoes and she likes them. Prior Treatments and Tests Right knee MRI 08/31/24: IMPRESSION: 1. Subtle radial tear involving posterior horn of medial meniscus extending to both superior and inferior articulating surfaces. The lateral meniscus is intact. 2. Sprain/low-grade intrasubstance partial- thickness tear involving anterior cruciate ligament. No ACL rupture. The PCL is intact. 3. Low-grade MCL and LCL sprain. Distal biceps femorals tendinosis. 4. Low-grade sprain involving lateral patellofemoral ligament at its patellar insertion with adjacent soft tissue edema. No ligament rupture. No significant patellar subluxation. 5. Mild tricompartmental osteoarthritis and low-grade chondromalacia more notably in medial femoral tibial compartment. No fracture or dislocation. Small joint effusion, no loose bodies. Treatment Goals Patient/Caregiver Goals To know what she should do from here on and to have less right hip and right knee achiness PT-OP-C Subjective Start: 09/30/24 08:37 Freq: Status: Active Protocol: Document 11/20/24 11:29 MB (Rec: 11/20/24 12:15 MB [id number]) OP-PT Subjective Patient Comments Patient Comments Pt arrives with referral/order for LB, right greater trochanter and sciatic pain. PT communicated with insurance reviewer for clinic who states that PT cannot add to this auth and PT communicates with pt. Pt reports pain that got worse after driving January. Pain keeps her awake at night and she is urinating more and getting up at night to urinate. PT-OP-G Mobility & Gait Start: 09/30/24 08:37 Freq: Status: Active Protocol: Document 10/03/24 11:29 MB (Rec: 10/03/24 12:05 MB [id number]) OP Gait Assessment Comments Gait Comments Gait with socks on: slow gait and decreased toe off B, lateral WB right foot and decreased left ankle movement with gait: B stepping looks uncomfortable and pt denies neuropathy and does c/o achy feet, decreased arm swing with gait PT-OP-J Posture/Palpation/Skin Start: 09/30/24 08:37 Freq: Status: Active Protocol: Document 10/03/24 11:29 MB (Rec: 10/03/24 12:10 MB [id number]) Posture Evaluation Comments Posture Comments Left shoulder elevated and forward compared to right, increased thoracic kyphosis, left convexity is mild, increased lumbar lordosis ( sway back), right iliac crest significantly higher than the left, increased WB lateral right foot. PT-OP-K Range of Motion Start: 09/30/24 08:37 Freq: Status: Active Protocol: Document 10/03/24 11:29 MB (Rec: 10/03/24 12:05 MB [id number]) Knee Goniometric Range of Motion Knee Left Knee ROM WFL No Patient Position Supine Comments 0-115 deg Right Knee ROM WFL No Patient Position Supine Comments 0-112 deg PT-OP-M Strength Start: 09/30/24 08:37 Freq: Status: Active Protocol: Document 10/03/24 11:29 MB (Rec: 10/03/24 12:05 MB [id number]) Hip Strength Hip Manual Muscle Testing Left Flexion (L2) 4+ Good+ Abduction 4+ Good+ Right Flexion (L2) 4 Good Abduction 4+ Good+ Knee Strength Knee Manual Muscle Testing Left Flexion (S2) 4+ Good+ Extension (L3) 4+ Good+ Right Flexion (S2) 4 Good Extension (L3) 4+ Good+ Ankle/Foot Strength Ankle and Foot Manual Muscle Testing Left Dorsiflexion (L4) 5 Normal Right Dorsiflexion (L4) 5 Normal Toe Strength Toe Manual Muscle Testing Left Great Toe Extension 4 Good Right Great Toe Extension 4+ Good+ PT-OP-Q Treatments Start: 09/30/24 08:37 Freq: Status: Active Protocol: Document 11/20/24 11:29 MB (Rec: 11/20/24 12:15 MB [id number]) Cardio Equipment Recumbent Stepper (Sci-Fit) Duration (Minutes) 10 Resistance 1 Seat Position 11 Other No UE use Therapeutic Exercises Supine Exercises Pelvic realignment exercises Supine Exercise Name Reviewed for HEP and pt has not been performing at home Side bilateral Equipment Used Towel behind knee thigh press ex Reps/Minutes 5 reps, 3 sec hold all exercises Comments Feet together ball squeeze iso , knee opp ankle iso, thigh press down iso Manual Therapy Treatment Consent Patient gave verbal consent for manual Yes treatment Other Other Manual Treatments STM right iliopsoas, hip rotators, TFL, vastus lateralis and medial hamstrings Self-Care/Home Management Treatment Education Caregiver Education Education for pt to con't with pelvic realignment exercises gently twice a day, that she was already given this PT course and to help with new pain symptoms, ed in benefits of ice and heat, use of pillow between legs at home and gentle walking PT-OP-T Assessment and Plan Start: 09/30/24 08:37 Freq: Status: Active Protocol: Document 11/20/24 11:29 MB (Rec: 11/20/24 12:15 MB [id number]) Physical Therapy Assessment Rehab Potential Rehabilitation Potential Fair Evaluation Complexity Number of Personal Factors/Comorbidities 1-2 Number of Body Systems Impaired 3 Clinical Presentation at Evaluation Evolving Impairments Impairments Activity Tolerance,Balance, Coordination,Edema,Functional Activities,Functional Mobility ,Gait,Pain,Posture,ROM,Soft Tissue Mobility,Strength Goals 3 Impairment Lack of HEP Human Resource Analyst Goal (LTG) Pt will perform progressive HEP with I including pelvic realignment, flexibility, strength and balance exercises to improve pain, strength and balance. LTG Duration Minimal progression 2 Impairment Decreased LE strength Detention Goal (LTG) Pt will present with improved B hip flexion and abduction and knee flexion and extension strength to at least 4+/5 to improve function. LTG Duration Unable to test d/t right hip pain 1 Impairment Decreased gait speed Detention Goal (LTG) Pt will gait train at least 1413 feet in 6 minutes with or without walking sticks to improve community ambulation. LTG Duration Unable to tolerate today Assessment Summary Assessment Right arm is better. Pt arrives with referral/order for LB, right greater trochanter and sciatic pain. PT communicated with insurance reviewer for clinic who states that PT cannot add to this auth and PT communicates with pt. Right hip x-ray 11/17: Axop-nu-[id number] bilateral hip arthrosis. Lumbosacral degenerative changes also seen. No acute displaced fracture or dislocation. Soft tissues: No suspicious calcifications. Suspected pelvic phleboliths. IMPRESSION: Iulf-[id number] bilateral hip arthrosis. No acute radiographic abnormality. If there is high concern for further derangement, consider MRI evaluation. Thoracic spine x-ray from yesterday not yet related. Progress note for right knee today is limited and opted to d/c this PT course and will start a new PT cycle next week to address full body/pain. Physical Therapy Plan Frequency and Duration Frequency of Treatment 2x/Week Duration of treatment (weeks) 8 Plan of Care Start Date 10/03/24 Plan of Care End Date 12/03/24 Therapeutic Interventions Therapeutic Interventions Balance Training,Canalithic Repositioning,Coordination Training,Gait Training,Home Exercise Program,Joint Mobilizations,Manual Therapy, Neuromuscular Re-education, Patient/Caregiver Education, Self-Care/Home Management,Soft Tissue Mobilization,Taping, Therapeutic Activities, Therapeutic Exercises Modalities Cold Pack/Ice Massage,Electric Stimulation,Hot Packs, Ultrasound Next Visit Focus/Plan Next Note Type Treatment Note Next Visit Plan Con't gentle recumbent stepper , gentle manual work, consider hip rotator stretch and then gentle core strengthening in hook lying, progressive strengthening for hips in standing including side stepping and backwards walking and balance exercises, consider mini wall slide for quad strengthening vs LAQ with ankle weight, consider teaching KT for right knee support Hiking stick walking training in the future, progress to upright stationary bike
== END 2024-11-26 13:59 | disposition home or self-care (01) ==
LOC: PHYS 11:30
PROVIDERS: Family Provider Internal Medicine; PCP Internal Medicine; Referring Provider Internal Medicine; Visit Provider Internal Medicine
DX: S83.241D Other tear of medial meniscus, current injury, right knee, subsequent encounter (principal); S83.511D Sprain of anterior cruciate ligament of right knee, subsequent encounter; S83.411D Sprain of medial collateral ligament of right knee, subsequent encounter; S83.421D Sprain of lateral collateral ligament of right knee, subsequent encounter
CPT/HCPCS: 97110; 97140; 97161; 97535

== ENCOUNTER → 2024-12-07 09:15 | Outpatient (CLI) | payer MEDICARE, SELFPAY ==
--- NOTE | 2024-12-07 09:16 | DI.MRI.S_ITS ---
PROCEDURE: MR LUMBAR SPINE WO CON INDICATIONS: LOW BACK PAIN,TRAUMA TECHNIQUE: Noncontrast sagittal T1 spin echo and T2 fast echo, sagittal STIR, and T2 fast spin echo through the lumbar spine. In cases with scoliosis, additional coronal T2 fast spin echo may be performed. COMPARISON: [facility], CR, XR THORACIC SPINE 2V, 11/19/2024, 16:38. FINDINGS: Image quality: Excellent. Alignment and Curvature: Mild S-shaped scoliosis. Trace retrolisthesis L1 on two. Bone Marrow: [id number]-[id number] compression fracture of L1 with moderate, bandlike T1 and T2 hyperintensity consistent with acute or subacute fracture. There is a minimally displaced osseous fragment at the right posterolateral corner with trace retropulsion. Nondisplaced pedicle fractures are not entirely excluded. Elsewhere, there are minor endplate type 2 Modic changes, irregularity, and trace spurring at all other lumbar levels. Spinal Cord: Conus medullaris terminates at the L2 level. Visualized cord demonstrates normal signal and size. Paraspinous Soft Tissues: No paravertebral masses. T12-L1: Disc desiccation and mild degenerative disc loss. Right posterior low L1 fracture fragment minimally indents on central canal, 7/5. There is mild ligamentum flavum hypertrophy. Mild circumferential disc bulge. No significant central canal or foraminal stenosis. L1-L2: Moderate disc height loss and circumferential disc osteophyte. Mild ligamentum flavum hypertrophy. Mild bilateral neural foraminal narrowing. L2-L3: Moderate disc height loss and circumferential disc osteophyte. Moderate facet arthropathy and mild central canal narrowing. Mild left, and moderate right foraminal narrowing. L3-L4: Moderate facet arthropathy and ligamentum flavum hypertrophy. Moderate disc height loss and circumferential disc osteophyte. Mild bilateral foraminal narrowing. L4-L5: Severe disc height loss. Moderate circumferential disc osteophyte. Moderate facet arthropathy. Moderate to severe left foraminal stenosis. L5-S1: Nbsy-ds-hdbclsqo facet arthropathy. Moderate to severe disc height loss and circumferential disc bulge. Mild left foraminal narrowing.. IMPRESSION: Acute/subacute L1 compression fracture with minimal retropulsion of fracture fragments. Consider vertebroplasty if this level is symptomatic. Multilevel disc height loss, disc osteophyte bulge, and facet arthropathy causing multilevel foraminal narrowing as described, most severe on the left at L4-5. Dictated by: Freya Woodard M.D. on 12/07/2024 at 12:31 Approved by: Freya Woodard M.D. on 12/07/2024 at 12:48
== END ==
LOC: MRI 09:16
PROVIDERS: Family Provider Internal Medicine; PCP Internal Medicine; Referring Provider Internal Medicine; Visit Provider Internal Medicine
DX: M48.56XA Collapsed vertebra, not elsewhere classified, lumbar region, initial encounter for fracture (principal); M47.817 Spondylosis without myelopathy or radiculopathy, lumbosacral region; M47.816 Spondylosis without myelopathy or radiculopathy, lumbar region; M51.370 Other intervertebral disc degeneration, lumbosacral region with discogenic back pain only; M51.360 Other intervertebral disc degeneration, lumbar region with discogenic back pain only; M48.061 Spinal stenosis, lumbar region without neurogenic claudication; M48.07 Spinal stenosis, lumbosacral region
CPT/HCPCS: 72148

== ENCOUNTER → 2025-02-12 10:40 | Outpatient (CLI) | payer MEDICARE, SELFPAY ==
--- NOTE | 2025-02-12 10:41 | DI.RAD.S_ITS ---
PROCEDURE: XR DEXA AXIAL SKELETON INDICATIONS: Osteoporosis screening COMPARISON: [facility], CR, XR DEXA AXIAL SKELETON, 08/30/2023, 10:37. FINDINGS: Lumbar Spine: Bone mineral density 1.132 (previously 1.122) g/cm2, T score 0.5 (previously 0.7). Left Femoral Neck: Bone mineral density 0.587 (previously 0.628) g/cm2, T score -2.4 (previously -2.0). Left Hip: Bone mineral density 0.725 (previously 0.717) g/cm2, T score -1.8 (previously -1.8). Fracture Risk Calculation (when applicable): 10-year fracture risk of a major osteoporotic fracture 24 percent and of a hip fracture 6.9 percent. (T score greater or equal to -1.0 to: NORMAL) (T score from -1.1 to -2.4: OSTEOPENIA) (T score less than or equal to -2.5: OSTEOPOROSIS) IMPRESSION: Osteopenia---recommend repeat DEXA in 2-3 years for reassessment. Follow-up guidelines as follows: Osteoporosis: Consider a repeat DEXA and Vertebral Fracture Assessment (VFA) exam in 2 years or sooner if medically necessary, to reassess this patient's status. Osteopenia: Consider a repeat DEXA in 2-3 years to reassess this patient's status, or if there is a new clinical indication. Normal: Consider a repeat DEXA in 5 years or sooner, or if there is a new clinical indication. All treatment decisions require clinical judgment and consideration of individual patient factors, including patient preferences, comorbidities, previous drug use, risk factors not captured in the FRAX model (e.g., frailty, falls, vitamin D deficiency, increased bone turnover, interval significant decline in bone density ) and possible under- or over-estimation of fracture risk by FRAX. In addition, the NOF Guide recommends that FDA-approved medical therapies be considered in postmenopausal women and men age >= 50 years with a: * Hip or vertebral (clinical or morphometric) fracture * T-score of <=-2.5 at the spine or hip * Ten-year fracture probability by FRAX of >= 3% for hip fracture or >=20% for major osteoporotic fracture. Dictated by: Ej Hampton M.D. on 02/12/2025 at 16:36 Approved by: Ej Hampton M.D. on 02/12/2025 at 16:40
== END ==
PROVIDERS: Family Provider Internal Medicine; PCP Internal Medicine; Referring Provider Internal Medicine; Visit Provider Internal Medicine
DX: M81.0 Age-related osteoporosis without current pathological fracture (principal)
CPT/HCPCS: 77080

== ENCOUNTER → 2025-03-14 07:58 | Outpatient (CLI) | payer MEDICARE, SELFPAY ==
[2025-03-14 10:20] LABS: Albumin 4.2 g/dL (3.5-5.0); BUN Creatinine Ratio 28.8 (6-22); Blood Urea Nitrogen 23 mg/dL (7-17); Calcium 9.3 mg/dL (8.4-10.2); Carbon Dioxide 23 mmol/L (22-32); Chloride 105 mmol/L (98-107); Estimated Glomerular Filt Rate > 60 mL/min (>60); Glucose 104 mg/dL (70-99); HEMOLYSIS < 15 (0-50); Phosphorous 4.8 mg/dL (2.8-4.1); Potassium 4.2 mmol/L (3.4-5.1); Sodium 138 mmol/L (137-145)
[2025-03-14 10:34] LABS: Vitamin D 25 Hydroxy (D3) 55.9 ng/mL (30.0-100.0)
[2025-03-14 10:47] LABS: Thyroid Stimulating Hormone 1.19 uIU/mL (0.47-4.68)
[2025-03-15 06:36] LABS: Parathyroid Hormone Int 48 pg/mL (15-65)
== END ==
PROVIDERS: Family Provider Internal Medicine; PCP Internal Medicine; Referring Provider Student in an Organized Health Care Education/Training Program; Visit Provider Student in an Organized Health Care Education/Training Program
DX: M81.0 Age-related osteoporosis without current pathological fracture (principal)
CPT/HCPCS: 36415; 80069; 82306; 82523; 83970; 84155; 84165; 84439; 84443

== ENCOUNTER → 2025-03-28 11:52 | Outpatient (CLI) | payer MEDICARE, SELFPAY ==
[2025-03-28 13:04] LABS: BUN Creatinine Ratio 25.7 (6-22); Blood Urea Nitrogen 19 mg/dL (7-17); Calcium 9.3 mg/dL (8.4-10.2); Carbon Dioxide 25 mmol/L (22-32); Chloride 107 mmol/L (98-107); Estimated Glomerular Filt Rate > 60 mL/min (>60); Glucose 73 mg/dL (70-99); HEMOLYSIS < 15 (0-50); Potassium 4.6 mmol/L (3.4-5.1); Sodium 138 mmol/L (137-145)
[2025-03-28 13:26] LABS: Free T4, Direct Thyroxine 0.98 ng/dL (0.78-2.19)
[2025-03-28 13:40] LABS: Thyroid Stimulating Hormone 2.05 uIU/mL (0.47-4.68)
[2025-03-28 15:38] LABS: Vitamin D 25 Hydroxy (D3) 49.4 ng/mL (30.0-100.0)
[2025-03-29 07:40] LABS: Parathyroid Hormone Int 35 pg/mL (15-65)
== END ==
PROVIDERS: Student in an Organized Health Care Education/Training Program; Family Provider Internal Medicine; PCP Internal Medicine; Referring Provider Internal Medicine; Visit Provider Internal Medicine
DX: M81.0 Age-related osteoporosis without current pathological fracture (principal)
CPT/HCPCS: 36415; 80069; 82306; 82523; 83970; 84155; 84165; 84439; 84443

== ENCOUNTER 2025-04-24 11:30 | Outpatient (RCR) | payer MEDICARE, OTHER, SELFPAY ==
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
--- NOTE | 2024-12-05 10:31 | PT.OTN ---
Current Diagnoses Low back pain, unspecified (12/05/24) Trochanteric bursitis, right hip (12/05/24) Physical Therapy Treatment Note PT-OP-A Visit Information Start: 11/20/24 13:07 Freq: Status: Active Protocol: Document 12/05/24 09:46 MB (Rec: 12/05/24 10:30 MB [id number]) Out-Patient Physical Therapy Visit Information Visit Information Visit Type Treatment Note Visit Note Blue Shield PPO Medicare Progress note by 12/29/24 Visit Start Time 09:46 Visit Stop Time 10:26 Visit Number 2 Number of WELDING MACHINE OPERATOR HELPER GAS Visits 0 Evaluation Information Evaluation Date 11/28/24 Precautions Precautions Be mindful of spine s/p OP and L1 compression fracture, keep back precautions and log rolling in mind PT-OP-B Current Condition Start: 11/20/24 13:07 Freq: Status: Active Protocol: Document 11/28/24 10:50 MB (Rec: 11/28/24 11:30 MB [id number]) Current Condition History of Current Condition Onset Date 11/08/24 after end of long flight and car travel Current Complaints Right lateral hip, SI and groin pain History of Current Condition Pt states she has started Gabapentin and it is making her a little dizzy and a little slow. She is doing calf stretches and pelvic realignment exercises as instructed by this PT from last PT course and she is up to walking 10 minutes around her house. With the Gabapentin, pt is not having as much sharp spasms in back and into leg. She denies numbness and tingling in right leg. Pt had a bad fall 08/20 on brick in [place] and hurt her right knee and hip. Prior Treatments and Tests Right hip x-ray 11/17: IMPRESSION: Kmoq-ac-jhrknteh bilateral hip arthrosis. No acute radiographic abnormality. If there is high concern for further derangement, consider MRI evaluation. Thoracic spine 11/19: FINDINGS: Bones: Mild superior endplate compression fracture of L1 is of uncertain chronicity. Mild chronic wedging of T8 and T9. No other possible acute compression fractures identified. No suspicious bony lesions. 12 pairs of ribs are noted, and appear intact where visualized. Soft tissues: No paravertebral stripe thickening. IMPRESSION: A mild superior endplate compression of L1 is of uncertain chronicity. Consider lumbar spine MRI to document presence or absence of edema. Treatment Goals Patient/Caregiver Goals To decrease pain PT-OP-C Subjective Start: 11/20/24 13:07 Freq: Status: Active Protocol: Document 12/05/24 09:46 MB (Rec: 12/05/24 10:30 MB [id number]) OP-PT Subjective Patient Comments Patient Comments Pt saw COPPER MINER at acute back pain clinic in [place] on Tuesday. MRI was ordered and she will get it this Tuesday. She has a new insurance and is having to have prior auth before MRI and possible treatment/ injection. PT-OP-G Mobility & Gait Start: 11/20/24 13:07 Freq: Status: Active Protocol: Document 11/28/24 10:50 MB (Rec: 11/28/24 16:48 MB [id number]) OP Gait Assessment Comments Gait Comments Pt con't with slow gait, antalgic gait pattern and forward flexed posture and she tends to keep her arms behind her back PT-OP-J Posture/Palpation/Skin Start: 11/20/24 13:07 Freq: Status: Active Protocol: Document 11/28/24 10:50 MB (Rec: 11/28/24 11:30 MB [id number]) Posture Evaluation Comments Posture Comments Standing posture: thoracic kyphosis and left convexity thoracic spine, right convexity lumbar spine and increase lordosis, right iliac crest is higher than the left , posture has left lateral shift in standing with right shoulder medial to right hip and left shoulder lateral to left hip Spinal movement in standing: forward flexion with fingers 2 from the floor, repeated flexion does not increase symptoms, feels tightness in hamstrings; lumbar extension is very minimal at 2 deg and repeated extension does increase symptoms; B SB with increased weight shift laterally and more to the right with left SB and SB about 10 deg B and increased tightness with movement. PT-OP-M Strength Start: 11/20/24 13:07 Freq: Status: Active Protocol: Document 11/28/24 10:50 MB (Rec: 11/28/24 11:30 MB [id number]) Hip Strength Hip Manual Muscle Testing Left Flexion (L2) 5 Normal Abduction 5 Normal Right Flexion (L2) 4+ Good+ Abduction 4+ Good+ Knee Strength Knee Manual Muscle Testing Left Flexion (S2) 5 Normal Extension (L3) 5 Normal Right Flexion (S2) 4+ Good+ Extension (L3) 4+ Good+ Ankle/Foot Strength Ankle and Foot Manual Muscle Testing Bilateral Dorsiflexion (L4) 5 Normal Toe Strength Toe Manual Muscle Testing Left Great Toe Extension 4- Good- Right Great Toe Extension 4 Good PT-OP-Q Treatments Start: 11/20/24 13:07 Freq: Status: Active Protocol: Document 12/05/24 09:46 MB (Rec: 12/05/24 10:30 MB [id number]) Manual Therapy Treatment Consent Patient gave verbal consent for manual Yes treatment Other Other Manual Treatments Pt in sidelying with double pillow under head and one flat under ribs and side and one between legs: STM B PFs, vastus lateralis, hamstrings, TFL, glutes, paraspinals, QL, hip flexors and increased tension left glute min Self-Care/Home Management Treatment Education Other Education Wrote out on paper for pt to ask back clinic provider about TLSO to help protect L1 compression fracture, possibly Spinomed IV, though scoliotic changes may be a challenge, re-discussed benefits of pool for activity and pt is not interested PT-OP-T Assessment and Plan Start: 11/20/24 13:07 Freq: Status: Active Protocol: Document 12/05/24 09:46 MB (Rec: 12/05/24 10:30 MB [id number]) Physical Therapy Assessment Rehab Potential Rehabilitation Potential Fair Evaluation Complexity Number of Personal Factors/Comorbidities 1-2 Number of Body Systems Impaired 1-2 Clinical Presentation at Evaluation Evolving Impairments Impairments Activity Tolerance,Balance, Coordination,Functional Activities,Functional Mobility ,Gait,Pain,Posture,ROM,Soft Tissue Mobility,Strength Goals 4 Impairment Lack of HEP Ladle Mechanic Goal (LTG) Pt will perform HEP with I including pelvic realignment exercises, flexibility, gentle core and LE strengthening, and balance exercises to improve pain and function. LTG Duration 8 weeks 3 Impairment Evidence of imbalance Ladle Mechanic Goal (LTG) Pt will perform WNLs on a standardized balance test to decrease fall risk. LTG Duration 8 weeks 2 Impairment Painful walking [facility] Goal (LTG) Pt will gait train at least 1413 feet in 6 minutes with or without AD to improve community ambulation. LTG Duration 8 weeks 1 Impairment LEF score reflects over 43% impairment Ladle Mechanic Goal (LTG) Pt will present with an improved LEF score to reflect no more than 30% impairment to improve functional mobility and quality of life. LTG Duration 8 weeks Assessment Summary Assessment Initiated manual work on side today and tolerates well. Awaiting MRI, then possible injection next week and ?TLSO and scoliosis may make a brace challenging but a brace could decrease pain and allow more walking. Physical Therapy Plan Frequency and Duration Frequency of Treatment 2x/Week Duration of treatment (weeks) 8 Plan of Care Start Date 11/28/24 Plan of Care End Date 01/28/25 Therapeutic Interventions Therapeutic Interventions Balance Training,Canalithic Repositioning,Coordination Training,Gait Training,Home Exercise Program,Joint Mobilizations,Manual Therapy, Neuromuscular Re-education, Patient/Caregiver Education, Self-Care/Home Management,Soft Tissue Mobilization,Taping, Therapeutic Activities, Therapeutic Exercises Modalities Cold Pack/Ice Massage,Electric Stimulation,Hot Packs, Ultrasound Next Visit Focus/Plan Next Note Type Treatment Note Next Visit Plan Check how she felt with manual work in side lying and progress flexibility for legs and gentle for thoracic spine, diaphragm breathing, pelvic tilt and abdominal drawing in, Shaun stretch, hamstring stretches. Try side lying with pillow support and gently abducting top arm overhead to see if this gentle stretch helps--QL, latissimus.
--- NOTE | 2024-12-09 09:11 | PT-IP ANOTE ---
Pt sends PT several emails, alerts PT to lumbar MRI results below. She sees INPATIENT SERVICES DIRECTOR 12/10/24, quality control operator 12/11/24 and this PT 12/12/24. PT has known that pt has L1 compression fracture from previous treatments. Fracture fragments are new finding to the PT. Will assess how she felt after last treatment with PT. If she reports increased pain, consider d/c PT. If pt has a procedure ordered by quality control operator such as vertebroplasty, will d/c PT and get new orders at that time. Pt may benefit from TLSO and PT ed pt about this and wrote it down for her last treatment date. Pt appears very concerned about PT leaving INPATIENT SERVICES DIRECTOR instructions about PT treatment and PT has encouraged pt that as with all patients and in her previous PT course, PT has created a POC and next treatment notes, which is standard of care. Lumbar MRI 12/07/24: IMPRESSION: Acute/subacute L1 compression fracture with minimal retropulsion of fracture fragments. Consider vertebroplasty if this level is symptomatic. Multilevel disc height loss, disc osteophyte bulge, and facet arthropathy causing multilevel foraminal narrowing as described, most severe on the left at L4-5.
--- NOTE | 2024-12-09 09:16 | PT-OP ANOTE ---
Pt sends PT several emails, alerts PT to lumbar MRI results below. She sees DELIVERY STOCK CLERK 12/10/24, it risk advisor 12/11/24 and this PT 12/12/24. PT has known that pt has L1 compression fracture from previous treatments. Fracture fragments are new finding to the PT. Will assess how she felt after last treatment with PT. If she reports increased pain, consider d/c PT. If pt has a procedure ordered by it risk advisor such as vertebroplasty, will d/c PT and get new orders at that time. Pt may benefit from TLSO and PT ed pt about this and wrote it down for her last treatment date. Pt appears very concerned about PT leaving DELIVERY STOCK CLERK instructions about PT treatment and PT has encouraged pt that as with all patients and in her previous PT course, PT has created a POC and next treatment notes, which is standard of care. Lumbar MRI 12/07/24: IMPRESSION: Acute/subacute L1 compression fracture with minimal retropulsion of fracture fragments. Consider vertebroplasty if this level is symptomatic. Multilevel disc height loss, disc osteophyte bulge, and facet arthropathy causing multilevel foraminal narrowing as described, most severe on the left at L4-5.
--- NOTE | 2024-12-10 09:51 | PT.OTN ---
Addendum entered and electronically signed by Adina Fatima PTA 12/10/24 15:32: CELLULAR BIOLOGIST called pt later in afternoon, checking in and pt stated was little sore after tx but felt better after her nap. Reminded pt as physican tomorrow what thoughts of working with PT with what decide going forward and will bring PT HOs for review safety performance. Original Note: Current Diagnoses Low back pain, unspecified (12/10/24) Trochanteric bursitis, right hip (12/10/24) Physical Therapy Treatment Note PT-OP-A Visit Information Start: 11/20/24 13:07 Freq: Status: Active Protocol: Document 12/10/24 09:05 SP (Rec: 12/10/24 09:53 SP [id number]) Out-Patient Physical Therapy Visit Information Visit Information Visit Type Treatment Note Visit Note Blue Shield PPO Medicare Progress note by 12/29/24 Visit Start Time 09:05 Visit Stop Time 09:51 Visit Number 3 Number of CELLULAR BIOLOGIST Visits 1 Evaluation Information Evaluation Date 11/28/24 Precautions Precautions Be mindful of spine s/p OP and L1 compression fracture, keep back precautions and log rolling in mind PT-OP-B Current Condition Start: 11/20/24 13:07 Freq: Status: Active Protocol: Document 11/28/24 10:50 MB (Rec: 11/28/24 11:30 MB [id number]) Current Condition History of Current Condition Onset Date 11/08/24 after end of long flight and car travel Current Complaints Right lateral hip, SI and groin pain History of Current Condition Pt states she has started Gabapentin and it is making her a little dizzy and a little slow. She is doing calf stretches and pelvic realignment exercises as instructed by this PT from last PT course and she is up to walking 10 minutes around her house. With the Gabapentin, pt is not having as much sharp spasms in back and into leg. She denies numbness and tingling in right leg. Pt had a bad fall 08/20 on brick in [place] and hurt her right knee and hip. Prior Treatments and Tests Right hip x-ray 11/17: IMPRESSION: Yvlp-ys-[id number] bilateral hip arthrosis. No acute radiographic abnormality. If there is high concern for further derangement, consider MRI evaluation. Thoracic spine 11/19: FINDINGS: Bones: Mild superior endplate compression fracture of L1 is of uncertain chronicity. Mild chronic wedging of T8 and T9. No other possible acute compression fractures identified. No suspicious bony lesions. 12 pairs of ribs are noted, and appear intact where visualized. Soft tissues: No paravertebral stripe thickening. IMPRESSION: A mild superior endplate compression of L1 is of uncertain chronicity. Consider lumbar spine MRI to document presence or absence of edema. Treatment Goals Patient/Caregiver Goals To decrease pain PT-OP-C Subjective Start: 11/20/24 13:07 Freq: Status: Active Protocol: Document 12/10/24 09:05 SP (Rec: 12/10/24 09:53 SP [id number]) OP-PT Subjective Patient Comments Patient Comments Pt reports was really sore in R LB after last tx had to lay down and take nap improved through day and into next day but got better. She sees laser specialist tomorrow and will ask about TLSO back brace for support. She has started Gabapentin 300 mg 3x/day and Advil per physician recommendation for break through support since last tx and helping with sharp pains. PT-OP-G Mobility & Gait Start: 11/20/24 13:07 Freq: Status: Active Protocol: Document 11/28/24 10:50 MB (Rec: 11/28/24 16:48 MB [id number]) OP Gait Assessment Comments Gait Comments Pt con't with slow gait, antalgic gait pattern and forward flexed posture and she tends to keep her arms behind her back PT-OP-J Posture/Palpation/Skin Start: 11/20/24 13:07 Freq: Status: Active Protocol: Document 11/28/24 10:50 MB (Rec: 11/28/24 11:30 MB [id number]) Posture Evaluation Comments Posture Comments Standing posture: thoracic kyphosis and left convexity thoracic spine, right convexity lumbar spine and increase lordosis, right iliac crest is higher than the left , posture has left lateral shift in standing with right shoulder medial to right hip and left shoulder lateral to left hip Spinal movement in standing: forward flexion with fingers 2 from the floor, repeated flexion does not increase symptoms, feels tightness in hamstrings; lumbar extension is very minimal at 2 deg and repeated extension does increase symptoms; B SB with increased weight shift laterally and more to the right with left SB and SB about 10 deg B and increased tightness with movement. PT-OP-M Strength Start: 11/20/24 13:07 Freq: Status: Active Protocol: Document 11/28/24 10:50 MB (Rec: 11/28/24 11:30 MB [id number]) Hip Strength Hip Manual Muscle Testing Left Flexion (L2) 5 Normal Abduction 5 Normal Right Flexion (L2) 4+ Good+ Abduction 4+ Good+ Knee Strength Knee Manual Muscle Testing Left Flexion (S2) 5 Normal Extension (L3) 5 Normal Right Flexion (S2) 4+ Good+ Extension (L3) 4+ Good+ Ankle/Foot Strength Ankle and Foot Manual Muscle Testing Bilateral Dorsiflexion (L4) 5 Normal Toe Strength Toe Manual Muscle Testing Left Great Toe Extension 4- Good- Right Great Toe Extension 4 Good PT-OP-Q Treatments Start: 11/20/24 13:07 Freq: Status: Active Protocol: Document 12/10/24 09:05 SP (Rec: 12/10/24 09:53 SP [id number]) Therapeutic Exercises Supine Exercises Hip Rotator Stretch Supine Exercise Name added to HEP /c HO: FIg 4 and Piriformis Side bilateral Reps/Minutes 30 SH each Comments cued gentle painfree range Pelvic realignment exercises Supine Exercise Name Verbally reviewed from previous HEP Side bilateral Equipment Used *cued gentle pressure engagement Reps/Minutes 5 reps, 3 sec hold all exercises in order Comments Feet together, ball squeeze iso, knee opp ankle iso, thigh press down iso- Manual Therapy Treatment Consent Patient gave verbal consent for manual Yes treatment Other Other Manual Treatments Pt in sidelying with yoga mat on table, double pillow under head and one flat under ribs and side and one between legs: gentle STM B PFs, vastus lateralis, TFL, paraspinals, QL and increased tension left >R glute Med & Min. *Discussed use pillows between knees SL sleeping for alignment hips and LS support. Self-Care/Home Management Treatment Education Patient Education Body Mechanics,Joint Protection,Pain Management, Posture,Safety Other Education Continued remind pt of discussion with physician of TLSO brace to support postural alignment (less trunk flexion ) with chest plate on front with pt reports better understanding. Further discussion use pillow propping SL for hip and spinal support. Provided postural pic for feedback pounds of pressure on spine with more forward flexed trunk. PT-OP-T Assessment and Plan Start: 11/20/24 13:07 Freq: Status: Active Protocol: Document 12/10/24 09:05 SP (Rec: 12/10/24 09:53 SP [id number]) Physical Therapy Assessment Goals 4 Impairment Lack of HEP Fox Raiser Goal (LTG) Pt will perform HEP with I including pelvic realignment exercises, flexibility, gentle core and LE strengthening, and balance exercises to improve pain and function. LTG Duration 8 weeks 3 Impairment Evidence of imbalance [facility] Goal (LTG) Pt will perform WNLs on a standardized balance test to decrease fall risk. LTG Duration 8 weeks 2 Impairment Painful walking [facility] Goal (LTG) Pt will gait train at least 1413 feet in 6 minutes with or without AD to improve community ambulation. LTG Duration 8 weeks 1 Impairment LEF score reflects over 43% impairment Fox Raiser Goal (LTG) Pt will present with an improved LEF score to reflect no more than 30% impairment to improve functional mobility and quality of life. LTG Duration 8 weeks Assessment Summary Assessment CELLULAR BIOLOGIST adjusted gentle pressure during manual with feedback given for comfort. Improved understanding of postural mechanics and why suggesting TLSO brace. Pt demonstrates improved corections with gentle pressure/pnfree range during ther ex today. Posture pic and ed alignment, TA and LB Physical Therapy Plan Frequency and Duration Frequency of Treatment 2x/Week Duration of treatment (weeks) 8 Plan of Care Start Date 11/28/24 Plan of Care End Date 01/28/25 Therapeutic Interventions Therapeutic Interventions Balance Training,Canalithic Repositioning,Coordination Training,Gait Training,Home Exercise Program,Joint Mobilizations,Manual Therapy, Neuromuscular Re-education, Patient/Caregiver Education, Self-Care/Home Management,Soft Tissue Mobilization,Taping, Therapeutic Activities, Therapeutic Exercises Modalities Cold Pack/Ice Massage,Electric Stimulation,Hot Packs, Ultrasound Next Visit Focus/Plan Next Note Type Treatment Note Next Visit Plan Check how responded to manual and progressed Hip rotation stretch last tx. POC: progress diaphragm breathing, pelvic tilt and abdominal drawing in, Shaun stretch, hamstring stretches, gentle for thoracic spine,. Try side lying with pillow support and gently abducting top arm overhead to see if this gentle stretch helps--QL, latissimus.
--- NOTE | 2024-12-11 13:49 | PT-OP ANOTE ---
PT receives this email from pt: Cyndy: Saw Dr. Roel Vale/protein specialist this morning at [facility]/Physiatry office. End result is that he ordered a steroid spine injection (to be scheduled, effects should last 3-4 months). He said the fracture is acute, and that he sees some swelling still there. There is a narrowing by a nerve near there. He expects the injection will help since the Gabapentin has helped, and both affect nerves. Hopefully over time the pain will subside. He disagreed with the radiologist's report noting loose fragments by the L1 fracture -- said he does not see any there. He also said to continue PT. He did not have any particular instructions to give you (I took the printouts of my current exercises) -- said to just follow your usual protocols. However he did note that the MRI showed (among other things) weak low back muscles. So, I will see you in the morning Tami. -- Nusrat louis Will give you a copy of his report when I get it.
--- NOTE | 2024-12-12 09:00 | PT.OTN ---
Current Diagnoses Low back pain, unspecified (12/12/24) Trochanteric bursitis, right hip (12/12/24) Physical Therapy Treatment Note PT-OP-A Visit Information Start: 11/20/24 13:07 Freq: Status: Active Protocol: Document 12/12/24 08:15 MB (Rec: 12/12/24 08:59 MB [id number]) Out-Patient Physical Therapy Visit Information Visit Information Visit Type Treatment Note Visit Note Blue Shield PPO Medicare Progress note by 12/29/24 Visit Start Time 08:15 Visit Stop Time 08:55 Visit Number 4 Number of HYDRAULIC BILLET MAKER Visits 0 Evaluation Information Evaluation Date 11/28/24 Precautions Precautions Be mindful of spine s/p OP and L1 compression fracture, keep back precautions and log rolling in mind PT-OP-B Current Condition Start: 11/20/24 13:07 Freq: Status: Active Protocol: Document 11/28/24 10:50 MB (Rec: 11/28/24 11:30 MB [id number]) Current Condition History of Current Condition Onset Date 11/08/24 after end of long flight and car travel Current Complaints Right lateral hip, SI and groin pain History of Current Condition Pt states she has started Gabapentin and it is making her a little dizzy and a little slow. She is doing calf stretches and pelvic realignment exercises as instructed by this PT from last PT course and she is up to walking 10 minutes around her house. With the Gabapentin, pt is not having as much sharp spasms in back and into leg. She denies numbness and tingling in right leg. Pt had a bad fall 08/20 on brick in [place] and hurt her right knee and hip. Prior Treatments and Tests Right hip x-ray 11/17: IMPRESSION: [id number] bilateral hip arthrosis. No acute radiographic abnormality. If there is high concern for further derangement, consider MRI evaluation. Thoracic spine 11/19: FINDINGS: Bones: Mild superior endplate compression fracture of L1 is of uncertain chronicity. Mild chronic wedging of T8 and T9. No other possible acute compression fractures identified. No suspicious bony lesions. 12 pairs of ribs are noted, and appear intact where visualized. Soft tissues: No paravertebral stripe thickening. IMPRESSION: A mild superior endplate compression of L1 is of uncertain chronicity. Consider lumbar spine MRI to document presence or absence of edema. Treatment Goals Patient/Caregiver Goals To decrease pain PT-OP-C Subjective Start: 11/20/24 13:07 Freq: Status: Active Protocol: Document 12/12/24 08:15 MB (Rec: 12/12/24 08:59 MB [id number]) OP-PT Subjective Patient Comments Patient Comments Pt saw the product test specialist yesterday and she will have an epidural injection when cleared by insurance. He did not think that pt has a bone fragment and did not recommend a brace. He recommended con't with PT. Pt is staggering the gabapentin and advil, she can walk a 1/2 around the house. PT-OP-G Mobility & Gait Start: 11/20/24 13:07 Freq: Status: Active Protocol: Document 11/28/24 10:50 MB (Rec: 11/28/24 16:48 MB [id number]) OP Gait Assessment Comments Gait Comments Pt con't with slow gait, antalgic gait pattern and forward flexed posture and she tends to keep her arms behind her back PT-OP-J Posture/Palpation/Skin Start: 11/20/24 13:07 Freq: Status: Active Protocol: Document 11/28/24 10:50 MB (Rec: 11/28/24 11:30 MB [id number]) Posture Evaluation Comments Posture Comments Standing posture: thoracic kyphosis and left convexity thoracic spine, right convexity lumbar spine and increase lordosis, right iliac crest is higher than the left , posture has left lateral shift in standing with right shoulder medial to right hip and left shoulder lateral to left hip Spinal movement in standing: forward flexion with fingers 2 from the floor, repeated flexion does not increase symptoms, feels tightness in hamstrings; lumbar extension is very minimal at 2 deg and repeated extension does increase symptoms; B SB with increased weight shift laterally and more to the right with left SB and SB about 10 deg B and increased tightness with movement. PT-OP-M Strength Start: 11/20/24 13:07 Freq: Status: Active Protocol: Document 11/28/24 10:50 MB (Rec: 11/28/24 11:30 MB [id number]) Hip Strength Hip Manual Muscle Testing Left Flexion (L2) 5 Normal Abduction 5 Normal Right Flexion (L2) 4+ Good+ Abduction 4+ Good+ Knee Strength Knee Manual Muscle Testing Left Flexion (S2) 5 Normal Extension (L3) 5 Normal Right Flexion (S2) 4+ Good+ Extension (L3) 4+ Good+ Ankle/Foot Strength Ankle and Foot Manual Muscle Testing Bilateral Dorsiflexion (L4) 5 Normal Toe Strength Toe Manual Muscle Testing Left Great Toe Extension 4- Good- Right Great Toe Extension 4 Good PT-OP-Q Treatments Start: 11/20/24 13:07 Freq: Status: Active Protocol: Document 12/12/24 08:15 MB (Rec: 12/12/24 08:59 MB [id number]) Therapeutic Exercises Supine Exercises Shaun stretch Supine Exercise Name HEP Side bilateral Reps/Minutes 30 sec hold each leg Comments Pt chose opposite knee bent with foot on bed Diaphragm breathing Supine Exercise Name HEP Comments Knees bent, cues to breathe in and out of mouth, belly raise and fall Hip Rotator Stretch Supine Exercise Name Reviwed from HEP today Side bilateral Reps/Minutes 30 SH each Comments cued gentle painfree range Manual Therapy Treatment Consent Patient gave verbal consent for manual Yes treatment Other Other Manual Treatments Pt supine with head and legs supported: STM and positional release B vastus lateralis, TFL, hip rotators with increased tension in hip rotators, QL PT-OP-T Assessment and Plan Start: 11/20/24 13:07 Freq: Status: Active Protocol: Document 12/12/24 08:15 MB (Rec: 12/12/24 08:59 MB [id number]) Physical Therapy Assessment Rehab Potential Rehabilitation Potential Fair Evaluation Complexity Number of Personal Factors/Comorbidities 1-2 Number of Body Systems Impaired 1-2 Clinical Presentation at Evaluation Evolving Impairments Impairments Activity Tolerance,Balance, Coordination,Functional Activities,Functional Mobility ,Gait,Pain,Posture,ROM,Soft Tissue Mobility,Strength Goals 4 Impairment Lack of HEP Produce Sorter Goal (LTG) Pt will perform HEP with I including pelvic realignment exercises, flexibility, gentle core and LE strengthening, and balance exercises to improve pain and function. LTG Duration 8 weeks 3 Impairment Evidence of imbalance Produce Sorter Goal (LTG) Pt will perform WNLs on a standardized balance test to decrease fall risk. LTG Duration 8 weeks 2 Impairment Painful walking Produce Sorter Goal (LTG) Pt will gait train at least 1413 feet in 6 minutes with or without AD to improve community ambulation. LTG Duration 8 weeks 1 Impairment LEF score reflects over 43% impairment Custodial Goal (LTG) Pt will present with an improved LEF score to reflect no more than 30% impairment to improve functional mobility and quality of life. LTG Duration 8 weeks Assessment Summary Assessment Initiated diaphragm and nasal breathing today to help neurological system improve pain and anixety. It is challenging getting pt to stop talking today to allow nasal breathing and diaphragm mobility. Active listening does con't to benefit pt greatly. Ed pt to con't diaphragm breathing with gentle stretches today. Physical Therapy Plan Frequency and Duration Frequency of Treatment 2x/Week Duration of treatment (weeks) 8 Plan of Care Start Date 11/28/24 Plan of Care End Date 01/28/25 Therapeutic Interventions Therapeutic Interventions Balance Training,Canalithic Repositioning,Coordination Training,Gait Training,Home Exercise Program,Joint Mobilizations,Manual Therapy, Neuromuscular Re-education, Patient/Caregiver Education, Self-Care/Home Management,Soft Tissue Mobilization,Taping, Therapeutic Activities, Therapeutic Exercises Modalities Cold Pack/Ice Massage,Electric Stimulation,Hot Packs, Ultrasound Next Visit Focus/Plan Next Note Type Treatment Note Next Visit Plan POC: pelvic tilt and abdominal drawing in, hamstring stretches, gentle for thoracic spine,. Try side lying with pillow support and gently abducting top arm overhead to see if this gentle stretch helps--QL, latissimus.
--- NOTE | 2024-12-21 11:35 | PT.OTN ---
Current Diagnoses Low back pain, unspecified (12/21/24) Trochanteric bursitis, right hip (12/21/24) Physical Therapy Treatment Note PT-OP-A Visit Information Start: 11/20/24 13:07 Freq: Status: Active Protocol: Document 12/21/24 10:50 SP (Rec: 12/21/24 11:38 SP [id number]) Out-Patient Physical Therapy Visit Information Visit Information Visit Type Treatment Note Visit Note Blue Shield PPO Medicare Progress note by 12/29/24 Visit Start Time 10:50 Visit Stop Time 11:35 Visit Number 5 Number of SOFTBALL CORE MOLDER Visits 1 Evaluation Information Evaluation Date 11/28/24 Precautions Precautions Be mindful of spine s/p OP and L1 compression fracture, keep back precautions and log rolling in mind PT-OP-B Current Condition Start: 11/20/24 13:07 Freq: Status: Active Protocol: Document 11/28/24 10:50 MB (Rec: 11/28/24 11:30 MB [id number]) Current Condition History of Current Condition Onset Date 11/08/24 after end of long flight and car travel Current Complaints Right lateral hip, SI and groin pain History of Current Condition Pt states she has started Gabapentin and it is making her a little dizzy and a little slow. She is doing calf stretches and pelvic realignment exercises as instructed by this PT from last PT course and she is up to walking 10 minutes around her house. With the Gabapentin, pt is not having as much sharp spasms in back and into leg. She denies numbness and tingling in right leg. Pt had a bad fall 08/20 on brick in [place] and hurt her right knee and hip. Prior Treatments and Tests Right hip x-ray 11/17: IMPRESSION: [id number] bilateral hip arthrosis. No acute radiographic abnormality. If there is high concern for further derangement, consider MRI evaluation. Thoracic spine 11/19: FINDINGS: Bones: Mild superior endplate compression fracture of L1 is of uncertain chronicity. Mild chronic wedging of T8 and T9. No other possible acute compression fractures identified. No suspicious bony lesions. 12 pairs of ribs are noted, and appear intact where visualized. Soft tissues: No paravertebral stripe thickening. IMPRESSION: A mild superior endplate compression of L1 is of uncertain chronicity. Consider lumbar spine MRI to document presence or absence of edema. Treatment Goals Patient/Caregiver Goals To decrease pain PT-OP-C Subjective Start: 11/20/24 13:07 Freq: Status: Active Protocol: Document 12/21/24 10:50 SP (Rec: 12/21/24 11:38 SP [id number]) OP-PT Subjective Patient Comments Patient Comments Pt reported had epidural on Wed and had little insomnia that night and wasn't given no specific instruction regarding PT, can do exercises gentle and if bothersome let us know and adjust. She stated is walking about 13-14 min end of small block 1/4 mile then applies head and advil, feels better butpain hasn't really changed, stated was to soon to tell per PT-OP-G Mobility & Gait Start: 11/20/24 13:07 Freq: Status: Active Protocol: Document 11/28/24 10:50 MB (Rec: 11/28/24 16:48 MB [id number]) OP Gait Assessment Comments Gait Comments Pt con't with slow gait, antalgic gait pattern and forward flexed posture and she tends to keep her arms behind her back PT-OP-J Posture/Palpation/Skin Start: 11/20/24 13:07 Freq: Status: Active Protocol: Document 11/28/24 10:50 MB (Rec: 11/28/24 11:30 MB [id number]) Posture Evaluation Comments Posture Comments Standing posture: thoracic kyphosis and left convexity thoracic spine, right convexity lumbar spine and increase lordosis, right iliac crest is higher than the left , posture has left lateral shift in standing with right shoulder medial to right hip and left shoulder lateral to left hip Spinal movement in standing: forward flexion with fingers 2 from the floor, repeated flexion does not increase symptoms, feels tightness in hamstrings; lumbar extension is very minimal at 2 deg and repeated extension does increase symptoms; B SB with increased weight shift laterally and more to the right with left SB and SB about 10 deg B and increased tightness with movement. PT-OP-M Strength Start: 11/20/24 13:07 Freq: Status: Active Protocol: Document 11/28/24 10:50 MB (Rec: 11/28/24 11:30 MB [id number]) Hip Strength Hip Manual Muscle Testing Left Flexion (L2) 5 Normal Abduction 5 Normal Right Flexion (L2) 4+ Good+ Abduction 4+ Good+ Knee Strength Knee Manual Muscle Testing Left Flexion (S2) 5 Normal Extension (L3) 5 Normal Right Flexion (S2) 4+ Good+ Extension (L3) 4+ Good+ Ankle/Foot Strength Ankle and Foot Manual Muscle Testing Bilateral Dorsiflexion (L4) 5 Normal Toe Strength Toe Manual Muscle Testing Left Great Toe Extension 4- Good- Right Great Toe Extension 4 Good PT-OP-Q Treatments Start: 11/20/24 13:07 Freq: Status: Active Protocol: Document 12/21/24 10:50 SP (Rec: 12/21/24 11:38 SP [id number]) Therapeutic Exercises Supine Exercises SKTC Supine Exercise Name trialed in PT Side bilateral Equipment Used opp LE bent vs straight Reps/Minutes 5 breathes Comments good response gentle LB stretch Hip Rotator Stretch Supine Exercise Name Reviwed from HEP today: ER & IR Side bilateral Equipment Used with or without towel support Reps/Minutes 30 SH each Comments cued gentle painfree range- with breath Pelvic realignment exercises Supine Exercise Name verbal review- performing 2x day with no adverse affects Sidelying Exercises open book to 90deg abd Sidelying Exercise Name HABD 90 deg abd- added to HEP /c HO Side bilateral Reps/Minutes 5 reps Comments cued breath end feel x2 for TS ribcage mobiltiy Shld ABD /c breath Sidelying Exercise Name added to HEP /c HO Side bilateral Reps/Minutes 5 reps Comments cued breath end feel x2 for TS ribcage mobiltiy Manual Therapy Treatment Consent Patient gave verbal consent for manual Yes treatment Other Other Manual Treatments SL on 2 yoga mats on table, pillows supported under head and between BLEs: Gentle light STM and positional release B vastus lateralis, TFL, hip rotators with increased tension in hip rotators, QL, ES. PT-OP-T Assessment and Plan Start: 11/20/24 13:07 Freq: Status: Active Protocol: Document 12/21/24 10:50 SP (Rec: 12/21/24 11:38 SP [id number]) Physical Therapy Assessment Goals 4 Impairment Lack of HEP Alf Goal (LTG) Pt will perform HEP with I including pelvic realignment exercises, flexibility, gentle core and LE strengthening, and balance exercises to improve pain and function. LTG Duration 8 weeks 3 Impairment Evidence of imbalance Parts Administrator Goal (LTG) Pt will perform WNLs on a standardized balance test to decrease fall risk. LTG Duration 8 weeks 2 Impairment Painful walking Alf Goal (LTG) Pt will gait train at least 1413 feet in 6 minutes with or without AD to improve community ambulation. LTG Duration 8 weeks 1 Impairment LEF score reflects over 43% impairment Alf Goal (LTG) Pt will present with an improved LEF score to reflect no more than 30% impairment to improve functional mobility and quality of life. LTG Duration 8 weeks Assessment Summary Assessment Pt responded well to gente light manual across low back and BLEs supported. Provided 2 yoga mats on table for comfort. No adverse affects to HEP. Cued slow gentle stretching review, added SKTC with good response provided HO . Initiated SL TS mobility with UE AROM cued slow painfree range with breath end feel to support rib mobility with good feedback response, Provided HO. Pt stated little sore but more movement end tx and continues to use CP and MHP and showers at home. I aware gentle easy mobilty at this time, not over do herself support healing recovery. Physical Therapy Plan Frequency and Duration Frequency of Treatment 2x/Week Duration of treatment (weeks) 8 Plan of Care Start Date 11/28/24 Plan of Care End Date 01/28/25 Therapeutic Interventions Therapeutic Interventions Balance Training,Canalithic Repositioning,Coordination Training,Gait Training,Home Exercise Program,Joint Mobilizations,Manual Therapy, Neuromuscular Re-education, Patient/Caregiver Education, Self-Care/Home Management,Soft Tissue Mobilization,Taping, Therapeutic Activities, Therapeutic Exercises Modalities Cold Pack/Ice Massage,Electric Stimulation,Hot Packs, Ultrasound Next Visit Focus/Plan Next Note Type Treatment Note Next Visit Plan POC: pelvic tilt and abdominal drawing in, hamstring stretches (pt stated PT DC this due to fx), recheck gentle thoracic spine HEP added side lying with pillow support and gently abducting top arm overhead to see if this gentle stretch helps--QL, latissimus.
--- NOTE | 2024-12-24 09:03 | PT.OTN ---
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 She is doing calf stretches and pelvic realignment exercises as instructed by this PT from last PT course and she is up to walking 10 minutes around her house. With the Gabapentin, pt is not having as much sharp spasms in back and into leg. She denies numbness and tingling in right leg. Pt had a bad fall 08/20 on brick in [place] and hurt her right knee and hip. Prior Treatments and Tests Right hip x-ray 11/17: IMPRESSION: [id number] bilateral hip arthrosis. No acute radiographic abnormality. If there is high concern for further derangement, consider MRI evaluation. Thoracic spine 11/19: FINDINGS: Bones: Mild superior endplate compression fracture of L1 is of uncertain chronicity. Mild chronic wedging of T8 and T9. No other possible acute compression fractures identified. No suspicious bony lesions. 12 pairs of ribs are noted, and appear intact where visualized. Soft tissues: No paravertebral stripe thickening. IMPRESSION: A mild superior endplate compression of L1 is of uncertain chronicity. Consider lumbar spine MRI to document presence or absence of edema. Treatment Goals Patient/Caregiver Goals To decrease pain PT-OP-C Subjective Start: 11/20/24 13:07 Freq: Status: Active Protocol: Document 12/24/24 08:15 MB (Rec: 12/24/24 08:59 MB [id number]) OP-PT Subjective Patient Comments Patient Comments Pt has LB spasming after showering today. She checks in with doctor 2 weeks after the injection she had. It was a steroid injection at L2. She had more pain over the weekend . PT-OP-G Mobility & Gait Start: 11/20/24 13:07 Freq: Status: Active Protocol: Document 11/28/24 10:50 MB (Rec: 11/28/24 16:48 MB [id number]) OP Gait Assessment Comments Gait Comments Pt con't with slow gait, antalgic gait pattern and forward flexed posture and she tends to keep her arms behind her back PT-OP-J Posture/Palpation/Skin Start: 11/20/24 13:07 Freq: Status: Active Protocol: Document 11/28/24 10:50 MB (Rec: 11/28/24 11:30 MB [id number]) Posture Evaluation Comments Posture Comments Standing posture: thoracic kyphosis and left convexity thoracic spine, right convexity lumbar spine and increase lordosis, right iliac crest is higher than the left , posture has left lateral shift in standing with right shoulder medial to right hip and left shoulder lateral to left hip Spinal movement in standing: forward flexion with fingers 2 from the floor, repeated flexion does not increase symptoms, feels tightness in hamstrings; lumbar extension is very minimal at 2 deg and repeated extension does increase symptoms; B SB with increased weight shift laterally and more to the right with left SB and SB about 10 deg B and increased tightness with movement. PT-OP-M Strength Start: 11/20/24 13:07 Freq: Status: Active Protocol: Document 11/28/24 10:50 MB (Rec: 11/28/24 11:30 MB [id number]) Hip Strength Hip Manual Muscle Testing Left Flexion (L2) 5 Normal Abduction 5 Normal Right Flexion (L2) 4+ Good+ Abduction 4+ Good+ Knee Strength Knee Manual Muscle Testing Left Flexion (S2) 5 Normal Extension (L3) 5 Normal Right Flexion (S2) 4+ Good+ Extension (L3) 4+ Good+ Ankle/Foot Strength Ankle and Foot Manual Muscle Testing Bilateral Dorsiflexion (L4) 5 Normal Toe Strength Toe Manual Muscle Testing Left Great Toe Extension 4- Good- Right Great Toe Extension 4 Good PT-OP-Q Treatments Start: 11/20/24 13:07 Freq: Status: Active Protocol: Document 12/24/24 08:15 MB (Rec: 12/24/24 08:59 MB [id number]) Therapeutic Exercises Supine Exercises Diaphragm breathing Supine Exercise Name Reviewed today Equipment Used Sacral cushion under sacrum, legs up on plinth, plinth tilted Comments Cues to breathe in and out of nose and to keep mouth closed Gait Training Gait Activity 6MWT Comments 12/24/24: Pt gait trains 729 feet with B walking sticks in 6 minutes with slow johnson and reports of 6/10 right sided hip and SI joint pain after gait. Pt had 4/10 pain before gait Self-Care/Home Management Treatment Education Other Education Tried sacral cushion and pt con't to weight shift to the left and no real relieft when sitting without back support on plinth, sitting on 65 cm next to plinth and she con't to weight shift to the left, re-ed on changing positions frequently, benefits of walking sticks, ongoing fluid intake, proper resting position, benefits of log rolling PT-OP-T Assessment and Plan Start: 11/20/24 13:07 Freq: Status: Active Protocol: Document 12/24/24 08:15 MB (Rec: 12/24/24 08:59 MB [id number]) Physical Therapy Assessment Rehab Potential Rehabilitation Potential Fair Evaluation Complexity Number of Personal Factors/Comorbidities 1-2 Number of Body Systems Impaired 1-2 Clinical Presentation at Evaluation Evolving Impairments Impairments Activity Tolerance,Balance, Coordination,Functional Activities,Functional Mobility ,Gait,Pain,Posture,ROM,Soft Tissue Mobility,Strength Goals 4 Impairment Lack of HEP Wet Plant Operator Goal (LTG) Pt will perform HEP with I including pelvic realignment exercises, flexibility, gentle core and LE strengthening, and balance exercises to improve pain and function. 12/24/24: Pt is able to tolerate pelvic realignment exercises, Shaun stretch, gastroc stretches in standing, side lying and arm overhead, she has not always been doing her diaphragm breathing LTG Duration 8 weeks 3 Impairment Evidence of imbalance Longterm Goal (LTG) Pt will perform WNLs on a standardized balance test to decrease fall risk. 12/24/24: Pt cannot tolerate FGA test today and her gait con't to be slow and careful LTG Duration 8 weeks 2 Impairment Painful walking Wet Plant Operator Goal (LTG) Pt will gait train at least 1413 feet in 6 minutes with or without AD to improve community ambulation. 12/24/24: Pt gait trains 729 feet with B walking sticks in 6 minutes with slow johnson and reports of 6/10 right sided hip and SI joint pain after gait LTG Duration 8 weeks 1 Impairment LEF score reflects over 43% impairment Longterm Goal (LTG) Pt will present with an improved LEF score to reflect no more than 30% impairment to improve functional mobility and quality of life. 12/24/24: LEF score reflects 76. 25% dysfunction LTG Duration 8 weeks Assessment Summary Assessment Pt has not made a lot of progress towards PT goals yet. Hopefully, the spinal injection benefit will kick in soon. Until then, work on positioning, ergonomics, mobility, breathing, gentle flexibility. Trying to find a place where pt's body will stabilize as far as the fracture and this may take time, it is a prolonged sub- acute presentation. Physical Therapy Plan Frequency and Duration Frequency of Treatment 2x/Week Duration of treatment (weeks) 8 Plan of Care Start Date 11/28/24 Plan of Care End Date 01/28/25 Therapeutic Interventions Therapeutic Interventions Balance Training,Canalithic Repositioning,Coordination Training,Gait Training,Home Exercise Program,Joint Mobilizations,Manual Therapy, Neuromuscular Re-education, Patient/Caregiver Education, Self-Care/Home Management,Soft Tissue Mobilization,Taping, Therapeutic Activities, Therapeutic Exercises Modalities Cold Pack/Ice Massage,Electric Stimulation,Hot Packs, Ultrasound Next Visit Focus/Plan Next Note Type Treatment Note Next Visit Plan Try e-stim next date: lumbar muscles or glutes, whatever seems best (QL/paraspinals) POC: pelvic tilt and abdominal drawing in, hamstring stretches (pt stated PT DC this due to fx), recheck gentle thoracic spine HEP added side lying with pillow support and gently abducting top arm overhead to see if this gentle stretch helps--QL, latissimus.
--- NOTE | 2024-12-26 11:32 | PT.OTN ---
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 She is doing calf stretches and pelvic realignment exercises as instructed by this PT from last PT course and she is up to walking 10 minutes around her house. With the Gabapentin, pt is not having as much sharp spasms in back and into leg. She denies numbness and tingling in right leg. Pt had a bad fall 08/20 on brick in [place] and hurt her right knee and hip. Prior Treatments and Tests Right hip x-ray 11/17: IMPRESSION: [id number] bilateral hip arthrosis. No acute radiographic abnormality. If there is high concern for further derangement, consider MRI evaluation. Thoracic spine 11/19: FINDINGS: Bones: Mild superior endplate compression fracture of L1 is of uncertain chronicity. Mild chronic wedging of T8 and T9. No other possible acute compression fractures identified. No suspicious bony lesions. 12 pairs of ribs are noted, and appear intact where visualized. Soft tissues: No paravertebral stripe thickening. IMPRESSION: A mild superior endplate compression of L1 is of uncertain chronicity. Consider lumbar spine MRI to document presence or absence of edema. Treatment Goals Patient/Caregiver Goals To decrease pain PT-OP-C Subjective Start: 11/20/24 13:07 Freq: Status: Active Protocol: Document 12/26/24 10:47 SP (Rec: 12/26/24 11:36 SP [id number]) OP-PT Subjective Patient Comments Patient Comments Pt reports still same across back pain and into R glut and lateral hip, nothing did last tx helped pain reduction. She reports was told sometimes takes 7-10 days for epidural to feel benefits. PT-OP-G Mobility & Gait Start: 11/20/24 13:07 Freq: Status: Active Protocol: Document 11/28/24 10:50 MB (Rec: 11/28/24 16:48 MB [id number]) OP Gait Assessment Comments Gait Comments Pt con't with slow gait, antalgic gait pattern and forward flexed posture and she tends to keep her arms behind her back PT-OP-J Posture/Palpation/Skin Start: 11/20/24 13:07 Freq: Status: Active Protocol: Document 11/28/24 10:50 MB (Rec: 11/28/24 11:30 MB [id number]) Posture Evaluation Comments Posture Comments Standing posture: thoracic kyphosis and left convexity thoracic spine, right convexity lumbar spine and increase lordosis, right iliac crest is higher than the left , posture has left lateral shift in standing with right shoulder medial to right hip and left shoulder lateral to left hip Spinal movement in standing: forward flexion with fingers 2 from the floor, repeated flexion does not increase symptoms, feels tightness in hamstrings; lumbar extension is very minimal at 2 deg and repeated extension does increase symptoms; B SB with increased weight shift laterally and more to the right with left SB and SB about 10 deg B and increased tightness with movement. PT-OP-M Strength Start: 11/20/24 13:07 Freq: Status: Active Protocol: Document 11/28/24 10:50 MB (Rec: 11/28/24 11:30 MB [id number]) Hip Strength Hip Manual Muscle Testing Left Flexion (L2) 5 Normal Abduction 5 Normal Right Flexion (L2) 4+ Good+ Abduction 4+ Good+ Knee Strength Knee Manual Muscle Testing Left Flexion (S2) 5 Normal Extension (L3) 5 Normal Right Flexion (S2) 4+ Good+ Extension (L3) 4+ Good+ Ankle/Foot Strength Ankle and Foot Manual Muscle Testing Bilateral Dorsiflexion (L4) 5 Normal Toe Strength Toe Manual Muscle Testing Left Great Toe Extension 4- Good- Right Great Toe Extension 4 Good PT-OP-Q Treatments Start: 11/20/24 13:07 Freq: Status: Active Protocol: Document 12/26/24 10:47 SP (Rec: 12/26/24 11:36 SP [id number]) Therapeutic Exercises Supine Exercises SKTC Supine Exercise Name added to HEP /c HO Side bilateral Equipment Used opp LE straight, grasp behind thigh Reps/Minutes 30 SH Comments good response gentle LB stretch feels good after stim , cued diaph breath Diaphragm breathing Supine Exercise Name Reviewed today- LS traction Equipment Used Sacral cushion under sacrum, legs up over portable bench, plinth flat Reps/Minutes 5 min Comments Cues to breathe in and out of nose and to keep mouth closed- good light str Pelvic realignment exercises Reps/Minutes 5 reps each today 2/5 Comments set up as instructed and is performing 2x/day home Self-Care/Home Management Treatment Education Patient Education Body Mechanics,Joint Protection,Pain Management, Safety Other Education Cued review for log roll technique TA and back support. Provided HOs for waffle cushion and TENs if want to get 1 for home support. 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 12/24/24: Pt is able to tolerate pelvic realignment exercises, Shaun stretch, gastroc stretches in standing, side lying and arm overhead, she has not always been doing her diaphragm breathing LTG Duration 8 weeks 3 Impairment Evidence of imbalance Intermediate Goal (LTG) Pt will perform WNLs on a standardized balance test to decrease fall risk. 12/24/24: Pt cannot tolerate FGA test today and her gait con't to be slow and careful LTG Duration 8 weeks 2 Impairment Painful walking Intermediate Goal (LTG) Pt will gait train at least 1413 feet in 6 minutes with or without AD to improve community ambulation. 12/24/24: Pt gait trains 729 feet with B walking sticks in 6 minutes with slow johnson and reports of 6/10 right sided hip and SI joint pain after gait LTG Duration 8 weeks 1 Impairment LEF score reflects over 43% impairment Intermediate Goal (LTG) Pt will present with an improved LEF score to reflect no more than 30% impairment to improve functional mobility and quality of life. 12/24/24: LEF score reflects 76. 25% dysfunction LTG Duration 8 weeks Assessment Summary Assessment Pt 5/10 LBP R hip pain arrival . Pt good feedback response to MHP and TENS IFC then gentle lumbar traction BLEs over bench and pelvis realignment HEP 5 reps to support muscle egagement after relaxation for TA and mobility support. Pain reduction end tx leavin. Provided HOs for waffle cushion and TENs if want to get 1 for home support. Physical Therapy Plan Frequency and Duration Frequency of Treatment 2x/Week Duration of treatment (weeks) 8 Plan of Care Start Date 11/28/24 Plan of Care End Date 01/28/25 Therapeutic Interventions Therapeutic Interventions Balance Training,Canalithic Repositioning,Coordination Training,Gait Training,Home Exercise Program,Joint Mobilizations,Manual Therapy, Neuromuscular Re-education, Patient/Caregiver Education, Self-Care/Home Management,Soft Tissue Mobilization,Taping, Therapeutic Activities, Therapeutic Exercises Modalities Cold Pack/Ice Massage,Electric Stimulation,Hot Packs, Ultrasound Next Visit Focus/Plan Next Note Type Treatment Note Next Visit Plan Ask response to IFC & MHP last tx before gentle ther ex: lumbar muscles or glutes, whatever seems best (QL/ paraspinals) POC: pelvic tilt and abdominal drawing in, hamstring stretches (pt stated PT DC this due to fx), recheck gentle thoracic spine HEP added side lying with pillow support and gently abducting top arm overhead to see if this gentle stretch helps--QL, latissimus.
--- NOTE | 2025-01-07 11:32 | PT.OTN ---
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 She is doing calf stretches and pelvic realignment exercises as instructed by this PT from last PT course and she is up to walking 10 minutes around her house. With the Gabapentin, pt is not having as much sharp spasms in back and into leg. She denies numbness and tingling in right leg. Pt had a bad fall 08/20 on brick in [place] and hurt her right knee and hip. Prior Treatments and Tests Right hip x-ray 11/17: IMPRESSION: [id number] bilateral hip arthrosis. No acute radiographic abnormality. If there is high concern for further derangement, consider MRI evaluation. Thoracic spine 11/19: FINDINGS: Bones: Mild superior endplate compression fracture of L1 is of uncertain chronicity. Mild chronic wedging of T8 and T9. No other possible acute compression fractures identified. No suspicious bony lesions. 12 pairs of ribs are noted, and appear intact where visualized. Soft tissues: No paravertebral stripe thickening. IMPRESSION: A mild superior endplate compression of L1 is of uncertain chronicity. Consider lumbar spine MRI to document presence or absence of edema. Treatment Goals Patient/Caregiver Goals To decrease pain PT-OP-C Subjective Start: 11/20/24 13:07 Freq: Status: Active Protocol: Document 01/07/25 10:47 SP (Rec: 01/07/25 11:35 SP [id number]) OP-PT Subjective Patient Comments Patient Comments Pt think making little gains, able stand up straighter for small stents. Would like to progress in more strength to get back what lost. She reports had to lay down and do some gentle stretching and breath after shower this am. She stated back felt good after last tx use Stim. She stated using microwaveable Heating pad and bed vibration option and helping back. At times if needed takes Advil like yesterday needed after shower. Using hands on chair to try keep even BLE, due to R knee pain at times and trying improve. She can now lay down SL and lift both legs together self without added assist. PT-OP-G Mobility & Gait Start: 11/20/24 13:07 Freq: Status: Active Protocol: Document 11/28/24 10:50 MB (Rec: 11/28/24 16:48 MB [id number]) OP Gait Assessment Comments Gait Comments Pt con't with slow gait, antalgic gait pattern and forward flexed posture and she tends to keep her arms behind her back PT-OP-J Posture/Palpation/Skin Start: 11/20/24 13:07 Freq: Status: Active Protocol: Document 11/28/24 10:50 MB (Rec: 11/28/24 11:30 MB [id number]) Posture Evaluation Comments Posture Comments Standing posture: thoracic kyphosis and left convexity thoracic spine, right convexity lumbar spine and increase lordosis, right iliac crest is higher than the left , posture has left lateral shift in standing with right shoulder medial to right hip and left shoulder lateral to left hip Spinal movement in standing: forward flexion with fingers 2 from the floor, repeated flexion does not increase symptoms, feels tightness in hamstrings; lumbar extension is very minimal at 2 deg and repeated extension does increase symptoms; B SB with increased weight shift laterally and more to the right with left SB and SB about 10 deg B and increased tightness with movement. PT-OP-M Strength Start: 11/20/24 13:07 Freq: Status: Active Protocol: Document 11/28/24 10:50 MB (Rec: 11/28/24 11:30 MB [id number]) Hip Strength Hip Manual Muscle Testing Left Flexion (L2) 5 Normal Abduction 5 Normal Right Flexion (L2) 4+ Good+ Abduction 4+ Good+ Knee Strength Knee Manual Muscle Testing Left Flexion (S2) 5 Normal Extension (L3) 5 Normal Right Flexion (S2) 4+ Good+ Extension (L3) 4+ Good+ Ankle/Foot Strength Ankle and Foot Manual Muscle Testing Bilateral Dorsiflexion (L4) 5 Normal Toe Strength Toe Manual Muscle Testing Left Great Toe Extension 4- Good- Right Great Toe Extension 4 Good PT-OP-Q Treatments Start: 11/20/24 13:07 Freq: Status: Active Protocol: Document 01/07/25 10:47 SP (Rec: 01/07/25 11:35 SP [id number]) Therapeutic Exercises Supine Exercises Core progression Supine Exercise Name added to HEP /c HO Side bilateral Equipment Used Sacral cushion under sacrum for comfort Reps/Minutes 20 reps each, alternating BLEs Comments TA draw in, TA knee rocking, TA heelslide, TA march, TA KFO SKTC Supine Exercise Name reviewed Side bilateral Resistance waffle cushion under pelvis today Equipment Used opp LE straight, grasp behind thigh Reps/Minutes 30 SH Comments cued diaphramatic breath Diaphragm breathing Supine Exercise Name Reviewed today Equipment Used Sacral cushion under sacrum, knees bent pre ther ex Reps/Minutes 5 min Comments Cues to breathe in and out of nose and to keep mouth closed- good light str Hip Rotator Stretch Supine Exercise Name Reviwed from HEP today: ER & IR Side bilateral Equipment Used without towel support Reps/Minutes 30 SH each Comments cued gentle painfree range- with breath Therapeutic Activity Therapeutic Activity log roll Name TA and spinal alignment review Reps/Minutes 2 reps Comments cued for TA engagement and full onto side use BUEs assist trunk righting to sit. STS mechanics Name reviewed Reps/Minutes 4 reps Comments cued hip hinge /c TA support BUEs to help even BLE, she tends to get R knee pain so wt shifts more over L LE, she states using BUEs helps even stance and trunk alignment Manual Therapy Treatment Consent Patient gave verbal consent for manual Yes treatment Other Other Manual Treatments SL on 2 yoga mats on table, pillows supported under head and between BLEs: Gentle light STM and positional release B vastus lateralis, TFL, hip rotators with increased tension in hip rotators, QL, ES. PT-OP-R Modalities Start: 11/20/24 13:07 Freq: Status: Active Protocol: Document 12/26/24 10:47 SP (Rec: 12/26/24 11:36 SP [id number]) Electric Stimulation Electric Stimulation Interferential Current (IFC) Body Location B LS paraspinals, R glut, R lateral hip Intensity 15 Patient Position Hooklying Combined With Heat/Cold Hot Pack Comments 10 min: Continuous PT-OP-T Assessment and Plan Start: 11/20/24 13:07 Freq: Status: Active Protocol: Document 01/07/25 10:47 SP (Rec: 01/07/25 11:35 SP [id number]) Physical Therapy Assessment Goals 4 Impairment Lack of HEP Flake Cutter Operator Goal (LTG) Pt will perform HEP with I including pelvic realignment exercises, flexibility, gentle core and LE strengthening, and balance exercises to improve pain and function. 12/24/24: Pt is able to tolerate pelvic realignment exercises, Shaun stretch, gastroc stretches in standing, side lying and arm overhead, she has not always been doing her diaphragm breathing LTG Duration 8 weeks 3 Impairment Evidence of imbalance Snf Goal (LTG) Pt will perform WNLs on a standardized balance test to decrease fall risk. 12/24/24: Pt cannot tolerate FGA test today and her gait con't to be slow and careful LTG Duration 8 weeks 2 Impairment Painful walking Flake Cutter Operator Goal (LTG) Pt will gait train at least 1413 feet in 6 minutes with or without AD to improve community ambulation. 12/24/24: Pt gait trains 729 feet with B walking sticks in 6 minutes with slow johnson and reports of 6/10 right sided hip and SI joint pain after gait LTG Duration 8 weeks 1 Impairment LEF score reflects over 43% impairment Flake Cutter Operator Goal (LTG) Pt will present with an improved LEF score to reflect no more than 30% impairment to improve functional mobility and quality of life. 12/24/24: LEF score reflects 76. 25% dysfunction LTG Duration 8 weeks Assessment Summary Assessment Pt responds well to gentle stretching at arrival then progression core in hooklying with improved TA and breath support. She had no pain with new HEP today. She declined Estim end tx, she stated helped but just decided not to today. She does arrive and leave with improved upright and more midline posture, does hold hands behind back which helps her added self awareness . Physical Therapy Plan Frequency and Duration Frequency of Treatment 2x/Week Duration of treatment (weeks) 8 Plan of Care Start Date 11/28/24 Plan of Care End Date 01/28/25 Therapeutic Interventions Therapeutic Interventions Balance Training,Canalithic Repositioning,Coordination Training,Gait Training,Home Exercise Program,Joint Mobilizations,Manual Therapy, Neuromuscular Re-education, Patient/Caregiver Education, Self-Care/Home Management,Soft Tissue Mobilization,Taping, Therapeutic Activities, Therapeutic Exercises Modalities Cold Pack/Ice Massage,Electric Stimulation,Hot Packs, Ultrasound Next Visit Focus/Plan Next Note Type Treatment Note Next Visit Plan Ask response to progression hooklying core ex added last tx. PT recommended Next lumbar muscles or glutes, whatever seems best (QL/paraspinals). POC: pelvic tilt and abdominal drawing in, hamstring stretches (pt stated PT DC this due to fx), recheck gentle thoracic spine HEP added side lying with pillow support and gently abducting top arm overhead to see if this gentle stretch helps--QL, latissimus.
--- NOTE | 2025-01-09 11:34 | PT.OTN ---
Current Diagnoses Low back pain, unspecified (01/09/25) Trochanteric bursitis, right hip (01/09/25) Physical Therapy Treatment Note PT-OP-A Visit Information Start: 11/20/24 13:07 Freq: Status: Active Protocol: Document 01/09/25 10:47 SP (Rec: 01/09/25 11:35 SP [id number]) Out-Patient Physical Therapy Visit Information Visit Information Visit Type Treatment Note Visit Note Blue Shield PPO Medicare Progress note by 01/21/25 Visit Start Time 10:47 Visit Stop Time 11:34 Visit Number 9 Number of QA INTERNSHIP Visits 3 Evaluation Information Evaluation Date 11/28/24 Precautions Precautions Be mindful of spine s/p OP and L1 compression fracture, keep back precautions and log rolling in mind PT-OP-B Current Condition Start: 11/20/24 13:07 Freq: Status: Active Protocol: Document 11/28/24 10:50 MB (Rec: 11/28/24 11:30 MB [id number]) Current Condition History of Current Condition Onset Date 11/08/24 after end of long flight and car travel Current Complaints Right lateral hip, SI and groin pain History of Current Condition Pt states she has started Gabapentin and it is making her a little dizzy and a little slow. She is doing calf stretches and pelvic realignment exercises as instructed by this PT from last PT course and she is up to walking 10 minutes around her house. With the Gabapentin, pt is not having as much sharp spasms in back and into leg. She denies numbness and tingling in right leg. Pt had a bad fall 08/20 on brick in [place] and hurt her right knee and hip. Prior Treatments and Tests Right hip x-ray 11/17: IMPRESSION: [id number] bilateral hip arthrosis. No acute radiographic abnormality. If there is high concern for further derangement, consider MRI evaluation. Thoracic spine 11/19: FINDINGS: Bones: Mild superior endplate compression fracture of L1 is of uncertain chronicity. Mild chronic wedging of T8 and T9. No other possible acute compression fractures identified. No suspicious bony lesions. 12 pairs of ribs are noted, and appear intact where visualized. Soft tissues: No paravertebral stripe thickening. IMPRESSION: A mild superior endplate compression of L1 is of uncertain chronicity. Consider lumbar spine MRI to document presence or absence of edema. Treatment Goals Patient/Caregiver Goals To decrease pain PT-OP-C Subjective Start: 11/20/24 13:07 Freq: Status: Active Protocol: Document 01/09/25 10:47 SP (Rec: 01/09/25 11:35 SP [id number]) OP-PT Subjective Patient Comments Patient Comments She thinks the epidural is helping to help reduce inflammation by disc. She did well with progression core last tx with no adverse affects, didn't do againsince last tx bc said 3x/wk. She onl had to use heating pad x2 least reps need yesterday. She was sore awake, used MHP and took advil pre visit today, arrival LBP. PT-OP-G Mobility & Gait Start: 11/20/24 13:07 Freq: Status: Active Protocol: Document 11/28/24 10:50 MB (Rec: 11/28/24 16:48 MB [id number]) OP Gait Assessment Comments Gait Comments Pt con't with slow gait, antalgic gait pattern and forward flexed posture and she tends to keep her arms behind her back PT-OP-J Posture/Palpation/Skin Start: 11/20/24 13:07 Freq: Status: Active Protocol: Document 11/28/24 10:50 MB (Rec: 11/28/24 11:30 MB [id number]) Posture Evaluation Comments Posture Comments Standing posture: thoracic kyphosis and left convexity thoracic spine, right convexity lumbar spine and increase lordosis, right iliac crest is higher than the left , posture has left lateral shift in standing with right shoulder medial to right hip and left shoulder lateral to left hip Spinal movement in standing: forward flexion with fingers 2 from the floor, repeated flexion does not increase symptoms, feels tightness in hamstrings; lumbar extension is very minimal at 2 deg and repeated extension does increase symptoms; B SB with increased weight shift laterally and more to the right with left SB and SB about 10 deg B and increased tightness with movement. PT-OP-M Strength Start: 11/20/24 13:07 Freq: Status: Active Protocol: Document 11/28/24 10:50 MB (Rec: 11/28/24 11:30 MB [id number]) Hip Strength Hip Manual Muscle Testing Left Flexion (L2) 5 Normal Abduction 5 Normal Right Flexion (L2) 4+ Good+ Abduction 4+ Good+ Knee Strength Knee Manual Muscle Testing Left Flexion (S2) 5 Normal Extension (L3) 5 Normal Right Flexion (S2) 4+ Good+ Extension (L3) 4+ Good+ Ankle/Foot Strength Ankle and Foot Manual Muscle Testing Bilateral Dorsiflexion (L4) 5 Normal Toe Strength Toe Manual Muscle Testing Left Great Toe Extension 4- Good- Right Great Toe Extension 4 Good PT-OP-Q Treatments Start: 11/20/24 13:07 Freq: Status: Active Protocol: Document 01/09/25 10:47 SP (Rec: 01/09/25 11:35 SP [id number]) Therapeutic Exercises Supine Exercises Core progression Supine Exercise Name TA draw in, TA knee rocking, TA heelslide, TA march, TA KFO Side bilateral Equipment Used no sacral cusion today 01/09/25 Reps/Minutes 20 reps each, alternating BLEs Comments HEp reviewed 01/09/25 SKTC Supine Exercise Name reviewed Side bilateral Resistance no cushion needed today 01/09 Equipment Used opp LE straight, grasp behind thigh Reps/Minutes 30 SH Comments cued diaphramatic breath Shaun stretch Supine Exercise Name HEP Side bilateral Reps/Minutes 30 sec hold each leg Comments Pt chose opposite knee bent with foot on bed Sidelying Exercises open book to 90deg abd Sidelying Exercise Name HABD 90 deg abd- reviewed Side bilateral Reps/Minutes 5 reps Comments cued breath end feel x2 for TS ribcage mobiltiy Shld ABD /c breath Sidelying Exercise Name reviewed Side bilateral Equipment Used LS over pillow Reps/Minutes 1 rep 5 breaths Comments cued breath end feel x2 for TS ribcage mobiltiy- good QL stretch Gait Training Gait Activity 6MWT Device Used B [employer] Distance/Duration 951 ft Comments 01/09/25: reports 5/10 right acrosss lower lumbar but starts on R top posterior ilium after gait. Pt had 4/10 pain before gait. Manual Therapy Treatment Consent Patient gave verbal consent for manual Yes treatment Other Other Manual Treatments SL declined Yoga mats/hard to move, pillows supported under head and between B QL and glut med BLEs: Gentle light/ moderate STM and positional release B vastus lateralis, TFL, hip rotators with increased tension in hip rotators, QL, ES. PT-OP-R Modalities Start: 11/20/24 13:07 Freq: Status: Active Protocol: Document 12/26/24 10:47 SP (Rec: 12/26/24 11:36 SP [id number]) Electric Stimulation Electric Stimulation Interferential Current (IFC) Body Location B LS paraspinals, R glut, R lateral hip Intensity 15 Patient Position Hooklying Combined With Heat/Cold Hot Pack Comments 10 min: Continuous PT-OP-T Assessment and Plan Start: 11/20/24 13:07 Freq: Status: Active Protocol: Document 01/09/25 10:47 SP (Rec: 01/09/25 11:35 SP [id number]) Physical Therapy Assessment Goals 4 Impairment Lack of HEP Senior Care Goal (LTG) Pt will perform HEP with I including pelvic realignment exercises, flexibility, gentle core and LE strengthening, and balance exercises to improve pain and function. 12/24/24: Pt is able to tolerate pelvic realignment exercises, Shaun stretch, gastroc stretches in standing, side lying and arm overhead, she has not always been doing her diaphragm breathing LTG Duration 8 weeks 3 Impairment Evidence of imbalance Middle School Counselor Goal (LTG) Pt will perform WNLs on a standardized balance test to decrease fall risk. 12/24/24: Pt cannot tolerate FGA test today and her gait con't to be slow and careful LTG Duration 8 weeks 2 Impairment Painful walking Middle School Counselor Goal (LTG) Pt will gait train at least 1413 feet in 6 minutes with or without AD to improve community ambulation. 12/24/24: Pt gait trains 729 feet with B walking sticks in 6 minutes with slow johnson and reports of 6/10 right sided hip and SI joint pain after gait 01/09/25: 951 ft in 6 min /c B trek poles, increase 222 ft. LTG Duration 8 weeks progressing 01/09/25 1 Impairment LEF score reflects over 43% impairment Senior Care Goal (LTG) Pt will present with an improved LEF score to reflect no more than 30% impairment to improve functional mobility and quality of life. 12/24/24: LEF score reflects 76. 25% dysfunction LTG Duration 8 weeks Assessment Summary Assessment Pt not needing wedge under upper back nor sacrual cushiion under pelvis today. Cues as needed during core progression little slower pacing and TA/c PPT set during LE mobility. Improved not as sensitive on R LB manual today , L felt ok with no feedback needed. Was able to progress 6MWT by 222ft /c B trek poles to progress longer distances at home. She reports little more discomfort end tx from 4> 5.5/10 end tx post manual but reports feels good to do more exercises but understands will take time. Physical Therapy Plan Frequency and Duration Frequency of Treatment 2x/Week Duration of treatment (weeks) 8 Plan of Care Start Date 11/28/24 Plan of Care End Date 01/28/25 Therapeutic Interventions Therapeutic Interventions Balance Training,Canalithic Repositioning,Coordination Training,Gait Training,Home Exercise Program,Joint Mobilizations,Manual Therapy, Neuromuscular Re-education, Patient/Caregiver Education, Self-Care/Home Management,Soft Tissue Mobilization,Taping, Therapeutic Activities, Therapeutic Exercises Modalities Cold Pack/Ice Massage,Electric Stimulation,Hot Packs, Ultrasound Next Visit Focus/Plan Next Note Type Treatment Note Next Visit Plan Ask continued response to core progression and QL stretch. PT POC: Next lumbar muscles, hip abd & glutes strength, whatever seems best (QL/ paraspinals) to support standing and gait. POC: pelvic tilt and abdominal drawing in, hamstring stretches (pt stated PT DC this due to fx), recheck gentle QL/Lat stretch: thoracic spine HEP added side lying with pillow support and gently abducting top arm overhead to see if this gentle stretch helps.
--- NOTE | 2025-01-15 10:44 | PT.OTN ---
Current Diagnoses Low back pain, unspecified (01/15/25) Trochanteric bursitis, right hip (01/15/25) Physical Therapy Treatment Note PT-OP-A Visit Information Start: 11/20/24 13:07 Freq: Status: Active Protocol: Document 01/15/25 09:49 MB (Rec: 01/15/25 10:44 MB [id number]) Out-Patient Physical Therapy Visit Information Visit Information Visit Type Progress Note Visit Note [employer] Progress note by 02/12/25 Visit Start Time 09:49 Visit Stop Time 10:29 Visit Number 10 Number of PHARM TECH Visits 0 Evaluation Information Evaluation Date 11/28/24 Precautions Precautions Be mindful of spine s/p OP and L1 compression fracture, keep back precautions and log rolling in mind PT-OP-B Current Condition Start: 11/20/24 13:07 Freq: Status: Active Protocol: Document 11/28/24 10:50 MB (Rec: 11/28/24 11:30 MB [id number]) Current Condition History of Current Condition Onset Date 11/08/24 after end of long flight and car travel Current Complaints Right lateral hip, SI and groin pain History of Current Condition Pt states she has started Gabapentin and it is making her a little dizzy and a little slow. She is doing calf stretches and pelvic realignment exercises as instructed by this PT from last PT course and she is up to walking 10 minutes around her house. With the Gabapentin, pt is not having as much sharp spasms in back and into leg. She denies numbness and tingling in right leg. Pt had a bad fall 08/20 on brick in [place] and hurt her right knee and hip. Prior Treatments and Tests Right hip x-ray 11/17: IMPRESSION: [id number] bilateral hip arthrosis. No acute radiographic abnormality. If there is high concern for further derangement, consider MRI evaluation. Thoracic spine 11/19: FINDINGS: Bones: Mild superior endplate compression fracture of L1 is of uncertain chronicity. Mild chronic wedging of T8 and T9. No other possible acute compression fractures identified. No suspicious bony lesions. 12 pairs of ribs are noted, and appear intact where visualized. Soft tissues: No paravertebral stripe thickening. IMPRESSION: A mild superior endplate compression of L1 is of uncertain chronicity. Consider lumbar spine MRI to document presence or absence of edema. Treatment Goals Patient/Caregiver Goals To decrease pain PT-OP-C Subjective Start: 11/20/24 13:07 Freq: Status: Active Protocol: Document 01/15/25 09:49 MB (Rec: 01/15/25 10:44 MB [id number]) OP-PT Subjective Patient Comments Patient Comments Pt states that she had a landmark day yesterday and walked 1.4 miles. She feels like the epidural finally kicked in and PT is helping. She does con't to have to have increased time for showers and she needs to lie down with heating pad after showering and after walking. She has no follow-up appointment with spinal pain doctor. Pt is walking with walking sticks and doesn't think she could walk if she didn't have pain medications. She is still not driving. PT-OP-G Mobility & Gait Start: 11/20/24 13:07 Freq: Status: Active Protocol: Document 11/28/24 10:50 MB (Rec: 11/28/24 16:48 MB [id number]) OP Gait Assessment Comments Gait Comments Pt con't with slow gait, antalgic gait pattern and forward flexed posture and she tends to keep her arms behind her back PT-OP-J Posture/Palpation/Skin Start: 11/20/24 13:07 Freq: Status: Active Protocol: Document 11/28/24 10:50 MB (Rec: 11/28/24 11:30 MB [id number]) Posture Evaluation Comments Posture Comments Standing posture: thoracic kyphosis and left convexity thoracic spine, right convexity lumbar spine and increase lordosis, right iliac crest is higher than the left , posture has left lateral shift in standing with right shoulder medial to right hip and left shoulder lateral to left hip Spinal movement in standing: forward flexion with fingers 2 from the floor, repeated flexion does not increase symptoms, feels tightness in hamstrings; lumbar extension is very minimal at 2 deg and repeated extension does increase symptoms; B SB with increased weight shift laterally and more to the right with left SB and SB about 10 deg B and increased tightness with movement. PT-OP-M Strength Start: 11/20/24 13:07 Freq: Status: Active Protocol: Document 11/28/24 10:50 MB (Rec: 11/28/24 11:30 MB [id number]) Hip Strength Hip Manual Muscle Testing Left Flexion (L2) 5 Normal Abduction 5 Normal Right Flexion (L2) 4+ Good+ Abduction 4+ Good+ Knee Strength Knee Manual Muscle Testing Left Flexion (S2) 5 Normal Extension (L3) 5 Normal Right Flexion (S2) 4+ Good+ Extension (L3) 4+ Good+ Ankle/Foot Strength Ankle and Foot Manual Muscle Testing Bilateral Dorsiflexion (L4) 5 Normal Toe Strength Toe Manual Muscle Testing Left Great Toe Extension 4- Good- Right Great Toe Extension 4 Good PT-OP-Q Treatments Start: 11/20/24 13:07 Freq: Status: Active Protocol: Document 01/15/25 09:49 MB (Rec: 01/15/25 10:44 MB [id number]) Gait Training Gait Activity 6MWT Comments See goals for 6MWT today and pt's antalgic gait pattern without AD, better speed and arm movement with trekking poles Neuro Re-Education Treatment Balance Activities FGA Comments Score 16/30 and see comments under goals today Self-Care/Home Management Treatment Education Patient Education Body Mechanics,Fall Risk,Home Exercise Program,Joint Protection,Pain Management, Posture,Safety Other Education Ongoing education about use of trekking poles, con't HEP, gentle pubic bone to belly button for core engagement with gait, verbally reviewd program and plan PT-OP-R Modalities Start: 11/20/24 13:07 Freq: Status: Active Protocol: Document 12/26/24 10:47 SP (Rec: 12/26/24 11:36 SP [id number]) Electric Stimulation Electric Stimulation Interferential Current (IFC) Body Location B LS paraspinals, R glut, R lateral hip Intensity 15 Patient Position Hooklying Combined With Heat/Cold Hot Pack Comments 10 min: Continuous PT-OP-T Assessment and Plan Start: 11/20/24 13:07 Freq: Status: Active Protocol: Document 01/15/25 09:49 MB (Rec: 01/15/25 10:44 MB [id number]) Physical Therapy Assessment Goals 6 Impairment Pt not driving d/t pain Supervisor Fleshing Goal (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 LTG Duration New goal for next 8 weeks 5 Impairment Oswestry score reflects 54% impairment Supervisor Fleshing Goal (LTG) Pt reporting right hip and LBP and so updated goal for Oswestry instead of LEF score. Pt will present with Oswestry score reflecting no more than 25% impairment to improve quality of life and mobility. LTG Duration New goal for next 8 weeks 4 Impairment Lack of HEP Supervisor Fleshing Goal (LTG) Pt will perform HEP with I including pelvic realignment exercises, flexibility, gentle core and LE strengthening, and balance exercises to improve pain and function. 12/24/24: Pt is able to tolerate pelvic realignment exercises, Shaun stretch, gastroc stretches in standing, side lying and arm overhead, she has not always been doing her diaphragm breathing 01/15/25: Pt is performing the following exercises at home: pelvic realignment exercises, calf stretches, gentle core progression, practicing breathing, Shaun stretch, walking LTG Duration 8 weeks, Progressing 3 Impairment Evidence of imbalance Senior Living Goal (LTG) Pt will perform WNLs on a standardized balance test to decrease fall risk. 12/24/24: Pt cannot tolerate FGA test today and her gait con't to be slow and careful 01/15/25: Pt tolerates FGA though her gait is slow and antalgic and score is 16/30 LTG Duration 8 weeks, Progressing 2 Impairment Painful walking Supervisor Fleshing Goal (LTG) Pt will gait train at least 1413 feet in 6 minutes with or without AD to improve community ambulation. 12/24/24: Pt gait trains 729 feet with B walking sticks in 6 minutes with slow johnson and reports of 6/10 right sided hip and SI joint pain after gait 01/09/25: 951 ft in 6 min /c B trek poles, increase 222 ft. 01/15/25: Pt gait trains 1186 feet in 6 minutes with B trekking poles and right SI and back pain increases from 5 to 5.5 with gait LTG Duration 8 weeks, Progressing 1 Impairment LEF score reflects over 43% impairment Senior Living Goal (LTG) Pt will present with an improved LEF score to reflect no more than 30% impairment to improve functional mobility and quality of life. 12/24/24: LEF score reflects 76. 25% dysfunction LTG Duration 8 weeks Assessment Summary Assessment Pt con't with postural changes with history of scoliosis and subacute compression fracture . She favors right side and is shifted to the right with hips and shoulders to the left . She guards with standing and gait. Progress is slow but she is walking further and doing some better. She tolerates FGA today and is performing exercises and walking. Added Oswestry and driving goals today. Physical Therapy Plan Frequency and Duration Frequency of Treatment 2x/Week Duration of treatment (weeks) 8 Plan of Care Start Date 01/15/25 Plan of Care End Date 03/15/25 Therapeutic Interventions Therapeutic Interventions Balance Training,Canalithic Repositioning,Coordination Training,Gait Training,Home Exercise Program,Joint Mobilizations,Manual Therapy, Neuromuscular Re-education, Patient/Caregiver Education, Self-Care/Home Management,Soft Tissue Mobilization,Taping, Therapeutic Activities, Therapeutic Exercises Modalities Cold Pack/Ice Massage,Electric Stimulation,Hot Packs, Ultrasound Next Visit Focus/Plan Next Note Type Treatment Note Next Visit Plan HEP review and con't manual work and gentle core and balance progression
--- NOTE | 2025-01-17 10:44 | PT.OTN ---
Current Diagnoses Low back pain, unspecified (01/17/25) Trochanteric bursitis, right hip (01/17/25) Physical Therapy Treatment Note PT-OP-A Visit Information Start: 11/20/24 13:07 Freq: Status: Active Protocol: Document 01/17/25 08:14 AB (Rec: 01/17/25 10:43 AB [id number]) Out-Patient Physical Therapy Visit Information Visit Information Visit Type Treatment Note Visit Note [employer] Progress note by 02/12/25 Visit Start Time 09:48 Visit Stop Time 10:33 Visit Number 11 Number of OUTREACH DIRECTOR Visits 1 PT-OP-B Current Condition Start: 11/20/24 13:07 Freq: Status: Active Protocol: Document 11/28/24 10:50 MB (Rec: 11/28/24 11:30 MB [id number]) Current Condition History of Current Condition Onset Date 11/08/24 after end of long flight and car travel Current Complaints Right lateral hip, SI and groin pain History of Current Condition Pt states she has started Gabapentin and it is making her a little dizzy and a little slow. She is doing calf stretches and pelvic realignment exercises as instructed by this PT from last PT course and she is up to walking 10 minutes around her house. With the Gabapentin, pt is not having as much sharp spasms in back and into leg. She denies numbness and tingling in right leg. Pt had a bad fall 08/20 on brick in [place] and hurt her right knee and hip. Prior Treatments and Tests Right hip x-ray 11/17: IMPRESSION: Ieky-vl-oddyrptg bilateral hip arthrosis. No acute radiographic abnormality. If there is high concern for further derangement, consider MRI evaluation. Thoracic spine 11/19: FINDINGS: Bones: Mild superior endplate compression fracture of L1 is of uncertain chronicity. Mild chronic wedging of T8 and T9. No other possible acute compression fractures identified. No suspicious bony lesions. 12 pairs of ribs are noted, and appear intact where visualized. Soft tissues: No paravertebral stripe thickening. IMPRESSION: A mild superior endplate compression of L1 is of uncertain chronicity. Consider lumbar spine MRI to document presence or absence of edema. Treatment Goals Patient/Caregiver Goals To decrease pain PT-OP-C Subjective Start: 11/20/24 13:07 Freq: Status: Active Protocol: Document 01/17/25 08:14 AB (Rec: 01/17/25 10:43 AB [id number]) OP-PT Subjective Patient Comments Patient Comments Patient reports she walked 1. 02 miles with hiking poles, took 45 min with heat on back lying on back to recover. Patient comments she feels the epidural is kicking in now and it is making a difference. Patient rates pain 4/10 R quadratus/illiac crest area R across to L. PT-OP-G Mobility & Gait Start: 11/20/24 13:07 Freq: Status: Active Protocol: Document 11/28/24 10:50 MB (Rec: 11/28/24 16:48 MB [id number]) OP Gait Assessment Comments Gait Comments Pt con't with slow gait, antalgic gait pattern and forward flexed posture and she tends to keep her arms behind her back PT-OP-J Posture/Palpation/Skin Start: 11/20/24 13:07 Freq: Status: Active Protocol: Document 11/28/24 10:50 MB (Rec: 11/28/24 11:30 MB [id number]) Posture Evaluation Comments Posture Comments Standing posture: thoracic kyphosis and left convexity thoracic spine, right convexity lumbar spine and increase lordosis, right iliac crest is higher than the left , posture has left lateral shift in standing with right shoulder medial to right hip and left shoulder lateral to left hip Spinal movement in standing: forward flexion with fingers 2 from the floor, repeated flexion does not increase symptoms, feels tightness in hamstrings; lumbar extension is very minimal at 2 deg and repeated extension does increase symptoms; B SB with increased weight shift laterally and more to the right with left SB and SB about 10 deg B and increased tightness with movement. PT-OP-M Strength Start: 11/20/24 13:07 Freq: Status: Active Protocol: Document 11/28/24 10:50 MB (Rec: 11/28/24 11:30 MB [id number]) Hip Strength Hip Manual Muscle Testing Left Flexion (L2) 5 Normal Abduction 5 Normal Right Flexion (L2) 4+ Good+ Abduction 4+ Good+ Knee Strength Knee Manual Muscle Testing Left Flexion (S2) 5 Normal Extension (L3) 5 Normal Right Flexion (S2) 4+ Good+ Extension (L3) 4+ Good+ Ankle/Foot Strength Ankle and Foot Manual Muscle Testing Bilateral Dorsiflexion (L4) 5 Normal Toe Strength Toe Manual Muscle Testing Left Great Toe Extension 4- Good- Right Great Toe Extension 4 Good PT-OP-Q Treatments Start: 11/20/24 13:07 Freq: Status: Active Protocol: Document 01/17/25 08:14 AB (Rec: 01/17/25 10:43 AB [id number]) Therapeutic Exercises Supine Exercises Core progression Supine Exercise Name bracing with knee ext, bent knee fall out, trunk rot, and LE ext from hookl Side bilateral Reps/Minutes X10 Comments HEP review SKTC Supine Exercise Name reviewed Side bilateral Resistance no cushion needed today 01/09 Equipment Used opp LE straight, grasp behind thigh Reps/Minutes 30 SH Comments cued diaphramatic breath Shaun stretch Supine Exercise Name HEP Side bilateral Reps/Minutes 30 sec hold each leg Comments Pt chose opposite knee bent with foot on bed Diaphragm breathing Supine Exercise Name Reviewed today Equipment Used during knee to chest stretch Pt ed with handout to perform seated when Reps/Minutes riding in car as a passenger Comments vc to expand core/abdominal area on inhale Hip Rotator Stretch Supine Exercise Name Reviwed from HEP today: ER & IR Side bilateral Equipment Used without towel support Reps/Minutes 30 SH each X 2 Comments cued gentle painfree range- with breath Pelvic realignment exercises Reps/Minutes 5 reps each today 2/5 Comments Verbal and visual cues for 3rd part of exercise Therapeutic Activity Therapeutic Activity log roll Comments verbal cues required during transfers STS mechanics Comments verbal cues and pt ed self tactile cues for hip hinge during transfers Manual Therapy Treatment Consent Patient gave verbal consent for manual Yes treatment Soft Tissue Mobilization R LS/ glute/piriformis area Mobilization Type Cross-Friction,Rolling, Sustained Pressure Intensity/Depth Superficial Body Position Sidelying Comments to moderate PT-OP-R Modalities Start: 11/20/24 13:07 Freq: Status: Active Protocol: Document 12/26/24 10:47 SP (Rec: 12/26/24 11:36 SP [id number]) Electric Stimulation Electric Stimulation Interferential Current (IFC) Body Location B LS paraspinals, R glut, R lateral hip Intensity 15 Patient Position Hooklying Combined With Heat/Cold Hot Pack Comments 10 min: Continuous PT-OP-T Assessment and Plan Start: 11/20/24 13:07 Freq: Status: Active Protocol: Document 01/17/25 08:14 AB (Rec: 01/17/25 10:43 AB [id number]) Physical Therapy Assessment Goals 6 Impairment Pt not driving d/t pain Customs Compliance Director Goal (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 LTG Duration New goal for next 8 weeks 5 Impairment Oswestry score reflects 54% impairment Detention Goal (LTG) Pt reporting right hip and LBP and so updated goal for Oswestry instead of LEF score. Pt will present with Oswestry score reflecting no more than 25% impairment to improve quality of life and mobility. LTG Duration New goal for next 8 weeks 4 Impairment Lack of HEP Customs Compliance Director Goal (LTG) Pt will perform HEP with I including pelvic realignment exercises, flexibility, gentle core and LE strengthening, and balance exercises to improve pain and function. 12/24/24: Pt is able to tolerate pelvic realignment exercises, Shaun stretch, gastroc stretches in standing, side lying and arm overhead, she has not always been doing her diaphragm breathing 01/15/25: Pt is performing the following exercises at home: pelvic realignment exercises, calf stretches, gentle core progression, practicing breathing, Shaun stretch, walking LTG Duration 8 weeks, Progressing 3 Impairment Evidence of imbalance Detention Goal (LTG) Pt will perform WNLs on a standardized balance test to decrease fall risk. 12/24/24: Pt cannot tolerate FGA test today and her gait con't to be slow and careful 01/15/25: Pt tolerates FGA though her gait is slow and antalgic and score is 16/30 LTG Duration 8 weeks, Progressing 2 Impairment Painful walking Customs Compliance Director Goal (LTG) Pt will gait train at least 1413 feet in 6 minutes with or without AD to improve community ambulation. 12/24/24: Pt gait trains 729 feet with B walking sticks in 6 minutes with slow johnson and reports of 6/10 right sided hip and SI joint pain after gait 01/09/25: 951 ft in 6 min /c B trek poles, increase 222 ft. 01/15/25: Pt gait trains 1186 feet in 6 minutes with B trekking poles and right SI and back pain increases from 5 to 5.5 with gait LTG Duration 8 weeks, Progressing Assessment Summary Assessment Patient with good return demonstration for HEP review, did require verbal and visual cues for pelvic balancing, and dec lorenzo to Shaun stretch which was more tolerable post knee to chest stretch with review of breathing from diaphragm. Nusrat rates back pain 5 kevin end of session. Physical Therapy Plan Frequency and Duration Frequency of Treatment 2x/Week Duration of treatment (weeks) 8 Plan of Care Start Date 01/15/25 Plan of Care End Date 03/15/25 Next Visit Focus/Plan Next Note Type Treatment Note Next Visit Plan HEP review and con't manual work and gentle core and balance progression Possibly review hip hinge during sit to stand and log roll
--- NOTE | 2025-01-23 14:30 | PT.OTN ---
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 She is doing calf stretches and pelvic realignment exercises as instructed by this PT from last PT course and she is up to walking 10 minutes around her house. With the Gabapentin, pt is not having as much sharp spasms in back and into leg. She denies numbness and tingling in right leg. Pt had a bad fall 08/20 on brick in [place] and hurt her right knee and hip. Prior Treatments and Tests Right hip x-ray 11/17: IMPRESSION: [id number] bilateral hip arthrosis. No acute radiographic abnormality. If there is high concern for further derangement, consider MRI evaluation. Thoracic spine 11/19: FINDINGS: Bones: Mild superior endplate compression fracture of L1 is of uncertain chronicity. Mild chronic wedging of T8 and T9. No other possible acute compression fractures identified. No suspicious bony lesions. 12 pairs of ribs are noted, and appear intact where visualized. Soft tissues: No paravertebral stripe thickening. IMPRESSION: A mild superior endplate compression of L1 is of uncertain chronicity. Consider lumbar spine MRI to document presence or absence of edema. Treatment Goals Patient/Caregiver Goals To decrease pain PT-OP-C Subjective Start: 11/20/24 13:07 Freq: Status: Active Protocol: Document 01/23/25 13:44 MB (Rec: 01/23/25 14:30 MB [id number]) OP-PT Subjective Patient Comments Patient Comments Pt reports she has reached a plateau. PT-OP-G Mobility & Gait Start: 11/20/24 13:07 Freq: Status: Active Protocol: Document 11/28/24 10:50 MB (Rec: 11/28/24 16:48 MB [id number]) OP Gait Assessment Comments Gait Comments Pt con't with slow gait, antalgic gait pattern and forward flexed posture and she tends to keep her arms behind her back PT-OP-J Posture/Palpation/Skin Start: 11/20/24 13:07 Freq: Status: Active Protocol: Document 11/28/24 10:50 MB (Rec: 11/28/24 11:30 MB [id number]) Posture Evaluation Comments Posture Comments Standing posture: thoracic kyphosis and left convexity thoracic spine, right convexity lumbar spine and increase lordosis, right iliac crest is higher than the left , posture has left lateral shift in standing with right shoulder medial to right hip and left shoulder lateral to left hip Spinal movement in standing: forward flexion with fingers 2 from the floor, repeated flexion does not increase symptoms, feels tightness in hamstrings; lumbar extension is very minimal at 2 deg and repeated extension does increase symptoms; B SB with increased weight shift laterally and more to the right with left SB and SB about 10 deg B and increased tightness with movement. PT-OP-M Strength Start: 11/20/24 13:07 Freq: Status: Active Protocol: Document 11/28/24 10:50 MB (Rec: 11/28/24 11:30 MB [id number]) Hip Strength Hip Manual Muscle Testing Left Flexion (L2) 5 Normal Abduction 5 Normal Right Flexion (L2) 4+ Good+ Abduction 4+ Good+ Knee Strength Knee Manual Muscle Testing Left Flexion (S2) 5 Normal Extension (L3) 5 Normal Right Flexion (S2) 4+ Good+ Extension (L3) 4+ Good+ Ankle/Foot Strength Ankle and Foot Manual Muscle Testing Bilateral Dorsiflexion (L4) 5 Normal Toe Strength Toe Manual Muscle Testing Left Great Toe Extension 4- Good- Right Great Toe Extension 4 Good PT-OP-Q Treatments Start: 12/31/24 13:07 Freq: Status: Active Protocol: Document 01/23/25 13:44 MB (Rec: 01/23/25 14:30 MB [id number]) Manual Therapy Treatment Consent Patient gave verbal consent for manual Yes treatment Other Other Manual Treatments Pt in side lying: B STM total spine paraspinals, QL, glutes, TFL, vastus lateralis, gastroc, grade I rib mobs in side lying and improve fascial mobility after treatment PT-OP-R Modalities Start: 11/20/24 13:07 Freq: Status: Active Protocol: Document 12/26/24 10:47 SP (Rec: 12/26/24 11:36 SP [id number]) Electric Stimulation Electric Stimulation Interferential Current (IFC) Body Location B LS paraspinals, R glut, R lateral hip Intensity 15 Patient Position Hooklying Combined With Heat/Cold Hot Pack Comments 10 min: Continuous PT-OP-T Assessment and Plan Start: 11/20/24 13:07 Freq: Status: Active Protocol: Document 01/23/25 13:44 MB (Rec: 01/23/25 14:30 MB [id number]) Physical Therapy Assessment Goals 6 Impairment Pt not driving d/t pain Nursing Home Goal (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 LTG Duration New goal for next 8 weeks 5 Impairment Oswestry score reflects 54% impairment Nursing Home Goal (LTG) Pt reporting right hip and LBP and so updated goal for Oswestry instead of LEF score. Pt will present with Oswestry score reflecting no more than 25% impairment to improve quality of life and mobility. LTG Duration New goal for next 8 weeks 4 Impairment Lack of HEP Nursing Home Goal (LTG) Pt will perform HEP with I including pelvic realignment exercises, flexibility, gentle core and LE strengthening, and balance exercises to improve pain and function. 12/24/24: Pt is able to tolerate pelvic realignment exercises, Shaun stretch, gastroc stretches in standing, side lying and arm overhead, she has not always been doing her diaphragm breathing 01/15/25: Pt is performing the following exercises at home: pelvic realignment exercises, calf stretches, gentle core progression, practicing breathing, Shaun stretch, walking LTG Duration 8 weeks, Progressing 3 Impairment Evidence of imbalance Nursing Home Goal (LTG) Pt will perform WNLs on a standardized balance test to decrease fall risk. 12/24/24: Pt cannot tolerate FGA test today and her gait con't to be slow and careful 01/15/25: Pt tolerates FGA though her gait is slow and antalgic and score is 16/30 LTG Duration 8 weeks, Progressing 2 Impairment Painful walking Nursing Home Goal (LTG) Pt will gait train at least 1413 feet in 6 minutes with or without AD to improve community ambulation. 12/24/24: Pt gait trains 729 feet with B walking sticks in 6 minutes with slow johnson and reports of 6/10 right sided hip and SI joint pain after gait 01/09/25: 951 ft in 6 min /c B trek poles, increase 222 ft. 01/15/25: Pt gait trains 1186 feet in 6 minutes with B trekking poles and right SI and back pain increases from 5 to 5.5 with gait LTG Duration 8 weeks, Progressing Assessment Summary Assessment Longer and more manual work in side lying today and pt has better fascial mobility after treatment. Physical Therapy Plan Frequency and Duration Frequency of Treatment 2x/Week Duration of treatment (weeks) 8 Plan of Care Start Date 01/15/25 Plan of Care End Date 03/15/25 Therapeutic Interventions Therapeutic Interventions Balance Training,Canalithic Repositioning,Coordination Training,Gait Training,Home Exercise Program,Joint Mobilizations,Manual Therapy, Neuromuscular Re-education, Patient/Caregiver Education, Self-Care/Home Management,Soft Tissue Mobilization,Taping, Therapeutic Activities, Therapeutic Exercises Modalities Cold Pack/Ice Massage,Electric Stimulation,Hot Packs, Ultrasound Next Visit Focus/Plan Next Note Type Treatment Note Next Visit Plan Ongoing gentle manual work and assess previous treatment side lying manual work on QL and paraspinals, review gentle core progression and progress balance exercises. Consider diaphragm and hip flexor work in hook lying in future treatments.
--- NOTE | 2025-01-25 13:44 | PT.OTN ---
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 She is doing calf stretches and pelvic realignment exercises as instructed by this PT from last PT course and she is up to walking 10 minutes around her house. With the Gabapentin, pt is not having as much sharp spasms in back and into leg. She denies numbness and tingling in right leg. Pt had a bad fall 08/20 on brick in [place] and hurt her right knee and hip. Prior Treatments and Tests Right hip x-ray 11/17: IMPRESSION: [id number] bilateral hip arthrosis. No acute radiographic abnormality. If there is high concern for further derangement, consider MRI evaluation. Thoracic spine 11/19: FINDINGS: Bones: Mild superior endplate compression fracture of L1 is of uncertain chronicity. Mild chronic wedging of T8 and T9. No other possible acute compression fractures identified. No suspicious bony lesions. 12 pairs of ribs are noted, and appear intact where visualized. Soft tissues: No paravertebral stripe thickening. IMPRESSION: A mild superior endplate compression of L1 is of uncertain chronicity. Consider lumbar spine MRI to document presence or absence of edema. Treatment Goals Patient/Caregiver Goals To decrease pain PT-OP-C Subjective Start: 11/20/24 13:07 Freq: Status: Active Protocol: Document 01/25/25 13:01 SP (Rec: 01/25/25 13:48 SP [id number]) OP-PT Subjective Patient Comments Patient Comments She walked about 1.2 miles yesterday am approx 36 min with bird watching. She stated manual was sore but realized really helped by next day legs were working better druing walking but still same R hip pain, not as much struggling end of walk as has been. She stated discussed with family and thinks wants to try manual TrP. PT-OP-G Mobility & Gait Start: 11/20/24 13:07 Freq: Status: Active Protocol: Document 11/28/24 10:50 MB (Rec: 11/28/24 16:48 MB [id number]) OP Gait Assessment Comments Gait Comments Pt con't with slow gait, antalgic gait pattern and forward flexed posture and she tends to keep her arms behind her back PT-OP-J Posture/Palpation/Skin Start: 11/20/24 13:07 Freq: Status: Active Protocol: Document 11/28/24 10:50 MB (Rec: 11/28/24 11:30 MB [id number]) Posture Evaluation Comments Posture Comments Standing posture: thoracic kyphosis and left convexity thoracic spine, right convexity lumbar spine and increase lordosis, right iliac crest is higher than the left , posture has left lateral shift in standing with right shoulder medial to right hip and left shoulder lateral to left hip Spinal movement in standing: forward flexion with fingers 2 from the floor, repeated flexion does not increase symptoms, feels tightness in hamstrings; lumbar extension is very minimal at 2 deg and repeated extension does increase symptoms; B SB with increased weight shift laterally and more to the right with left SB and SB about 10 deg B and increased tightness with movement. PT-OP-M Strength Start: 11/20/24 13:07 Freq: Status: Active Protocol: Document 11/28/24 10:50 MB (Rec: 11/28/24 11:30 MB [id number]) Hip Strength Hip Manual Muscle Testing Left Flexion (L2) 5 Normal Abduction 5 Normal Right Flexion (L2) 4+ Good+ Abduction 4+ Good+ Knee Strength Knee Manual Muscle Testing Left Flexion (S2) 5 Normal Extension (L3) 5 Normal Right Flexion (S2) 4+ Good+ Extension (L3) 4+ Good+ Ankle/Foot Strength Ankle and Foot Manual Muscle Testing Bilateral Dorsiflexion (L4) 5 Normal Toe Strength Toe Manual Muscle Testing Left Great Toe Extension 4- Good- Right Great Toe Extension 4 Good PT-OP-Q Treatments Start: 11/20/24 13:07 Freq: Status: Active Protocol: Document 01/25/25 13:01 SP (Rec: 01/25/25 13:48 SP [id number]) Therapeutic Exercises Supine Exercises Core progression Supine Exercise Name bracing with knee ext, bent knee fall out, trunk rot, LE ext from hookl Side bilateral Resistance REviewed Reps/Minutes X10 each BLE Comments cued TA /c PPT back toward table during motion. Hip Rotator Stretch Supine Exercise Name Reviwed from [facility] today: ER & IR Side bilateral Equipment Used without towel support Reps/Minutes 30 SH each X 2 Comments cued gentle painfree range- with breath Manual Therapy Treatment Consent Patient gave verbal consent for manual Yes treatment Other Other Manual Treatments Pt in L side lying: R STMs LS paraspinals, QL, TFL, vastus lateralis, distal piriformis, distal Glut Med&Max, then QL and glut med stretch with breath while provided caudal glide of R ilium and greater trochanter of R femur. Neuro Re-Education Treatment Balance Activities teto stepping Details trialed in PT Surface 6 hurdles, 4 foam stones Equipment inside //bars (CGA) Reps/Duration 2 laps each surface Comments floor/level: step to floor no UE support>receiprocal stepping no UE support, added foam light hand glide 1 rail safety support, cued R trail LE KTC foot clearance decreased circumduction- improved for walking. TA LE taps SLS time no UE support Details trialed in PT Surface AROM Equipment 6 steps Reps/Duration 20 alternating taps Comments cued tall, TA, soft step taps alternating for balance PT-OP-R Modalities Start: 11/20/24 13:07 Freq: Status: Active Protocol: Document 12/26/24 10:47 SP (Rec: 12/26/24 11:36 SP [id number]) Electric Stimulation Electric Stimulation Interferential Current (IFC) Body Location B LS paraspinals, R glut, R lateral hip Intensity 15 Patient Position Hooklying Combined With Heat/Cold Hot Pack Comments 10 min: Continuous PT-OP-T Assessment and Plan Start: 11/20/24 13:07 Freq: Status: Active Protocol: Document 01/25/25 13:01 SP (Rec: 01/25/25 13:48 SP [id number]) Physical Therapy Assessment Goals 6 Impairment Pt not driving d/t pain Nursing Home Goal (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 LTG Duration New goal for next 8 weeks 5 Impairment Oswestry score reflects 54% impairment [employer] Goal (LTG) Pt reporting right hip and LBP and so updated goal for Oswestry instead of LEF score. Pt will present with Oswestry score reflecting no more than 25% impairment to improve quality of life and mobility. LTG Duration New goal for next 8 weeks 4 Impairment Lack of HEP [employer] Goal (LTG) Pt will perform HEP with I including pelvic realignment exercises, flexibility, gentle core and LE strengthening, and balance exercises to improve pain and function. 12/24/24: Pt is able to tolerate pelvic realignment exercises, Shaun stretch, gastroc stretches in standing, side lying and arm overhead, she has not always been doing her diaphragm breathing 01/15/25: Pt is performing the following exercises at home: pelvic realignment exercises, calf stretches, gentle core progression, practicing breathing, Shaun stretch, walking LTG Duration 8 weeks, Progressing 3 Impairment Evidence of imbalance [employer] Goal (LTG) Pt will perform WNLs on a standardized balance test to decrease fall risk. 12/24/24: Pt cannot tolerate FGA test today and her gait con't to be slow and careful 01/15/25: Pt tolerates FGA though her gait is slow and antalgic and score is 16/30 LTG Duration 8 weeks, Progressing 2 Impairment Painful walking [employer] Goal (LTG) Pt will gait train at least 1413 feet in 6 minutes with or without AD to improve community ambulation. 12/24/24: Pt gait trains 729 feet with B walking sticks in 6 minutes with slow johnson and reports of 6/10 right sided hip and SI joint pain after gait 01/09/25: 951 ft in 6 min /c B trek poles, increase 222 ft. 01/15/25: Pt gait trains 1186 feet in 6 minutes with B trekking poles and right SI and back pain increases from 5 to 5.5 with gait LTG Duration 8 weeks, Progressing Assessment Summary Assessment Pt good feedback response and guidence tolerant to pressure during manual. Continued cues for PPT with TA engagement during core HEP hooklying. Progressed balance during tx with cues for postural alignment over stance LE with TA and rhomboid enagement improved stability step taps and teto stepping. Discussed continue step taps home with counter support tap shelf under counter to progress balance to return to uneven surface community walks. Reports R hip pain still 4/10 pre/post tx. Pt report is interested in manual TrP next tx. Physical Therapy Plan Frequency and Duration Frequency of Treatment 2x/Week Duration of treatment (weeks) 8 Plan of Care Start Date 01/15/25 Plan of Care End Date 03/15/25 Therapeutic Interventions Therapeutic Interventions Balance Training,Canalithic Repositioning,Coordination Training,Gait Training,Home Exercise Program,Joint Mobilizations,Manual Therapy, Neuromuscular Re-education, Patient/Caregiver Education, Self-Care/Home Management,Soft Tissue Mobilization,Taping, Therapeutic Activities, Therapeutic Exercises Modalities Cold Pack/Ice Massage,Electric Stimulation,Hot Packs, Ultrasound Next Visit Focus/Plan Next Note Type Treatment Note Next Visit Plan Continue manual, next tx with PT Manual TrP. Continue cues for PPT/cTA core progression and progress balance exercises . Consider diaphragm and hip flexor work in hook lying in future treatments.
--- NOTE | 2025-01-30 12:15 | PT.OTN ---
Current Diagnoses Low back pain, unspecified (01/30/25) Trochanteric bursitis, right hip (01/30/25) Physical Therapy Treatment Note PT-OP-A Visit Information Start: 11/20/24 13:07 Freq: Status: Active Protocol: Document 01/30/25 11:32 MB (Rec: 01/30/25 12:15 MB [id number]) Out-Patient Physical Therapy Visit Information Visit Information Visit Type Treatment Note Visit Note [employer] Progress note by 02/12/25 Visit Start Time 11:32 Visit Stop Time 12:12 Visit Number 14 Number of ENGLISH LANGUAGE LEARNER TUTOR Visits 0 Evaluation Information Evaluation Date 11/28/24 Precautions Precautions Be mindful of spine s/p OP and L1 compression fracture, keep back precautions and log rolling in mind, pt with multiple areas of bruising PT-OP-B Current Condition Start: 11/20/24 13:07 Freq: Status: Active Protocol: Document 11/28/24 10:50 MB (Rec: 11/28/24 11:30 MB [id number]) Current Condition History of Current Condition Onset Date 11/08/24 after end of long flight and car travel Current Complaints Right lateral hip, SI and groin pain History of Current Condition Pt states she has started Gabapentin and it is making her a little dizzy and a little slow. She is doing calf stretches and pelvic realignment exercises as instructed by this PT from last PT course and she is up to walking 10 minutes around her house. With the Gabapentin, pt is not having as much sharp spasms in back and into leg. She denies numbness and tingling in right leg. Pt had a bad fall 08/20 on brick in [place] and hurt her right knee and hip. Prior Treatments and Tests Right hip x-ray 11/17: IMPRESSION: [id number] bilateral hip arthrosis. No acute radiographic abnormality. If there is high concern for further derangement, consider MRI evaluation. Thoracic spine 11/19: FINDINGS: Bones: Mild superior endplate compression fracture of L1 is of uncertain chronicity. Mild chronic wedging of T8 and T9. No other possible acute compression fractures identified. No suspicious bony lesions. 12 pairs of ribs are noted, and appear intact where visualized. Soft tissues: No paravertebral stripe thickening. IMPRESSION: A mild superior endplate compression of L1 is of uncertain chronicity. Consider lumbar spine MRI to document presence or absence of edema. Treatment Goals Patient/Caregiver Goals To decrease pain PT-OP-C Subjective Start: 11/20/24 13:07 Freq: Status: Active Protocol: Document 01/30/25 11:32 MB (Rec: 01/30/25 12:15 MB [id number]) OP-PT Subjective Patient Comments Patient Comments No new reports since last treatment date. Pt with redness right eye and she states she has a sty and will go to the eye doctor if it is not better by tomorrow. PT-OP-G Mobility & Gait Start: 11/20/24 13:07 Freq: Status: Active Protocol: Document 11/28/24 10:50 MB (Rec: 11/28/24 16:48 MB [id number]) OP Gait Assessment Comments Gait Comments Pt con't with slow gait, antalgic gait pattern and forward flexed posture and she tends to keep her arms behind her back PT-OP-J Posture/Palpation/Skin Start: 11/20/24 13:07 Freq: Status: Active Protocol: Document 11/28/24 10:50 MB (Rec: 11/28/24 11:30 MB [id number]) Posture Evaluation Comments Posture Comments Standing posture: thoracic kyphosis and left convexity thoracic spine, right convexity lumbar spine and increase lordosis, right iliac crest is higher than the left , posture has left lateral shift in standing with right shoulder medial to right hip and left shoulder lateral to left hip Spinal movement in standing: forward flexion with fingers 2 from the floor, repeated flexion does not increase symptoms, feels tightness in hamstrings; lumbar extension is very minimal at 2 deg and repeated extension does increase symptoms; B SB with increased weight shift laterally and more to the right with left SB and SB about 10 deg B and increased tightness with movement. PT-OP-M Strength Start: 11/20/24 13:07 Freq: Status: Active Protocol: Document 11/28/24 10:50 MB (Rec: 11/28/24 11:30 MB [id number]) Hip Strength Hip Manual Muscle Testing Left Flexion (L2) 5 Normal Abduction 5 Normal Right Flexion (L2) 4+ Good+ Abduction 4+ Good+ Knee Strength Knee Manual Muscle Testing Left Flexion (S2) 5 Normal Extension (L3) 5 Normal Right Flexion (S2) 4+ Good+ Extension (L3) 4+ Good+ Ankle/Foot Strength Ankle and Foot Manual Muscle Testing Bilateral Dorsiflexion (L4) 5 Normal Toe Strength Toe Manual Muscle Testing Left Great Toe Extension 4- Good- Right Great Toe Extension 4 Good PT-OP-Q Treatments Start: 11/20/24 13:07 Freq: Status: Active Protocol: Document 01/30/25 11:32 MB (Rec: 01/30/25 12:15 MB [id number]) Manual Therapy Treatment Consent Patient gave verbal consent for manual Yes treatment Other Other Manual Treatments Pt in B side lying with pillow under head, ribs and between legs: STM and positional release B QL, hip rotators, vastus lateralis, PFs, hamstrings, glute med and max, gentle grade I rib mobs PT-OP-R Modalities Start: 11/20/24 13:07 Freq: Status: Active Protocol: Document 12/26/24 10:47 SP (Rec: 12/26/24 11:36 SP [id number]) Electric Stimulation Electric Stimulation Interferential Current (IFC) Body Location B LS paraspinals, R glut, R lateral hip Intensity 15 Patient Position Hooklying Combined With Heat/Cold Hot Pack Comments 10 min: Continuous PT-OP-T Assessment and Plan Start: 11/20/24 13:07 Freq: Status: Active Protocol: Document 01/30/25 11:32 MB (Rec: 01/30/25 12:15 MB [id number]) Physical Therapy Assessment Goals 6 Impairment Pt not driving d/t pain Capacitor Repairer Goal (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 LTG Duration New goal for next 8 weeks 5 Impairment Oswestry score reflects 54% impairment Prison Goal (LTG) Pt reporting right hip and LBP and so updated goal for Oswestry instead of LEF score. Pt will present with Oswestry score reflecting no more than 25% impairment to improve quality of life and mobility. LTG Duration New goal for next 8 weeks 4 Impairment Lack of HEP Prison Goal (LTG) Pt will perform HEP with I including pelvic realignment exercises, flexibility, gentle core and LE strengthening, and balance exercises to improve pain and function. 12/24/24: Pt is able to tolerate pelvic realignment exercises, Shaun stretch, gastroc stretches in standing, side lying and arm overhead, she has not always been doing her diaphragm breathing 01/15/25: Pt is performing the following exercises at home: pelvic realignment exercises, calf stretches, gentle core progression, practicing breathing, Shaun stretch, walking LTG Duration 8 weeks, Progressing 3 Impairment Evidence of imbalance Capacitor Repairer Goal (LTG) Pt will perform WNLs on a standardized balance test to decrease fall risk. 12/24/24: Pt cannot tolerate FGA test today and her gait con't to be slow and careful 01/15/25: Pt tolerates FGA though her gait is slow and antalgic and score is 16/30 LTG Duration 8 weeks, Progressing 2 Impairment Painful walking Prison Goal (LTG) Pt will gait train at least 1413 feet in 6 minutes with or without AD to improve community ambulation. 12/24/24: Pt gait trains 729 feet with B walking sticks in 6 minutes with slow johnson and reports of 6/10 right sided hip and SI joint pain after gait 01/09/25: 951 ft in 6 min /c B trek poles, increase 222 ft. 01/15/25: Pt gait trains 1186 feet in 6 minutes with B trekking poles and right SI and back pain increases from 5 to 5.5 with gait LTG Duration 8 weeks, Progressing Assessment Summary Assessment Pt with multiple areas of bruising and so manual work with hands only today. Con't gentle manual work and exercise progression, recovery after compression fracture is slow and PT is able to view image of lumbar MRI today. Consider HEP review in future treatment sessions. Physical Therapy Plan Frequency and Duration Frequency of Treatment 2x/Week Duration of treatment (weeks) 8 Plan of Care Start Date 01/15/25 Plan of Care End Date 03/15/25 Therapeutic Interventions Therapeutic Interventions Balance Training,Canalithic Repositioning,Coordination Training,Gait Training,Home Exercise Program,Joint Mobilizations,Manual Therapy, Neuromuscular Re-education, Patient/Caregiver Education, Self-Care/Home Management,Soft Tissue Mobilization,Taping, Therapeutic Activities, Therapeutic Exercises Modalities Cold Pack/Ice Massage,Electric Stimulation,Hot Packs, Ultrasound Next Visit Focus/Plan Next Note Type Treatment Note Next Visit Plan Continue cues for PPT/cTA core progression and progress balance exercises. Consider diaphragm and hip flexor work in hook lying in future treatments.
--- NOTE | 2025-02-04 13:45 | PT.OTN ---
Current Diagnoses Low back pain, unspecified (02/04/25) Trochanteric bursitis, right hip (02/04/25) Physical Therapy Treatment Note PT-OP-A Visit Information Start: 11/20/24 13:07 Freq: Status: Active Protocol: Document 02/04/25 13:02 SP (Rec: 02/04/25 13:50 SP [id number]) Out-Patient Physical Therapy Visit Information Visit Information Visit Type Treatment Note Visit Note [employer] Progress note by 02/12/25 Visit Start Time 13:02 Visit Stop Time 13:45 Visit Number 15 Number of SERVICE ATTENDANT Visits 1 Evaluation Information Evaluation Date 11/28/24 Precautions Precautions Be mindful of spine s/p OP and L1 compression fracture, keep back precautions and log rolling in mind, pt with multiple areas of bruising PT-OP-B Current Condition Start: 11/20/24 13:07 Freq: Status: Active Protocol: Document 11/28/24 10:50 MB (Rec: 11/28/24 11:30 MB [id number]) Current Condition History of Current Condition Onset Date 11/08/24 after end of long flight and car travel Current Complaints Right lateral hip, SI and groin pain History of Current Condition Pt states she has started Gabapentin and it is making her a little dizzy and a little slow. She is doing calf stretches and pelvic realignment exercises as instructed by this PT from last PT course and she is up to walking 10 minutes around her house. With the Gabapentin, pt is not having as much sharp spasms in back and into leg. She denies numbness and tingling in right leg. Pt had a bad fall 08/20 on brick in [place] and hurt her right knee and hip. Prior Treatments and Tests Right hip x-ray 11/17: IMPRESSION: [id number] bilateral hip arthrosis. No acute radiographic abnormality. If there is high concern for further derangement, consider MRI evaluation. Thoracic spine 11/19: FINDINGS: Bones: Mild superior endplate compression fracture of L1 is of uncertain chronicity. Mild chronic wedging of T8 and T9. No other possible acute compression fractures identified. No suspicious bony lesions. 12 pairs of ribs are noted, and appear intact where visualized. Soft tissues: No paravertebral stripe thickening. IMPRESSION: A mild superior endplate compression of L1 is of uncertain chronicity. Consider lumbar spine MRI to document presence or absence of edema. Treatment Goals Patient/Caregiver Goals To decrease pain PT-OP-C Subjective Start: 11/20/24 13:07 Freq: Status: Active Protocol: Document 02/04/25 13:02 SP (Rec: 02/04/25 13:50 SP [id number]) OP-PT Subjective Patient Comments Patient Comments Pt reported felt better for 2 days after the previous 2 treatments, seeing a change. Walking 1 mile before needs to stop, with 3/4 mile R hip then extends across back but less and able get the distance on flat paved surfaces. She was able to make a meal from scratch for 1 hr before needed to sit/lay down for recovery. 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 She wasn't wiped out after shower now but still had to lay down briefly, including squeeging shower mims. Is mindful of more even WB when stands and conscious of foot and trunk alignment walking with foot clearance. She states is at 3 mo window recovery seeing progressing with what sees online. PT-OP-G Mobility & Gait Start: 11/20/24 13:07 Freq: Status: Active Protocol: Document 11/28/24 10:50 MB (Rec: 11/28/24 16:48 MB [id number]) OP Gait Assessment Comments Gait Comments Pt con't with slow gait, antalgic gait pattern and forward flexed posture and she tends to keep her arms behind her back PT-OP-J Posture/Palpation/Skin Start: 11/20/24 13:07 Freq: Status: Active Protocol: Document 11/28/24 10:50 MB (Rec: 11/28/24 11:30 MB [id number]) Posture Evaluation Comments Posture Comments Standing posture: thoracic kyphosis and left convexity thoracic spine, right convexity lumbar spine and increase lordosis, right iliac crest is higher than the left , posture has left lateral shift in standing with right shoulder medial to right hip and left shoulder lateral to left hip Spinal movement in standing: forward flexion with fingers 2 from the floor, repeated flexion does not increase symptoms, feels tightness in hamstrings; lumbar extension is very minimal at 2 deg and repeated extension does increase symptoms; B SB with increased weight shift laterally and more to the right with left SB and SB about 10 deg B and increased tightness with movement. PT-OP-M Strength Start: 11/20/24 13:07 Freq: Status: Active Protocol: Document 11/28/24 10:50 MB (Rec: 11/28/24 11:30 MB [id number]) Hip Strength Hip Manual Muscle Testing Left Flexion (L2) 5 Normal Abduction 5 Normal Right Flexion (L2) 4+ Good+ Abduction 4+ Good+ Knee Strength Knee Manual Muscle Testing Left Flexion (S2) 5 Normal Extension (L3) 5 Normal Right Flexion (S2) 4+ Good+ Extension (L3) 4+ Good+ Ankle/Foot Strength Ankle and Foot Manual Muscle Testing Bilateral Dorsiflexion (L4) 5 Normal Toe Strength Toe Manual Muscle Testing Left Great Toe Extension 4- Good- Right Great Toe Extension 4 Good PT-OP-Q Treatments Start: 11/20/24 13:07 Freq: Status: Active Protocol: Document 02/04/25 13:02 SP (Rec: 02/04/25 13:50 SP [id number]) Therapeutic Exercises Supine Exercises Core progression Supine Exercise Name bracing with knee ext, bent knee fall out, trunk rot, heel slide, segbridge Side bilateral Resistance REviewed Reps/Minutes X10 each BLE Comments cued TA /c PPT back toward table during motion. Sitting Exercises TA sit stand Sitting Exercise Name education coming to standing Comments TA hip hinge asc/descend- better decreased back, ed equal WB Manual Therapy Treatment Consent Patient gave verbal consent for manual Yes treatment Soft Tissue Mobilization R LS/ glute/piriformis area Mobilization Type Cross-Friction,Rolling, Sustained Pressure Intensity/Depth Superficial Body Position Sidelying Comments to moderate Other Other Manual Treatments Pt in B side lying with pillow under head, ribs and between legs: STM and positional release B QL, hip rotators, vastus lateralis, PFs, glute med and max. Hip mobs gentle light distraction R hip with strap and folded towel: anteromedial and posterolateral- good response. PT-OP-R Modalities Start: 11/20/24 13:07 Freq: Status: Active Protocol: Document 12/26/24 10:47 SP (Rec: 12/26/24 11:36 SP [id number]) Electric Stimulation Electric Stimulation Interferential Current (IFC) Body Location B LS paraspinals, R glut, R lateral hip Intensity 15 Patient Position Hooklying Combined With Heat/Cold Hot Pack Comments 10 min: Continuous PT-OP-T Assessment and Plan Start: 11/20/24 13:07 Freq: Status: Active Protocol: Document 02/04/25 13:02 SP (Rec: 02/04/25 13:50 SP [id number]) Physical Therapy Assessment Goals 6 Impairment Pt not driving d/t pain Account Manager Relief Goal (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 LTG Duration New goal for next 8 weeks 5 Impairment Oswestry score reflects 54% impairment Account Manager Relief Goal (LTG) Pt reporting right hip and LBP and so updated goal for Oswestry instead of LEF score. Pt will present with Oswestry score reflecting no more than 25% impairment to improve quality of life and mobility. LTG Duration New goal for next 8 weeks 4 Impairment Lack of HEP Shelter Goal (LTG) Pt will perform HEP with I including pelvic realignment exercises, flexibility, gentle core and LE strengthening, and balance exercises to improve pain and function. 12/24/24: Pt is able to tolerate pelvic realignment exercises, Shaun stretch, gastroc stretches in standing, side lying and arm overhead, she has not always been doing her diaphragm breathing 01/15/25: Pt is performing the following exercises at home: pelvic realignment exercises, calf stretches, gentle core progression, practicing breathing, Shaun stretch, walking LTG Duration 8 weeks, Progressing 3 Impairment Evidence of imbalance Shelter Goal (LTG) Pt will perform WNLs on a standardized balance test to decrease fall risk. 12/24/24: Pt cannot tolerate FGA test today and her gait con't to be slow and careful 01/15/25: Pt tolerates FGA though her gait is slow and antalgic and score is 16/30 LTG Duration 8 weeks, Progressing 2 Impairment Painful walking Shelter Goal (LTG) Pt will gait train at least 1413 feet in 6 minutes with or without AD to improve community ambulation. 12/24/24: Pt gait trains 729 feet with B walking sticks in 6 minutes with slow johnson and reports of 6/10 right sided hip and SI joint pain after gait 01/09/25: 951 ft in 6 min /c B trek poles, increase 222 ft. 01/15/25: Pt gait trains 1186 feet in 6 minutes with B trekking poles and right SI and back pain increases from 5 to 5.5 with gait LTG Duration 8 weeks, Progressing Assessment Summary Assessment Pt responded well to gentle manual and trialed R hip anteromedial and posterio lateral distraction with hip PROM rotation. Good response to core HEP, able to progress gentle small range segmental bridge today with no pain. Ed TA engagement hip hinge stand/ sit, she incorporates home with less back pain. Physical Therapy Plan Frequency and Duration Frequency of Treatment 2x/Week Duration of treatment (weeks) 8 Plan of Care Start Date 01/15/25 Plan of Care End Date 03/15/25 Therapeutic Interventions Therapeutic Interventions Balance Training,Canalithic Repositioning,Coordination Training,Gait Training,Home Exercise Program,Joint Mobilizations,Manual Therapy, Neuromuscular Re-education, Patient/Caregiver Education, Self-Care/Home Management,Soft Tissue Mobilization,Taping, Therapeutic Activities, Therapeutic Exercises Modalities Cold Pack/Ice Massage,Electric Stimulation,Hot Packs, Ultrasound Next Visit Focus/Plan Next Note Type Treatment Note Next Visit Plan Continue cues for PPT/cTA core progression and progress balance exercises. Consider diaphragm and hip flexor work in hook lying in future treatments.
--- NOTE | 2025-02-06 12:15 | PT.OTN ---
Current Diagnoses Low back pain, unspecified (02/13/25) Trochanteric bursitis, right hip (02/13/25) Physical Therapy Treatment Note PT-OP-A Visit Information Start: 11/20/24 13:07 Freq: Status: Active Protocol: Document 02/15/25 10:00 SP (Rec: 02/06/25 12:36 SP [id number]) Out-Patient Physical Therapy Visit Information Visit Information Visit Type Treatment Note Visit Note [employer] Progress note by 02/12/25 Visit Start Time 11:40 Visit Stop Time 12:25 Visit Number 16 Number of CREDIT CARD SPECIALIST Visits 2 Evaluation Information Evaluation Date 11/28/24 Precautions Precautions Be mindful of spine s/p OP and L1 compression fracture, keep back precautions and log rolling in mind, pt with multiple areas of bruising PT-OP-B Current Condition Start: 11/20/24 13:07 Freq: Status: Active Protocol: Document 11/28/24 10:50 MB (Rec: 11/28/24 11:30 MB [id number]) Current Condition History of Current Condition Onset Date 11/08/24 after end of long flight and car travel Current Complaints Right lateral hip, SI and groin pain History of Current Condition Pt states she has started Gabapentin and it is making her a little dizzy and a little slow. She is doing calf stretches and pelvic realignment exercises as instructed by this PT from last PT course and she is up to walking 10 minutes around her house. With the Gabapentin, pt is not having as much sharp spasms in back and into leg. She denies numbness and tingling in right leg. Pt had a bad fall 08/20 on brick in [place] and hurt her right knee and hip. Prior Treatments and Tests Right hip x-ray 11/17: IMPRESSION: Edsf-et-dlagsmob bilateral hip arthrosis. No acute radiographic abnormality. If there is high concern for further derangement, consider MRI evaluation. Thoracic spine 11/19: FINDINGS: Bones: Mild superior endplate compression fracture of L1 is of uncertain chronicity. Mild chronic wedging of T8 and T9. No other possible acute compression fractures identified. No suspicious bony lesions. 12 pairs of ribs are noted, and appear intact where visualized. Soft tissues: No paravertebral stripe thickening. IMPRESSION: A mild superior endplate compression of L1 is of uncertain chronicity. Consider lumbar spine MRI to document presence or absence of edema. Treatment Goals Patient/Caregiver Goals To decrease pain PT-OP-C Subjective Start: 11/20/24 13:07 Freq: Status: Active Protocol: Document 02/15/25 10:00 SP (Rec: 02/06/25 12:36 SP [id number]) OP-PT Subjective Patient Comments Patient Comments Pt reports thinks layed on back little to long last tx and irritated her back. Went for a walk yesterday and didn' t go as far before pain kicked in than previous few days. PT-OP-G Mobility & Gait Start: 11/20/24 13:07 Freq: Status: Active Protocol: Document 11/28/24 10:50 MB (Rec: 11/28/24 16:48 MB [id number]) OP Gait Assessment Comments Gait Comments Pt con't with slow gait, antalgic gait pattern and forward flexed posture and she tends to keep her arms behind her back PT-OP-J Posture/Palpation/Skin Start: 11/20/24 13:07 Freq: Status: Active Protocol: Document 11/28/24 10:50 MB (Rec: 11/28/24 11:30 MB [id number]) Posture Evaluation Comments Posture Comments Standing posture: thoracic kyphosis and left convexity thoracic spine, right convexity lumbar spine and increase lordosis, right iliac crest is higher than the left , posture has left lateral shift in standing with right shoulder medial to right hip and left shoulder lateral to left hip Spinal movement in standing: forward flexion with fingers 2 from the floor, repeated flexion does not increase symptoms, feels tightness in hamstrings; lumbar extension is very minimal at 2 deg and repeated extension does increase symptoms; B SB with increased weight shift laterally and more to the right with left SB and SB about 10 deg B and increased tightness with movement. PT-OP-M Strength Start: 11/20/24 13:07 Freq: Status: Active Protocol: Document 11/28/24 10:50 MB (Rec: 11/28/24 11:30 MB [id number]) Hip Strength Hip Manual Muscle Testing Left Flexion (L2) 5 Normal Abduction 5 Normal Right Flexion (L2) 4+ Good+ Abduction 4+ Good+ Knee Strength Knee Manual Muscle Testing Left Flexion (S2) 5 Normal Extension (L3) 5 Normal Right Flexion (S2) 4+ Good+ Extension (L3) 4+ Good+ Ankle/Foot Strength Ankle and Foot Manual Muscle Testing Bilateral Dorsiflexion (L4) 5 Normal Toe Strength Toe Manual Muscle Testing Left Great Toe Extension 4- Good- Right Great Toe Extension 4 Good PT-OP-Q Treatments Start: 11/20/24 13:07 Freq: Status: Active Protocol: Document 02/15/25 10:00 SP (Rec: 02/06/25 12:36 SP [id number]) Therapeutic Activity Therapeutic Activity Spinal Alignment Holds Name added to HEP with HO Reps/Minutes 10 SH x5 seated Comments 1. Seated: Rib cage Elevation 5 breaths x5 reps 2. Seated: L LS shift, slight upper back SB R but level shld slight down on L 3. Standing: perform L shif tand SL R as #2 add small marching, found very challenging. Manual Therapy Treatment Consent Patient gave verbal consent for manual Yes treatment Other Other Manual Treatments Pt in R side lying with pillow under head and LS ribs and between legs: STM and positional release L QL and abdominals, with and without breath ribcage expansion inhale, with and without L UE over head. PT-OP-R Modalities Start: 11/20/24 13:07 Freq: Status: Active Protocol: Document 12/26/24 10:47 SP (Rec: 12/26/24 11:36 SP [id number]) Electric Stimulation Electric Stimulation Interferential Current (IFC) Body Location B LS paraspinals, R glut, R lateral hip Intensity 15 Patient Position Hooklying Combined With Heat/Cold Hot Pack Comments 10 min: Continuous PT-OP-T Assessment and Plan Start: 11/20/24 13:07 Freq: Status: Active Protocol: Document 02/15/25 10:00 SP (Rec: 02/06/25 12:36 SP [id number]) Physical Therapy Assessment Goals 6 Impairment Pt not driving d/t pain Supervisor Coating Goal (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 LTG Duration New goal for next 8 weeks 5 Impairment Oswestry score reflects 54% impairment [facility] Goal (LTG) Pt reporting right hip and LBP and so updated goal for Oswestry instead of LEF score. Pt will present with Oswestry score reflecting no more than 25% impairment to improve quality of life and mobility. LTG Duration New goal for next 8 weeks 4 Impairment Lack of HEP Supervisor Coating Goal (LTG) Pt will perform HEP with I including pelvic realignment exercises, flexibility, gentle core and LE strengthening, and balance exercises to improve pain and function. 12/24/24: Pt is able to tolerate pelvic realignment exercises, Shaun stretch, gastroc stretches in standing, side lying and arm overhead, she has not always been doing her diaphragm breathing 01/15/25: Pt is performing the following exercises at home: pelvic realignment exercises, calf stretches, gentle core progression, practicing breathing, Shaun stretch, walking LTG Duration 8 weeks, Progressing 3 Impairment Evidence of imbalance [facility]ci Goal (LTG) Pt will perform WNLs on a standardized balance test to decrease fall risk. 12/24/24: Pt cannot tolerate FGA test today and her gait con't to be slow and careful 01/15/25: Pt tolerates FGA though her gait is slow and antalgic and score is 16/30 LTG Duration 8 weeks, Progressing 2 Impairment Painful walking [facility]ci Goal (LTG) Pt will gait train at least 1413 feet in 6 minutes with or without AD to improve community ambulation. 12/24/24: Pt gait trains 729 feet with B walking sticks in 6 minutes with slow johnson and reports of 6/10 right sided hip and SI joint pain after gait 01/09/25: 951 ft in 6 min /c B trek poles, increase 222 ft. 01/15/25: Pt gait trains 1186 feet in 6 minutes with B trekking poles and right SI and back pain increases from 5 to 5.5 with gait LTG Duration 8 weeks, Progressing Assessment Summary Assessment Pt responded well to manual to L QL and abdominals with and without breath. Initated spinal alignment correction holds ribcage elevation then L LS shift then added slight upper back SL R then added slight L shld down level with R hold 10 sec x5 reps to support derotation of scoliosis. Provided screen shot of her spine from [facility] and hand written directional shift and SB for carryover home. Pt reports no pain but is hard work to maintain positioning and challenging with incorporation of marching functional mobility. Would benefit from continued manual and Ther Act performed today. Physical Therapy Plan Frequency and Duration Frequency of Treatment 2x/Week Duration of treatment (weeks) 8 Plan of Care Start Date 01/15/25 Plan of Care End Date 04/25/25 Therapeutic Interventions Therapeutic Interventions Balance Training,Canalithic Repositioning,Coordination Training,Gait Training,Home Exercise Program,Joint Mobilizations,Manual Therapy, Neuromuscular Re-education, Patient/Caregiver Education, Self-Care/Home Management,Soft Tissue Mobilization,Taping, Therapeutic Activities, Therapeutic Exercises Modalities Cold Pack/Ice Massage,Electric Stimulation,Hot Packs, Ultrasound Next Visit Focus/Plan Next Note Type Treatment Note Next Visit Plan REcheck spinal holds with breath and marching seated vs standing. Continue cues for PPT/cTA core progression and progress balance exercises. Consider diaphragm and hip flexor work in hook lying in future treatments.
--- NOTE | 2025-02-13 13:43 | PT.OTN ---
Current Diagnoses Low back pain, unspecified (02/13/25) Trochanteric bursitis, right hip (02/13/25) Physical Therapy Treatment Note PT-OP-A Visit Information Start: 11/20/24 13:07 Freq: Status: Active Protocol: Document 02/13/25 13:01 MB (Rec: 02/13/25 13:43 MB [id number]) Out-Patient Physical Therapy Visit Information Visit Information Visit Type Progress Note Visit Note [employer] Progress note by 03/15/25 Visit Start Time 13:01 Visit Stop Time 13:41 Visit Number 17 Number of CRO Visits 0 Evaluation Information Evaluation Date 11/28/24 Precautions Precautions Be mindful of spine s/p OP and L1 compression fracture, keep back precautions and log rolling in mind, pt with multiple areas of bruising. Severe osteopenia. PT-OP-B Current Condition Start: 11/20/24 13:07 Freq: Status: Active Protocol: Document 11/28/24 10:50 MB (Rec: 11/28/24 11:30 MB [id number]) Current Condition History of Current Condition Onset Date 11/08/24 after end of long flight and car travel Current Complaints Right lateral hip, SI and groin pain History of Current Condition Pt states she has started Gabapentin and it is making her a little dizzy and a little slow. She is doing calf stretches and pelvic realignment exercises as instructed by this PT from last PT course and she is up to walking 10 minutes around her house. With the Gabapentin, pt is not having as much sharp spasms in back and into leg. She denies numbness and tingling in right leg. Pt had a bad fall 08/20 on brick in [place] and hurt her right knee and hip. Prior Treatments and Tests Right hip x-ray 11/17: IMPRESSION: Rrtd-[id number] bilateral hip arthrosis. No acute radiographic abnormality. If there is high concern for further derangement, consider MRI evaluation. Thoracic spine 11/19: FINDINGS: Bones: Mild superior endplate compression fracture of L1 is of uncertain chronicity. Mild chronic wedging of T8 and T9. No other possible acute compression fractures identified. No suspicious bony lesions. 12 pairs of ribs are noted, and appear intact where visualized. Soft tissues: No paravertebral stripe thickening. IMPRESSION: A mild superior endplate compression of L1 is of uncertain chronicity. Consider lumbar spine MRI to document presence or absence of edema. Treatment Goals Patient/Caregiver Goals To decrease pain PT-OP-C Subjective Start: 11/20/24 13:07 Freq: Status: Active Protocol: Document 02/13/25 13:01 MB (Rec: 02/13/25 13:43 MB [id number]) OP-PT Subjective Patient Comments Patient Comments Pt saw PCP on Tuesday and she had another DEXA scan and was found to have severe osteopenia. She will likely have injections. She was recommended to see the wire lather again. PT-OP-G Mobility & Gait Start: 11/20/24 13:07 Freq: Status: Active Protocol: Document 11/28/24 10:50 MB (Rec: 11/28/24 16:48 MB [id number]) OP Gait Assessment Comments Gait Comments Pt con't with slow gait, antalgic gait pattern and forward flexed posture and she tends to keep her arms behind her back PT-OP-J Posture/Palpation/Skin Start: 11/20/24 13:07 Freq: Status: Active Protocol: Document 11/28/24 10:50 MB (Rec: 11/28/24 11:30 MB [id number]) Posture Evaluation Comments Posture Comments Standing posture: thoracic kyphosis and left convexity thoracic spine, right convexity lumbar spine and increase lordosis, right iliac crest is higher than the left , posture has left lateral shift in standing with right shoulder medial to right hip and left shoulder lateral to left hip Spinal movement in standing: forward flexion with fingers 2 from the floor, repeated flexion does not increase symptoms, feels tightness in hamstrings; lumbar extension is very minimal at 2 deg and repeated extension does increase symptoms; B SB with increased weight shift laterally and more to the right with left SB and SB about 10 deg B and increased tightness with movement. PT-OP-M Strength Start: 11/20/24 13:07 Freq: Status: Active Protocol: Document 11/28/24 10:50 MB (Rec: 11/28/24 11:30 MB [id number]) Hip Strength Hip Manual Muscle Testing Left Flexion (L2) 5 Normal Abduction 5 Normal Right Flexion (L2) 4+ Good+ Abduction 4+ Good+ Knee Strength Knee Manual Muscle Testing Left Flexion (S2) 5 Normal Extension (L3) 5 Normal Right Flexion (S2) 4+ Good+ Extension (L3) 4+ Good+ Ankle/Foot Strength Ankle and Foot Manual Muscle Testing Bilateral Dorsiflexion (L4) 5 Normal Toe Strength Toe Manual Muscle Testing Left Great Toe Extension 4- Good- Right Great Toe Extension 4 Good PT-OP-Q Treatments Start: 11/20/24 13:07 Freq: Status: Active Protocol: Document 02/13/25 13:01 MB (Rec: 02/13/25 13:43 MB [id number]) Therapeutic Exercises Other Exercises HEP review on progress note Comments Verbally reviewed diaphragm breathing, spinal alignment and door stretching Gait Training Gait Activity 6MWT Comments Pt gait trains 1234 feet in six minutes with 4/10 pain across LB before that increases to 5/10 by the end. She has forward head and relatively level and still shoulders with good arm swing with gait despite very high right hemipelvis and right arm naturally curves to swing around hip. Occ scuffing of steps. Neuro Re-Education Treatment Balance Activities FGA Comments Score is 17/30 today, one point improved Self-Care/Home Management Treatment Education Patient Education Body Mechanics,Home Exercise Program,Joint Protection,Pain Management,Posture Other Education Re-ed on ways to engage postural correction holds/ exercise, orthostatic assessment was performed and negative and provided water for pt PT-OP-R Modalities Start: 11/20/24 13:07 Freq: Status: Active Protocol: Document 12/26/24 10:47 SP (Rec: 12/26/24 11:36 SP [id number]) Electric Stimulation Electric Stimulation Interferential Current (IFC) Body Location B LS paraspinals, R glut, R lateral hip Intensity 15 Patient Position Hooklying Combined With Heat/Cold Hot Pack Comments 10 min: Continuous PT-OP-T Assessment and Plan Start: 11/20/24 13:07 Freq: Status: Active Protocol: Document 02/13/25 13:01 MB (Rec: 02/13/25 13:43 MB [id number]) Physical Therapy Assessment Rehab Potential Rehabilitation Potential Fair Evaluation Complexity Number of Personal Factors/Comorbidities 1-2 Number of Body Systems Impaired 1-2 Clinical Presentation at Evaluation Evolving Impairments Impairments Activity Tolerance,Balance, Coordination,Functional Activities,Functional Mobility ,Gait,Pain,Posture,ROM,Soft Tissue Mobility,Strength Goals 6 Impairment Pt not driving d/t pain Usp Goal (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 02/13/25: Pt has not yet tried short driving. LTG Duration New goal for next 8 weeks 5 Impairment Oswestry score reflects 54% impairment Usp Goal (LTG) Pt reporting right hip and LBP and so updated goal for Oswestry instead of LEF score. Pt will present with Oswestry score reflecting no more than 25% impairment to improve quality of life and mobility. 02/13/25: Oswestry score reflects 46% impairment and this is 8% improved since last progress note, only small improvement LTG Duration New goal for next 8 weeks 4 Impairment Lack of HEP Usp Goal (LTG) Pt will perform HEP with I including pelvic realignment exercises, flexibility, gentle core and LE strengthening, and balance exercises to improve pain and function. 12/24/24: Pt is able to tolerate pelvic realignment exercises, Shaun stretch, gastroc stretches in standing, side lying and arm overhead, she has not always been doing her diaphragm breathing 01/15/25: Pt is performing the following exercises at home: pelvic realignment exercises, calf stretches, gentle core progression, practicing breathing, Shaun stretch, walking 02/13/25: Pt is performing most exercises and including spinal alignment exercises, she is handing in the doorway a little and this is helpful. LTG Duration 8 weeks, Progressing 3 Impairment Evidence of imbalance Head Pumper Goal (LTG) Pt will perform WNLs on a standardized balance test to decrease fall risk. 12/24/24: Pt cannot tolerate FGA test today and her gait con't to be slow and careful 01/15/25: Pt tolerates FGA though her gait is slow and antalgic and score is 16/30 02/13/25: FGA score is 17/30, one point better than last progress note LTG Duration 8 weeks, Progressing 2 Impairment Painful walking Usp Goal (LTG) Pt will gait train at least 1413 feet in 6 minutes with or without AD to improve community ambulation. 12/24/24: Pt gait trains 729 feet with B walking sticks in 6 minutes with slow johnson and reports of 6/10 right sided hip and SI joint pain after gait 01/09/25: 951 ft in 6 min /c B trek poles, increase 222 ft. 01/15/25: Pt gait trains 1186 feet in 6 minutes with B trekking poles and right SI and back pain increases from 5 to 5.5 with gait 02/13/25: Pt gait trains 1234 feet in six minutes with 4/10 pain across LB before that increases to 5/10 by the end. She has forward head and relatively level and still shoulders with good arm swing with gait despite very high right hemipelvis and right arm naturally curves to swing around hip. Occ scuffing of steps. LTG Duration 8 weeks, Progressing Assessment Summary Assessment Progress note today and pt reports light-headedness with tandem gait and so checked orthostatics with BP and HR in LUE: supine 151/85, 76; standing 137/77, 93; standing 1' 142/80, 81. Very slow progress towards FGa and 6MWT goals. Spinal and pelvic changes are quite severe and pt now dx with severe osteopenia. Pt to follow-up with wire lather. Physical Therapy Plan Frequency and Duration Frequency of Treatment 2x/Week Duration of treatment (weeks) 8 Plan of Care Start Date 02/13/25 Plan of Care End Date 04/14/25 Therapeutic Interventions Therapeutic Interventions Balance Training,Canalithic Repositioning,Coordination Training,Gait Training,Home Exercise Program,Joint Mobilizations,Manual Therapy, Neuromuscular Re-education, Patient/Caregiver Education, Self-Care/Home Management,Soft Tissue Mobilization,Taping, Therapeutic Activities, Therapeutic Exercises Modalities Cold Pack/Ice Massage,Electric Stimulation,Hot Packs, Ultrasound Next Visit Focus/Plan Next Note Type Treatment Note Next Visit Plan Con't gentle core, balance and LE strengthening with spinal alignment holds incorporated, manual work, consider B[place] breathing with primary PT
--- NOTE | 2025-02-15 11:28 | PT.OTN ---
Current Diagnoses Low back pain, unspecified (02/15/25) Trochanteric bursitis, right hip (02/15/25) Physical Therapy Treatment Note PT-OP-A Visit Information Start: 11/20/24 13:07 Freq: Status: Active Protocol: Document 02/15/25 10:45 SP (Rec: 02/15/25 11:34 SP [id number]) Out-Patient Physical Therapy Visit Information Visit Information Visit Type Treatment Note Visit Note [employer] Progress note by 03/15/25 Visit Start Time 10:45 Visit Stop Time 11:28 Visit Number 18 Number of LINOTYPE OPERATOR Visits 1 Evaluation Information Evaluation Date 11/28/24 Precautions Precautions Be mindful of spine s/p OP and L1 compression fracture, keep back precautions and log rolling in mind, pt with multiple areas of bruising. new: Severe osteopenia via Dexa Scan. PT-OP-B Current Condition Start: 11/20/24 13:07 Freq: Status: Active Protocol: Document 11/28/24 10:50 MB (Rec: 11/28/24 11:30 MB [id number]) Current Condition History of Current Condition Onset Date 11/08/24 after end of long flight and car travel Current Complaints Right lateral hip, SI and groin pain History of Current Condition Pt states she has started Gabapentin and it is making her a little dizzy and a little slow. She is doing calf stretches and pelvic realignment exercises as instructed by this PT from last PT course and she is up to walking 10 minutes around her house. With the Gabapentin, pt is not having as much sharp spasms in back and into leg. She denies numbness and tingling in right leg. Pt had a bad fall 08/20 on brick in [place] and hurt her right knee and hip. Prior Treatments and Tests Right hip x-ray 11/17: IMPRESSION: [id number] bilateral hip arthrosis. No acute radiographic abnormality. If there is high concern for further derangement, consider MRI evaluation. Thoracic spine 11/19: FINDINGS: Bones: Mild superior endplate compression fracture of L1 is of uncertain chronicity. Mild chronic wedging of T8 and T9. No other possible acute compression fractures identified. No suspicious bony lesions. 12 pairs of ribs are noted, and appear intact where visualized. Soft tissues: No paravertebral stripe thickening. IMPRESSION: A mild superior endplate compression of L1 is of uncertain chronicity. Consider lumbar spine MRI to document presence or absence of edema. Treatment Goals Patient/Caregiver Goals To decrease pain PT-OP-C Subjective Start: 11/20/24 13:07 Freq: Status: Active Protocol: Document 02/15/25 10:45 SP (Rec: 02/15/25 11:34 SP [id number]) OP-PT Subjective Patient Comments Patient Comments Pt reported felt ok after last LINOTYPE OPERATOR treatement, stated is challenging and work to maintain positioning new spinal HEP. She was really tired and sore after last tx with all goal assessments, hand to go home use heating pad. Had to sit for long time waiting for Dr sanchezt. Is trying to sit longer with better positioning 30-40 min. When can sit longer then gets up and moving activity vs shifting into poor posture which may have led into scoleosis progression. Has incorporated reaching top door jam and stretch hold 30 sec every time goes through doorway to help with elongation. She is tapering the Gabapentin because doesn't like how affects her thought processing, decreased to bid vs 3x/day per p hysician recommendation, and can go to QD after about 1 week. She has appt with Dr Vale Spinal injection 1 week from today. She has referral to [facility] to get s hot help slow down process of Osteopenia. PT-OP-G Mobility & Gait Start: 11/20/24 13:07 Freq: Status: Active Protocol: Document 11/28/24 10:50 MB (Rec: 11/28/24 16:48 MB [id number]) OP Gait Assessment Comments Gait Comments Pt con't with slow gait, antalgic gait pattern and forward flexed posture and she tends to keep her arms behind her back PT-OP-J Posture/Palpation/Skin Start: 11/20/24 13:07 Freq: Status: Active Protocol: Document 11/28/24 10:50 MB (Rec: 11/28/24 11:30 MB [id number]) Posture Evaluation Comments Posture Comments Standing posture: thoracic kyphosis and left convexity thoracic spine, right convexity lumbar spine and increase lordosis, right iliac crest is higher than the left , posture has left lateral shift in standing with right shoulder medial to right hip and left shoulder lateral to left hip Spinal movement in standing: forward flexion with fingers 2 from the floor, repeated flexion does not increase symptoms, feels tightness in hamstrings; lumbar extension is very minimal at 2 deg and repeated extension does increase symptoms; B SB with increased weight shift laterally and more to the right with left SB and SB about 10 deg B and increased tightness with movement. PT-OP-M Strength Start: 11/20/24 13:07 Freq: Status: Active Protocol: Document 11/28/24 10:50 MB (Rec: 11/28/24 11:30 MB [id number]) Hip Strength Hip Manual Muscle Testing Left Flexion (L2) 5 Normal Abduction 5 Normal Right Flexion (L2) 4+ Good+ Abduction 4+ Good+ Knee Strength Knee Manual Muscle Testing Left Flexion (S2) 5 Normal Extension (L3) 5 Normal Right Flexion (S2) 4+ Good+ Extension (L3) 4+ Good+ Ankle/Foot Strength Ankle and Foot Manual Muscle Testing Bilateral Dorsiflexion (L4) 5 Normal Toe Strength Toe Manual Muscle Testing Left Great Toe Extension 4- Good- Right Great Toe Extension 4 Good PT-OP-Q Treatments Start: 11/20/24 13:07 Freq: Status: Active Protocol: Document 02/15/25 10:45 SP (Rec: 02/15/25 11:34 SP [id number]) Therapeutic Exercises Supine Exercises Core progression Supine Exercise Name Reviewed brace: heel slide, seg pelvic tilt slight lift mini bridge Side bilateral Reps/Minutes X10 each BLE Comments cued TA /c PPT back toward table during motion, no pain Sitting Exercises spinal AROM Sitting Exercise Name performed between sets spinal HEP Side bilateral Resistance AROM Reps/Minutes 5 reps, hold extension 2 SH Comments hands on lap/knees, pelvic tilts & spinal flexion/ extension for rest Therapeutic Activity Therapeutic Activity Spinal Alignment Holds Name Reviewed Reps/Minutes 10 SH x5 seated x2sets Comments 1. Seated: Rib cage Elevation 5 breaths x5 reps 2. Seated: L LS shift, slight upper back SB R but level shld slight down on L 3. Seated: perform L shift SL R as small marching, found more able to perform seated vs stand right now, tiring Manual Therapy Treatment Consent Patient gave verbal consent for manual Yes treatment Other Other Manual Treatments Pt in R side lying positional release with pillow under head and LS ribs and between legs: STMs and MWM L QL, L obliques , L lat, L ribcage intercostals 5-8 with and without breath ribcage expansion inhale, with and without L UE over head. Hooklying: L oblique gentle MFR with breath exhale. PT-OP-R Modalities Start: 11/20/24 13:07 Freq: Status: Active Protocol: Document 12/26/24 10:47 SP (Rec: 12/26/24 11:36 SP [id number]) Electric Stimulation Electric Stimulation Interferential Current (IFC) Body Location B LS paraspinals, R glut, R lateral hip Intensity 15 Patient Position Hooklying Combined With Heat/Cold Hot Pack Comments 10 min: Continuous PT-OP-T Assessment and Plan Start: 11/20/24 13:07 Freq: Status: Active Protocol: Document 02/15/25 10:45 SP (Rec: 02/15/25 11:34 SP [id number]) Physical Therapy Assessment Goals 6 Impairment Pt not driving d/t pain Group Home Goal (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 02/13/25: Pt has not yet tried short driving. LTG Duration New goal for next 8 weeks 5 Impairment Oswestry score reflects 54% impairment [place] Floor Goal (LTG) Pt reporting right hip and LBP and so updated goal for Oswestry instead of LEF score. Pt will present with Oswestry score reflecting no more than 25% impairment to improve quality of life and mobility. 02/13/25: Oswestry score reflects 46% impairment and this is 8% improved since last progress note, only small improvement LTG Duration New goal for next 8 weeks 4 Impairment Lack of HEP [place]ax[place] Floor Goal (LTG) Pt will perform HEP with I including pelvic realignment exercises, flexibility, gentle core and LE strengthening, and balance exercises to improve pain and function. 12/24/24: Pt is able to tolerate pelvic realignment exercises, Shaun stretch, gastroc stretches in standing, side lying and arm overhead, she has not always been doing her diaphragm breathing 01/15/25: Pt is performing the following exercises at home: pelvic realignment exercises, calf stretches, gentle core progression, practicing breathing, Shaun stretch, walking 02/13/25: Pt is performing most exercises and including spinal alignment exercises, she is hanging in the doorway a little and this is helpful. LTG Duration 8 weeks, Progressing 3 Impairment Evidence of imbalance Group Home Goal (LTG) Pt will perform WNLs on a standardized balance test to decrease fall risk. 12/24/24: Pt cannot tolerate FGA test today and her gait con't to be slow and careful 01/15/25: Pt tolerates FGA though her gait is slow and antalgic and score is 16/30 02/13/25: FGA score is 17/30, one point better than last progress note LTG Duration 8 weeks, Progressing 2 Impairment Painful walking Waxer Floor Goal (LTG) Pt will gait train at least 1413 feet in 6 minutes with or without AD to improve community ambulation. 12/24/24: Pt gait trains 729 feet with B walking sticks in 6 minutes with slow johnson and reports of 6/10 right sided hip and SI joint pain after gait 01/09/25: 951 ft in 6 min /c B trek poles, increase 222 ft. 01/15/25: Pt gait trains 1186 feet in 6 minutes with B trekking poles and right SI and back pain increases from 5 to 5.5 with gait 02/13/25: Pt gait trains 1234 feet in six minutes with 4/10 pain across LB before that increases to 5/10 by the end. She has forward head and relatively level and still shoulders with good arm swing with gait despite very high right hemipelvis and right arm naturally curves to swing around hip. Occ scuffing of steps. LTG Duration 8 weeks, Progressing Assessment Summary Assessment Pt less sensitive to manual today, adjustment in pressure with feedback over intercostals and obliques. Cues for PPT during core heel slide and mini segmental bridge, no pain. Continued spinal alignment exercises, tactile cues for elevated ribcage with shift correction holds. Modified functional march in sitting today due to reports challenging at this time during standing to maintain spinal alignment corrections, improved today. Added spinal flex/ext between sets of 5 for AROM tiring recovery with good response, no HO given. Physical Therapy Plan Frequency and Duration Frequency of Treatment 2x/Week Duration of treatment (weeks) 8 Plan of Care Start Date 02/13/25 Plan of Care End Date 04/14/25 Therapeutic Interventions Therapeutic Interventions Balance Training,Canalithic Repositioning,Coordination Training,Gait Training,Home Exercise Program,Joint Mobilizations,Manual Therapy, Neuromuscular Re-education, Patient/Caregiver Education, Self-Care/Home Management,Soft Tissue Mobilization,Taping, Therapeutic Activities, Therapeutic Exercises Modalities Cold Pack/Ice Massage,Electric Stimulation,Hot Packs, Ultrasound Next Visit Focus/Plan Next Note Type Treatment Note Next Visit Plan Next continue spinal HEP and manual, progress balance. Try resisted shld rows seated vs standing. Con't gentle core, balance and LE strengthening with spinal alignment holds incorporated, manual work, consider Buteyko breathing with primary PT
--- NOTE | 2025-02-18 15:17 | PT.OTN ---
Current Diagnoses Low back pain, unspecified (02/18/25) Trochanteric bursitis, right hip (02/18/25) Physical Therapy Treatment Note PT-OP-A Visit Information Start: 11/20/24 13:07 Freq: Status: Active Protocol: Document 02/18/25 14:37 SP (Rec: 02/18/25 15:35 SP [id number]) Out-Patient Physical Therapy Visit Information Visit Information Visit Type Treatment Note Visit Note [employer] Progress note by 03/15/25 KX Modifier next tx. Visit Start Time 14:37 Visit Stop Time 15:17 Visit Number 19 Number of DIESEL ENGINE ASSEMBLER Visits 2 Evaluation Information Evaluation Date 11/28/24 Precautions Precautions Be mindful of spine s/p OP and L1 compression fracture, keep back precautions and log rolling in mind, pt with multiple areas of bruising. new: Severe osteopenia via Dexa Scan. PT-OP-B Current Condition Start: 11/20/24 13:07 Freq: Status: Active Protocol: Document 11/28/24 10:50 MB (Rec: 11/28/24 11:30 MB [id number]) Current Condition History of Current Condition Onset Date 11/08/24 after end of long flight and car travel Current Complaints Right lateral hip, SI and groin pain History of Current Condition Pt states she has started Gabapentin and it is making her a little dizzy and a little slow. She is doing calf stretches and pelvic realignment exercises as instructed by this PT from last PT course and she is up to walking 10 minutes around her house. With the Gabapentin, pt is not having as much sharp spasms in back and into leg. She denies numbness and tingling in right leg. Pt had a bad fall 08/20 on brick in [place] and hurt her right knee and hip. Prior Treatments and Tests Right hip x-ray 11/17: IMPRESSION: [id number] bilateral hip arthrosis. No acute radiographic abnormality. If there is high concern for further derangement, consider MRI evaluation. Thoracic spine 11/19: FINDINGS: Bones: Mild superior endplate compression fracture of L1 is of uncertain chronicity. Mild chronic wedging of T8 and T9. No other possible acute compression fractures identified. No suspicious bony lesions. 12 pairs of ribs are noted, and appear intact where visualized. Soft tissues: No paravertebral stripe thickening. IMPRESSION: A mild superior endplate compression of L1 is of uncertain chronicity. Consider lumbar spine MRI to document presence or absence of edema. Treatment Goals Patient/Caregiver Goals To decrease pain PT-OP-C Subjective Start: 11/20/24 13:07 Freq: Status: Active Protocol: Document 02/18/25 14:37 SP (Rec: 02/18/25 15:35 SP [id number]) OP-PT Subjective Patient Comments Patient Comments Pt reports had a landmark day yesterday walked 1.2 miles and only tiring return. Then went out to lunch and able to sit without non PT-OP-G Mobility & Gait Start: 11/20/24 13:07 Freq: Status: Active Protocol: Document 11/28/24 10:50 MB (Rec: 11/28/24 16:48 MB [id number]) OP Gait Assessment Comments Gait Comments Pt con't with slow gait, antalgic gait pattern and forward flexed posture and she tends to keep her arms behind her back PT-OP-J Posture/Palpation/Skin Start: 11/20/24 13:07 Freq: Status: Active Protocol: Document 11/28/24 10:50 MB (Rec: 11/28/24 11:30 MB [id number]) Posture Evaluation Comments Posture Comments Standing posture: thoracic kyphosis and left convexity thoracic spine, right convexity lumbar spine and increase lordosis, right iliac crest is higher than the left , posture has left lateral shift in standing with right shoulder medial to right hip and left shoulder lateral to left hip Spinal movement in standing: forward flexion with fingers 2 from the floor, repeated flexion does not increase symptoms, feels tightness in hamstrings; lumbar extension is very minimal at 2 deg and repeated extension does increase symptoms; B SB with increased weight shift laterally and more to the right with left SB and SB about 10 deg B and increased tightness with movement. PT-OP-M Strength Start: 11/20/24 13:07 Freq: Status: Active Protocol: Document 11/28/24 10:50 MB (Rec: 11/28/24 11:30 MB [id number]) Hip Strength Hip Manual Muscle Testing Left Flexion (L2) 5 Normal Abduction 5 Normal Right Flexion (L2) 4+ Good+ Abduction 4+ Good+ Knee Strength Knee Manual Muscle Testing Left Flexion (S2) 5 Normal Extension (L3) 5 Normal Right Flexion (S2) 4+ Good+ Extension (L3) 4+ Good+ Ankle/Foot Strength Ankle and Foot Manual Muscle Testing Bilateral Dorsiflexion (L4) 5 Normal Toe Strength Toe Manual Muscle Testing Left Great Toe Extension 4- Good- Right Great Toe Extension 4 Good PT-OP-Q Treatments Start: 11/20/24 13:07 Freq: Status: Active Protocol: Document 02/18/25 14:37 SP (Rec: 02/18/25 15:35 SP [id number]) Therapeutic Exercises Sitting Exercises spinal AROM Sitting Exercise Name Spinal flexion/extension ROM between sets Side bilateral Resistance AROM Reps/Minutes 5 reps, hold extension 2 SH Comments hands on lap/knees, pelvic tilts & spinal flexion/ extension for rest Therapeutic Activity Therapeutic Activity Spinal Alignment Holds Name Reviewed Reps/Minutes 10 SH x5 seated x2sets Comments 1. Seated: Rib cage Elevation 5 breaths x5 reps 2. Seated: LS shift L, slight upper back SB R with level shld slight down on L 3. Seated: perform hold, small marching 4. Seated: Perform hold, resisted rows Manual Therapy Treatment Consent Patient gave verbal consent for manual Yes treatment Other Other Manual Treatments Pt L then R sidelying positional release with pillow under head, under LS/ lower ribcage and between legs: STMs and MWM with breath B QL, B obliques, B lat, B ribcage intercostals 5-8 with and without breath ribcage expansion inhale, with and without L UE over head, caudal pelvic glide with breath exhale. PT-OP-R Modalities Start: 11/20/24 13:07 Freq: Status: Active Protocol: Document 12/26/24 10:47 SP (Rec: 12/26/24 11:36 SP [id number]) Electric Stimulation Electric Stimulation Interferential Current (IFC) Body Location B LS paraspinals, R glut, R lateral hip Intensity 15 Patient Position Hooklying Combined With Heat/Cold Hot Pack Comments 10 min: Continuous PT-OP-T Assessment and Plan Start: 11/20/24 13:07 Freq: Status: Active Protocol: Document 02/18/25 14:37 SP (Rec: 02/18/25 15:35 SP [id number]) Physical Therapy Assessment Goals 6 Impairment Pt not driving d/t pain Care Home Goal (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 3/26/25: Pt has not yet tried short driving. LTG Duration New goal for next 8 weeks 5 Impairment Oswestry score reflects 54% impairment Care Home Goal (LTG) Pt reporting right hip and LBP and so updated goal for Oswestry instead of LEF score. Pt will present with Oswestry score reflecting no more than 25% impairment to improve quality of life and mobility. 02/13/25: Oswestry score reflects 46% impairment and this is 8% improved since last progress note, only small improvement LTG Duration New goal for next 8 weeks 4 Impairment Lack of HEP Care Home Goal (LTG) Pt will perform HEP with I including pelvic realignment exercises, flexibility, gentle core and LE strengthening, and balance exercises to improve pain and function. 12/24/24: Pt is able to tolerate pelvic realignment exercises, Shaun stretch, gastroc stretches in standing, side lying and arm overhead, she has not always been doing her diaphragm breathing 01/15/25: Pt is performing the following exercises at home: pelvic realignment exercises, calf stretches, gentle core progression, practicing breathing, Shaun stretch, walking 02/13/25: Pt is performing most exercises and including spinal alignment exercises, she is hanging in the doorway a little and this is helpful. LTG Duration 8 weeks, Progressing 3 Impairment Evidence of imbalance Fixer Boarding Room Goal (LTG) Pt will perform WNLs on a standardized balance test to decrease fall risk. 12/24/24: Pt cannot tolerate FGA test today and her gait con't to be slow and careful 01/15/25: Pt tolerates FGA though her gait is slow and antalgic and score is 16/30 02/13/25: FGA score is 17/30, one point better than last progress note LTG Duration 8 weeks, Progressing 2 Impairment Painful walking Care Home Goal (LTG) Pt will gait train at least 1413 feet in 6 minutes with or without AD to improve community ambulation. 12/24/24: Pt gait trains 729 feet with B walking sticks in 6 minutes with slow johnson and reports of 6/10 right sided hip and SI joint pain after gait 01/09/25: 951 ft in 6 min /c B trek poles, increase 222 ft. 01/15/25: Pt gait trains 1186 feet in 6 minutes with B trekking poles and right SI and back pain increases from 5 to 5.5 with gait 02/13/25: Pt gait trains 1234 feet in six minutes with 4/10 pain across LB before that increases to 5/10 by the end. She has forward head and relatively level and still shoulders with good arm swing with gait despite very high right hemipelvis and right arm naturally curves to swing around hip. Occ scuffing of steps. LTG Duration 8 weeks, Progressing Assessment Summary Assessment Pt Physical Therapy Plan Frequency and Duration Frequency of Treatment 2x/Week Duration of treatment (weeks) 8 Plan of Care Start Date 02/13/25 Plan of Care End Date 04/14/25 Therapeutic Interventions Therapeutic Interventions Balance Training,Canalithic Repositioning,Coordination Training,Gait Training,Home Exercise Program,Joint Mobilizations,Manual Therapy, Neuromuscular Re-education, Patient/Caregiver Education, Self-Care/Home Management,Soft Tissue Mobilization,Taping, Therapeutic Activities, Therapeutic Exercises Modalities Cold Pack/Ice Massage,Electric Stimulation,Hot Packs, Ultrasound Next Visit Focus/Plan Next Note Type Treatment Note Next Visit Plan KX Modifier next tx. Continue spinal HEP with funcitonal marching and resisted rows, and manual with pillow blocking, progress balance. Con't gentle core, balance and LE strengthening with spinal alignment holds incorporated, manual work, consider Buteyko breathing with primary PT
--- NOTE | 2025-02-20 13:42 | PT.OTN ---
Current Diagnoses Low back pain, unspecified (02/20/25) Trochanteric bursitis, right hip (02/20/25) Physical Therapy Treatment Note PT-OP-A Visit Information Start: 11/20/24 13:07 Freq: Status: Active Protocol: Document 02/20/25 12:57 MB (Rec: 02/20/25 13:42 MB [id number]) Out-Patient Physical Therapy Visit Information Visit Information Visit Type Treatment Note Visit Note [employer] Progress note by 03/15/25 KX Modifier Visit Start Time 12:57 Visit Stop Time 13:37 Visit Number 20 Number of DEVELOPMENT EDITOR Visits 0 Evaluation Information Evaluation Date 11/28/24 Precautions Precautions Be mindful of spine s/p OP and L1 compression fracture, keep back precautions and log rolling in mind, pt with multiple areas of bruising. new: Severe osteopenia via Dexa Scan. PT-OP-B Current Condition Start: 11/20/24 13:07 Freq: Status: Active Protocol: Document 11/28/24 10:50 MB (Rec: 11/28/24 11:30 MB [id number]) Current Condition History of Current Condition Onset Date 11/08/24 after end of long flight and car travel Current Complaints Right lateral hip, SI and groin pain History of Current Condition Pt states she has started Gabapentin and it is making her a little dizzy and a little slow. She is doing calf stretches and pelvic realignment exercises as instructed by this PT from last PT course and she is up to walking 10 minutes around her house. With the Gabapentin, pt is not having as much sharp spasms in back and into leg. She denies numbness and tingling in right leg. Pt had a bad fall 08/20 on brick in [place] and hurt her right knee and hip. Prior Treatments and Tests Right hip x-ray 11/17: IMPRESSION: [id number] bilateral hip arthrosis. No acute radiographic abnormality. If there is high concern for further derangement, consider MRI evaluation. Thoracic spine 11/19: FINDINGS: Bones: Mild superior endplate compression fracture of L1 is of uncertain chronicity. Mild chronic wedging of T8 and T9. No other possible acute compression fractures identified. No suspicious bony lesions. 12 pairs of ribs are noted, and appear intact where visualized. Soft tissues: No paravertebral stripe thickening. IMPRESSION: A mild superior endplate compression of L1 is of uncertain chronicity. Consider lumbar spine MRI to document presence or absence of edema. Treatment Goals Patient/Caregiver Goals To decrease pain PT-OP-C Subjective Start: 11/20/24 13:07 Freq: Status: Active Protocol: Document 02/20/25 12:57 MB (Rec: 02/20/25 13:42 MB [id number]) OP-PT Subjective Patient Comments Patient Comments Pt is better little by little. She walked 45 minutes yesterday on flat surface with B hiking poles and distance 1 .4 miles. Pt is tired after walking but is having less pain. She does like to stretch out afterwards. She sees spine doctor on Tuesday for check in. PT-OP-G Mobility & Gait Start: 11/20/24 13:07 Freq: Status: Active Protocol: Document 11/28/24 10:50 MB (Rec: 11/28/24 16:48 MB [id number]) OP Gait Assessment Comments Gait Comments Pt con't with slow gait, antalgic gait pattern and forward flexed posture and she tends to keep her arms behind her back PT-OP-J Posture/Palpation/Skin Start: 11/20/24 13:07 Freq: Status: Active Protocol: Document 11/28/24 10:50 MB (Rec: 11/28/24 11:30 MB [id number]) Posture Evaluation Comments Posture Comments Standing posture: thoracic kyphosis and left convexity thoracic spine, right convexity lumbar spine and increase lordosis, right iliac crest is higher than the left , posture has left lateral shift in standing with right shoulder medial to right hip and left shoulder lateral to left hip Spinal movement in standing: forward flexion with fingers 2 from the floor, repeated flexion does not increase symptoms, feels tightness in hamstrings; lumbar extension is very minimal at 2 deg and repeated extension does increase symptoms; B SB with increased weight shift laterally and more to the right with left SB and SB about 10 deg B and increased tightness with movement. PT-OP-M Strength Start: 11/20/24 13:07 Freq: Status: Active Protocol: Document 11/28/24 10:50 MB (Rec: 11/28/24 11:30 MB [id number]) Hip Strength Hip Manual Muscle Testing Left Flexion (L2) 5 Normal Abduction 5 Normal Right Flexion (L2) 4+ Good+ Abduction 4+ Good+ Knee Strength Knee Manual Muscle Testing Left Flexion (S2) 5 Normal Extension (L3) 5 Normal Right Flexion (S2) 4+ Good+ Extension (L3) 4+ Good+ Ankle/Foot Strength Ankle and Foot Manual Muscle Testing Bilateral Dorsiflexion (L4) 5 Normal Toe Strength Toe Manual Muscle Testing Left Great Toe Extension 4- Good- Right Great Toe Extension 4 Good PT-OP-Q Treatments Start: 11/20/24 13:07 Freq: Status: Active Protocol: Document 02/20/25 12:57 MB (Rec: 02/20/25 13:42 MB [id number]) Manual Therapy Treatment Consent Patient gave verbal consent for manual Yes treatment Other Other Manual Treatments Fascial Counterstrain assessment of spine and most tension and discomfort L2, better with flexion and worse with neutral and extension, most pain with extension and cannot bend much, responds well to palpating right pubic symphysis which is stiff and painful and so treated today: treated LEL3-MS, spinal vein extension left L1, mesentary left ribs. Self-Care/Home Management Treatment Education Other Education Education about fascia, fascial restrictions, how the fascia protects and how if affects alignment, pain, different ways to treat it and fascial counterstrain working to move into position of release and pt agreeable to treatment Lengthengin in supine with arms overhead, pillow under head and under knees and nasal breathing with diaphragm moving up and down PT-OP-R Modalities Start: 11/20/24 13:07 Freq: Status: Active Protocol: Document 12/26/24 10:47 SP (Rec: 12/26/24 11:36 SP [id number]) Electric Stimulation Electric Stimulation Interferential Current (IFC) Body Location B LS paraspinals, R glut, R lateral hip Intensity 15 Patient Position Hooklying Combined With Heat/Cold Hot Pack Comments 10 min: Continuous PT-OP-T Assessment and Plan Start: 11/20/24 13:07 Freq: Status: Active Protocol: Document 02/20/25 12:57 MB (Rec: 02/20/25 13:42 MB [id number]) Physical Therapy Assessment Goals 6 Impairment Pt not driving d/t pain Touring Production Manager Goal (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 02/13/25: Pt has not yet tried short driving. LTG Duration New goal for next 8 weeks 5 Impairment Oswestry score reflects 54% impairment Retirement Goal (LTG) Pt reporting right hip and LBP and so updated goal for Oswestry instead of LEF score. Pt will present with Oswestry score reflecting no more than 25% impairment to improve quality of life and mobility. 02/13/25: Oswestry score reflects 46% impairment and this is 8% improved since last progress note, only small improvement LTG Duration New goal for next 8 weeks 4 Impairment Lack of HEP Retirement Goal (LTG) Pt will perform HEP with I including pelvic realignment exercises, flexibility, gentle core and LE strengthening, and balance exercises to improve pain and function. 12/24/24: Pt is able to tolerate pelvic realignment exercises, Shaun stretch, gastroc stretches in standing, side lying and arm overhead, she has not always been doing her diaphragm breathing 01/15/25: Pt is performing the following exercises at home: pelvic realignment exercises, calf stretches, gentle core progression, practicing breathing, Shaun stretch, walking 02/13/25: Pt is performing most exercises and including spinal alignment exercises, she is hanging in the doorway a little and this is helpful. LTG Duration 8 weeks, Progressing 3 Impairment Evidence of imbalance Touring Production Manager Goal (LTG) Pt will perform WNLs on a standardized balance test to decrease fall risk. 12/24/24: Pt cannot tolerate FGA test today and her gait con't to be slow and careful 01/15/25: Pt tolerates FGA though her gait is slow and antalgic and score is 16/30 02/13/25: FGA score is 17/30, one point better than last progress note LTG Duration 8 weeks, Progressing 2 Impairment Painful walking Touring Production Manager Goal (LTG) Pt will gait train at least 1413 feet in 6 minutes with or without AD to improve community ambulation. 12/24/24: Pt gait trains 729 feet with B walking sticks in 6 minutes with slow johnson and reports of 6/10 right sided hip and SI joint pain after gait 01/09/25: 951 ft in 6 min /c B trek poles, increase 222 ft. 01/15/25: Pt gait trains 1186 feet in 6 minutes with B trekking poles and right SI and back pain increases from 5 to 5.5 with gait 02/13/25: Pt gait trains 1234 feet in six minutes with 4/10 pain across LB before that increases to 5/10 by the end. She has forward head and relatively level and still shoulders with good arm swing with gait despite very high right hemipelvis and right arm naturally curves to swing around hip. Occ scuffing of steps. LTG Duration 8 weeks, Progressing Assessment Summary Assessment Pt with increased tension L2 and treated at right pubic symphysis per pain, tension and scan with fascial Counterstrain positional release and pt tolerates well. Physical Therapy Plan Frequency and Duration Frequency of Treatment 2x/Week Duration of treatment (weeks) 8 Plan of Care Start Date 02/13/25 Plan of Care End Date 04/14/25 Therapeutic Interventions Therapeutic Interventions Balance Training,Canalithic Repositioning,Coordination Training,Gait Training,Home Exercise Program,Joint Mobilizations,Manual Therapy, Neuromuscular Re-education, Patient/Caregiver Education, Self-Care/Home Management,Soft Tissue Mobilization,Taping, Therapeutic Activities, Therapeutic Exercises Modalities Cold Pack/Ice Massage,Electric Stimulation,Hot Packs, Ultrasound Next Visit Focus/Plan Next Note Type Treatment Note Next Visit Plan Continue spinal HEP with functional marching and resisted rows, and manual with pillow blocking, progress balance. Con't gentle core, balance and LE strengthening with spinal alignment holds incorporated, manual work, consider [place] breathing with primary PT Gentle manual work
--- NOTE | 2025-03-04 15:51 | PT-OP ANOTE ---
Pt has had to cancel appts since 02/20 last seen has had bronchitis and really wiped her out. She is hoping will be in 03/11/25 appt. She is aware will be due to another PN when sees PT again.
--- NOTE | 2025-03-10 07:22 | PT-OP ANOTE ---
Post-it note left for PT about pt's email to PT. Pt sends PT an email with extensive information in it and so copied below for chart. Pt to see [facility] tomorrow and they can discuss progressive gentle core strengthening, which is per plan. PT leaves message for pt communicating this. Jd Garrett --? Miss seeing you! Writing to bring you up to date, and for you to think about what we should do next. At this point I am 4 months out from the back episode on November 08 that started the intense pain, and 6 months out from the fall that probably caused the L1 compression fracture. ? Chronology since our last appointment: - After last seeing you on February 20, I saw Physiatry Dr. Roel Vale for follow-up on February 22 at the [facility] in [place] ([facility]) - Two days later I started getting sick with respiratory stuff and got much worse over the week, causing me to call and cancel appointments with you and Adina (I told your hotel front desk clerk that cancellation was due to illness) - Was put on antibiotics for bronchitis/sinusitus (endless coughing, low fever, etc.) - Antibiotics seem to be helping some by now, but nothing to brag about yet - Gabapentin taper-off completed on February 24, so no more Gabapentin - Expect to be back at physical therapy next week, where the current schedule is Tuesday/11:30am with Adina and Tuesday/11:30am with you ? Dr. Vale's assessment at February 22 appointment, follow-up to the December 19 epidural: - I told Dr. Vale that I wanted to (1) better understand what caused the intense pain episode that started November 08, (2) the relationship of that injury and relationship of my recovery to my scoliosis, (3) the type of 'narrowing' I have, (4) what he recommends next, and (5) how to best mitigate against future such episodes.? -- The intense pain episode is because I got old, was his lead response. 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 -- He does not see the scoliosis having a relationship to this injury or my recovery (he described as a notable S-shaped scoliotic curve) -- He said it is right-side foraminal narrowing at L2-L3, which will not necessarily get worse; at my initial visit with him, he said this narrowing might have contributed to the intense pain (the MRI also shows some L1-L2 narrowing) -- He says to continue with physical therapy and home exercises as directed -- He emphasized the importance of ongoing strengthening myself as the best mitigation, and recommends low-impact aerobic activity such as yoga and Pilates -- His written report concludes; I would not recommend further interventional measures, given the lack of resposse to her recent injection. There is not a surgical indication present. Consideration of a referral to a chronic pain clinic could be appropriate in the future should symptoms persist despite exercise. ? Current state: So, whatever happened, here we are. Overall I am doing some better than when we last met. My major concern right now is that I cannot ride very long in a vehicle without pain starting up, which completely upends our life centered around traveling. The two-hour afternoon round trip to Dr. Vale (Rd drove) left me in discomfort until the next day, despite doing advil/heating pad and assorting stretching when back home. 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 Have not been out walking since all this heavy coughing started, but hope to start back soon. For the worst days of coughing/etc. only managed to do a few stretching exercises, but now am back to the whole list. ? What next? What is the most efficient way I can work harder now on getting my back/core stronger? I want to push myself harder, and get back to my regular life. ? Thanks for listening, I really look forward to your thoughts and direction on all of the above. -- Nusrat louis What should Adina and I do on Tuesday?
--- NOTE | 2025-03-11 12:22 | PT.OTN ---
Current Diagnoses Low back pain, unspecified (03/11/25) Trochanteric bursitis, right hip (03/11/25) Physical Therapy Treatment Note PT-OP-A Visit Information Start: 11/20/24 13:07 Freq: Status: Active Protocol: Document 03/11/25 11:36 SP (Rec: 03/11/25 12:35 SP Laptop) Out-Patient Physical Therapy Visit Information Visit Information Visit Type Treatment Note Visit Note [employer] Progress note by 03/19/25 appt KX Modifier 02/20/25. JEANNE Garcia provided cues to pt during ther ex standing with pt permission while under direction of SHARLENE Holden. Visit Start Time 11:36 Visit Stop Time 12:22 Visit Number 21 Number of WORLD HISTORY TEACHER Visits 1 Evaluation Information Evaluation Date 11/28/24 Precautions Precautions Be mindful of spine s/p OP and L1 compression fracture, keep back precautions and log rolling in mind, pt with multiple areas of bruising. new: Severe osteopenia via Dexa Scan. PT-OP-B Current Condition Start: 11/20/24 13:07 Freq: Status: Active Protocol: Document 11/28/24 10:50 MB (Rec: 11/28/24 11:30 MB [id number]) Current Condition History of Current Condition Onset Date 11/08/24 after end of long flight and car travel Current Complaints Right lateral hip, SI and groin pain History of Current Condition Pt states she has started Gabapentin and it is making her a little dizzy and a little slow. She is doing calf stretches and pelvic realignment exercises as instructed by this PT from last PT course and she is up to walking 10 minutes around her house. With the Gabapentin, pt is not having as much sharp spasms in back and into leg. She denies numbness and tingling in right leg. Pt had a bad fall 08/20 on brick in [place] and hurt her right knee and hip. Prior Treatments and Tests Right hip x-ray 11/17: IMPRESSION: [id number] bilateral hip arthrosis. No acute radiographic abnormality. If there is high concern for further derangement, consider MRI evaluation. Thoracic spine 11/19: FINDINGS: Bones: Mild superior endplate compression fracture of L1 is of uncertain chronicity. Mild chronic wedging of T8 and T9. No other possible acute compression fractures identified. No suspicious bony lesions. 12 pairs of ribs are noted, and appear intact where visualized. Soft tissues: No paravertebral stripe thickening. IMPRESSION: A mild superior endplate compression of L1 is of uncertain chronicity. Consider lumbar spine MRI to document presence or absence of edema. Treatment Goals Patient/Caregiver Goals To decrease pain PT-OP-C Subjective Start: 11/20/24 13:07 Freq: Status: Active Protocol: Document 03/11/25 11:36 SP (Rec: 03/11/25 12:35 SP Laptop) OP-PT Subjective Patient Comments Patient Comments Pt reports is 4 mo out from pain, 6 mo from fall, moving alot better. Can;t sit long traveling in car. She did has residual cough, searing N95 mask. She saw physician and instructed really ramp up core now to allow get out on adventures. SHe has family coming visit in 1 mo and need to walk about sight seeing. SHe hasn't been able to do more active but stretching due to FLU. SHe reports can sit at home as long as wants to now with no back pain but car rides still is the worst. Doing standing chore s lasts abou 1 hr since last tx. She is able to carry 1 gal bottle now with just RUE vs 2 before started PT. PT-OP-G Mobility & Gait Start: 11/20/24 13:07 Freq: Status: Active Protocol: Document 11/28/24 10:50 MB (Rec: 11/28/24 16:48 MB [id number]) OP Gait Assessment Comments Gait Comments Pt con't with slow gait, antalgic gait pattern and forward flexed posture and she tends to keep her arms behind her back PT-OP-J Posture/Palpation/Skin Start: 11/20/24 13:07 Freq: Status: Active Protocol: Document 11/28/24 10:50 MB (Rec: 11/28/24 11:30 MB [id number]) Posture Evaluation Comments Posture Comments Standing posture: thoracic kyphosis and left convexity thoracic spine, right convexity lumbar spine and increase lordosis, right iliac crest is higher than the left , posture has left lateral shift in standing with right shoulder medial to right hip and left shoulder lateral to left hip Spinal movement in standing: forward flexion with fingers 2 from the floor, repeated flexion does not increase symptoms, feels tightness in hamstrings; lumbar extension is very minimal at 2 deg and repeated extension does increase symptoms; B SB with increased weight shift laterally and more to the right with left SB and SB about 10 deg B and increased tightness with movement. PT-OP-M Strength Start: 11/20/24 13:07 Freq: Status: Active Protocol: Document 11/28/24 10:50 MB (Rec: 11/28/24 11:30 MB [id number]) Hip Strength Hip Manual Muscle Testing Left Flexion (L2) 5 Normal Abduction 5 Normal Right Flexion (L2) 4+ Good+ Abduction 4+ Good+ Knee Strength Knee Manual Muscle Testing Left Flexion (S2) 5 Normal Extension (L3) 5 Normal Right Flexion (S2) 4+ Good+ Extension (L3) 4+ Good+ Ankle/Foot Strength Ankle and Foot Manual Muscle Testing Bilateral Dorsiflexion (L4) 5 Normal Toe Strength Toe Manual Muscle Testing Left Great Toe Extension 4- Good- Right Great Toe Extension 4 Good PT-OP-Q Treatments Start: 11/20/24 13:07 Freq: Status: Active Protocol: Document 03/11/25 11:36 SP (Rec: 03/11/25 12:35 SP Laptop) Therapeutic Exercises Supine Exercises Verbal review stretching HEP Side bilateral Reps/Minutes doing fine doesn't need to review today Comments verbal review Core progression Supine Exercise Name 1. TA bridge 2. SKFO (hip roll ) with added band Side bilateral Resistance 2. TB #2 teal Reps/Minutes 1. 30 SH 2. 10 reps single Comments Cued PPT with TA able tires at 30 sec before start feel back , 2. PPT slow . Sidelying Exercises open book to 90deg abd Sidelying Exercise Name HABD with TS rotation Side bilateral Resistance AROM> 2.2 lb ball (dumbbells' not available) Equipment Used pillow under LS Reps/Minutes 10 reps Comments cued breath end feel x2 for TS ribcage mobiltiy Shld ABD /c breath Sidelying Exercise Name reviewed Side bilateral Resistance AROM> 2.2 lb ball (dumbbells' not available) Equipment Used pillow under LS Reps/Minutes 10 reps Comments increased resistance for core/ scapular strengthening Standing Exercises Anti Rotation pressouts Standing Exercise Name added to HEP with HO Side bilateral Resistance Teal TB #2 Reps/Minutes 5 reps each side Comments cued shld width BLE, soft knees, elongated ribcage with TA Shld Ext Standing Exercise Name added to HEP with HO Side bilateral Resistance TB #2 teal band Reps/Minutes 10 Comments cued elongated ribcage and spine slight upper body to R Rows Standing Exercise Name added to HEP with HO Side bilateral Resistance TB #2 teal band Reps/Minutes 10 Comments cued elongated ribcage and spine slight upper body to R PT-OP-R Modalities Start: 11/20/24 13:07 Freq: Status: Active Protocol: Document 12/26/24 10:47 SP (Rec: 12/26/24 11:36 SP [id number]) Electric Stimulation Electric Stimulation Interferential Current (IFC) Body Location B LS paraspinals, R glut, R lateral hip Intensity 15 Patient Position Hooklying Combined With Heat/Cold Hot Pack Comments 10 min: Continuous PT-OP-T Assessment and Plan Start: 11/20/24 13:07 Freq: Status: Active Protocol: Document 03/11/25 11:36 SP (Rec: 03/11/25 12:35 SP Laptop) Physical Therapy Assessment Goals 6 Impairment Pt not driving d/t pain Halfway Goal (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 02/13/25: Pt has not yet tried short driving. LTG Duration New goal for next 8 weeks 5 Impairment Oswestry score reflects 54% impairment Research Asst Goal (LTG) Pt reporting right hip and LBP and so updated goal for Oswestry instead of LEF score. Pt will present with Oswestry score reflecting no more than 25% impairment to improve quality of life and mobility. 02/13/25: Oswestry score reflects 46% impairment and this is 8% improved since last progress note, only small improvement LTG Duration New goal for next 8 weeks 4 Impairment Lack of HEP Halfway Goal (LTG) Pt will perform HEP with I including pelvic realignment exercises, flexibility, gentle core and LE strengthening, and balance exercises to improve pain and function. 12/24/24: Pt is able to tolerate pelvic realignment exercises, Shaun stretch, gastroc stretches in standing, side lying and arm overhead, she has not always been doing her diaphragm breathing 01/15/25: Pt is performing the following exercises at home: pelvic realignment exercises, calf stretches, gentle core progression, practicing breathing, Shaun stretch, walking 02/13/25: Pt is performing most exercises and including spinal alignment exercises, she is hanging in the doorway a little and this is helpful. LTG Duration 8 weeks, Progressing 3 Impairment Evidence of imbalance Research Asst Goal (LTG) Pt will perform WNLs on a standardized balance test to decrease fall risk. 12/24/24: Pt cannot tolerate FGA test today and her gait con't to be slow and careful 01/15/25: Pt tolerates FGA though her gait is slow and antalgic and score is 16/30 02/13/25: FGA score is 17/30, one point better than last progress note LTG Duration 8 weeks, Progressing 2 Impairment Painful walking Halfway Goal (LTG) Pt will gait train at least 1413 feet in 6 minutes with or without AD to improve community ambulation. 12/24/24: Pt gait trains 729 feet with B walking sticks in 6 minutes with slow johnson and reports of 6/10 right sided hip and SI joint pain after gait 01/09/25: 951 ft in 6 min /c B trek poles, increase 222 ft. 01/15/25: Pt gait trains 1186 feet in 6 minutes with B trekking poles and right SI and back pain increases from 5 to 5.5 with gait 02/13/25: Pt gait trains 1234 feet in six minutes with 4/10 pain across LB before that increases to 5/10 by the end. She has forward head and relatively level and still shoulders with good arm swing with gait despite very high right hemipelvis and right arm naturally curves to swing around hip. Occ scuffing of steps. LTG Duration 8 weeks, Progressing Assessment Summary Assessment Pt responded well to addition of resistance to HEP open book , shld abd, hip rolls and cues for PPT neutral spine during bridge core progression holds which she added since last tx. Pt tolerated progression resisted core standing per her request for return to walking community with family visit in 1 mo. Physical Therapy Plan Next Visit Focus/Plan Next Note Type Treatment Note Next Visit Plan Recheck added resisted row, ext and antirotation band. Revisit spinal HEP with functional marching sit vs stand and resisted rows, and manual with pillow blocking, progress balance. Con't gentle core, balance and LE strengthening with spinal alignment holds incorporated, manual work, consider [place] breathing with primary PT Gentle manual work
--- NOTE | 2025-03-19 12:13 | PT.OTN ---
Current Diagnoses Low back pain, unspecified (03/19/25) Trochanteric bursitis, right hip (03/19/25) Physical Therapy Treatment Note PT-OP-A Visit Information Start: 11/20/24 13:07 Freq: Status: Active Protocol: Document 03/19/25 11:31 MB (Rec: 03/19/25 12:13 MB Desktop) Out-Patient Physical Therapy Visit Information Visit Information Visit Type Progress Note Visit Note No KX Visit Start Time 11:31 Visit Stop Time 12:11 Visit Number 22 Number of HEARINGS REPORTER Visits 0 Evaluation Information Evaluation Date 11/28/24 Precautions Precautions Be mindful of spine s/p OP and L1 compression fracture, keep back precautions and log rolling in mind, pt with multiple areas of bruising. new: Severe osteopenia via Dexa Scan. PT-OP-B Current Condition Start: 11/20/24 13:07 Freq: Status: Active Protocol: Document 11/28/24 10:50 MB (Rec: 11/28/24 11:30 MB [id number]) Current Condition History of Current Condition Onset Date 11/08/24 after end of long flight and car travel Current Complaints Right lateral hip, SI and groin pain History of Current Condition Pt states she has started Gabapentin and it is making her a little dizzy and a little slow. She is doing calf stretches and pelvic realignment exercises as instructed by this PT from last PT course and she is up to walking 10 minutes around her house. With the Gabapentin, pt is not having as much sharp spasms in back and into leg. She denies numbness and tingling in right leg. Pt had a bad fall 08/20 on brick in [place] and hurt her right knee and hip. Prior Treatments and Tests Right hip x-ray 11/17: IMPRESSION: [id number] bilateral hip arthrosis. No acute radiographic abnormality. If there is high concern for further derangement, consider MRI evaluation. Thoracic spine 11/19: FINDINGS: Bones: Mild superior endplate compression fracture of L1 is of uncertain chronicity. Mild chronic wedging of T8 and T9. No other possible acute compression fractures identified. No suspicious bony lesions. 12 pairs of ribs are noted, and appear intact where visualized. Soft tissues: No paravertebral stripe thickening. IMPRESSION: A mild superior endplate compression of L1 is of uncertain chronicity. Consider lumbar spine MRI to document presence or absence of edema. Treatment Goals Patient/Caregiver Goals To decrease pain PT-OP-C Subjective Start: 11/20/24 13:07 Freq: Status: Active Protocol: Document 03/19/25 11:31 MB (Rec: 03/19/25 12:13 MB Desktop) OP-PT Subjective Patient Comments Patient Comments Pt is feeling way better. She walked 2 miles, is ready to work on core, is able to sit in different chairs around the house. She is on steroids and so she is not driving because she feels jittery. Pt can carry a gallon jug from room to room. PT-OP-G Mobility & Gait Start: 11/20/24 13:07 Freq: Status: Active Protocol: Document 11/28/24 10:50 MB (Rec: 11/28/24 16:48 MB [id number]) OP Gait Assessment Comments Gait Comments Pt con't with slow gait, antalgic gait pattern and forward flexed posture and she tends to keep her arms behind her back PT-OP-J Posture/Palpation/Skin Start: 11/20/24 13:07 Freq: Status: Active Protocol: Document 11/28/24 10:50 MB (Rec: 11/28/24 11:30 MB [id number]) Posture Evaluation Comments Posture Comments Standing posture: thoracic kyphosis and left convexity thoracic spine, right convexity lumbar spine and increase lordosis, right iliac crest is higher than the left , posture has left lateral shift in standing with right shoulder medial to right hip and left shoulder lateral to left hip Spinal movement in standing: forward flexion with fingers 2 from the floor, repeated flexion does not increase symptoms, feels tightness in hamstrings; lumbar extension is very minimal at 2 deg and repeated extension does increase symptoms; B SB with increased weight shift laterally and more to the right with left SB and SB about 10 deg B and increased tightness with movement. PT-OP-M Strength Start: 11/20/24 13:07 Freq: Status: Active Protocol: Document 11/28/24 10:50 MB (Rec: 11/28/24 11:30 MB [id number]) Hip Strength Hip Manual Muscle Testing Left Flexion (L2) 5 Normal Abduction 5 Normal Right Flexion (L2) 4+ Good+ Abduction 4+ Good+ Knee Strength Knee Manual Muscle Testing Left Flexion (S2) 5 Normal Extension (L3) 5 Normal Right Flexion (S2) 4+ Good+ Extension (L3) 4+ Good+ Ankle/Foot Strength Ankle and Foot Manual Muscle Testing Bilateral Dorsiflexion (L4) 5 Normal Toe Strength Toe Manual Muscle Testing Left Great Toe Extension 4- Good- Right Great Toe Extension 4 Good PT-OP-Q Treatments Start: 11/20/24 13:07 Freq: Status: Active Protocol: Document 03/19/25 11:31 MB (Rec: 03/19/25 12:13 MB Desktop) Therapeutic Exercises Other Exercises HEP review on progress note Comments Performed today Gait Training Gait Activity 6MWT Comments See goals today and pt gait trains much further and has similar pain, at least 8' gait training during treatment Neuro Re-Education Treatment Balance Activities FGA activities for home Comments Changing gait speed is too easy, performed two reps of each and will perform 4 reps at home: right and left head turns, up and down head movements, backwards walking, forward walking eyes closed, heel toe walking, fingernail slide along wall FGA Comments Score 20/30 today PT-OP-R Modalities Start: 11/20/24 13:07 Freq: Status: Active Protocol: Document 12/26/24 10:47 SP (Rec: 12/26/24 11:36 SP [id number]) Electric Stimulation Electric Stimulation Interferential Current (IFC) Body Location B LS paraspinals, R glut, R lateral hip Intensity 15 Patient Position Hooklying Combined With Heat/Cold Hot Pack Comments 10 min: Continuous PT-OP-T Assessment and Plan Start: 11/20/24 13:07 Freq: Status: Active Protocol: Document 03/19/25 11:31 MB (Rec: 03/19/25 12:13 MB Desktop) Physical Therapy Assessment Rehab Potential Rehabilitation Potential Fair Evaluation Complexity Number of Personal Factors/Comorbidities 1-2 Number of Body Systems Impaired 1-2 Clinical Presentation at Evaluation Evolving Impairments Impairments Activity Tolerance,Balance, Coordination,Functional Activities,Functional Mobility ,Gait,Pain,Posture,ROM,Soft Tissue Mobility,Strength Goals 6 Impairment Pt not driving d/t pain Film Librarian Goal (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 02/13/25: Pt has not yet tried short driving. 03/19/25: Pt has not yet tried driving and she will start next week when she is off steroids. LTG Duration New goal for next 8 weeks 5 Impairment Oswestry score reflects 54% impairment Film Librarian Goal (LTG) Pt reporting right hip and LBP and so updated goal for Oswestry instead of LEF score. Pt will present with Oswestry score reflecting no more than 25% impairment to improve quality of life and mobility. 02/13/25: Oswestry score reflects 46% impairment and this is 8% improved since last progress note, only small improvement 03/19/25: Oswestry score reflects 30% impairment, 16% impairment LTG Duration New goal for next 8 weeks 4 Impairment Lack of HEP Film Librarian Goal (LTG) Pt will perform HEP with I including pelvic realignment exercises, flexibility, gentle core and LE strengthening, and balance exercises to improve pain and function. 12/24/24: Pt is able to tolerate pelvic realignment exercises, Shaun stretch, gastroc stretches in standing, side lying and arm overhead, she has not always been doing her diaphragm breathing 01/15/25: Pt is performing the following exercises at home: pelvic realignment exercises, calf stretches, gentle core progression, practicing breathing, Shaun stretch, walking 02/13/25: Pt is performing most exercises and including spinal alignment exercises, she is hanging in the doorway a little and this is helpful. 03/19/25: Pt is performing exercises, is feeling better, is walking further with hiking sticks and thinking about her posture. LTG Duration 8 weeks, Progressing 3 Impairment Evidence of imbalance Long-Term Goal (LTG) Pt will perform WNLs on a standardized balance test to decrease fall risk. 12/24/24: Pt cannot tolerate FGA test today and her gait con't to be slow and careful 01/15/25: Pt tolerates FGA though her gait is slow and antalgic and score is 16/30 02/13/25: FGA score is 17/30, one point better than last progress note 03/19/25: FGA score is improved at 20/30 LTG Duration 8 weeks, Progressing 2 Impairment Painful walking Long-Term Goal (LTG) Pt will gait train at least 1413 feet in 6 minutes with or without AD to improve community ambulation. 12/24/24: Pt gait trains 729 feet with B walking sticks in 6 minutes with slow johnson and reports of 6/10 right sided hip and SI joint pain after gait 01/09/25: 951 ft in 6 min /c B trek poles, increase 222 ft. 01/15/25: Pt gait trains 1186 feet in 6 minutes with B trekking poles and right SI and back pain increases from 5 to 5.5 with gait 02/13/25: Pt gait trains 1234 feet in six minutes with 4/10 pain across LB before that increases to 5/10 by the end. She has forward head and relatively level and still shoulders with good arm swing with gait despite very high right hemipelvis and right arm naturally curves to swing around hip. Occ scuffing of steps. 03/19/25: Pain before 6MWT is 3 /10: pain after gait is 3/10 and she gait trains 1300 feet in 6 minutes, which is much improved LTG Duration 8 weeks, Progressing Assessment Summary Assessment Pt is progressing towards all goals, has come over a hump with pain, would like to progress with core strengthening in future appointments and to make more today. Physical Therapy Plan Frequency and Duration Frequency of Treatment 2x/Week Duration of treatment (weeks) 8 Plan of Care Start Date 02/13/25 Plan of Care End Date 04/14/25 Therapeutic Interventions Therapeutic Interventions Balance Training,Canalithic Repositioning,Coordination Training,Gait Training,Home Exercise Program,Joint Mobilizations,Manual Therapy, Neuromuscular Re-education, Patient/Caregiver Education, Self-Care/Home Management,Soft Tissue Mobilization,Taping, Therapeutic Activities, Therapeutic Exercises Modalities Cold Pack/Ice Massage,Electric Stimulation,Hot Packs, Ultrasound Next Visit Focus/Plan Next Note Type Treatment Note Next Visit Plan Progress core exercises for pt and d/c by 04/08/25, consider body blade
--- NOTE | 2025-03-22 11:32 | PT.OTN ---
Current Diagnoses Low back pain, unspecified (03/22/25) Trochanteric bursitis, right hip (03/22/25) Physical Therapy Treatment Note PT-OP-A Visit Information Start: 11/20/24 13:07 Freq: Status: Active Protocol: Document 03/22/25 11:32 PG (Rec: 03/22/25 12:32 PG [id number]) Out-Patient Physical Therapy Visit Information Visit Information Visit Type Treatment Note Visit Note No KX Radha ANGEL helped lead with pt's permission and SHARLENE Holden's direct supervision. Visit Start Time 11:32 Visit Stop Time 12:17 Visit Number 23 Number of BLAST FURNACE BLOWER Visits 1 Evaluation Information Evaluation Date 11/28/24 Precautions Precautions Be mindful of spine s/p OP and L1 compression fracture, keep back precautions and log rolling in mind, pt with multiple areas of bruising. new: Severe osteopenia via Dexa Scan. PT-OP-B Current Condition Start: 11/20/24 13:07 Freq: Status: Active Protocol: Document 11/28/24 10:50 MB (Rec: 11/28/24 11:30 MB [id number]) Current Condition History of Current Condition Onset Date 11/08/24 after end of long flight and car travel Current Complaints Right lateral hip, SI and groin pain History of Current Condition Pt states she has started Gabapentin and it is making her a little dizzy and a little slow. She is doing calf stretches and pelvic realignment exercises as instructed by this PT from last PT course and she is up to walking 10 minutes around her house. With the Gabapentin, pt is not having as much sharp spasms in back and into leg. She denies numbness and tingling in right leg. Pt had a bad fall 08/20 on brick in [place] and hurt her right knee and hip. Prior Treatments and Tests Right hip x-ray 11/17: IMPRESSION: [id number] bilateral hip arthrosis. No acute radiographic abnormality. If there is high concern for further derangement, consider MRI evaluation. Thoracic spine 11/19: FINDINGS: Bones: Mild superior endplate compression fracture of L1 is of uncertain chronicity. Mild chronic wedging of T8 and T9. No other possible acute compression fractures identified. No suspicious bony lesions. 12 pairs of ribs are noted, and appear intact where visualized. Soft tissues: No paravertebral stripe thickening. IMPRESSION: A mild superior endplate compression of L1 is of uncertain chronicity. Consider lumbar spine MRI to document presence or absence of edema. Treatment Goals Patient/Caregiver Goals To decrease pain PT-OP-C Subjective Start: 11/20/24 13:07 Freq: Status: Active Protocol: Document 03/22/25 11:32 PG (Rec: 03/22/25 12:32 PG [id number]) OP-PT Subjective Patient Comments Patient Comments Pt is feeling good today. She needs plenty of core progression ex's bc she wont be in tx for a week. Is doing all of her current HEP ex's Also wants to work on R LE and knee stabilization/ strengthening. Been modifying HEP ex's such as clamshell. Pt will be trying to drive later this week as she is feeling less jittery from steroids. PT-OP-G Mobility & Gait Start: 11/20/24 13:07 Freq: Status: Active Protocol: Document 11/28/24 10:50 MB (Rec: 11/28/24 16:48 MB [id number]) OP Gait Assessment Comments Gait Comments Pt con't with slow gait, antalgic gait pattern and forward flexed posture and she tends to keep her arms behind her back PT-OP-J Posture/Palpation/Skin Start: 11/20/24 13:07 Freq: Status: Active Protocol: Document 11/28/24 10:50 MB (Rec: 11/28/24 11:30 MB [id number]) Posture Evaluation Comments Posture Comments Standing posture: thoracic kyphosis and left convexity thoracic spine, right convexity lumbar spine and increase lordosis, right iliac crest is higher than the left , posture has left lateral shift in standing with right shoulder medial to right hip and left shoulder lateral to left hip Spinal movement in standing: forward flexion with fingers 2 from the floor, repeated flexion does not increase symptoms, feels tightness in hamstrings; lumbar extension is very minimal at 2 deg and repeated extension does increase symptoms; B SB with increased weight shift laterally and more to the right with left SB and SB about 10 deg B and increased tightness with movement. PT-OP-M Strength Start: 11/20/24 13:07 Freq: Status: Active Protocol: Document 11/28/24 10:50 MB (Rec: 11/28/24 11:30 MB [id number]) Hip Strength Hip Manual Muscle Testing Left Flexion (L2) 5 Normal Abduction 5 Normal Right Flexion (L2) 4+ Good+ Abduction 4+ Good+ Knee Strength Knee Manual Muscle Testing Left Flexion (S2) 5 Normal Extension (L3) 5 Normal Right Flexion (S2) 4+ Good+ Extension (L3) 4+ Good+ Ankle/Foot Strength Ankle and Foot Manual Muscle Testing Bilateral Dorsiflexion (L4) 5 Normal Toe Strength Toe Manual Muscle Testing Left Great Toe Extension 4- Good- Right Great Toe Extension 4 Good PT-OP-Q Treatments Start: 11/20/24 13:07 Freq: Status: Active Protocol: Document 03/22/25 11:32 PG (Rec: 03/22/25 12:32 PG [id number]) Therapeutic Exercises Supine Exercises Core progression Supine Exercise Name Reviewed/progressed: 1. bridg w 10 clmshlls 2. deadbugs alt LE/UE Side bilateral Resistance 1. TB #2 teal arnd thighs Reps/Minutes 1. 2x10 2. several reps Comments Cued core engage, cues to decrease ROM for hip abduction , cues to alternate Standing Exercises Wall squat w hip abd Standing Exercise Name Added to HEP, provided HO Resistance teal (lvl 2) TB Equipment Used chair near by for safety Reps/Minutes 10x Comments cues to engage core, PPT Neuro Re-Education Treatment Balance Activities FGA activities for home Reps/Duration 2x along hallway railing Comments Reviewed fwd walking with head turns (up/down, R/L), bckwrd walking, fwrd eyes closed, and tightrope walking. Pt used finger tip against wall for support PT-OP-R Modalities Start: 11/20/24 13:07 Freq: Status: Active Protocol: Document 12/26/24 10:47 SP (Rec: 12/26/24 11:36 SP [id number]) Electric Stimulation Electric Stimulation Interferential Current (IFC) Body Location B LS paraspinals, R glut, R lateral hip Intensity 15 Patient Position Hooklying Combined With Heat/Cold Hot Pack Comments 10 min: Continuous PT-OP-T Assessment and Plan Start: 11/20/24 13:07 Freq: Status: Active Protocol: Document 03/22/25 11:32 PG (Rec: 03/22/25 12:32 PG [id number]) Physical Therapy Assessment Goals 6 Impairment Pt not driving d/t pain Assisted Goal (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 02/13/25: Pt has not yet tried short driving. 03/19/25: Pt has not yet tried driving and she will start next week when she is off steroids. LTG Duration New goal for next 8 weeks 5 Impairment Oswestry score reflects 54% impairment Assisted Goal (LTG) Pt reporting right hip and LBP and so updated goal for Oswestry instead of LEF score. Pt will present with Oswestry score reflecting no more than 25% impairment to improve quality of life and mobility. 02/13/25: Oswestry score reflects 46% impairment and this is 8% improved since last progress note, only small improvement 03/19/25: Oswestry score reflects 30% impairment, 16% impairment LTG Duration New goal for next 8 weeks 4 Impairment Lack of HEP [employer] Goal (LTG) Pt will perform HEP with I including pelvic realignment exercises, flexibility, gentle core and LE strengthening, and balance exercises to improve pain and function. 12/24/24: Pt is able to tolerate pelvic realignment exercises, Shaun stretch, gastroc stretches in standing, side lying and arm overhead, she has not always been doing her diaphragm breathing 01/15/25: Pt is performing the following exercises at home: pelvic realignment exercises, calf stretches, gentle core progression, practicing breathing, Sahun stretch, walking 02/13/25: Pt is performing most exercises and including spinal alignment exercises, she is hanging in the doorway a little and this is helpful. 03/19/25: Pt is performing exercises, is feeling better, is walking further with hiking sticks and thinking about her posture. LTG Duration 8 weeks, Progressing 3 Impairment Evidence of imbalance [employer] Goal (LTG) Pt will perform WNLs on a standardized balance test to decrease fall risk. 12/24/24: Pt cannot tolerate FGA test today and her gait con't to be slow and careful 01/15/25: Pt tolerates FGA though her gait is slow and antalgic and score is 16/30 02/13/25: FGA score is 17/30, one point better than last progress note 03/19/25: FGA score is improved at 20/30 LTG Duration 8 weeks, Progressing 2 Impairment Painful walking [employer] Goal (LTG) Pt will gait train at least 1413 feet in 6 minutes with or without AD to improve community ambulation. 12/24/24: Pt gait trains 729 feet with B walking sticks in 6 minutes with slow johnson and reports of 6/10 right sided hip and SI joint pain after gait 01/09/25: 951 ft in 6 min /c B trek poles, increase 222 ft. 01/15/25: Pt gait trains 1186 feet in 6 minutes with B trekking poles and right SI and back pain increases from 5 to 5.5 with gait 02/13/25: Pt gait trains 1234 feet in six minutes with 4/10 pain across LB before that increases to 5/10 by the end. She has forward head and relatively level and still shoulders with good arm swing with gait despite very high right hemipelvis and right arm naturally curves to swing around hip. Occ scuffing of steps. 03/19/25: Pain before 6MWT is 3 /10: pain after gait is 3/10 and she gait trains 1300 feet in 6 minutes, which is much improved LTG Duration 8 weeks, Progressing Assessment Summary Assessment Pt came to treatment with ambition for core progression exercises. Was able to demonstrate good understanding and form with her current HEP , condensed some HEP exercises . Progressed supine core exercise and added standing wall squats with resistance band to work on both strengthening for core and lower extremities. Minimal cues for core engagement required, did use verbal cues for breathing and counting out loud with reps. Continued working on dynamic gait activities. Physical Therapy Plan Frequency and Duration Frequency of Treatment 2x/Week Duration of treatment (weeks) 8 Plan of Care Start Date 02/13/25 Plan of Care End Date 04/14/25 Therapeutic Interventions Therapeutic Interventions Balance Training,Canalithic Repositioning,Coordination Training,Gait Training,Home Exercise Program,Joint Mobilizations,Manual Therapy, Neuromuscular Re-education, Patient/Caregiver Education, Self-Care/Home Management,Soft Tissue Mobilization,Taping, Therapeutic Activities, Therapeutic Exercises Modalities Cold Pack/Ice Massage,Electric Stimulation,Hot Packs, Ultrasound Next Visit Focus/Plan Next Note Type Treatment Note Next Visit Plan Review newly added core progression exercises for pt and d/c by 04/08/25, consider body blade Next: jazmine
--- NOTE | 2025-03-27 12:15 | PT.OTN ---
Current Diagnoses Low back pain, unspecified (03/27/25) Trochanteric bursitis, right hip (03/27/25) Physical Therapy Treatment Note PT-OP-A Visit Information Start: 11/20/24 13:07 Freq: Status: Active Protocol: Document 03/27/25 11:31 MB (Rec: 03/27/25 12:05 MB Desktop) Out-Patient Physical Therapy Visit Information Visit Information Visit Type Treatment Note Visit Note No KX Visit Start Time 11:31 Visit Stop Time 12:11 Visit Number 24 Number of LANDSCAPER Visits 0 Evaluation Information Evaluation Date 11/28/24 Precautions Precautions Be mindful of spine s/p OP and L1 compression fracture, keep back precautions and log rolling in mind, pt with multiple areas of bruising. new: Severe osteopenia via Dexa Scan. PT-OP-B Current Condition Start: 11/20/24 13:07 Freq: Status: Active Protocol: Document 11/28/24 10:50 MB (Rec: 11/28/24 11:30 MB [id number]) Current Condition History of Current Condition Onset Date 11/08/24 after end of long flight and car travel Current Complaints Right lateral hip, SI and groin pain History of Current Condition Pt states she has started Gabapentin and it is making her a little dizzy and a little slow. She is doing calf stretches and pelvic realignment exercises as instructed by this PT from last PT course and she is up to walking 10 minutes around her house. With the Gabapentin, pt is not having as much sharp spasms in back and into leg. She denies numbness and tingling in right leg. Pt had a bad fall 08/20 on brick in [place] and hurt her right knee and hip. Prior Treatments and Tests Right hip x-ray 11/17: IMPRESSION: Djrs-ca-lnercovl bilateral hip arthrosis. No acute radiographic abnormality. If there is high concern for further derangement, consider MRI evaluation. Thoracic spine 11/19: FINDINGS: Bones: Mild superior endplate compression fracture of L1 is of uncertain chronicity. Mild chronic wedging of T8 and T9. No other possible acute compression fractures identified. No suspicious bony lesions. 12 pairs of ribs are noted, and appear intact where visualized. Soft tissues: No paravertebral stripe thickening. IMPRESSION: A mild superior endplate compression of L1 is of uncertain chronicity. Consider lumbar spine MRI to document presence or absence of edema. Treatment Goals Patient/Caregiver Goals To decrease pain PT-OP-C Subjective Start: 11/20/24 13:07 Freq: Status: Active Protocol: Document 03/27/25 11:31 MB (Rec: 03/27/25 12:05 MB Desktop) OP-PT Subjective Patient Comments Patient Comments Pt is doing everything everyday and it is taking over an hour. She feels like such a grown-up working on her core . Sometimes, she works on things later in the day, too. Pt drove today. PT-OP-G Mobility & Gait Start: 11/20/24 13:07 Freq: Status: Active Protocol: Document 11/28/24 10:50 MB (Rec: 11/28/24 16:48 MB [id number]) OP Gait Assessment Comments Gait Comments Pt con't with slow gait, antalgic gait pattern and forward flexed posture and she tends to keep her arms behind her back PT-OP-J Posture/Palpation/Skin Start: 11/20/24 13:07 Freq: Status: Active Protocol: Document 11/28/24 10:50 MB (Rec: 11/28/24 11:30 MB [id number]) Posture Evaluation Comments Posture Comments Standing posture: thoracic kyphosis and left convexity thoracic spine, right convexity lumbar spine and increase lordosis, right iliac crest is higher than the left , posture has left lateral shift in standing with right shoulder medial to right hip and left shoulder lateral to left hip Spinal movement in standing: forward flexion with fingers 2 from the floor, repeated flexion does not increase symptoms, feels tightness in hamstrings; lumbar extension is very minimal at 2 deg and repeated extension does increase symptoms; B SB with increased weight shift laterally and more to the right with left SB and SB about 10 deg B and increased tightness with movement. PT-OP-M Strength Start: 11/20/24 13:07 Freq: Status: Active Protocol: Document 11/28/24 10:50 MB (Rec: 11/28/24 11:30 MB [id number]) Hip Strength Hip Manual Muscle Testing Left Flexion (L2) 5 Normal Abduction 5 Normal Right Flexion (L2) 4+ Good+ Abduction 4+ Good+ Knee Strength Knee Manual Muscle Testing Left Flexion (S2) 5 Normal Extension (L3) 5 Normal Right Flexion (S2) 4+ Good+ Extension (L3) 4+ Good+ Ankle/Foot Strength Ankle and Foot Manual Muscle Testing Bilateral Dorsiflexion (L4) 5 Normal Toe Strength Toe Manual Muscle Testing Left Great Toe Extension 4- Good- Right Great Toe Extension 4 Good PT-OP-Q Treatments Start: 11/20/24 13:07 Freq: Status: Active Protocol: Document 03/27/25 11:31 MB (Rec: 03/27/25 12:05 MB Desktop) Therapeutic Exercises Supine Exercises bug Comments Good core engagement, to con't everyday Lengthening exercise Comments No pillow under knees and performing once a day Core progression Supine Exercise Name Reviewed today and pt is breaking up bridge Comments 5 reps bridge and pt would like to con't once a day SKTC Comments Pt to con't as needed Shaun stretch Comments Pt to con't once a day Diaphragm breathing Comments Throughout the day when needed and when stretch Hip Rotator Stretch Comments Pt to con't once a day, ER and IR stretching Pelvic realignment exercises Comments Pt to perform once a day Sidelying Exercises open book to 90deg abd Comments Pt to con't everyday Standing Exercises UE exercises standing Standing Exercise Name Pt demos what she is doing at home Comments She uses 2 lb weights at home, abd, flexion, add Wall squat w hip abd Comments Pt performs everyday and sometimes she grabs the band and sometimes she estrada Anti Rotation pressouts Comments Pt to perform everyday, 10 reps Shld Ext Comments Ed to perform every other day but pt wants to perform everyday Rows Comments Ed to perform every other day but pt wants to perform everyday Calf stretches Comments Performing once a day and ed to perform around walks Neuro Re-Education Treatment Balance Activities FGA activities for home Comments Verbally reviewed today and pt states they are challenging enough and will con't 6x/wk Self-Care/Home Management Treatment Education Patient Education Body Mechanics,Fall Risk,Home Exercise Program,Joint Protection,Pain Management, Posture,Safety Other Education Reviewed all exercises to come up with a plan for pt to exercise no more than 40 minutes a day with PT exercises and this can be 20 minutes times two so that pt can get back to life, walking, etc, and to advance program. Ed pt to be mindful of standing UE exercises. PT-OP-R Modalities Start: 11/20/24 13:07 Freq: Status: Active Protocol: Document 12/26/24 10:47 SP (Rec: 12/26/24 11:36 SP [id number]) Electric Stimulation Electric Stimulation Interferential Current (IFC) Body Location B LS paraspinals, R glut, R lateral hip Intensity 15 Patient Position Hooklying Combined With Heat/Cold Hot Pack Comments 10 min: Continuous PT-OP-T Assessment and Plan Start: 11/20/24 13:07 Freq: Status: Active Protocol: Document 03/27/25 11:31 MB (Rec: 03/27/25 12:05 MB Desktop) Physical Therapy Assessment Rehab Potential Rehabilitation Potential Fair Evaluation Complexity Number of Personal Factors/Comorbidities 1-2 Number of Body Systems Impaired 1-2 Clinical Presentation at Evaluation Evolving Impairments Impairments Activity Tolerance,Balance, Coordination,Functional Activities,Functional Mobility ,Gait,Pain,Posture,ROM,Soft Tissue Mobility,Strength Goals 6 Impairment Pt not driving d/t pain Care Home Goal (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 02/13/25: Pt has not yet tried short driving. 03/19/25: Pt has not yet tried driving and she will start next week when she is off steroids. LTG Duration New goal for next 8 weeks 5 Impairment Oswestry score reflects 54% impairment Care Home Goal (LTG) Pt reporting right hip and LBP and so updated goal for Oswestry instead of LEF score. Pt will present with Oswestry score reflecting no more than 25% impairment to improve quality of life and mobility. 02/13/25: Oswestry score reflects 46% impairment and this is 8% improved since last progress note, only small improvement 03/19/25: Oswestry score reflects 30% impairment, 16% impairment LTG Duration New goal for next 8 weeks 4 Impairment Lack of HEP [employer] Goal (LTG) Pt will perform HEP with I including pelvic realignment exercises, flexibility, gentle core and LE strengthening, and balance exercises to improve pain and function. 12/24/24: Pt is able to tolerate pelvic realignment exercises, Shaun stretch, gastroc stretches in standing, side lying and arm overhead, she has not always been doing her diaphragm breathing 01/15/25: Pt is performing the following exercises at home: pelvic realignment exercises, calf stretches, gentle core progression, practicing breathing, Shaun stretch, walking 02/13/25: Pt is performing most exercises and including spinal alignment exercises, she is hanging in the doorway a little and this is helpful. 03/19/25: Pt is performing exercises, is feeling better, is walking further with hiking sticks and thinking about her posture. LTG Duration 8 weeks, Progressing 3 Impairment Evidence of imbalance [employer] Goal (LTG) Pt will perform WNLs on a standardized balance test to decrease fall risk. 12/24/24: Pt cannot tolerate FGA test today and her gait con't to be slow and careful 01/15/25: Pt tolerates FGA though her gait is slow and antalgic and score is 16/30 02/13/25: FGA score is 17/30, one point better than last progress note 03/19/25: FGA score is improved at 20/30 LTG Duration 8 weeks, Progressing 2 Impairment Painful walking [employer] Goal (LTG) Pt will gait train at least 1413 feet in 6 minutes with or without AD to improve community ambulation. 12/24/24: Pt gait trains 729 feet with B walking sticks in 6 minutes with slow johnson and reports of 6/10 right sided hip and SI joint pain after gait 01/09/25: 951 ft in 6 min /c B trek poles, increase 222 ft. 01/15/25: Pt gait trains 1186 feet in 6 minutes with B trekking poles and right SI and back pain increases from 5 to 5.5 with gait 02/13/25: Pt gait trains 1234 feet in six minutes with 4/10 pain across LB before that increases to 5/10 by the end. She has forward head and relatively level and still shoulders with good arm swing with gait despite very high right hemipelvis and right arm naturally curves to swing around hip. Occ scuffing of steps. 03/19/25: Pain before 6MWT is 3 /10: pain after gait is 3/10 and she gait trains 1300 feet in 6 minutes, which is much improved LTG Duration 8 weeks, Progressing Assessment Summary Assessment Pt is doing a great job with exercises and reviewed HEP and ed pt to perform less and she is reluctant to do so. She is getting muscle soreness from exercise and with less back muscle twinges and she monitoring that. Physical Therapy Plan Frequency and Duration Frequency of Treatment 2x/Week Duration of treatment (weeks) 8 Plan of Care Start Date 02/13/25 Plan of Care End Date 04/14/25 Therapeutic Interventions Therapeutic Interventions Balance Training,Canalithic Repositioning,Coordination Training,Gait Training,Home Exercise Program,Joint Mobilizations,Manual Therapy, Neuromuscular Re-education, Patient/Caregiver Education, Self-Care/Home Management,Soft Tissue Mobilization,Taping, Therapeutic Activities, Therapeutic Exercises Modalities Cold Pack/Ice Massage,Electric Stimulation,Hot Packs, Ultrasound Next Visit Focus/Plan Next Note Type Treatment Note Next Visit Plan Consider body blade and lunges , consider core hold and sliding foot vs circling foot around small have round cone for core and balance, other progression for hips such as backwards walking with ankle weights, side stepping with ankle weights ([place]), add something for extension in a neutral position such has hands on the wall and sliding a foot back with core tight
--- NOTE | 2025-03-29 12:15 | PT.OTN ---
Current Diagnoses Low back pain, unspecified (03/29/25) Trochanteric bursitis, right hip (03/29/25) Physical Therapy Treatment Note PT-OP-A Visit Information Start: 11/20/24 13:07 Freq: Status: Active Protocol: Document 03/29/25 11:32 PG (Rec: 03/29/25 12:38 PG Laptop) Out-Patient Physical Therapy Visit Information Visit Information Visit Type Treatment Note Visit Note No KX Radha ANGEL led tx with pt permission and direct supervision of Adina SU. Visit Start Time 11:32 Visit Stop Time 12:15 Visit Number 25 Number of NUCLEAR PLANT INSTRUMENT TECHNICIAN Visits 1 Evaluation Information Evaluation Date 11/28/24 Precautions Precautions Be mindful of spine s/p OP and L1 compression fracture, keep back precautions and log rolling in mind, pt with multiple areas of bruising. new: Severe osteopenia via Dexa Scan. PT-OP-B Current Condition Start: 11/20/24 13:07 Freq: Status: Active Protocol: Document 11/28/24 10:50 MB (Rec: 11/28/24 11:30 MB [id number]) Current Condition History of Current Condition Onset Date 11/08/24 after end of long flight and car travel Current Complaints Right lateral hip, SI and groin pain History of Current Condition Pt states she has started Gabapentin and it is making her a little dizzy and a little slow. She is doing calf stretches and pelvic realignment exercises as instructed by this PT from last PT course and she is up to walking 10 minutes around her house. With the Gabapentin, pt is not having as much sharp spasms in back and into leg. She denies numbness and tingling in right leg. Pt had a bad fall 08/20 on brick in [place] and hurt her right knee and hip. Prior Treatments and Tests Right hip x-ray 11/17: IMPRESSION: [id number] bilateral hip arthrosis. No acute radiographic abnormality. If there is high concern for further derangement, consider MRI evaluation. Thoracic spine 11/19: FINDINGS: Bones: Mild superior endplate compression fracture of L1 is of uncertain chronicity. Mild chronic wedging of T8 and T9. No other possible acute compression fractures identified. No suspicious bony lesions. 12 pairs of ribs are noted, and appear intact where visualized. Soft tissues: No paravertebral stripe thickening. IMPRESSION: A mild superior endplate compression of L1 is of uncertain chronicity. Consider lumbar spine MRI to document presence or absence of edema. Treatment Goals Patient/Caregiver Goals To decrease pain PT-OP-C Subjective Start: 11/20/24 13:07 Freq: Status: Active Protocol: Document 03/29/25 11:32 PG (Rec: 03/29/25 12:38 PG Laptop) OP-PT Subjective Patient Comments Patient Comments Pt is happy she is able to get her muscles sore with exercise and activity w/o increase in LBP/spasms. Has been driving with no pain, drove about 15 minutes today before tx and will be driving home. PT-OP-G Mobility & Gait Start: 11/20/24 13:07 Freq: Status: Active Protocol: Document 11/28/24 10:50 MB (Rec: 11/28/24 16:48 MB [id number]) OP Gait Assessment Comments Gait Comments Pt con't with slow gait, antalgic gait pattern and forward flexed posture and she tends to keep her arms behind her back PT-OP-J Posture/Palpation/Skin Start: 11/20/24 13:07 Freq: Status: Active Protocol: Document 11/28/24 10:50 MB (Rec: 11/28/24 11:30 MB [id number]) Posture Evaluation Comments Posture Comments Standing posture: thoracic kyphosis and left convexity thoracic spine, right convexity lumbar spine and increase lordosis, right iliac crest is higher than the left , posture has left lateral shift in standing with right shoulder medial to right hip and left shoulder lateral to left hip Spinal movement in standing: forward flexion with fingers 2 from the floor, repeated flexion does not increase symptoms, feels tightness in hamstrings; lumbar extension is very minimal at 2 deg and repeated extension does increase symptoms; B SB with increased weight shift laterally and more to the right with left SB and SB about 10 deg B and increased tightness with movement. PT-OP-M Strength Start: 11/20/24 13:07 Freq: Status: Active Protocol: Document 11/28/24 10:50 MB (Rec: 11/28/24 11:30 MB [id number]) Hip Strength Hip Manual Muscle Testing Left Flexion (L2) 5 Normal Abduction 5 Normal Right Flexion (L2) 4+ Good+ Abduction 4+ Good+ Knee Strength Knee Manual Muscle Testing Left Flexion (S2) 5 Normal Extension (L3) 5 Normal Right Flexion (S2) 4+ Good+ Extension (L3) 4+ Good+ Ankle/Foot Strength Ankle and Foot Manual Muscle Testing Bilateral Dorsiflexion (L4) 5 Normal Toe Strength Toe Manual Muscle Testing Left Great Toe Extension 4- Good- Right Great Toe Extension 4 Good PT-OP-Q Treatments Start: 11/20/24 13:07 Freq: Status: Active Protocol: Document 03/29/25 11:32 PG (Rec: 03/29/25 12:38 PG Laptop) Therapeutic Exercises Standing Exercises Circling foot around cone Standing Exercise Name Trialed only: Chair for support, Core stability while circling foot object Side bilateral Equipment Used short object to [place], mesh chair Reps/Minutes several reps Comments cued for slight knee bend, set up, no wght shift into chair. Stationary Lunges Standing Exercise Name Trialed only with chair on the side vs chair in front Side bilateral Equipment Used chair for support Reps/Minutes several reps Comments max cues for core engagement, slight hip hinge, PPT Body Blade Standing Exercise Name Trialed only: Bodyblade held at midsection by both UE's Equipment Used yellow bodyblade Reps/Minutes 1 min > 30 secs Comments mod cues: slight bend in knees , TA brace, PPT, breathe Other Exercises Modified Plank w leg ext Other Exercise Name Added to HEP w HO: UE on table top, alt sliding leg bckwrd Side bilateral Equipment Used table top Reps/Minutes several reps Comments cues: core engagement, weight in UE PT-OP-R Modalities Start: 11/20/24 13:07 Freq: Status: Active Protocol: Document 12/26/24 10:47 SP (Rec: 12/26/24 11:36 SP [id number]) Electric Stimulation Electric Stimulation Interferential Current (IFC) Body Location B LS paraspinals, R glut, R lateral hip Intensity 15 Patient Position Hooklying Combined With Heat/Cold Hot Pack Comments 10 min: Continuous PT-OP-T Assessment and Plan Start: 11/20/24 13:07 Freq: Status: Active Protocol: Document 03/29/25 11:32 PG (Rec: 03/29/25 12:38 PG Laptop) Physical Therapy Assessment Evaluation Complexity Number of Personal Factors/Comorbidities 1-2 Number of Body Systems Impaired 1-2 Clinical Presentation at Evaluation Evolving Impairments Impairments Activity Tolerance,Balance, Coordination,Functional Activities,Functional Mobility ,Gait,Pain,Posture,ROM,Soft Tissue Mobility,Strength Goals 6 Impairment Pt not driving d/t pain Pottery Decoration Designer Goal (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 02/13/25: Pt has not yet tried short driving. 03/19/25: Pt has not yet tried driving and she will start next week when she is off steroids. 03/29/25: Pt driving short distances (to PT/store) with no pain, drove about 15 minutes today before tx and will be driving home LTG Duration New goal for next 8 weeks - Goal Met: 03/27/25 5 Impairment Oswestry score reflects 54% impairment Pottery Decoration Designer Goal (LTG) Pt reporting right hip and LBP and so updated goal for Oswestry instead of LEF score. Pt will present with Oswestry score reflecting no more than 25% impairment to improve quality of life and mobility. 02/13/25: Oswestry score reflects 46% impairment and this is 8% improved since last progress note, only small improvement 03/19/25: Oswestry score reflects 30% impairment, 16% impairment LTG Duration New goal for next 8 weeks 4 Impairment Lack of HEP Senior Care Goal (LTG) Pt will perform HEP with I including pelvic realignment exercises, flexibility, gentle core and LE strengthening, and balance exercises to improve pain and function. 12/24/24: Pt is able to tolerate pelvic realignment exercises, Shaun stretch, gastroc stretches in standing, side lying and arm overhead, she has not always been doing her diaphragm breathing 01/15/25: Pt is performing the following exercises at home: pelvic realignment exercises, calf stretches, gentle core progression, practicing breathing, Shaun stretch, walking 02/13/25: Pt is performing most exercises and including spinal alignment exercises, she is hanging in the doorway a little and this is helpful. 03/19/25: Pt is performing exercises, is feeling better, is walking further with hiking sticks and thinking about her posture. LTG Duration 8 weeks, Progressing 3 Impairment Evidence of imbalance Senior Care Goal (LTG) Pt will perform WNLs on a standardized balance test to decrease fall risk. 12/24/24: Pt cannot tolerate FGA test today and her gait con't to be slow and careful 01/15/25: Pt tolerates FGA though her gait is slow and antalgic and score is 16/30 02/13/25: FGA score is 17/30, one point better than last progress note 03/19/25: FGA score is improved at 20/30 LTG Duration 8 weeks, Progressing 2 Impairment Painful walking Pottery Decoration Designer Goal (LTG) Pt will gait train at least 1413 feet in 6 minutes with or without AD to improve community ambulation. 12/24/24: Pt gait trains 729 feet with B walking sticks in 6 minutes with slow johnson and reports of 6/10 right sided hip and SI joint pain after gait 01/09/25: 951 ft in 6 min /c B trek poles, increase 222 ft. 01/15/25: Pt gait trains 1186 feet in 6 minutes with B trekking poles and right SI and back pain increases from 5 to 5.5 with gait 02/13/25: Pt gait trains 1234 feet in six minutes with 4/10 pain across LB before that increases to 5/10 by the end. She has forward head and relatively level and still shoulders with good arm swing with gait despite very high right hemipelvis and right arm naturally curves to swing around hip. Occ scuffing of steps. 03/19/25: Pain before 6MWT is 3 /10: pain after gait is 3/10 and she gait trains 1300 feet in 6 minutes, which is much improved LTG Duration 8 weeks, Progressing Assessment Summary Assessment Pt responded well to new core and LE strengthening exercises . Trialed stationary lunges during tx, pt required max cueing for set up and form, slight hinge at hips to prevent increase lumbar lordosis, will reassess next tx before adding to HEP. Instructed pt in exercise for core strengthening and thoracic mobility, Modified plank with leg extension added to HEP and provided HO, pt tolerated well with cues for core engagement and breathing. Pt was challenged with balance while circling foot around cone/object exercise, will continue to work on in therapy before adding to HEP. Physical Therapy Plan Frequency and Duration Frequency of Treatment 2x/Week Duration of treatment (weeks) 8 Plan of Care Start Date 02/13/25 Plan of Care End Date 04/14/25 Therapeutic Interventions Therapeutic Interventions Balance Training,Canalithic Repositioning,Coordination Training,Gait Training,Home Exercise Program,Joint Mobilizations,Manual Therapy, Neuromuscular Re-education, Patient/Caregiver Education, Self-Care/Home Management,Soft Tissue Mobilization,Taping, Therapeutic Activities, Therapeutic Exercises Modalities Cold Pack/Ice Massage,Electric Stimulation,Hot Packs, Ultrasound Next Visit Focus/Plan Next Note Type Treatment Note Next Visit Plan Next: Review added HEP from prev tx, reassess lunge form. Other progressions for hips such as backwards walking with ankle weights, side stepping with ankle weights ([place]), add something for extension in a neutral position such has hands on the wall and sliding a foot back with core tight
--- NOTE | 2025-04-01 07:24 | PT.OPPOC ---
Physical, Occupational & Speech Therapy At [facility] Current Diagnoses Low back pain, unspecified (03/29/25) Trochanteric bursitis, right hip (03/29/25) Visit Care Team Role Provider Type Emily Peralta MD Attending Provider Physician Family Provider Primary Care Provider Referring Provider Specialty: Internal Medicine Address: [place], [place], [facility] Email: Plan Of Care PT-OP-B Current Condition Start: 11/20/24 13:07 Freq: Status: Active Protocol: Document 11/28/24 10:50 MB (Rec: 11/28/24 11:30 MB [id number]) Current Condition History of Current Condition Onset Date 11/08/24 after end of long flight and car travel Current Complaints Right lateral hip, SI and groin pain History of Current Condition Pt states she has started Gabapentin and it is making her a little dizzy and a little slow. She is doing calf stretches and pelvic realignment exercises as instructed by this PT from last PT course and she is up to walking 10 minutes around her house. With the Gabapentin, pt is not having as much sharp spasms in back and into leg. She denies numbness and tingling in right leg. Pt had a bad fall 08/20 on brick in [place] and hurt her right knee and hip. Prior Treatments and Tests Right hip x-ray 11/17: IMPRESSION: [id number] bilateral hip arthrosis. No acute radiographic abnormality. If there is high concern for further derangement, consider MRI evaluation. Thoracic spine 11/19: FINDINGS: Bones: Mild superior endplate compression fracture of L1 is of uncertain chronicity. Mild chronic wedging of T8 and T9. No other possible acute compression fractures identified. No suspicious bony lesions. 12 pairs of ribs are noted, and appear intact where visualized. Soft tissues: No paravertebral stripe thickening. IMPRESSION: A mild superior endplate compression of L1 is of uncertain chronicity. Consider lumbar spine MRI to document presence or absence of edema. Treatment Goals Patient/Caregiver Goals To decrease pain PT-OP-T Assessment and Plan Start: 11/20/24 13:07 Freq: Status: Active Protocol: Document 04/01/25 07:23 MB (Rec: 04/01/25 07:24 MB Desktop) Physical Therapy Assessment Rehab Potential Rehabilitation Potential Good Evaluation Complexity Number of Personal Factors/Comorbidities 1-2 Number of Body Systems Impaired 1-2 Clinical Presentation at Evaluation Evolving Impairments Impairments Activity Tolerance,Balance, Functional Activities, Functional Mobility,Gait,Pain, Posture,ROM,Soft Tissue Mobility,Strength Goals 6 Impairment Pt not driving d/t pain Detention Goal (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 02/13/25: Pt has not yet tried short driving. 03/19/25: Pt has not yet tried driving and she will start next week when she is off steroids. 03/29/25: Pt driving short distances (to PT/store) with no pain, drove about 15 minutes today before tx and will be driving home LTG Duration New goal for next 8 weeks - Goal Met: 03/27/25 5 Impairment Oswestry score reflects 54% impairment Legal Billing Specialist Goal (LTG) Pt reporting right hip and LBP and so updated goal for Oswestry instead of LEF score. Pt will present with Oswestry score reflecting no more than 25% impairment to improve quality of life and mobility. 02/13/25: Oswestry score reflects 46% impairment and this is 8% improved since last progress note, only small improvement 03/19/25: Oswestry score reflects 30% impairment, 16% impairment LTG Duration New goal for next 8 weeks 4 Impairment Lack of HEP Legal Billing Specialist Goal (LTG) Pt will perform HEP with I including pelvic realignment exercises, flexibility, gentle core and LE strengthening, and balance exercises to improve pain and function. 12/24/24: Pt is able to tolerate pelvic realignment exercises, Shaun stretch, gastroc stretches in standing, side lying and arm overhead, she has not always been doing her diaphragm breathing 01/15/25: Pt is performing the following exercises at home: pelvic realignment exercises, calf stretches, gentle core progression, practicing breathing, Shaun stretch, walking 02/13/25: Pt is performing most exercises and including spinal alignment exercises, she is hanging in the doorway a little and this is helpful. 03/19/25: Pt is performing exercises, is feeling better, is walking further with hiking sticks and thinking about her posture. LTG Duration 8 weeks, Progressing 3 Impairment Evidence of imbalance Detention Goal (LTG) Pt will perform WNLs on a standardized balance test to decrease fall risk. 12/24/24: Pt cannot tolerate FGA test today and her gait con't to be slow and careful 01/15/25: Pt tolerates FGA though her gait is slow and antalgic and score is 16/30 02/13/25: FGA score is 17/30, one point better than last progress note 03/19/25: FGA score is improved at 20/30 LTG Duration 8 weeks, Progressing 2 Impairment Painful walking Detention Goal (LTG) Pt will gait train at least 1413 feet in 6 minutes with or without AD to improve community ambulation. 12/24/24: Pt gait trains 729 feet with B walking sticks in 6 minutes with slow johnson and reports of 6/10 right sided hip and SI joint pain after gait 01/09/25: 951 ft in 6 min /c B trek poles, increase 222 ft. 01/15/25: Pt gait trains 1186 feet in 6 minutes with B trekking poles and right SI and back pain increases from 5 to 5.5 with gait 02/13/25: Pt gait trains 1234 feet in six minutes with 4/10 pain across LB before that increases to 5/10 by the end. She has forward head and relatively level and still shoulders with good arm swing with gait despite very high right hemipelvis and right arm naturally curves to swing around hip. Occ scuffing of steps. 03/19/25: Pain before 6MWT is 3 /10: pain after gait is 3/10 and she gait trains 1300 feet in 6 minutes, which is much improved LTG Duration 8 weeks, Progressing Assessment Summary Assessment Pt is progressing towards goals and need to update the plan of care. Physical Therapy Plan Frequency and Duration Frequency of Treatment 2x/Week Duration of treatment (weeks) 8 Plan of Care Start Date 04/01/25 Plan of Care End Date 06/03/25 Therapeutic Interventions Therapeutic Interventions Balance Training,Canalithic Repositioning,Coordination Training,Gait Training,Home Exercise Program,Joint Mobilizations,Manual Therapy, Neuromuscular Re-education, Patient/Caregiver Education, Self-Care/Home Management,Soft Tissue Mobilization,Taping, Therapeutic Activities, Therapeutic Exercises Modalities Cold Pack/Ice Massage,Electric Stimulation,Hot Packs, Ultrasound Next Visit Focus/Plan Next Note Type Treatment Note Next Visit Plan Next: Review added HEP from prev tx, reassess lunge form. Other progressions for hips such as backwards walking with ankle weights, side stepping with ankle weights ([place]), add something for extension in a neutral position such has hands on the wall and sliding a foot back with core tight Plan of Care Dates Plan of Care Start Date 04/01/25 Plan of Care End Date 06/03/25 Electronically Signed by: Tami John, PT 04/01/25 0724 If you are in agreement with this Plan of Care, please return a signed and dated copy. I have reviewed this Plan of Care and certify that the skilled therapy services above are required to meet the patient?s needs. Physician Signature Date Printed Name and Credentials Clinical Instructor Signature Printed Name and Credentials
--- NOTE | 2025-04-01 12:12 | PT.OTN ---
Current Diagnoses Low back pain, unspecified (04/01/25) Trochanteric bursitis, right hip (04/01/25) Physical Therapy Treatment Note PT-OP-A Visit Information Start: 11/20/24 13:07 Freq: Status: Active Protocol: Document 04/01/25 11:31 PG (Rec: 04/01/25 12:33 PG [id number]) Out-Patient Physical Therapy Visit Information Visit Information Visit Type Treatment Note Visit Note No KX Radha ANGEL led tx with pt permission and direct supervision of Adina SU. Visit Start Time 11:31 Visit Stop Time 12:12 Visit Number 26 Number of SUPERVISOR DIALS Visits 2 Evaluation Information Evaluation Date 11/28/24 Precautions Precautions Be mindful of spine s/p OP and L1 compression fracture, keep back precautions and log rolling in mind, pt with multiple areas of bruising. new: Severe osteopenia via Dexa Scan. PT-OP-B Current Condition Start: 11/20/24 13:07 Freq: Status: Active Protocol: Document 11/28/24 10:50 MB (Rec: 11/28/24 11:30 MB [id number]) Current Condition History of Current Condition Onset Date 11/08/24 after end of long flight and car travel Current Complaints Right lateral hip, SI and groin pain History of Current Condition Pt states she has started Gabapentin and it is making her a little dizzy and a little slow. She is doing calf stretches and pelvic realignment exercises as instructed by this PT from last PT course and she is up to walking 10 minutes around her house. With the Gabapentin, pt is not having as much sharp spasms in back and into leg. She denies numbness and tingling in right leg. Pt had a bad fall 08/20 on brick in [place] and hurt her right knee and hip. Prior Treatments and Tests Right hip x-ray 11/17: IMPRESSION: [id number] bilateral hip arthrosis. No acute radiographic abnormality. If there is high concern for further derangement, consider MRI evaluation. Thoracic spine 11/19: FINDINGS: Bones: Mild superior endplate compression fracture of L1 is of uncertain chronicity. Mild chronic wedging of T8 and T9. No other possible acute compression fractures identified. No suspicious bony lesions. 12 pairs of ribs are noted, and appear intact where visualized. Soft tissues: No paravertebral stripe thickening. IMPRESSION: A mild superior endplate compression of L1 is of uncertain chronicity. Consider lumbar spine MRI to document presence or absence of edema. 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 Took Tuesday off, completed a drive on Tuesday for 25min outbound lunch in-between (little soreness), 45min on the return . A little sore in the usual place R lateral and low trunk. Pt completed 2 sets of her exercises: wall squats, bridges; can do 10 in a row now. Worked on new core stability exercises. PT-OP-G Mobility & Gait Start: 11/20/24 13:07 Freq: Status: Active Protocol: Document 11/28/24 10:50 MB (Rec: 11/28/24 16:48 MB [id number]) OP Gait Assessment Comments Gait Comments Pt con't with slow gait, antalgic gait pattern and forward flexed posture and she tends to keep her arms behind her back PT-OP-J Posture/Palpation/Skin Start: 11/20/24 13:07 Freq: Status: Active Protocol: Document 11/28/24 10:50 MB (Rec: 11/28/24 11:30 MB [id number]) Posture Evaluation Comments Posture Comments Standing posture: thoracic kyphosis and left convexity thoracic spine, right convexity lumbar spine and increase lordosis, right iliac crest is higher than the left , posture has left lateral shift in standing with right shoulder medial to right hip and left shoulder lateral to left hip Spinal movement in standing: forward flexion with fingers 2 from the floor, repeated flexion does not increase symptoms, feels tightness in hamstrings; lumbar extension is very minimal at 2 deg and repeated extension does increase symptoms; B SB with increased weight shift laterally and more to the right with left SB and SB about 10 deg B and increased tightness with movement. PT-OP-M Strength Start: 11/20/24 13:07 Freq: Status: Active Protocol: Document 11/28/24 10:50 MB (Rec: 11/28/24 11:30 MB [id number]) Hip Strength Hip Manual Muscle Testing Left Flexion (L2) 5 Normal Abduction 5 Normal Right Flexion (L2) 4+ Good+ Abduction 4+ Good+ Knee Strength Knee Manual Muscle Testing Left Flexion (S2) 5 Normal Extension (L3) 5 Normal Right Flexion (S2) 4+ Good+ Extension (L3) 4+ Good+ Ankle/Foot Strength Ankle and Foot Manual Muscle Testing Bilateral Dorsiflexion (L4) 5 Normal Toe Strength Toe Manual Muscle Testing Left Great Toe Extension 4- Good- Right Great Toe Extension 4 Good PT-OP-Q Treatments Start: 11/20/24 13:07 Freq: Status: Active Protocol: Document 04/01/25 11:31 PG (Rec: 04/01/25 12:33 PG [id number]) Therapeutic Exercises Standing Exercises Resisted walking Standing Exercise Name Trailed backward and lateral walking w ankle weights Resistance 2# ankle weights Equipment Used fingertips on rail in hallway going backward Reps/Minutes length of hallway railing x2 each Comments min cues for step length and toes pointed fwrd, good response Circling foot around cone Standing Exercise Name Reviewed, added to HEP w HO Side bilateral Equipment Used x10 each Comments cued to use chair as balance support, no leaning. Stationary Lunges Standing Exercise Name Reviewed, added to HEP w HO worked on form Side bilateral Equipment Used x10 each Comments cued back knee toward the floor, comfortable range, hinge at hips Other Exercises Modified Plank w leg ext Other Exercise Name Reviewed, at wall for thoracic mobility Side bilateral Equipment Used hands on table top vs wall Reps/Minutes several reps Comments cues: core engagment, slight bend in fwrd knee PT-OP-R Modalities Start: 11/20/24 13:07 Freq: Status: Active Protocol: Document 12/26/24 10:47 SP (Rec: 12/26/24 11:36 SP [id number]) Electric Stimulation Electric Stimulation Interferential Current (IFC) Body Location B LS paraspinals, R glut, R lateral hip Intensity 15 Patient Position Hooklying Combined With Heat/Cold Hot Pack Comments 10 min: Continuous PT-OP-T Assessment and Plan Start: 11/20/24 13:07 Freq: Status: Active Protocol: Document 04/01/25 11:31 PG (Rec: 04/01/25 12:33 PG [id number]) Physical Therapy Assessment Evaluation Complexity Number of Personal Factors/Comorbidities 1-2 Number of Body Systems Impaired 1-2 Clinical Presentation at Evaluation Evolving Impairments Impairments Activity Tolerance,Balance, Functional Activities, Functional Mobility,Gait,Pain, Posture,ROM,Soft Tissue Mobility,Strength Goals 6 Impairment Pt not driving d/t pain 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 02/13/25: Pt has not yet tried short driving. 03/19/25: Pt has not yet tried driving and she will start next week when she is off steroids. 03/29/25: Pt driving short distances (to PT/store) with no pain, drove about 15 minutes today before tx and will be driving home LTG Duration New goal for next 8 weeks - Goal Met: 03/27/25 5 Impairment Oswestry score reflects 54% impairment Detention Goal (LTG) Pt reporting right hip and LBP and so updated goal for Oswestry instead of LEF score. Pt will present with Oswestry score reflecting no more than 25% impairment to improve quality of life and mobility. 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 12/24/24: Pt is able to tolerate pelvic realignment exercises, Shaun stretch, gastroc stretches in standing, side lying and arm overhead, she has not always been doing her diaphragm breathing 01/15/25: Pt is performing the following exercises at home: pelvic realignment exercises, calf stretches, gentle core progression, practicing breathing, Shaun stretch, walking 02/13/25: Pt is performing most exercises and including spinal alignment exercises, she is hanging in the doorway a little and this is helpful. 03/19/25: Pt is performing exercises, is feeling better, is walking further with hiking sticks and thinking about her posture. LTG Duration 8 weeks, Progressing 3 Impairment Evidence of imbalance Detention Goal (LTG) Pt will perform WNLs on a standardized balance test to decrease fall risk. 12/24/24: Pt cannot tolerate FGA test today and her gait con't to be slow and careful 01/15/25: Pt tolerates FGA though her gait is slow and antalgic and score is 16/30 02/13/25: FGA score is 17/30, one point better than last progress note 03/19/25: FGA score is improved at 20/30 LTG Duration 8 weeks, Progressing 2 Impairment Painful walking Detention Goal (LTG) Pt will gait train at least 1413 feet in 6 minutes with or without AD to improve community ambulation. 12/24/24: Pt gait trains 729 feet with B walking sticks in 6 minutes with slow johnson and reports of 6/10 right sided hip and SI joint pain after gait 01/09/25: 951 ft in 6 min /c B trek poles, increase 222 ft. 01/15/25: Pt gait trains 1186 feet in 6 minutes with B trekking poles and right SI and back pain increases from 5 to 5.5 with gait 02/13/25: Pt gait trains 1234 feet in six minutes with 4/10 pain across LB before that increases to 5/10 by the end. She has forward head and relatively level and still shoulders with good arm swing with gait despite very high right hemipelvis and right arm naturally curves to swing around hip. Occ scuffing of steps. 03/19/25: Pain before 6MWT is 3 /10: pain after gait is 3/10 and she gait trains 1300 feet in 6 minutes, which is much improved LTG Duration 8 weeks, Progressing Assessment Summary Assessment Reviewed previously added HEP for hip extension, compared set up against table vs wall, pt had a good response to wall due to increased thoracic spine mobility. Added stationary lunges to HEP, pt required minimal cues for form . Physical Therapy Plan Frequency and Duration Frequency of Treatment 2x/Week Duration of treatment (weeks) 8 Plan of Care Start Date 04/01/25 Plan of Care End Date 06/03/25 Therapeutic Interventions Therapeutic Interventions Balance Training,Canalithic Repositioning,Coordination Training,Gait Training,Home Exercise Program,Joint Mobilizations,Manual Therapy, Neuromuscular Re-education, Patient/Caregiver Education, Self-Care/Home Management,Soft Tissue Mobilization,Taping, Therapeutic Activities, Therapeutic Exercises Modalities Cold Pack/Ice Massage,Electric Stimulation,Hot Packs, Ultrasound Next Visit Focus/Plan Next Note Type Treatment Note Next Visit Plan Next: Review added HEP from prev tx, reassess lunge form, resisted bckwrd/lateral walking w ankle weights. Other progressions for hip strengthening
--- NOTE | 2025-04-03 13:42 | PT.OTN ---
Current Diagnoses Low back pain, unspecified (04/03/25) Trochanteric bursitis, right hip (04/03/25) Physical Therapy Treatment Note PT-OP-A Visit Information Start: 11/20/24 13:07 Freq: Status: Active Protocol: Document 04/03/25 13:04 MB (Rec: 04/03/25 13:40 MB Desktop) Out-Patient Physical Therapy Visit Information Visit Information Visit Type Progress Note Visit Note No KX Performed progress note early as SAPPHIRE STYLUS GRINDER sees pt next several treatments Visit Start Time 13:04 Visit Stop Time 13:44 Visit Number 27 Number of SAPPHIRE STYLUS GRINDER Visits 0 Evaluation Information Evaluation Date 11/28/24 Precautions Precautions Be mindful of spine s/p OP and L1 compression fracture, keep back precautions and log rolling in mind, pt with multiple areas of bruising. new: Severe osteopenia via Dexa Scan. PT-OP-B Current Condition Start: 11/20/24 13:07 Freq: Status: Active Protocol: Document 11/28/24 10:50 MB (Rec: 11/28/24 11:30 MB [id number]) Current Condition History of Current Condition Onset Date 11/08/24 after end of long flight and car travel Current Complaints Right lateral hip, SI and groin pain History of Current Condition Pt states she has started Gabapentin and it is making her a little dizzy and a little slow. She is doing calf stretches and pelvic realignment exercises as instructed by this PT from last PT course and she is up to walking 10 minutes around her house. With the Gabapentin, pt is not having as much sharp spasms in back and into leg. She denies numbness and tingling in right leg. Pt had a bad fall 08/20 on brick in [place] and hurt her right knee and hip. Prior Treatments and Tests Right hip x-ray 11/17: IMPRESSION: [id number] bilateral hip arthrosis. No acute radiographic abnormality. If there is high concern for further derangement, consider MRI evaluation. Thoracic spine 11/19: FINDINGS: Bones: Mild superior endplate compression fracture of L1 is of uncertain chronicity. Mild chronic wedging of T8 and T9. No other possible acute compression fractures identified. No suspicious bony lesions. 12 pairs of ribs are noted, and appear intact where visualized. Soft tissues: No paravertebral stripe thickening. IMPRESSION: A mild superior endplate compression of L1 is of uncertain chronicity. Consider lumbar spine MRI to document presence or absence of edema. Treatment Goals Patient/Caregiver Goals To decrease pain PT-OP-C Subjective Start: 11/20/24 13:07 Freq: Status: Active Protocol: Document 04/03/25 13:04 MB (Rec: 04/03/25 13:40 MB Desktop) OP-PT Subjective Patient Comments Patient Comments Soreness after car ride lasted two days. Her exercises are going well. She did take one day off. PT-OP-G Mobility & Gait Start: 11/20/24 13:07 Freq: Status: Active Protocol: Document 11/28/24 10:50 MB (Rec: 11/28/24 16:48 MB [id number]) OP Gait Assessment Comments Gait Comments Pt con't with slow gait, antalgic gait pattern and forward flexed posture and she tends to keep her arms behind her back PT-OP-J Posture/Palpation/Skin Start: 11/20/24 13:07 Freq: Status: Active Protocol: Document 11/28/24 10:50 MB (Rec: 11/28/24 11:30 MB [id number]) Posture Evaluation Comments Posture Comments Standing posture: thoracic kyphosis and left convexity thoracic spine, right convexity lumbar spine and increase lordosis, right iliac crest is higher than the left , posture has left lateral shift in standing with right shoulder medial to right hip and left shoulder lateral to left hip Spinal movement in standing: forward flexion with fingers 2 from the floor, repeated flexion does not increase symptoms, feels tightness in hamstrings; lumbar extension is very minimal at 2 deg and repeated extension does increase symptoms; B SB with increased weight shift laterally and more to the right with left SB and SB about 10 deg B and increased tightness with movement. PT-OP-M Strength Start: 11/20/24 13:07 Freq: Status: Active Protocol: Document 11/28/24 10:50 MB (Rec: 11/28/24 11:30 MB [id number]) Hip Strength Hip Manual Muscle Testing Left Flexion (L2) 5 Normal Abduction 5 Normal Right Flexion (L2) 4+ Good+ Abduction 4+ Good+ Knee Strength Knee Manual Muscle Testing Left Flexion (S2) 5 Normal Extension (L3) 5 Normal Right Flexion (S2) 4+ Good+ Extension (L3) 4+ Good+ Ankle/Foot Strength Ankle and Foot Manual Muscle Testing Bilateral Dorsiflexion (L4) 5 Normal Toe Strength Toe Manual Muscle Testing Left Great Toe Extension 4- Good- Right Great Toe Extension 4 Good PT-OP-Q Treatments Start: 11/20/24 13:07 Freq: Status: Active Protocol: Document 04/03/25 13:04 MB (Rec: 04/03/25 13:40 MB Desktop) Therapeutic Exercises Other Exercises HEP review on progress note Comments Performed today, pt verbally reviews all exercises Gait Training Gait Activity 6MWT Comments 04/03/25: Pt gait trains 1497 feet in 6 minutes with better arm swing and gait speed and c /o 2/10 back pain before and after. Has surpassed gait distance goal and will try again to see if can do with 1 or 0/10 pain in the future Neuro Re-Education Treatment Balance Activities FGA Comments 04/03/25: FGA score: 30, which is WNLs and improved, will con't to see if she can progress further PT-OP-R Modalities Start: 11/20/24 13:07 Freq: Status: Active Protocol: Document 12/26/24 10:47 SP (Rec: 12/26/24 11:36 SP [id number]) Electric Stimulation Electric Stimulation Interferential Current (IFC) Body Location B LS paraspinals, R glut, R lateral hip Intensity 15 Patient Position Hooklying Combined With Heat/Cold Hot Pack Comments 10 min: Continuous PT-OP-T Assessment and Plan Start: 11/20/24 13:07 Freq: Status: Active Protocol: Document 04/03/25 13:04 MB (Rec: 04/03/25 13:40 MB Desktop) Physical Therapy Assessment Rehab Potential Rehabilitation Potential Good Evaluation Complexity Number of Personal Factors/Comorbidities 1-2 Number of Body Systems Impaired 1-2 Clinical Presentation at Evaluation Evolving Impairments Impairments Activity Tolerance,Balance, Functional Activities, Functional Mobility,Gait,Pain, Posture,ROM,Soft Tissue Mobility,Strength Goals 6 Impairment Pt not driving d/t pain Half-Way Goal (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 02/13/25: Pt has not yet tried short driving. 03/19/25: Pt has not yet tried driving and she will start next week when she is off steroids. 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 Pt will present with Oswestry score reflecting no more than 25% impairment to improve quality of life and mobility. 02/13/25: Oswestry score reflects 46% impairment and this is 8% improved since last progress note, only small improvement 03/19/25: Oswestry score reflects 30% impairment, 16% improvement 04/03/25: Oswestry score reflects 32% impairment, close to last progress note LTG Duration New goal for next 8 weeks 4 Impairment Lack of HEP Half-Way Goal (LTG) Pt will perform HEP with I including pelvic realignment exercises, flexibility, gentle core and LE strengthening, and balance exercises to improve pain and function. 12/24/24: Pt is able to tolerate pelvic realignment exercises, Shaun stretch, gastroc stretches in standing, side lying and arm overhead, she has not always been doing her diaphragm breathing 01/15/25: Pt is performing the following exercises at home: pelvic realignment exercises, calf stretches, gentle core progression, practicing breathing, Shaun stretch, walking 02/13/25: Pt is performing most exercises and including spinal alignment exercises, she is hanging in the doorway a little and this is helpful. 03/19/25: Pt is performing exercises, is feeling better, is walking further with hiking sticks and thinking about her posture. 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 12/24/24: Pt cannot tolerate FGA test today and her gait con't to be slow and careful 01/15/25: Pt tolerates FGA though her gait is slow and antalgic and score is 16/30 02/13/25: FGA score is 17/30, one point better than last progress note 03/19/25: FGA score is improved at 20/30 04/03/25: FGA score: 24, which is WNLs and improved, will con't to see if she can progress further LTG Duration 8 weeks, Progressing 2 Impairment Painful walking Early Head Start Teacher Goal (LTG) Pt will gait train at least 1413 feet in 6 minutes with or without AD to improve community ambulation. 12/24/24: Pt gait trains 729 feet with B walking sticks in 6 minutes with slow johnson and reports of 6/10 right sided hip and SI joint pain after gait 01/09/25: 951 ft in 6 min /c B trek poles, increase 222 ft. 01/15/25: Pt gait trains 1186 feet in 6 minutes with B trekking poles and right SI and back pain increases from 5 to 5.5 with gait 02/13/25: Pt gait trains 1234 feet in six minutes with 4/10 pain across LB before that increases to 5/10 by the end. She has forward head and relatively level and still shoulders with good arm swing with gait despite very high right hemipelvis and right arm naturally curves to swing around hip. Occ scuffing of steps. 03/19/25: Pain before 6MWT is 3 /10: pain after gait is 3/10 and she gait trains 1300 feet in 6 minutes, which is much improved 04/03/25: Pt gait trains 1497 feet in 6 minutes with better arm swing and gait speed and c /o 2/10 back pain before and after LTG Duration 8 weeks, met gait distance, con't to try to reach 0/10 pain Assessment Summary Assessment Pt has met gait distance on 6MWT and con't to report 2/10 pain and so will assess again in future treatment dates and keep as goal to reach same distance with no back pain. She has also progressed to functional range with FGA and will keep goal to see if she can progress further, especially with gait with EC and backwards walking. Con't to check in with pt about her driving and con't to advance HEP. Pt con't to progress towards all goals. Physical Therapy Plan Frequency and Duration Frequency of Treatment 2x/Week Duration of treatment (weeks) 8 Plan of Care Start Date 04/01/25 Plan of Care End Date 06/03/25 Therapeutic Interventions Therapeutic Interventions Balance Training,Canalithic Repositioning,Coordination Training,Gait Training,Home Exercise Program,Joint Mobilizations,Manual Therapy, Neuromuscular Re-education, Patient/Caregiver Education, Self-Care/Home Management,Soft Tissue Mobilization,Taping, Therapeutic Activities, Therapeutic Exercises Modalities Cold Pack/Ice Massage,Electric Stimulation,Hot Packs, Ultrasound Next Visit Focus/Plan Next Note Type Treatment Note Next Visit Plan Review added HEP from prev tx, reassess lunge form, resisted bckwrd/lateral walking w ankle weights. Consider adding [place] exercises. Pt has a lot of exercises and so can con't to take some away.
--- NOTE | 2025-04-09 13:33 | PT.OTN ---
Current Diagnoses Low back pain, unspecified (04/09/25) Trochanteric bursitis, right hip (04/09/25) Physical Therapy Treatment Note PT-OP-A Visit Information Start: 11/20/24 13:07 Freq: Status: Active Protocol: Document 04/09/25 12:48 PG (Rec: 04/09/25 15:02 PG Laptop) Out-Patient Physical Therapy Visit Information Visit Information Visit Type Treatment Note Visit Note No KX SPTA, Radha led tx w pt's permission and direct supervision of Adina SU Visit Start Time 12:48 Visit Stop Time 13:33 Visit Number 28 Number of CERTIFIED RESIDENTIAL MEDICATION AIDE Visits 1 Evaluation Information Evaluation Date 11/28/24 Precautions Precautions Be mindful of spine s/p OP and L1 compression fracture, keep back precautions and log rolling in mind, pt with multiple areas of bruising. new: Severe osteopenia via Dexa Scan. PT-OP-B Current Condition Start: 11/20/24 13:07 Freq: Status: Active Protocol: Document 11/28/24 10:50 MB (Rec: 11/28/24 11:30 MB [id number]) Current Condition History of Current Condition Onset Date 11/08/24 after end of long flight and car travel Current Complaints Right lateral hip, SI and groin pain History of Current Condition Pt states she has started Gabapentin and it is making her a little dizzy and a little slow. She is doing calf stretches and pelvic realignment exercises as instructed by this PT from last PT course and she is up to walking 10 minutes around her house. With the Gabapentin, pt is not having as much sharp spasms in back and into leg. She denies numbness and tingling in right leg. Pt had a bad fall 08/20 on brick in [place] and hurt her right knee and hip. Prior Treatments and Tests Right hip x-ray 11/17: IMPRESSION: [id number] bilateral hip arthrosis. No acute radiographic abnormality. If there is high concern for further derangement, consider MRI evaluation. Thoracic spine 11/19: FINDINGS: Bones: Mild superior endplate compression fracture of L1 is of uncertain chronicity. Mild chronic wedging of T8 and T9. No other possible acute compression fractures identified. No suspicious bony lesions. 12 pairs of ribs are noted, and appear intact where visualized. Soft tissues: No paravertebral stripe thickening. IMPRESSION: A mild superior endplate compression of L1 is of uncertain chronicity. Consider lumbar spine MRI to document presence or absence of edema. Treatment Goals Patient/Caregiver Goals To decrease pain PT-OP-C Subjective Start: 11/20/24 13:07 Freq: Status: Active Protocol: Document 04/09/25 12:48 PG (Rec: 04/09/25 15:02 PG Laptop) OP-PT Subjective Patient Comments Patient Comments Pt states she thinks she over did it this weekend while getting the house ready for company. 10-12x up/down stairs, moving firepit, getting bed ready. Exercised on tuesday/tuesday, but wasn't able to complete her regular relaxation routine. Driving herself around town, drives farther. Will try small pillow and back pad for longerdrive next week. PT-OP-G Mobility & Gait Start: 11/20/24 13:07 Freq: Status: Active Protocol: Document 11/28/24 10:50 MB (Rec: 11/28/24 16:48 MB [id number]) OP Gait Assessment Comments Gait Comments Pt con't with slow gait, antalgic gait pattern and forward flexed posture and she tends to keep her arms behind her back PT-OP-J Posture/Palpation/Skin Start: 11/20/24 13:07 Freq: Status: Active Protocol: Document 11/28/24 10:50 MB (Rec: 11/28/24 11:30 MB [id number]) Posture Evaluation Comments Posture Comments Standing posture: thoracic kyphosis and left convexity thoracic spine, right convexity lumbar spine and increase lordosis, right iliac crest is higher than the left , posture has left lateral shift in standing with right shoulder medial to right hip and left shoulder lateral to left hip Spinal movement in standing: forward flexion with fingers 2 from the floor, repeated flexion does not increase symptoms, feels tightness in hamstrings; lumbar extension is very minimal at 2 deg and repeated extension does increase symptoms; B SB with increased weight shift laterally and more to the right with left SB and SB about 10 deg B and increased tightness with movement. PT-OP-M Strength Start: 11/20/24 13:07 Freq: Status: Active Protocol: Document 11/28/24 10:50 MB (Rec: 11/28/24 11:30 MB [id number]) Hip Strength Hip Manual Muscle Testing Left Flexion (L2) 5 Normal Abduction 5 Normal Right Flexion (L2) 4+ Good+ Abduction 4+ Good+ Knee Strength Knee Manual Muscle Testing Left Flexion (S2) 5 Normal Extension (L3) 5 Normal Right Flexion (S2) 4+ Good+ Extension (L3) 4+ Good+ Ankle/Foot Strength Ankle and Foot Manual Muscle Testing Bilateral Dorsiflexion (L4) 5 Normal Toe Strength Toe Manual Muscle Testing Left Great Toe Extension 4- Good- Right Great Toe Extension 4 Good PT-OP-Q Treatments Start: 11/20/24 13:07 Freq: Status: Active Protocol: Document 04/09/25 12:48 PG (Rec: 04/09/25 15:02 PG Laptop) Therapeutic Exercises Supine Exercises bug Supine Exercise Name Reviewed in tx Lengthening exercise Supine Exercise Name Reviewed, keep for as needed Side bilateral Reps/Minutes 30 sec each Core progression Supine Exercise Name reviewed, kept TLR for lumbar mobility as needed Reps/Minutes several Comments cued for core engagement SKTC Supine Exercise Name Reviewed, keep for as needed Side bilateral Reps/Minutes 30 sec each Hip Rotator Stretch Supine Exercise Name Reviewed, keep as needed Side bilateral Reps/Minutes 30 sec each Standing Exercises OTAGO Marching Standing Exercise Name Trialed in PT Side bilateral Resistance 2# ankle weights Equipment Used BUE on railing Reps/Minutes x10 Comments DC due to twinge in R hip OTAGO Hip abdcution Standing Exercise Name Trailed in PT Side bilateral Equipment Used BUE on railing Reps/Minutes x3 Comments DC due to twinge in R hip OTAGO heel raises Standing Exercise Name Added to HEP w HO Side bilateral Resistance 2# ankle weights Equipment Used railing for fingertip UE support Reps/Minutes x15 OTAGO hip extension Standing Exercise Name Added to HEP w HO Side bilateral Resistance 2# ankle weights Equipment Used railing for fingertip UE support Comments knee straight, within pn free range OTAGO HS curls Standing Exercise Name Added to HEP w HO Side bilateral Resistance AROM > 2# ankle weights Equipment Used railing for fingertip UE support Reps/Minutes x10 > x5 Comments thigh stationed Resisted walking Standing Exercise Name Reviewed backward resisted walking Resistance 2# ankle weights Equipment Used fingertips on rail in hallway going backward Reps/Minutes length of hallway railing x2 each Comments cues to increase step length PT-OP-R Modalities Start: 11/20/24 13:07 Freq: Status: Active Protocol: Document 12/26/24 10:47 SP (Rec: 12/26/24 11:36 SP [id number]) Electric Stimulation Electric Stimulation Interferential Current (IFC) Body Location B LS paraspinals, R glut, R lateral hip Intensity 15 Patient Position Hooklying Combined With Heat/Cold Hot Pack Comments 10 min: Continuous PT-OP-T Assessment and Plan Start: 11/20/24 13:07 Freq: Status: Active Protocol: Document 04/09/25 12:48 PG (Rec: 04/09/25 15:02 PG Laptop) Physical Therapy Assessment Rehab Potential Rehabilitation Potential Good Evaluation Complexity Number of Personal Factors/Comorbidities 1-2 Number of Body Systems Impaired 1-2 Clinical Presentation at Evaluation Evolving Impairments Impairments Activity Tolerance,Balance, Functional Activities, Functional Mobility,Gait,Pain, Posture,ROM,Soft Tissue Mobility,Strength Goals 6 Impairment Pt not driving d/t pain Seed Service Advisor Goal (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 02/13/25: Pt has not yet tried short driving. 03/19/25: Pt has not yet tried driving and she will start next week when she is off steroids. 03/29/25: Pt driving short distances (to PT/store) with no pain, drove about 15 minutes today before tx and will be driving home 04/03/25: Pt is driving short distances multiple times a week, just in town in [place] LTG Duration New goal for next 8 weeks - Goal Met: 03/27/25 5 Impairment Oswestry score reflects 54% impairment Snf Goal (LTG) Pt reporting right hip and LBP and so updated goal for Oswestry instead of LEF score. Pt will present with Oswestry score reflecting no more than 25% impairment to improve quality of life and mobility. 02/13/25: Oswestry score reflects 46% impairment and this is 8% improved since last progress note, only small improvement 03/19/25: Oswestry score reflects 30% impairment, 16% improvement 04/03/25: Oswestry score reflects 32% impairment, close to last progress note LTG Duration New goal for next 8 weeks 4 Impairment Lack of HEP Snf Goal (LTG) Pt will perform HEP with I including pelvic realignment exercises, flexibility, gentle core and LE strengthening, and balance exercises to improve pain and function. 12/24/24: Pt is able to tolerate pelvic realignment exercises, Shaun stretch, gastroc stretches in standing, side lying and arm overhead, she has not always been doing her diaphragm breathing 01/15/25: Pt is performing the following exercises at home: pelvic realignment exercises, calf stretches, gentle core progression, practicing breathing, Shaun stretch, walking 02/13/25: Pt is performing most exercises and including spinal alignment exercises, she is hanging in the doorway a little and this is helpful. 03/19/25: Pt is performing exercises, is feeling better, is walking further with hiking sticks and thinking about her posture. 04/03/25: Pt is doing all exercises as prescribed and she is doing less of the ones PT and her discussed performing less LTG Duration 8 weeks, Progressing 3 Impairment Evidence of imbalance Seed Service Advisor Goal (LTG) Pt will perform WNLs on a standardized balance test to decrease fall risk. 12/24/24: Pt cannot tolerate FGA test today and her gait con't to be slow and careful 01/15/25: Pt tolerates FGA though her gait is slow and antalgic and score is 16/30 02/13/25: FGA score is 17/30, one point better than last progress note 03/19/25: FGA score is improved at 20/30 04/03/25: FGA score: 24/30, which is WNLs and improved, will con't to see if she can progress further LTG Duration 8 weeks, Progressing 2 Impairment Painful walking Seed Service Advisor Goal (LTG) Pt will gait train at least 1413 feet in 6 minutes with or without AD to improve community ambulation. 12/24/24: Pt gait trains 729 feet with B walking sticks in 6 minutes with slow johnson and reports of 6/10 right sided hip and SI joint pain after gait 01/09/25: 951 ft in 6 min /c B trek poles, increase 222 ft. 01/15/25: Pt gait trains 1186 feet in 6 minutes with B trekking poles and right SI and back pain increases from 5 to 5.5 with gait 02/13/25: Pt gait trains 1234 feet in six minutes with 4/10 pain across LB before that increases to 5/10 by the end. She has forward head and relatively level and still shoulders with good arm swing with gait despite very high right hemipelvis and right arm naturally curves to swing around hip. Occ scuffing of steps. 03/19/25: Pain before 6MWT is 3 /10: pain after gait is 3/10 and she gait trains 1300 feet in 6 minutes, which is much improved 04/03/25: Pt gait trains 1497 feet in 6 minutes with better arm swing and gait speed and c /o 2/10 back pain before and after LTG Duration 8 weeks, met gait distance, con't to try to reach 0/10 pain Assessment Summary Assessment Pt reports coming into tx with a pn level of 4/10 in her lumbar spine and R hip and states pn had diminished to a 3/10 with less pn across her back. Reviewed l/s and hip stretches as well as l/s mobility exercises to help relieve some of the pn when pt entered. Added a few [place] exercises with 2# ankle weights to work on LE strengthening and balance, added exercises that pt tolerated well to HEP. Physical Therapy Plan Frequency and Duration Frequency of Treatment 2x/Week Duration of treatment (weeks) 8 Plan of Care Start Date 04/01/25 Plan of Care End Date 06/03/25 Therapeutic Interventions Therapeutic Interventions Balance Training,Canalithic Repositioning,Coordination Training,Gait Training,Home Exercise Program,Joint Mobilizations,Manual Therapy, Neuromuscular Re-education, Patient/Caregiver Education, Self-Care/Home Management,Soft Tissue Mobilization,Taping, Therapeutic Activities, Therapeutic Exercises Modalities Cold Pack/Ice Massage,Electric Stimulation,Hot Packs, Ultrasound Next Visit Focus/Plan Next Note Type Treatment Note Next Visit Plan Next: How's pt's pn/R hip and low back feeling? Review added HEP [place] exercises, retrial hip abduction and marches. Pt has a lot of exercises and so can con't to take some away.
--- NOTE | 2025-04-17 09:51 | PT.OTN ---
Current Diagnoses Low back pain, unspecified (04/17/25) Trochanteric bursitis, right hip (04/17/25) Physical Therapy Treatment Note PT-OP-A Visit Information Start: 11/20/24 13:07 Freq: Status: Active Protocol: Document 04/17/25 09:51 PG (Rec: 04/17/25 10:55 PG Laptop) Out-Patient Physical Therapy Visit Information Visit Information Visit Type Treatment Note Visit Note No KX SPTA, Radha led tx w pt's permission and direct supervision of Adina SU Visit Start Time 09:51 Visit Stop Time 10:32 Visit Number 29 Number of SNAGGER Visits 2 Evaluation Information Evaluation Date 11/28/24 Precautions Precautions Be mindful of spine s/p OP and L1 compression fracture, keep back precautions and log rolling in mind, pt with multiple areas of bruising. new: Severe osteopenia via Dexa Scan. PT-OP-B Current Condition Start: 11/20/24 13:07 Freq: Status: Active Protocol: Document 11/28/24 10:50 MB (Rec: 11/28/24 11:30 MB [id number]) Current Condition History of Current Condition Onset Date 11/08/24 after end of long flight and car travel Current Complaints Right lateral hip, SI and groin pain History of Current Condition Pt states she has started Gabapentin and it is making her a little dizzy and a little slow. She is doing calf stretches and pelvic realignment exercises as instructed by this PT from last PT course and she is up to walking 10 minutes around her house. With the Gabapentin, pt is not having as much sharp spasms in back and into leg. She denies numbness and tingling in right leg. Pt had a bad fall 08/20 on brick in [place] and hurt her right knee and hip. Prior Treatments and Tests Right hip x-ray 11/17: IMPRESSION: [id number] bilateral hip arthrosis. No acute radiographic abnormality. If there is high concern for further derangement, consider MRI evaluation. Thoracic spine 11/19: FINDINGS: Bones: Mild superior endplate compression fracture of L1 is of uncertain chronicity. Mild chronic wedging of T8 and T9. No other possible acute compression fractures identified. No suspicious bony lesions. 12 pairs of ribs are noted, and appear intact where visualized. Soft tissues: No paravertebral stripe thickening. IMPRESSION: A mild superior endplate compression of L1 is of uncertain chronicity. Consider lumbar spine MRI to document presence or absence of edema. Treatment Goals Patient/Caregiver Goals To decrease pain PT-OP-C Subjective Start: 11/20/24 13:07 Freq: Status: Active Protocol: Document 04/17/25 09:51 PG (Rec: 04/17/25 10:55 PG Laptop) OP-PT Subjective Patient Comments Patient Comments Walked on a trail w incline/ decline, roots, beach w bilateral walking sticks [place]. Pt states she felt she did well and felt well. PT-OP-G Mobility & Gait Start: 11/20/24 13:07 Freq: Status: Active Protocol: Document 11/28/24 10:50 MB (Rec: 11/28/24 16:48 MB [id number]) OP Gait Assessment Comments Gait Comments Pt con't with slow gait, antalgic gait pattern and forward flexed posture and she tends to keep her arms behind her back PT-OP-J Posture/Palpation/Skin Start: 11/20/24 13:07 Freq: Status: Active Protocol: Document 11/28/24 10:50 MB (Rec: 11/28/24 11:30 MB [id number]) Posture Evaluation Comments Posture Comments Standing posture: thoracic kyphosis and left convexity thoracic spine, right convexity lumbar spine and increase lordosis, right iliac crest is higher than the left , posture has left lateral shift in standing with right shoulder medial to right hip and left shoulder lateral to left hip Spinal movement in standing: forward flexion with fingers 2 from the floor, repeated flexion does not increase symptoms, feels tightness in hamstrings; lumbar extension is very minimal at 2 deg and repeated extension does increase symptoms; B SB with increased weight shift laterally and more to the right with left SB and SB about 10 deg B and increased tightness with movement. PT-OP-M Strength Start: 11/20/24 13:07 Freq: Status: Active Protocol: Document 11/28/24 10:50 MB (Rec: 11/28/24 11:30 MB [id number]) Hip Strength Hip Manual Muscle Testing Left Flexion (L2) 5 Normal Abduction 5 Normal Right Flexion (L2) 4+ Good+ Abduction 4+ Good+ Knee Strength Knee Manual Muscle Testing Left Flexion (S2) 5 Normal Extension (L3) 5 Normal Right Flexion (S2) 4+ Good+ Extension (L3) 4+ Good+ Ankle/Foot Strength Ankle and Foot Manual Muscle Testing Bilateral Dorsiflexion (L4) 5 Normal Toe Strength Toe Manual Muscle Testing Left Great Toe Extension 4- Good- Right Great Toe Extension 4 Good PT-OP-Q Treatments Start: 11/20/24 13:07 Freq: Status: Active Protocol: Document 04/17/25 09:51 PG (Rec: 04/17/25 10:55 PG Laptop) Therapeutic Exercises Sitting Exercises HS stretch Sitting Exercise Name Added to HEP as an option for stretching Side bilateral Reps/Minutes 20-30 sec each Comments cued for hip hinge over thigh, bottom at edge of seat Standing Exercises OTAGO Marching Standing Exercise Name Reviewed and Added to HEP w HO Side bilateral Resistance 2# ankle weights Equipment Used BUE on railing Reps/Minutes x20 Comments Continued OTAGO Hip abdcution Standing Exercise Name Reviewed and Added to HEP w HO Side bilateral Equipment Used BUE on railing Reps/Minutes x10 each OTAGO heel raises Standing Exercise Name Reviewed Side bilateral Resistance 2# ankle weights Equipment Used railing for fingertip UE support Reps/Minutes x30 OTAGO hip extension Standing Exercise Name Reviwed Side bilateral Resistance 2# ankle weights Equipment Used railing for fingertip UE support Comments knee straight, within pn free range OTAGO HS curls Standing Exercise Name Reviewed Side bilateral Resistance 2# ankle weights Equipment Used railing for fingertip UE support Reps/Minutes x10 each alternating Stationary Lunges Standing Exercise Name Reviewed Side bilateral Equipment Used BUE support on railing Reps/Minutes 10x each Comments cued for wider CAMI and back knee bend twrd floor Wall squat w hip abd Standing Exercise Name Reviewed: added lvl 3 ([place]) band Comments cues for chin ck Neuro Re-Education Treatment Balance Activities FGA activities for home Details Reviewed heel to toe walking fwrd/bckwrd Surface floor Equipment 1UE support on railing Reps/Duration length of railing Comments - DC'd fwd walking w head turns/nods from HEP - too easy . PT-OP-R Modalities Start: 11/20/24 13:07 Freq: Status: Active Protocol: Document 12/26/24 10:47 SP (Rec: 12/26/24 11:36 SP [id number]) Electric Stimulation Electric Stimulation Interferential Current (IFC) Body Location B LS paraspinals, R glut, R lateral hip Intensity 15 Patient Position Hooklying Combined With Heat/Cold Hot Pack Comments 10 min: Continuous PT-OP-T Assessment and Plan Start: 11/20/24 13:07 Freq: Status: Active Protocol: Document 04/17/25 09:51 PG (Rec: 04/17/25 10:55 PG Laptop) Physical Therapy Assessment Rehab Potential Rehabilitation Potential Good Evaluation Complexity Number of Personal Factors/Comorbidities 1-2 Number of Body Systems Impaired 1-2 Clinical Presentation at Evaluation Evolving Impairments Impairments Activity Tolerance,Balance, Functional Activities, Functional Mobility,Gait,Pain, Posture,ROM,Soft Tissue Mobility,Strength Goals 6 Impairment Pt not driving d/t pain Respiratory Services Manager Goal (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 02/13/25: Pt has not yet tried short driving. 03/19/25: Pt has not yet tried driving and she will start next week when she is off steroids. 03/29/25: Pt driving short distances (to PT/store) with no pain, drove about 15 minutes today before tx and will be driving home 04/03/25: Pt is driving short distances multiple times a week, just in town in [place] LTG Duration New goal for next 8 weeks - Goal Met: 03/27/25 5 Impairment Oswestry score reflects 54% impairment Custodial Goal (LTG) Pt reporting right hip and LBP and so updated goal for Oswestry instead of LEF score. Pt will present with Oswestry score reflecting no more than 25% impairment to improve quality of life and mobility. 02/13/25: Oswestry score reflects 46% impairment and this is 8% improved since last progress note, only small improvement 03/19/25: Oswestry score reflects 30% impairment, 16% improvement 04/03/25: Oswestry score reflects 32% impairment, close to last progress note LTG Duration New goal for next 8 weeks 4 Impairment Lack of HEP Respiratory Services Manager Goal (LTG) Pt will perform HEP with I including pelvic realignment exercises, flexibility, gentle core and LE strengthening, and balance exercises to improve pain and function. 12/24/24: Pt is able to tolerate pelvic realignment exercises, Shaun stretch, gastroc stretches in standing, side lying and arm overhead, she has not always been doing her diaphragm breathing 01/15/25: Pt is performing the following exercises at home: pelvic realignment exercises, calf stretches, gentle core progression, practicing breathing, Shaun stretch, walking 02/13/25: Pt is performing most exercises and including spinal alignment exercises, she is hanging in the doorway a little and this is helpful. 03/19/25: Pt is performing exercises, is feeling better, is walking further with hiking sticks and thinking about her posture. 04/03/25: Pt is doing all exercises as prescribed and she is doing less of the ones PT and her discussed performing less LTG Duration 8 weeks, Progressing 3 Impairment Evidence of imbalance Respiratory Services Manager Goal (LTG) Pt will perform WNLs on a standardized balance test to decrease fall risk. 12/24/24: Pt cannot tolerate FGA test today and her gait con't to be slow and careful 01/15/25: Pt tolerates FGA though her gait is slow and antalgic and score is 16/30 02/13/25: FGA score is 17/30, one point better than last progress note 03/19/25: FGA score is improved at 20/30 04/03/25: FGA score: 24/30, which is WNLs and improved, will con't to see if she can progress further LTG Duration 8 weeks, Progressing 2 Impairment Painful walking Custodial Goal (LTG) Pt will gait train at least 1413 feet in 6 minutes with or without AD to improve community ambulation. 12/24/24: Pt gait trains 729 feet with B walking sticks in 6 minutes with slow johnson and reports of 6/10 right sided hip and SI joint pain after gait 01/09/25: 951 ft in 6 min /c B trek poles, increase 222 ft. 01/15/25: Pt gait trains 1186 feet in 6 minutes with B trekking poles and right SI and back pain increases from 5 to 5.5 with gait 02/13/25: Pt gait trains 1234 feet in six minutes with 4/10 pain across LB before that increases to 5/10 by the end. She has forward head and relatively level and still shoulders with good arm swing with gait despite very high right hemipelvis and right arm naturally curves to swing around hip. Occ scuffing of steps. 03/19/25: Pain before 6MWT is 3 /10: pain after gait is 3/10 and she gait trains 1300 feet in 6 minutes, which is much improved 04/03/25: Pt gait trains 1497 feet in 6 minutes with better arm swing and gait speed and c /o 2/10 back pain before and after LTG Duration 8 weeks, met gait distance, con't to try to reach 0/10 pain Assessment Summary Assessment Continued working and progressing lower extremity strengthening. Pt was able to perform marches and hip abduction with 2# ankle weights during tx today due to no hip/LBP that she had been feeling last week, added to HEP and updated HO. Continued condensing HEP program, reviewed stationary lunge form . W v/c's to widen CAMI and bend back knee toward floor pt was able to demonstrate good form bilaterally. Physical Therapy Plan Frequency and Duration Frequency of Treatment 2x/Week Duration of treatment (weeks) 8 Plan of Care Start Date 04/01/25 Plan of Care End Date 06/03/25 Therapeutic Interventions Therapeutic Interventions Balance Training,Canalithic Repositioning,Coordination Training,Gait Training,Home Exercise Program,Joint Mobilizations,Manual Therapy, Neuromuscular Re-education, Patient/Caregiver Education, Self-Care/Home Management,Soft Tissue Mobilization,Taping, Therapeutic Activities, Therapeutic Exercises Modalities Cold Pack/Ice Massage,Electric Stimulation,Hot Packs, Ultrasound Next Visit Focus/Plan Next Note Type Treatment Note Next Visit Plan Next: Progress stationary lunges to fwrd lunges. Pt has a lot of exercises and so can con't to take some away.
--- NOTE | 2025-04-19 09:02 | PT.OTN ---
Current Diagnoses Low back pain, unspecified (04/19/25) Trochanteric bursitis, right hip (04/19/25) Physical Therapy Treatment Note PT-OP-A Visit Information Start: 11/20/24 13:07 Freq: Status: Active Protocol: Document 04/19/25 09:02 PG (Rec: 04/19/25 09:45 PG Laptop) Out-Patient Physical Therapy Visit Information Visit Information Visit Type Treatment Note Visit Note No KX SPTA, Radha led tx w pt's permission and direct supervision of Adina SU Visit Start Time 09:02 Visit Stop Time 09:44 Visit Number 30 Number of PUGGER HELPER Visits 3 Evaluation Information Evaluation Date 11/28/24 Precautions Precautions Be mindful of spine s/p OP and L1 compression fracture, keep back precautions and log rolling in mind, pt with multiple areas of bruising. new: Severe osteopenia via Dexa Scan. PT-OP-B Current Condition Start: 11/20/24 13:07 Freq: Status: Active Protocol: Document 11/28/24 10:50 MB (Rec: 11/28/24 11:30 MB [id number]) Current Condition History of Current Condition Onset Date 11/08/24 after end of long flight and car travel Current Complaints Right lateral hip, SI and groin pain History of Current Condition Pt states she has started Gabapentin and it is making her a little dizzy and a little slow. She is doing calf stretches and pelvic realignment exercises as instructed by this PT from last PT course and she is up to walking 10 minutes around her house. With the Gabapentin, pt is not having as much sharp spasms in back and into leg. She denies numbness and tingling in right leg. Pt had a bad fall 08/20 on brick in [place] and hurt her right knee and hip. Prior Treatments and Tests Right hip x-ray 11/17: IMPRESSION: [id number] bilateral hip arthrosis. No acute radiographic abnormality. If there is high concern for further derangement, consider MRI evaluation. Thoracic spine 11/19: FINDINGS: Bones: Mild superior endplate compression fracture of L1 is of uncertain chronicity. Mild chronic wedging of T8 and T9. No other possible acute compression fractures identified. No suspicious bony lesions. 12 pairs of ribs are noted, and appear intact where visualized. Soft tissues: No paravertebral stripe thickening. IMPRESSION: A mild superior endplate compression of L1 is of uncertain chronicity. Consider lumbar spine MRI to document presence or absence of edema. Treatment Goals Patient/Caregiver Goals To decrease pain PT-OP-C Subjective Start: 11/20/24 13:07 Freq: Status: Active Protocol: Document 04/19/25 09:02 PG (Rec: 04/19/25 09:45 PG Laptop) OP-PT Subjective Patient Comments Patient Comments Pt went to [facility] with family . 2 hour round trip in the car and an hour walking around , pt states she did okay, maybe 1-2/10 pn. Used her fleece vest to roll and place it behind her back if needed. Will be going on a 4+ hr drive , may stop to get up and move around. PT-OP-G Mobility & Gait Start: 11/20/24 13:07 Freq: Status: Active Protocol: Document 11/28/24 10:50 MB (Rec: 11/28/24 16:48 MB [id number]) OP Gait Assessment Comments Gait Comments Pt con't with slow gait, antalgic gait pattern and forward flexed posture and she tends to keep her arms behind her back PT-OP-J Posture/Palpation/Skin Start: 11/20/24 13:07 Freq: Status: Active Protocol: Document 11/28/24 10:50 MB (Rec: 11/28/24 11:30 MB [id number]) Posture Evaluation Comments Posture Comments Standing posture: thoracic kyphosis and left convexity thoracic spine, right convexity lumbar spine and increase lordosis, right iliac crest is higher than the left , posture has left lateral shift in standing with right shoulder medial to right hip and left shoulder lateral to left hip Spinal movement in standing: forward flexion with fingers 2 from the floor, repeated flexion does not increase symptoms, feels tightness in hamstrings; lumbar extension is very minimal at 2 deg and repeated extension does increase symptoms; B SB with increased weight shift laterally and more to the right with left SB and SB about 10 deg B and increased tightness with movement. PT-OP-M Strength Start: 11/20/24 13:07 Freq: Status: Active Protocol: Document 11/28/24 10:50 MB (Rec: 11/28/24 11:30 MB [id number]) Hip Strength Hip Manual Muscle Testing Left Flexion (L2) 5 Normal Abduction 5 Normal Right Flexion (L2) 4+ Good+ Abduction 4+ Good+ Knee Strength Knee Manual Muscle Testing Left Flexion (S2) 5 Normal Extension (L3) 5 Normal Right Flexion (S2) 4+ Good+ Extension (L3) 4+ Good+ Ankle/Foot Strength Ankle and Foot Manual Muscle Testing Bilateral Dorsiflexion (L4) 5 Normal Toe Strength Toe Manual Muscle Testing Left Great Toe Extension 4- Good- Right Great Toe Extension 4 Good PT-OP-Q Treatments Start: 11/20/24 13:07 Freq: Status: Active Protocol: Document 04/19/25 09:02 PG (Rec: 04/19/25 09:45 PG Laptop) Therapeutic Exercises Standing Exercises STS Standing Exercise Name STS with overhead press while standing and bicep curl while seated Resistance #2 ankle weights in hands (pt has at home) Equipment Used black foam on seat to decrease depth of chair Reps/Minutes several Comments cued for glute engagement, bicep curl with elbows by side . Fwrd/Lat Lunges Standing Exercise Name Forward and Lateral lunges Side bilateral Equipment Used 1UE to 2UE support Stationary Lunges Standing Exercise Name Forward and Lateral Side bilateral Equipment Used 1 to 2 UE support Reps/Minutes 10x each Comments cued for wider CAMI Neuro Re-Education Treatment Balance Activities FGA activities for home Details Bckwrd walking/ walking with eyes closes Surface floor Equipment Hand graze on wall Reps/Duration length of hallway PT-OP-R Modalities Start: 11/20/24 13:07 Freq: Status: Active Protocol: Document 12/26/24 10:47 SP (Rec: 12/26/24 11:36 SP [id number]) Electric Stimulation Electric Stimulation Interferential Current (IFC) Body Location B LS paraspinals, R glut, R lateral hip Intensity 15 Patient Position Hooklying Combined With Heat/Cold Hot Pack Comments 10 min: Continuous PT-OP-T Assessment and Plan Start: 11/20/24 13:07 Freq: Status: Active Protocol: Document 04/19/25 09:02 PG (Rec: 04/19/25 09:45 PG Laptop) Physical Therapy Assessment Rehab Potential Rehabilitation Potential Good Evaluation Complexity Number of Personal Factors/Comorbidities 1-2 Number of Body Systems Impaired 1-2 Clinical Presentation at Evaluation Evolving Impairments Impairments Activity Tolerance,Balance, Functional Activities, Functional Mobility,Gait,Pain, Posture,ROM,Soft Tissue Mobility,Strength Goals 6 Impairment Pt not driving d/t pain Long-Term Goal (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 02/13/25: Pt has not yet tried short driving. 03/19/25: Pt has not yet tried driving and she will start next week when she is off steroids. 03/29/25: Pt driving short distances (to PT/store) with no pain, drove about 15 minutes today before tx and will be driving home 04/03/25: Pt is driving short distances multiple times a week, just in town in [place] LTG Duration New goal for next 8 weeks - Goal Met: 03/27/25 5 Impairment Oswestry score reflects 54% impairment Aviation Electronics Technician Goal (LTG) Pt reporting right hip and LBP and so updated goal for Oswestry instead of LEF score. Pt will present with Oswestry score reflecting no more than 25% impairment to improve quality of life and mobility. 02/13/25: Oswestry score reflects 46% impairment and this is 8% improved since last progress note, only small improvement 03/19/25: Oswestry score reflects 30% impairment, 16% improvement 04/03/25: Oswestry score reflects 32% impairment, close to last progress note LTG Duration New goal for next 8 weeks 4 Impairment Lack of HEP Long-Term Goal (LTG) Pt will perform HEP with I including pelvic realignment exercises, flexibility, gentle core and LE strengthening, and balance exercises to improve pain and function. 12/24/24: Pt is able to tolerate pelvic realignment exercises, Shaun stretch, gastroc stretches in standing, side lying and arm overhead, she has not always been doing her diaphragm breathing 01/15/25: Pt is performing the following exercises at home: pelvic realignment exercises, calf stretches, gentle core progression, practicing breathing, Shaun stretch, walking 02/13/25: Pt is performing most exercises and including spinal alignment exercises, she is hanging in the doorway a little and this is helpful. 03/19/25: Pt is performing exercises, is feeling better, is walking further with hiking sticks and thinking about her posture. 04/03/25: Pt is doing all exercises as prescribed and she is doing less of the ones PT and her discussed performing less LTG Duration 8 weeks, Progressing 3 Impairment Evidence of imbalance Aviation Electronics Technician Goal (LTG) Pt will perform WNLs on a standardized balance test to decrease fall risk. 12/24/24: Pt cannot tolerate FGA test today and her gait con't to be slow and careful 01/15/25: Pt tolerates FGA though her gait is slow and antalgic and score is 16/30 02/13/25: FGA score is 17/30, one point better than last progress note 03/19/25: FGA score is improved at 20/30 04/03/25: FGA score: 24, which is WNLs and improved, will con't to see if she can progress further LTG Duration 8 weeks, Progressing 2 Impairment Painful walking Aviation Electronics Technician Goal (LTG) Pt will gait train at least 1413 feet in 6 minutes with or without AD to improve community ambulation. 12/24/24: Pt gait trains 729 feet with B walking sticks in 6 minutes with slow johnson and reports of 6/10 right sided hip and SI joint pain after gait 01/09/25: 951 ft in 6 min /c B trek poles, increase 222 ft. 01/15/25: Pt gait trains 1186 feet in 6 minutes with B trekking poles and right SI and back pain increases from 5 to 5.5 with gait 02/13/25: Pt gait trains 1234 feet in six minutes with 4/10 pain across LB before that increases to 5/10 by the end. She has forward head and relatively level and still shoulders with good arm swing with gait despite very high right hemipelvis and right arm naturally curves to swing around hip. Occ scuffing of steps. 03/19/25: Pain before 6MWT is 3 /10: pain after gait is 3/10 and she gait trains 1300 feet in 6 minutes, which is much improved 04/03/25: Pt gait trains 1497 feet in 6 minutes with better arm swing and gait speed and c /o 2/10 back pain before and after LTG Duration 8 weeks, met gait distance, con't to try to reach 0/10 pain Assessment Summary Assessment Continued to work on progressing HEP. Pt able to perform both stationary and fwrd/lateral step lunges with light UE support and good form . Added STS exercise with an overhead press and bicep curl to work on full body strengthening. With cues for bicep curl form and to focus on slow eccentric control when sitting down pt was able to tolerate activity well. Physical Therapy Plan Frequency and Duration Frequency of Treatment 2x/Week Duration of treatment (weeks) 8 Plan of Care Start Date 04/01/25 Plan of Care End Date 06/03/25 Therapeutic Interventions Therapeutic Interventions Balance Training,Canalithic Repositioning,Coordination Training,Gait Training,Home Exercise Program,Joint Mobilizations,Manual Therapy, Neuromuscular Re-education, Patient/Caregiver Education, Self-Care/Home Management,Soft Tissue Mobilization,Taping, Therapeutic Activities, Therapeutic Exercises Modalities Cold Pack/Ice Massage,Electric Stimulation,Hot Packs, Ultrasound Next Visit Focus/Plan Next Note Type Treatment Note Next Visit Plan Next: 6min walk test, progress stationary lunges to fwrd lunges. Finalize HEP and DC after 3 tx's.
--- NOTE | 2025-04-24 12:22 | PT.OTN ---
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 02/13/25 new: Severe osteopenia via Dexa Scan. PT-OP-B Current Condition Start: 11/20/24 13:07 Freq: Status: Active Protocol: Document 11/28/24 10:50 MB (Rec: 11/28/24 11:30 MB [id number]) Current Condition History of Current Condition Onset Date 11/08/24 after end of long flight and car travel Current Complaints Right lateral hip, SI and groin pain History of Current Pt states she has started Gabapentin and it is making Condition her a little dizzy and a little slow. She is doing calf stretches and pelvic realignment exercises as instructed by this PT from last PT course and she is up to walking 10 minutes around her house. With the Gabapentin, pt is not having as much sharp spasms in back and into leg. She denies numbness and tingling in right leg. Pt had a bad fall 08/20 on brick in [place] and hurt her right knee and hip. Prior Treatments and Right hip x-ray 11/17: Tests IMPRESSION: [id number] bilateral hip arthrosis. No acute radiographic abnormality. If there is high concern for further derangement, consider MRI evaluation. Thoracic spine 11/19: FINDINGS: Bones: Mild superior endplate compression fracture of L1 is of uncertain chronicity. Mild chronic wedging of T8 and T9. No other possible acute compression fractures identified. No suspicious bony lesions. 12 pairs of ribs are noted, and appear intact where visualized. Soft tissues: No paravertebral stripe thickening. IMPRESSION: A mild superior endplate compression of L1 is of uncertain chronicity. Consider lumbar spine MRI to document presence or absence of edema. Treatment Goals Patient/Caregiver To decrease pain Goals PT-OP-C Subjective Start: 11/20/24 13:07 Freq: Status: Active Protocol: Document 04/24/25 11:35 MB (Rec: 04/24/25 12:22 MB Desktop) OP-PT Subjective Patient Comments Patient Comments Pt is asking about maintenance plan. Pt has taken two and three hour drives in one day and this overdid it. She gets the pain in her right pelvis. PT-OP-G Mobility & Gait Start: 11/20/24 13:07 Freq: Status: Active Protocol: Document 11/28/24 10:50 MB (Rec: 11/28/24 16:48 MB [id number]) OP Gait Assessment Comments Gait Comments Pt con't with slow gait, antalgic gait pattern and forward flexed posture and she tends to keep her arms behind her back PT-OP-J Posture/Palpation/Skin Start: 11/20/24 13:07 Freq: Status: Active Protocol: Document 11/28/24 10:50 MB (Rec: 11/28/24 11:30 MB [id number]) Posture Evaluation Comments Posture Comments Standing posture: thoracic kyphosis and left convexity thoracic spine, right convexity lumbar spine and increase lordosis, right iliac crest is higher than the left, posture has left lateral shift in standing with right shoulder medial to right hip and left shoulder lateral to left hip Spinal movement in standing: forward flexion with fingers 2 from the floor, repeated flexion does not increase symptoms, feels tightness in hamstrings; lumbar extension is very minimal at 2 deg and repeated extension does increase symptoms; B SB with increased weight shift laterally and more to the right with left SB and SB about 10 deg B and increased tightness with movement. PT-OP-M Strength Start: 11/20/24 13:07 Freq: Status: Active Protocol: Document 11/28/24 10:50 MB (Rec: 11/28/24 11:30 MB [id number]) Hip Strength Hip Manual Muscle Testing Left Flexion (L2) 5 Normal Abduction 5 Normal Right Flexion (L2) 4+ Good+ Abduction 4+ Good+ Knee Strength Knee Manual Muscle Testing Left Flexion (S2) 5 Normal Extension (L3) 5 Normal Right Flexion (S2) 4+ Good+ Extension (L3) 4+ Good+ Ankle/Foot Strength Ankle and Foot Manual Muscle Testing Bilateral Dorsiflexion (L4) 5 Normal Toe Strength Toe Manual Muscle Testing Left Great Toe Extension 4- Good- Right Great Toe Extension 4 Good PT-OP-Q Treatments Start: 11/20/24 13:07 Freq: Status: Active Protocol: Document 04/24/25 11:35 MB (Rec: 04/24/25 12:22 MB Desktop) Gait Training Gait Activity 6MWT Comments See findings under goals and surpassed goal today and pt gait trains at least 8' during treatment Neuro Re-Education Treatment Balance Activities FGA Comments See goals today for performance Self-Care/Home Management Treatment Education Patient Education Body Mechanics,Home Exercise Program,Pain Management, Posture,Safety Other Education Ed pt on maintenance and pain management, energy conservation, stretches as needed, strengthening 3x/wk, con't walking, one day off a week, consider pool therapy PT-OP-R Modalities Start: 11/20/24 13:07 Freq: Status: Active Protocol: Document 12/26/24 10:47 SP (Rec: 12/26/24 11:36 SP [id number]) Electric Stimulation Electric Stimulation Interferential Current (IFC) Body Location B LS paraspinals, R glut, R lateral hip Intensity 15 Patient Position Hooklying Combined With Heat/ Hot Pack Cold Comments 10 min: Continuous PT-OP-T Assessment and Plan Start: 11/20/24 13:07 Freq: Status: Active Protocol: Document 04/24/25 11:35 MB (Rec: 04/24/25 12:22 MB Desktop) Physical Therapy Assessment Rehab Potential Rehabilitation Good Potential Evaluation Complexity Number of Personal 1-2 Factors/ Comorbidities Number of Body 1-2 Systems Impaired Clinical Evolving Presentation at Evaluation Impairments Impairments Activity Tolerance,Balance,Functional Activities, Functional Mobility,Gait,Pain,Posture,ROM,Soft Tissue Mobility,Strength Goals 6 Impairment Pt not driving d/t pain Detention Goal (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 02/13/25: Pt has not yet tried short driving. 03/19/25: Pt has not yet tried driving and she will start next week when she is off steroids. 03/29/25: Pt driving short distances (to PT/store) with no pain, drove about 15 minutes today before tx and will be driving home 04/03/25: Pt is driving short distances multiple times a week, just in town in [place] 04/24/25: Pt has been back to driving LTG Duration Met 5 Impairment Oswestry score reflects 54% impairment Detention Goal (LTG) Pt reporting right hip and LBP and so updated goal for Oswestry instead of LEF score. Pt will present with Oswestry score reflecting no more than 25% impairment to improve quality of life and mobility. 02/13/25: Oswestry score reflects 46% impairment and this is 8% improved since last progress note, only small improvement 03/19/25: Oswestry score reflects 30% impairment, 16% improvement 04/03/25: Oswestry score reflects 32% impairment, close to last progress note 04/24/25: Oswestery goal is met and reflects 22% impairment LTG Duration Met 4 Impairment Lack of HEP User Experience Lead Goal (LTG) Pt will perform HEP with I including pelvic realignment exercises, flexibility, gentle core and LE strengthening, and balance exercises to improve pain and function. 12/24/24: Pt is able to tolerate pelvic realignment exercises, Shaun stretch, gastroc stretches in standing, side lying and arm overhead, she has not always been doing her diaphragm breathing 01/15/25: Pt is performing the following exercises at home: pelvic realignment exercises, calf stretches, gentle core progression, practicing breathing, Shaun stretch, walking 02/13/25: Pt is performing most exercises and including spinal alignment exercises, she is hanging in the doorway a little and this is helpful. 03/19/25: Pt is performing exercises, is feeling better, is walking further with hiking sticks and thinking about her posture. 04/03/25: Pt is doing all exercises as prescribed and she is doing less of the ones PT and her discussed performing less 04/24/25: Pt is performing HEP LTG Duration Met 3 Impairment Evidence of imbalance Detention Goal (LTG) Pt will perform WNLs on a standardized balance test to decrease fall risk. 12/24/24: Pt cannot tolerate FGA test today and her gait con't to be slow and careful 01/15/25: Pt tolerates FGA though her gait is slow and antalgic and score is 16/30 02/13/25: FGA score is 17/30, one point better than last progress note 03/19/25: FGA score is improved at 20/30 04/03/25: FGA score: 24/30, which is WNLs and improved, will con't to see if she can progress further 04/24/25: FGA score: 20/30 today and not improved LTG Duration Met 2 Impairment Painful walking Detention Goal (LTG) Pt will gait train at least 1413 feet in 6 minutes with or without AD to improve community ambulation. 12/24/24: Pt gait trains 729 feet with B walking sticks in 6 minutes with slow johnson and reports of 6/10 right sided hip and SI joint pain after gait 01/09/25: 951 ft in 6 min /c B trek poles, increase 222 ft. 01/15/25: Pt gait trains 1186 feet in 6 minutes with B trekking poles and right SI and back pain increases from 5 to 5.5 with gait 02/13/25: Pt gait trains 1234 feet in six minutes with 4 /10 pain across LB before that increases to 5/10 by the end. She has forward head and relatively level and still shoulders with good arm swing with gait despite very high right hemipelvis and right arm naturally curves to swing around hip. Occ scuffing of steps. 03/19/25: Pain before 6MWT is 3/10: pain after gait is 3 /10 and she gait trains 1300 feet in 6 minutes, which is much improved 04/03/25: Pt gait trains 1497 feet in 6 minutes with better arm swing and gait speed and c/o 2/10 back pain before and after 04/24/25: Pt gait trains 1510 feet in 6 minutes and pt reports 1/10 right SI and LBP that is similar to when she entered clinic LTG Duration Surpassed goal Assessment Summary Assessment Pt has met all goals since starting PT and is ready to d/c PT. Physical Therapy Plan Frequency and Duration Frequency of 2x/Week Treatment Duration of 8 treatment (weeks) Plan of Care Start 04/01/25 Date Plan of Care End 06/03/25 Date Therapeutic Interventions Therapeutic Balance Training,Canalithic Repositioning,Coordination Interventions Training,Gait Training,Home Exercise Program,Joint Mobilizations,Manual Therapy,Neuromuscular Re-education ,Patient/Caregiver Education,Self-Care/Home Management, Soft Tissue Mobilization,Taping,Therapeutic Activities, Therapeutic Exercises Modalities Cold Pack/Ice Massage,Electric Stimulation,Hot Packs, Ultrasound Next Visit Focus/Plan Next Note Type Treatment Note
== END 2025-04-25 13:33 | disposition home or self-care (01) ==
LOC: PHYS 11:30
PROVIDERS: Family Provider Internal Medicine; PCP Internal Medicine; Referring Provider Internal Medicine; Visit Provider Internal Medicine
DX: M54.50 Low back pain, unspecified (principal); M70.61 Trochanteric bursitis, right hip
CPT/HCPCS: 97014; 97110; 97112; 97116; 97140; 97162; 97530; 97535; G0283

== ENCOUNTER → 2025-05-31 13:43 | Outpatient (CLI) | payer MEDICARE, SELFPAY ==
[2025-05-31 14:32] LABS: Add Manual Diff / Slide Review NO; Hematocrit 38.0 % (36-46); Hemoglobin 13.1 g/dL (12.0-16.0); Lymphocytes Absolute Auto 1200 /uL (1100-4500); Mean Corpuscular HGB Conc 34.6 % (30-36); Mean Corpuscular Hemoglobin 32.0 PG (26-34); Mean Corpuscular Volume 92.4 fL (80-100); Platelet Count 203 X10^3/uL (150-400)
[2025-05-31 14:52] LABS: Alanine Aminotransferase 21 IU/L (<35); Albumin 4.3 g/dL (3.5-5.0); Albumin Globulin Ratio 1.7 (1.0-2.8); Alkaline Phosphatase 74 U/L (38-126); Blood Urea Nitrogen 18 mg/dL (7-17); Calcium 9.6 mg/dL (8.4-10.2); Carbon Dioxide 22 mmol/L (22-32); Chloride 107 mmol/L (98-107); Estimated Glomerular Filt Rate > 60 mL/min (>60); Globulin 2.5 g/dL (1.7-4.1); Glucose 87 mg/dL (70-99); HEMOLYSIS < 15 (0-50); Potassium 3.9 mmol/L (3.4-5.1); Sodium 139 mmol/L (137-145); Total Protein 6.8 g/dL (6.3-8.2); Uric Acid 2.1 mg/dL (2.5-6.2)
[2025-05-31 15:17] LABS: Thyroid Stimulating Hormone 1.44 uIU/mL (0.47-4.68)
[2025-06-01 08:11] LABS: CRP, High Sensitivity 0.68 mg/L (0.00-3.00)
[2025-06-01 22:36] LABS: SS A Ro Sjogrens Antibody < 0.2 AI (0.0-0.9); SS B La Sjogrens Antibody < 0.2 AI (0.0-0.9)
[2025-06-04 11:11] LABS: ANA Screen, IFA Negative (.)
[2025-06-04 20:08] LABS: Antimyeloperoxidase Antibodies <0.2 units (0.0-0.9); Antiproteinase 3 Antibodies <0.2 units (0.0-0.9)
== END ==
LOC: LAB 13:44
PROVIDERS: Family Provider Internal Medicine; PCP Internal Medicine; Referring Provider Ophthalmology; Visit Provider Ophthalmology
DX: H04.123 Dry eye syndrome of bilateral lacrimal glands (principal); H04.321 Acute dacryocystitis of right lacrimal passage
CPT/HCPCS: 36415; 80053; 82164; 84443; 84550; 85025; 85651; 86038; 86140; 86235; 86256; 86430

== ENCOUNTER → 2025-06-20 10:43 | Outpatient (CLI) | payer MEDICARE, SELFPAY ==
--- NOTE | 2025-06-20 10:44 | DI.CT.S_ITS ---
PROCEDURE: CT CHEST WO CON INDICATIONS: CHRONIC COUGH TECHNIQUE: Noncontrast 5 mm thick sections acquired from the pulmonary apices to the posterior costophrenic angles. 1 mm lung window, 5 mm thick coronal and sagittal and 7 mm axial MIP reformats were then acquired. For radiation dose reduction, the following was used: automated exposure control, adjustment of mA and/or kV according to patient size. COMPARISON: [facility], CT, CT CHEST WO CON, 04/23/2022, 11:18. FINDINGS: Image quality: Diagnostic. Lower Neck: No enlarged lymph nodes. Thyroid: No thyroid nodules which require sonographic follow up, per consensus guidelines. Axillae: No enlarged lymph nodes. Chest Wall: Unremarkable. Bones: L1 compression deformity without endplate retropulsion . Lungs and Pleura: No pneumothorax or pleural effusions. Calcified granuloma. Heart: Heart size is normal. No pericardial effusion. Three-vessel coronary artery calcifications. Thoracic Vessels: The aorta and pulmonary arteries demonstrate normal size. Mediastinum and Ruthann: No enlarged lymph nodes. Esophagus: No wall thickening. Large hiatal hernia. Upper Abdomen: Macro lobulated liver contour. Partially visualized left renal cyst with fluid attenuation. IMPRESSION: No acute pulmonary process. Large hiatal hernia. Macro lobulated liver contour, which may indicate cirrhosis. Dictated by: Eliseo Rodriguez M.D. on 06/20/2025 at 11:53 Approved by: Eliseo Rodriguez M.D. on 06/20/2025 at 11:56
== END ==
LOC: CT 10:44
PROVIDERS: Family Provider Internal Medicine; PCP Internal Medicine; Referring Provider Internal Medicine; Visit Provider Internal Medicine
DX: R05.3 Chronic cough (principal); M43.8X6 Other specified deforming dorsopathies, lumbar region; J98.4 Other disorders of lung; I25.10 Atherosclerotic heart disease of native coronary artery without angina pectoris; K44.9 Diaphragmatic hernia without obstruction or gangrene; R93.2 Abnormal findings on diagnostic imaging of liver and biliary tract; N28.1 Cyst of kidney, acquired
CPT/HCPCS: 71250

== ENCOUNTER → 2025-06-26 07:51 | Outpatient (CLI) | payer MEDICARE, SELFPAY ==
--- NOTE | 2025-06-26 07:52 | DI.US.S_ITS ---
PROCEDURE: US ABDOMEN LIMITED INDICATIONS: abnormal liver conture on CT TECHNIQUE: Real-time scanning was performed of the abdominal and retroperitoneal organs, with image documentation. COMPARISON: [facility], CT, CT CHEST WO [facility], 06/20/2025, 10:53. FINDINGS: Liver: Liver is normal in size and homogeneous in echotexture. Mildly lobulated contours. No sonographic evidence for cirrhosis. No focal intrahepatic masses. Gallbladder: No gallstones. No wall thickening. No pericholecystic edema. Negative sonographic Buenrostro's sign. Biliary ducts: Intrahepatic bile ducts are non-dilated. Extrahepatic bile duct caliber measures 4 mm. Normal is 6-7 mm or less in diameter, or 10 mm or less post-cholecystectomy. Pancreas: Visualized portions of the pancreas are sonographically normal. Miscellaneous: No free abdominal fluid. IMPRESSION: Mildly macro lobulated liver contours without sonographic evidence for cirrhosis or focal intrahepatic abnormalities. Otherwise, unremarkable sonographic evaluation of the right upper quadrant. Dictated by: King Patel M.D. on 06/26/2025 at 15:19 Approved by: King Patel M.D. on 06/26/2025 at 15:25
== END ==
PROVIDERS: Family Provider Internal Medicine; PCP Internal Medicine; Referring Provider Internal Medicine; Visit Provider Internal Medicine
DX: R93.5 Abnormal findings on diagnostic imaging of other abdominal regions, including retroperitoneum (principal)
CPT/HCPCS: 76705